=== PATIENT | male | born 1960 | race Caucasian/White ===

== ENCOUNTER → 2016-11-15 | Outpatient (CLI) | payer OTHER ==
--- NOTE | 2016-11-15 19:16 | CT ---
EXAMINATION TYPE: CT abdomen pelvis wo con DATE OF EXAM: 11/15/2016 COMPARISON: NONE HISTORY: Pelvic pain and hematuria. CT DLP: 2400.40 mGycm Automated exposure control for dose reduction was used. TECHNIQUE: Helical acquisition of images was performed from the lung bases through the pelvis. FINDINGS: The lung bases are clear of consolidation. There is no pleural effusion. Heart size is normal. Liver spleen pancreas gallbladder appear normal. Bile ducts are nondilated. There is no adrenal mass. Kidneys have normal size and contour. There is no hydronephrosis. There is no retroperitoneal adenop athy. There is no ascites. I see no intestinal wall thickening. There are no dilated loops. Bladder d istends smoothly. There is no sign of a pelvic mass. Appendix appears normal. Terminal ileum appears normal. There is no sign of a pelvic mass. I see no bony destructive process. There is degenerative d isc space narrowing at L5-S1 with endplate spur formation. IMPRESSION: NO EVIDENCE OF RENAL STONE OR OBSTRUCTION. I DO NOT SEE A CAUSE FOR HEMATURIA. NO SIGN OF ACUTE ABDOM EN AND PELVIS.
== END | disposition home or self-care (01) ==
LOC: RADCTMAIN 18:34
PROVIDERS: ATTEND Internal Medicine
DX: R31.9 Hematuria, unspecified (principal); Z88.8 Allergy status to other drugs, medicaments and biological substances
CPT/HCPCS: 74176

== ENCOUNTER 2017-09-01 11:24 | Emergency (ER) | payer OTHER ==
[2017-09-01 12:15] VITALS: BP 207/102; PULSE 80; RESP 20; TEMP 98
--- NOTE | 2017-09-01 13:03 | ED ---
Psych HPI - General Chief Complaint: Psychiatric Symptoms Stated Complaint: Mental health Time Seen by Provider: 09/01/17 12:43 Source: patient, RN notes reviewed Mode of arrival: ambulatory Limitations: no limitations - History of Present Illness Initial Comments: 56-year-old male presents emergency Department chief complaint of depression, suicidal ideation. Patient states he has ongoing depression for several years states that he states was given medication currently not taking medications. Denies any self-harm denies any illicit drug use no alcohol abuse. Patient denies any homicidal ideation. Patient denies any physical complaints. - Related Data Home Medications Medication Instructions Recorded Confirmed Citalopram Hydrobromide [CeleXA] 30 mg PO DAILY 09/01/17 09/01/17 Fenofibrate 160 mg PO DAILY 09/01/17 09/01/17 Ibuprofen [Advil] 200 - 400 mg PO Q6H PRN 09/01/17 09/01/17 Lisinopril [Zestril] 2.5 mg PO DAILY 09/01/17 09/01/17 Meclizine [Antivert] 12.5 mg PO BID PRN 09/01/17 09/01/17 Allergies Allergy/AdvReac Type Severity Reaction Status Date / Time aspirin Allergy Anaphylaxis Verified 09/01/17 13:06 cefaclor [From Ceclor] Allergy Rash/Hives Verified 09/01/17 13:06 sumatriptan [From Imitrex] Allergy Dyspnea Verified 09/01/17 13:06 sumatriptan succinate Allergy Dyspnea Verified 09/01/17 13:06 [From Imitrex] Review of Systems ROS Statement: Those systems with pertinent positive or pertinent negative responses have been documented in the HPI. ROS Other: All systems not noted in ROS Statement are negative. Past Medical History Past Medical History: Diabetes Mellitus Additional Past Medical History / Comment(s): STATES BEING TREATED FOR DENTAL CARIES, IS ON ANTIBIOTIC, AWAITING MORE ORAL SX History of Any Multi-Drug Resistant Organisms: None Reported Additional Past Surgical History / Comment(s): TESTICULAR TORSION LEFT SIDE Past Anesthesia/Blood Transfusion Reactions: No Reported Reaction Additional Past Anesthesia/Blood Transfusion Reaction / Comment(s): "never had any blood transfusions" Past Psychological History: Depression Smoking Status: Never smoker Past Alcohol Use History: None Reported Past Drug Use History: None Reported - Past Family History Father Family Medical History: Cancer, Renal Disease Additional Family Medical History / Comment(s): mrsa Mother Family Medical History: Coronary Artery Disease (CAD), Hypertension, Myocardial Infarction ([place]), Osteoarthritis (OA) Additional Family Medical History / Comment(s): cardiac stents General Exam Limitations: no limitations General appearance: alert, in no apparent distress Head exam: Present: atraumatic, normocephalic, normal inspection Eye exam: Present: normal appearance, PERRL, EOMI. Absent: scleral icterus, conjunctival injection, periorbital swelling ENT exam: Present: normal exam, normal oropharynx, mucous membranes moist Neck exam: Present: normal inspection, full ROM. Absent: tenderness, meningismus, lymphadenopathy Respiratory exam: Present: normal lung sounds bilaterally. Absent: respiratory distress, wheezes, rales, rhonchi, stridor Cardiovascular Exam: Present: regular rate, normal rhythm, normal heart sounds. Absent: systolic murmur, diastolic murmur, rubs, gallop, clicks GI/Abdominal exam: Present: soft, normal bowel sounds. Absent: distended, tenderness, guarding, rebound, rigid Back exam: Absent: CVA tenderness (R), CVA tenderness (L) Skin exam: Present: warm, dry, intact, normal color. Absent: rash Course Vital Signs 09/01/17 12:12 Temperature 98.0 F Pulse Rate 80 Respiratory 20 Rate Blood Pressure 207/102 O2 Sat by Pulse 98 Oximetry Medical Decision Making - Medical Decision Making 56-year-old male presents from for depression. Patient had psychiatric evaluation with [facility] and [facility]. They do not feel that he has a risk he is not suicidal with them during the exam. Patient had chest for safety and they recommend patient to be discharged. - Lab Data Lab Results 09/01/17 09/01/17 Range/Units 14:34 14:51 POC Glucose (mg/dL) 158 H (75-99) mg/dL POC Glu Polymerization Oven Operator ID Zoya Nielsen Urine Opiates Screen Not Detected (NotDetected) Ur Oxycodone Screen Not Detected (NotDetected) Urine Methadone Screen Not Detected (NotDetected) Ur Propoxyphene Screen Not Detected (NotDetected) Ur Barbiturates Screen Not Detected (NotDetected) U Tricyclic Antidepress Not Detected (NotDetected) Ur Phencyclidine Scrn Not Detected (NotDetected) Ur Amphetamines Screen Not Detected (NotDetected) U Methamphetamines Scrn Not Detected (NotDetected) U Benzodiazepines Scrn Not Detected (NotDetected) Urine Cocaine Screen Not Detected (NotDetected) U Marijuana (THC) Screen Not Detected (NotDetected) Disposition Clinical Impression: Depression Disposition: HOME SELF-CARE Condition: Stable Instructions: Depression (ED) Additional Instructions: Please return to the Emergency Department if symptoms worsen or any other concerns. Referrals: Parul Solis MD [Primary Care Provider] - 1-2 days Time of Disposition: 15:01
[2017-09-01] MEDS ORDERED: LISINOPRIL 20 MG TAB PO STA (13:05)
[2017-09-01 14:54] LABS: Amphetamine Screen,Urine Not Detected (NotDetected); Barbiturate Screen,Urine Not Detected (NotDetected); Benzodiazepines Screen,Urine Not Detected (NotDetected); Cocaine Screen,Urine Not Detected (NotDetected); Methadone Screen, Urine Not Detected (NotDetected); Opiate Screen,Urine Not Detected (NotDetected); Oxycodone Screen, Urine Not Detected (NotDetected); Phencyclidine Screen,Urine Not Detected (NotDetected); Tricyclic Antidepressant,Urine Not Detected (NotDetected); Urn Cannabinoid Scrn Not Detected (NotDetected)
[2017-09-01 14:54] LABS: Glucose,Whole Blood 158 mg/dL (75-99)
== END 2017-09-01 15:34 | disposition home or self-care (01) ==
LOC: EC 11:24
DX: F32.9 Major depressive disorder, single episode, unspecified (principal); R45.851 Suicidal ideations; Z79.899 Other long term (current) drug therapy; Z88.8 Allergy status to other drugs, medicaments and biological substances; Z88.1 Allergy status to other antibiotic agents; Z88.6 Allergy status to analgesic agent
CPT/HCPCS: 36415; 80306; 82075; 99284

== ENCOUNTER 2020-04-25 09:57 | Inpatient (IN) | payer OTHER ==
--- NOTE | 2020-04-25 10:27 | ED ---
General Adult HPI - General Chief complaint: Shortness of Breath Stated complaint: SOB Time Seen by Provider: 04/25/20 10:14 Source: EMS Mode of arrival: EMS Limitations: no limitations - History of Present Illness Initial comments: 59-year-old male with a hypertension, hyperlipidemia, borderline diabetic presenting to the emergency department with chief complaint shortness of breath. Patient states he has been having symptoms for about 2 weeks. Patient states the sister initially had developed a cough and the sickness was passed and. Patient reports now he has some loss of taste and smell. He does report a nonproductive cough. He does report shortness of breath with wheezing, particularly in the morning. He also reports midsternal chest pain without any radiation. She does report history of asthma but does not use any nebulizers or inhalers. States he does report nausea and multiple episodes of nonbilious nonbloody vomiting. Patient states he has not been been able to keep any food down. States he is feeling dry. he does report fevers and chills. He does report history of tremors that is not treated. - Related Data Home Medications Medication Instructions Recorded Confirmed Citalopram Hydrobromide [CeleXA] 30 mg PO DAILY 09/01/17 09/01/17 Fenofibrate 160 mg PO DAILY 09/01/17 09/01/17 Ibuprofen [Advil] 200 - 400 mg PO Q6H PRN 09/01/17 09/01/17 Meclizine [Antivert] 12.5 mg PO BID PRN 09/01/17 09/01/17 lisinopriL [Zestril] 2.5 mg PO DAILY 09/01/17 09/01/17 Allergies Allergy/AdvReac Type Severity Reaction Status Date / Time aspirin Allergy Anaphylaxis Verified 09/01/17 13:06 cefaclor [From Ceclor] Allergy Rash/Hives Verified 09/01/17 13:06 sumatriptan [From Imitrex] Allergy Dyspnea Verified 09/01/17 13:06 sumatriptan succinate Allergy Dyspnea Verified 09/01/17 13:06 [From Imitrex] Review of Systems ROS Statement: Those systems with pertinent positive or pertinent negative responses have been documented in the HPI. ROS Other: All systems not noted in ROS Statement are negative. Past Medical History Past Medical History: Diabetes Mellitus Additional Past Medical History / Comment(s): STATES BEING TREATED FOR DENTAL CARIES, IS ON ANTIBIOTIC, AWAITING MORE ORAL SX History of Any Multi-Drug Resistant Organisms: None Reported Additional Past Surgical History / Comment(s): TESTICULAR TORSION LEFT SIDE Past Anesthesia/Blood Transfusion Reactions: No Reported Reaction Additional Past Anesthesia/Blood Transfusion Reaction / Comment(s): "never had any blood transfusions" Past Psychological History: Depression Smoking Status: Never smoker Past Alcohol Use History: None Reported Past Drug Use History: None Reported - Past Family History Father Family Medical History: Cancer, Renal Disease Additional Family Medical History / Comment(s): mrsa Mother Family Medical History: Coronary Artery Disease (CAD), Hypertension, Myocardial Infarction ([place]), Osteoarthritis (OA) Additional Family Medical History / Comment(s): cardiac stents General Exam Limitations: no limitations General appearance: alert, in no apparent distress, obese Head exam: Present: atraumatic, normocephalic, normal inspection Eye exam: Present: normal appearance, PERRL, EOMI Pupils: Present: normal accommodation ENT exam: Present: normal exam, normal oropharynx, mucous membranes dry, TM's normal bilaterally, normal external ear exam Neck exam: Present: normal inspection, full ROM. Absent: tenderness, meningismus Respiratory exam: Present: normal lung sounds bilaterally. Absent: respiratory distress, wheezes, rales Cardiovascular Exam: Present: normal rhythm, tachycardia, normal heart sounds. Absent: bradycardia GI/Abdominal exam: Present: soft. Absent: distended, tenderness, guarding Extremities exam: Present: normal inspection, full ROM, normal capillary refill. Absent: tenderness, pedal edema, joint swelling, calf tenderness Back exam: Present: normal inspection, full ROM. Absent: tenderness, CVA tenderness (R), CVA tenderness (L) Neurological exam: Present: alert, oriented X3, normal gait Psychiatric exam: Present: normal affect, normal mood Skin exam: Present: warm, dry, intact, normal color Course Vital Signs 04/25/20 04/25/20 04/25/20 10:11 10:14 11:37 Temperature 98.4 F Pulse Rate 108 H 100 Respiratory 24 24 24 Rate Blood Pressure 136/84 117/81 O2 Sat by Pulse 95 97 Oximetry 04/25/20 04/25/20 12:25 12:29 Temperature Pulse Rate Respiratory Rate Blood Pressure O2 Sat by Pulse 98 94 L Oximetry EKG Findings - EKG Comments: EKG Findings:: Sinus tach with occasional PVC. Ventricular rate 114, KS 138, QRS 76, QTC 454. Medical Decision Making - Medical Decision Making 59-year-old male Debbie diabetic, hypertension, hyperlipidemia presenting to the emergency department with chief complaint of shortness of breath and chest pain. Physical examination patient does have dry mucous membranes. He's been complaining of nausea vomiting and diarrhea. Patient has a positive d-dimer. CT chest angiogram reveals Covid pneumonia. Patient is 91% on room air at rest. Patient is 94 on 2 L of oxygen at rest. CBC reveals hyperglycemia at 325. Patient will be started on insulin. He also has elevated CRP, LDH and ferritin. Patient will be admitted further medical management. Case discussed with Dr. Hernandez Admitting physician is - Lab Data Result diagrams: 04/25/20 10:25 04/25/20 10:25 Lab Results 04/25/20 04/25/20 04/25/20 Range/Units 10:25 10:25 10:25 WBC 5.5 (3.8-10.6) k/uL RBC 5.31 (4.30-5.90) m/uL Hgb 15.4 (13.0-17.5) gm/dL Hct 44.4 (39.0-53.0) % MCV 83.5 (80.0-100.0) fL MCH 28.9 (25.0-35.0) pg MCHC 34.6 (31.0-37.0) g/dL RDW 13.3 (11.5-15.5) % Plt Count 148 L (150-450) k/uL MPV 8.2 Neutrophils % 58 % Lymphocytes % 30 % Monocytes % 7 % Eosinophils % 0 % Basophils % 2 % Neutrophils # 3.2 (1.3-7.7) k/uL Lymphocytes # 1.7 (1.0-4.8) k/uL Monocytes # 0.4 (0-1.0) k/uL Eosinophils # 0.0 (0-0.7) k/uL Basophils # 0.1 (0-0.2) k/uL Hyperchromasia Slight PT 10.2 (9.0-12.0) sec INR 1.0 (<1.2) APTT 23.4 (22.0-30.0) sec D-Dimer 0.80 H (<0.60) mg/L FEU Sodium 134 L (137-145) mmol/L Potassium 4.2 (3.5-5.1) mmol/L Chloride 99 (98-107) mmol/L Carbon Dioxide 23 (22-30) mmol/L Anion Gap 12 mmol/L BUN 14 (9-20) mg/dL Creatinine 0.57 L (0.66-1.25) mg/dL Est GFR (CKD-EPI)AfAm >90 (>60 ml/min/1.73 sqM) Est GFR (CKD-EPI)NonAf >90 (>60 ml/min/1.73 sqM) Glucose 325 H (74-99) mg/dL Plasma Lactic Acid Roosevelt (0.7-2.0) mmol/L Calcium 8.3 L (8.4-10.2) mg/dL Magnesium 1.5 L (1.6-2.3) mg/dL Total Bilirubin 1.0 (0.2-1.3) mg/dL AST 106 H (17-59) U/L ALT 59 H (4-49) U/L Alkaline Phosphatase 67 (38-126) U/L Lactate Dehydrogenase 1289 H (313-618) U/L C-Reactive Protein 35.6 H (<10.0) mg/L Total Protein 7.9 (6.3-8.2) g/dL Albumin 4.0 (3.5-5.0) g/dL Coronavirus (PCR) (Not Detectd) 04/25/20 04/25/20 Range/Units 10:25 10:25 WBC (3.8-10.6) k/uL RBC (4.30-5.90) m/uL Hgb (13.0-17.5) gm/dL Hct (39.0-53.0) % MCV (80.0-100.0) fL MCH (25.0-35.0) pg MCHC (31.0-37.0) g/dL RDW (11.5-15.5) % Plt Count (150-450) k/uL MPV Neutrophils % % Lymphocytes % % Monocytes % % Eosinophils % % Basophils % % Neutrophils # (1.3-7.7) k/uL Lymphocytes # (1.0-4.8) k/uL Monocytes # (0-1.0) k/uL Eosinophils # (0-0.7) k/uL Basophils # (0-0.2) k/uL Hyperchromasia PT (9.0-12.0) sec INR (<1.2) APTT (22.0-30.0) sec D-Dimer (<0.60) mg/L FEU Sodium (137-145) mmol/L Potassium (3.5-5.1) mmol/L Chloride (98-107) mmol/L Carbon Dioxide (22-30) mmol/L Anion Gap mmol/L BUN (9-20) mg/dL Creatinine (0.66-1.25) mg/dL Est GFR (CKD-EPI)AfAm (>60 ml/min/1.73 sqM) Est GFR (CKD-EPI)NonAf (>60 ml/min/1.73 sqM) Glucose (74-99) mg/dL Plasma Lactic Acid Roosevelt 2.0 (0.7-2.0) mmol/L Calcium (8.4-10.2) mg/dL Magnesium (1.6-2.3) mg/dL Total Bilirubin (0.2-1.3) mg/dL AST (17-59) U/L ALT (4-49) U/L Alkaline Phosphatase (38-126) U/L Lactate Dehydrogenase (313-618) U/L C-Reactive Protein (<10.0) mg/L Total Protein (6.3-8.2) g/dL Albumin (3.5-5.0) g/dL Coronavirus (PCR) Detected A (Not Detectd) Disposition Clinical Impression: Hypomagnesemia, Shortness of breath, Pneumonia due to COVID-19 virus Disposition: ADMITTED IP TO THIS HOSP Condition: Fair Is patient prescribed a controlled substance at d/c from ED?: No Referrals: None,Stated [REFERRING] - 1-2 days Time of Disposition: 14:00
[2020-04-25 11:09] LABS: Partial Thromboplastin Time 23.4 sec (22.0-30.0); Prothrombin Time 10.2 sec (9.0-12.0)
[2020-04-25 11:10] LABS: ALT 59 U/L (4-49); African American GFR (CKD) >90 (>60 ml/min/1.73 sqM); Anion Gap 12 mmol/L; Blood Urea Nitrogen 14 mg/dL (9-20); C Reactive Protein 35.6 mg/L (<10.0); Calcium 8.3 mg/dL (8.4-10.2); Carbon Dioxide 23 mmol/L (22-30); Chloride 99 mmol/L (98-107); Glucose 325 mg/dL (74-99); LDH 1289 U/L (313-618); Non-African American GFR(CKD) >90 (>60 ml/min/1.73 sqM); Sodium 134 mmol/L (137-145); Total Protein 7.9 g/dL (6.3-8.2)
--- NOTE | 2020-04-25 11:14 | XR ---
EXAMINATION TYPE: XR chest 1V portable DATE OF EXAM: 04/25/2020 COMPARISON: Prior chest x-ray 01/01/2016 HISTORY: Chest pain and shortness of breath, Covid 19 pneumonia TECHNIQUE: Single frontal view of the chest is obtained. FINDINGS: Patchy basilar density is noted, question some patchy peripheral densities within the lung s. There is no pneumothorax or pleural effusion. Cardiac mediastinal silhouette is stable. IMPRESSION: Correlate for pneumonia, atelectasis, follow-up as indicated
[2020-04-25] MEDS ORDERED: HYDROcodone/APAP 5-325MG 1 EACH TAB PO STA (11:15)
[2020-04-25 11:27] LABS: Basophils # (A) 0.1 k/uL (0-0.2); Basophils % (A) 2 %; Eosinophils % (A) 0 %; HCT 44.4 % (39.0-53.0); HGB 15.4 gm/dL (13.0-17.5); Hyperchromasia Slight; Lymphocytes # (A) 1.7 k/uL (1.0-4.8); Lymphocytes % (A) 30 %; MCH 28.9 pg (25.0-35.0); MCHC 34.6 g/dL (31.0-37.0); MCV 83.5 fL (80.0-100.0); Mean Platelet Volume 8.2; Monocytes # (A) 0.4 k/uL (0-1.0); Monocytes % (A) 7 %; Neutrophils # (A) 3.2 k/uL (1.3-7.7); Neutrophils % (A) 58 %; Platelet Count 148 k/uL (150-450); RBC 5.31 m/uL (4.30-5.90); RDW 13.3 % (11.5-15.5); WBC 5.5 k/uL (3.8-10.6)
[2020-04-25 11:30] LABS: AST 106 U/L (17-59); Alkaline Phosphatase 67 U/L (38-126); Magnesium 1.5 mg/dL (1.6-2.3); Potassium 4.2 mmol/L (3.5-5.1)
[2020-04-25 11:38] LABS: D-Dimer 0.8 mg/L FEU (<0.60)
--- NOTE | 2020-04-25 12:45 | CT ---
EXAMINATION TYPE: CT chest angio for PE DATE OF EXAM: 04/25/2020 COMPARISON: Chest x-ray same date, CT 01/01/2016 HISTORY: Shortness of breath CT DLP: 753.9 mGycm Automated exposure control for dose reduction was used. CONTRAST: CT Chest for pulmonary embolism performed with with IV Contrast, patient injected with 100 mL of Isov ue 370. FINDINGS: LUNGS: The lungs are remarkable for patchy peripheral airspace disease bilaterally there is no concer maya parenchymal mass or nodule identified. There is no pleural effusion or pneumothorax seen. The tracheobronchial tree is patent. MEDIASTINUM: There is satisfactory enhancement of the pulmonary artery and its branches, there is no CT evidence for pulmonary embolism. There are no greater than 1 cm hilar or mediastinal lymph nodes. No pericardial effusion is seen. AORTA: No additional significant abnormality is seen. OTHER: Liver shows low attenuation likely due to hepatic steatosis.. IMPRESSION: Findings consistent with patient's history of Covid pneumonia. No evident pulmonary embolus.
[2020-04-25] MEDS ORDERED: LORazepam 2 MG/ML INJ IV PRN (13:53)
[2020-04-25] MEDS ORDERED: ACETAMINOPHEN TAB 325 MG TAB PO PRN (13:53)
[2020-04-25] MEDS ORDERED: HYDROcodone/APAP 5-325MG 1 EACH TAB PO PRN (13:53)
[2020-04-25] MEDS ORDERED: NALOXONE 0.4 MG/ML 1 ML VIAL IV PRN (13:53)
[2020-04-25] MEDS ORDERED: ONDANSETRON 4 MG/2 ML VIAL IVP PRN (13:53)
[2020-04-25] MEDS ORDERED: MAGNESIUM SULFATE-D5W PMX 1 GM in DEXTROSE/WATER 1 100ML.BAG IVPB ONE (13:59)
[2020-04-25] MEDS: SODIUM CHLORIDE 0.9% 1,000 ML IV SCH (14:09)
[2020-04-25 18:32] LABS: Ferritin 1399.9 ng/mL (22.0-322.0)
[2020-04-26] MEDS: SODIUM CHLORIDE 0.9% 1,000 ML IV SCH ×2 (02:30→17:05)
[2020-04-26 09:48] LABS: Basophils # (A) 0.1 k/uL (0-0.2); Basophils % (A) 1 %; Eosinophils % (A) 1 %; HCT 40.6 % (39.0-53.0); HGB 13.7 gm/dL (13.0-17.5); Lymphocytes # (A) 1.9 k/uL (1.0-4.8); Lymphocytes % (A) 36 %; MCH 28.9 pg (25.0-35.0); MCHC 33.8 g/dL (31.0-37.0); MCV 85.7 fL (80.0-100.0); Mean Platelet Volume 7.4; Monocytes # (A) 0.3 k/uL (0-1.0); Monocytes % (A) 6 %; Neutrophils # (A) 2.7 k/uL (1.3-7.7); Neutrophils % (A) 52 %; Platelet Count 153 k/uL (150-450); Poikilocytosis Slight; RBC 4.74 m/uL (4.30-5.90); RDW 13.6 % (11.5-15.5); WBC 5.1 k/uL (3.8-10.6)
[2020-04-26 09:59] LABS: African American GFR (CKD) >90 (>60 ml/min/1.73 sqM); Anion Gap 8 mmol/L; Blood Urea Nitrogen 12 mg/dL (9-20); C Reactive Protein 36.8 mg/L (<10.0); Calcium 7.7 mg/dL (8.4-10.2); Carbon Dioxide 27 mmol/L (22-30); Chloride 100 mmol/L (98-107); Glucose 308 mg/dL (74-99); LDH 948 U/L (313-618); Non-African American GFR(CKD) >90 (>60 ml/min/1.73 sqM); Potassium 3.7 mmol/L (3.5-5.1); Sodium 135 mmol/L (137-145)
[2020-04-26] MEDS ORDERED: DEXAMETHASONE SOD PHOSPHATE 10 MG/ML 1 ML VIAL IV STA (11:32)
[2020-04-26] MEDS: CHOLECALCIFEROL 1,000 UNIT TAB PO SCH (12:30)
[2020-04-26] MEDS: ZINC SULFATE 220 MG CAP PO SCH (12:30)
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
[2020-04-26] MEDS: HEPARIN SODIUM,PORCINE 5,000 UNIT/ML 1 ML VIAL SQ SCH (18:52)
[2020-04-26] MEDS: ASCORBIC ACID 500 MG TAB PO SCH (20:25)
[2020-04-26 21:01] LABS: Glucose,Whole Blood 476 mg/dL (75-99)
[2020-04-26 21:01] LABS: Glucose,Whole Blood 517 mg/dL (75-99)
--- NOTE | 2020-04-27 01:10 | CONS ---
CONSULTATION PULMONARY/CRITICAL CARE CONSULTATION: DATE OF CONSULTATION: April 26, 2020 This is a 59-year-old gentleman who presents to the emergency room on 04/25 at 0957. Actually came into the emergency room with his sister who also was not feeling well. He is a 59-year-old male with a history of hypertension, hyperlipidemia, diabetes, he came to the emergency room for shortness of breath which has been going on for a couple of weeks. Initially he seemed to get sick from his sister who has developed a cough. He thinks that the illness was started by his sister's boyfriend. Nonetheless, he comes in with shortness of breath, he does have a cough. He has some loss of taste and smell. He admits to a nonproductive cough. He has also had some fever and chills. He also has some wheezing as well. He also describes some midsternal chest pain without any radiation. He does apparently have a history of mild asthma, that he does not use any medications for. He does have some nausea with some mild emesis. Denies any diarrhea. Denies any abdominal pain. No genitourinary complaints. Anyway, the patient was on room air when I saw him. He was getting saline at 75 mL an hour and the patient tested positive for COVID-19 on April 25. HOME MEDICATIONS: Home medications are reviewed. The patient is on citalopram, fenofibrate, Advil, meclizine, and lisinopril. ALLERGIES: ASPIRIN, CECLOR, and IMITREX. MEDICAL HISTORY: Medical history includes diet-controlled diabetes, dental caries/periodontal disease, and hypertension. He also has a history of hyperlipidemia. SURGICAL HISTORY: Surgical history includes surgical repair for testicular torsion. SOCIAL HISTORY: Negative for tobacco, alcohol or illicit drug use. FAMILY HISTORY: Positive for father with kidney disease and cancer and mother with a history of CAD, hypertension, myocardial infarction. REVIEW OF SYSTEMS: CONSTITUTIONAL: Fever, chills, muscle aches, joint aches. NEUROLOGIC: Negative. HEENT: Negative. CARDIOVASCULAR: Chest pain. PULMONARY: Shortness of breath, cough, wheezing. GI: Nausea, vomiting. : Negative. RHEUMATOLOGIC: Negative. IMMUNOLOGIC: Negative. ENDOCRINOLOGIC: Negative. DERMATOLOGIC: Negative. PHYSICAL EXAMINATION: VITAL SIGNS: Current vital signs: Temperature 97.3, heart rate 89, respiratory rate 17, blood pressure 116/75, mean 88 and room air saturation 93% to 94%. GENERAL: Appears in no acute distress. Certainly no respiratory distress. No audible wheezing, use of accessory muscles or conversational dyspnea. HEENT: Examination is grossly unremarkable. NECK: Supple. Full range of motion. No adenopathy. Neck veins are flat. CARDIOVASCULAR: Examination reveals regular rhythm and rate. Heart rate mid 80s. S1, S2 normal. LUNGS: Reveal mostly clear breath sounds. A few scattered rhonchi. No wheezes or crackles. ABDOMEN: Soft, but obese. EXTREMITIES: Are intact. No edema. SKIN: Without rash. NEUROLOGIC: Examination is brief but nonfocal. LABS: Labs are reviewed. White count 5.1, hemoglobin 13.7, hematocrit 40.6, platelet count normal. PT/INR normal. PTT 23.4. D-dimer 0.8. Sodium 135, potassium 3.7, chloride 100, CO2 of 27. Anion gap is 8. BUN and creatinine were 12 and 0.59. Glucose 308. Calcium 7.7. Ferritin 1399. AST 106, ALT 59. LDH 948. C-reactive protein 36.8 and procalcitonin 0.11. COVID test was positive on April 25. Microbiology is negative. Chest x-ray shows patchy peripheral densities noted. They are bilateral. CT scan of the chest reveals patchy peripheral airspace disease bilaterally. No evidence of pulmonary embolism. MEDICATIONS: Medications are reviewed. The patient is on Tylenol, vitamin C, vitamin D3, Decadron, Imbler, Ativan, magnesium replacement, Narcan, Zofran, saline at 75, zinc. ASSESSMENT: 1. Mild COVID-19 pneumonia/pneumonitis, without hypoxemia. 2. History of diabetes mellitus. 3. Dental caries/periodontal disease. 4. History of testicular torsion. 5. History of hypertension. 6. History of hyperlipidemia. 7. History of depression. 8. Lifelong nonsmoker. PLAN: Currently, the patient is on appropriate medications. We do not feel like he would benefit from remdesivir at this point. His other medications are appropriate including vitamin C, vitamin D, zinc, and Decadron. We will continue to follow. The patient should have periodic chest x-rays and proinflammatory markers. MMODL / IJN: [id number] /
[2020-04-27] MEDS: HEPARIN SODIUM,PORCINE 5,000 UNIT/ML 1 ML VIAL SQ SCH ×3 (01:29→17:38)
[2020-04-27] MEDS: SODIUM CHLORIDE 0.9% 1,000 ML IV SCH ×2 (05:04→17:40)
[2020-04-27 06:07] LABS: Glucose,Whole Blood 348 mg/dL (75-99)
[2020-04-27 06:55] LABS: African American GFR (CKD) >90 (>60 ml/min/1.73 sqM); Anion Gap 9 mmol/L; Blood Urea Nitrogen 12 mg/dL (9-20); Calcium 8.7 mg/dL (8.4-10.2); Carbon Dioxide 23 mmol/L (22-30); Chloride 107 mmol/L (98-107); Glucose 368 mg/dL (74-99); Non-African American GFR(CKD) >90 (>60 ml/min/1.73 sqM); Sodium 139 mmol/L (137-145)
[2020-04-27 06:57] LABS: Glucose,Whole Blood 328 mg/dL (75-99)
[2020-04-27 07:23] LABS: Potassium 4.9 mmol/L (3.5-5.1)
[2020-04-27 08:42] LABS: HCT 41.3 % (39.0-53.0); HGB 13.7 gm/dL (13.0-17.5); MCH 28.7 pg (25.0-35.0); MCHC 33.1 g/dL (31.0-37.0); MCV 86.7 fL (80.0-100.0); Mean Platelet Volume 7.8; Platelet Count 198 k/uL (150-450); Poikilocytosis Slight; RBC 4.76 m/uL (4.30-5.90); RDW 13.9 % (11.5-15.5); WBC 4.4 k/uL (3.8-10.6)
[2020-04-27] MEDS: ASCORBIC ACID 500 MG TAB PO SCH ×2 (08:52→21:08)
[2020-04-27] MEDS: ZINC SULFATE 220 MG CAP PO SCH (08:52)
[2020-04-27] MEDS: CHOLECALCIFEROL 1,000 UNIT TAB PO SCH (08:52)
[2020-04-27] MEDS: INSULIN ASPART (NovoLOG) 100 UNIT/ML VIAL SQ SCH ×4 (08:54→21:08)
[2020-04-27] MEDS: DEXAMETHASONE SOD PHOSPHATE 10 MG/ML 1 ML VIAL IV SCH (08:55)
[2020-04-27 09:50] LABS: Lymphocytes # (M) 1.28 k/uL (1.0-4.8); Monocytes # (M) 0.35 k/uL (0-1.0); Neutrophils # (M) 2.77 k/uL (1.3-7.7); Neutrophils % (M) 63 %; Nucleated Red Blood Cells 0 /100 WBC (0-0); Total Cells Counted 100
[2020-04-27 11:31] LABS: Glucose,Whole Blood 420 mg/dL (75-99)
[2020-04-27] MEDS: INSULIN DETEMIR (LEVEMIR) 100 UNIT/ML SYR SQ SCH (13:27)
[2020-04-27 16:20] LABS: Glucose,Whole Blood 431 mg/dL (75-99)
[2020-04-27] MEDS ORDERED: INSULIN ASPART (NovoLOG) 100 UNIT/ML VIAL SQ ONE (17:30)
--- NOTE | 2020-04-27 17:46 | P.PN ---
Subjective Progress Note Date: 04/27/20 Principal diagnosis: Covid 19 related pneumonia Mild COVID 19 pneumonia/pneumonitis without hypoxemia On 04/27/2020 patient seen in follow-up on nodule medical surgical floor. He was admitted to the hospital on 04/25/2020 when she presented along with his sister who was also having symptoms of Covid 19 and was found to be positive for Covid 19 pneumonitis, he came in for evaluation of shortness of breath that has been going on for a couple of weeks. He believes he she was infected by his sister who has developed a cough and they were both exposed initially to his sister's boyfriend. Reports a loss of taste, cough. He remains on room air, with pulse ox of 93%, afebrile, hemodynamically stable, he is gentle IV hydration, 0.9 normal saline at a rate of 75 ML per hour, he is on IV Decadron, he was not a candidate for Remdesivir, because there was no evidence of hy poxemia, and his symptoms were mild, as well as the length of his symptoms. Objective - Vital Signs Vital signs: Vital Signs Temp 97.3 F L 04/27/20 15:00 Pulse 84 04/27/20 15:00 Resp 18 04/27/20 16:00 BP 134/87 04/27/20 15:00 Pulse Ox 93 L 04/27/20 15:00 Intake & Output 04/26/20 04/27/20 04/27/20 18:59 06:59 18:59 Intake Total 600 200 380 Balance 600 200 380 Intake: IV 600 Sodium Chloride 0.9% 1, 600 000 ml @ 75 mls/hr IV . [id number] Rx#:[id number] Oral 200 380 Other: Voiding Method Toilet Toilet # Voids 2 2 # Bowel Movements 1 - Exam GENERAL EXAM: Alert, very pleasant, 59-year-old white male, on room air comfortable in no apparent distress. HEAD: Normocephalic/atraumatic. EYES: Normal reaction of pupils, equal size. Conjunctiva pink, sclera white. NOSE: Clear with pink turbinates. THROAT: No erythema or exudates. NECK: No masses, no JVD, no thyroid enlargement, no adenopathy. CHEST: No chest wall deformity. Symmetrical expansion. LUNGS: Equal air entry with no crackles, wheeze, rhonchi or dullness. CVS: Regular rate and rhythm, normal S1 and S2, no gallops, no murmurs, no rubs ABDOMEN: Soft, nontender. No hepatosplenomegaly, normal bowel sounds, no guarding or rigidity. EXTREMITIES: No clubbing, no edema, no cyanosis, 2+ pulses and upper and lower extremities. MUSCULOSKELETAL: Muscle strength and tone normal. SPINE: No scoliosis or deformity SKIN: No rashes CENTRAL NERVOUS SYSTEM: Alert and oriented -3. No focal deficits, tone is normal in all 4 extremities. PSYCHIATRIC: Alert and oriented -3. Appropriate affect. Intact judgment and insight. - Labs CBC & Chem 7: 04/27/20 06:44 04/27/20 05:35 Labs: Abnormal Lab Results - Last 24 Hours (Table) 04/26/20 04/26/20 04/26/20 Range/Units 09:06 20:56 21:00 Creatinine (0.66-1.25) mg/dL Glucose (74-99) mg/dL POC Glucose (mg/dL) 517 H 476 H (75-99) mg/dL Procalcitonin 0.11 H (0.02-0.09) ng/mL 04/27/20 04/27/20 04/27/20 Range/Units 05:35 06:05 06:56 Creatinine 0.52 L (0.66-1.25) mg/dL Glucose 368 H (74-99) mg/dL POC Glucose (mg/dL) 348 H 328 H (75-99) mg/dL Procalcitonin (0.02-0.09) ng/mL 04/27/20 04/27/20 Range/Units 11:29 16:18 Creatinine (0.66-1.25) mg/dL Glucose (74-99) mg/dL POC Glucose (mg/dL) 420 H 431 H (75-99) mg/dL Procalcitonin (0.02-0.09) ng/mL Microbiology - Last 24 Hours (Table) 04/25/20 10:25 Blood Culture - Preliminary Blood No Growth after 48 hours Assessment and Plan Plan: Assessment: #1. Mild COVID 19 the pneumonia/pneumonitis, without evidence of hypoxemia #2. History of diabetes mellitus #3. Dental carious/periodontal disease #4. History of hypertension #5. History of hyperlipidemia #6. History of depression #7. Lifelong nonsmoker #8. Increased inflammatory markers related to acute COVID 19 pneumonia, nilay nue current medical treatment, Decadron, will replace heparin for Lovenox, continue gentle IV hydration, patient's symptoms were mild, and she was not on any oxygen, and do to that and also due to length of symptoms she was not a candidate for REMdesivir. We'll continue to follow his inflammatory markers, continue monitoring his febrile and oxygenation pattern I performed a history & physical examination of the patient and discussed their management with my nurse practitioner, Amber Levine. I reviewed the nurse practitioner's note and agree with the documented findings and plan of care. Lung sounds are positive for diminished breath sounds. The findings and the impression was discussed with the patient. I attest to the documentation by the nurse practitioner. Time with Patient: Less than 30
[2020-04-27 20:46] LABS: Glucose,Whole Blood 440 mg/dL (75-99)
[2020-04-28 07:03] LABS: Glucose,Whole Blood 242 mg/dL (75-99)
[2020-04-28] MEDS: ENOXAPARIN 40 MG/0.4 ML SYRINGE SQ SCH (07:32)
[2020-04-28] MEDS: ASCORBIC ACID 500 MG TAB PO SCH ×2 (07:32→20:51)
[2020-04-28] MEDS: ZINC SULFATE 220 MG CAP PO SCH (07:32)
[2020-04-28] MEDS: CHOLECALCIFEROL 1,000 UNIT TAB PO SCH (07:32)
[2020-04-28] MEDS: INSULIN DETEMIR (LEVEMIR) 100 UNIT/ML SYR SQ SCH (07:33)
[2020-04-28] MEDS: INSULIN ASPART (NovoLOG) 100 UNIT/ML VIAL SQ SCH ×7 (07:33→21:00)
[2020-04-28] MEDS: DEXAMETHASONE SOD PHOSPHATE 10 MG/ML 1 ML VIAL IV SCH (07:41)
[2020-04-28] MEDS: SODIUM CHLORIDE 0.9% 1,000 ML IV SCH ×2 (07:42→20:53)
--- NOTE | 2020-04-28 08:36 | XR ---
EXAMINATION TYPE: XR chest 1V portable DATE OF EXAM: 04/28/2020 COMPARISON: 04/25/2020 HISTORY: Cough TECHNIQUE: Single frontal view of the chest is obtained. FINDINGS: Right-sided areas of consolidation are noted. Heart size normal. No pneumothorax or pleura l effusion. Pleural-based density in the right is stable. Minimal subsegmental changes of the left no pernell. No overt failure or pneumothorax. IMPRESSION: Peripheral infiltrates are stable
[2020-04-28 11:54] LABS: Glucose,Whole Blood 328 mg/dL (75-99)
--- NOTE | 2020-04-28 15:40 | P.PN ---
Subjective Progress Note Date: 04/28/20 Principal diagnosis: Covid 19 related pneumonia Mild COVID 19 pneumonia/pneumonitis without hypoxemia On 04/27/2020 patient seen in follow-up on nodule medical surgical floor. He was admitted to the hospital on 04/25/2020 when she presented along with his sister who was also having symptoms of Covid 19 and was found to be positive for Covid 19 pneumonitis, he came in for evaluation of shortness of breath that has been going on for a couple of weeks. He believes he she was infected by his sister who has developed a cough and they were both exposed initially to his sister's boyfriend. Reports a loss of taste, cough. He remains on room air, with pulse ox of 93%, afebrile, hemodynamically stable, he is gentle IV hydration, 0.9 normal saline at a rate of 75 ML per hour, he is on IV Decadron, he was not a candidate for Remdesivir, because there was no evidence of hy poxemia, and his symptoms were mild, as well as the length of his symptoms. On 04/28/2020 patient is seen in follow-up on medical surgical floor. He is awake and alert, in no acute distress, he is currently on room air, pulse ox is 92-96%, vital signs have been stable, his been afebrile. Denies any worsening dyspnea, his breathing comfortably right now, no chest pain, no palpitations, no nausea vomiting or diarrhea, he continues on IV Decadron, he is on prophylactic doses of Lovenox, vitamin C, vitamin D, zinc supplement, gentle IV hydration with 0.9 normal saline at a rate of 75 ML per hour. He is feeling better today, follow up inflammatory markers are pending for today. No acute events overnight. Objective - Vital Signs Vital signs: Vital Signs Temp 98.1 F 04/28/20 14:28 Pulse 83 04/28/20 14:28 Resp 19 04/28/20 14:28 BP 160/94 04/28/20 14:28 Pulse Ox 96 04/28/20 14:28 Intake & Output 04/27/20 04/28/20 04/28/20 18:59 06:59 18:59 Intake Total 380 Balance 380 Intake: Oral 380 Other: Voiding Method Toilet Toilet Toilet # Voids 2 1 3 - Exam GENERAL EXAM: Alert, very pleasant, 59-year-old white male, on room air co mfortable in no apparent distress. HEAD: Normocephalic/atraumatic. EYES: Normal reaction of pupils, equal size. Conjunctiva pink, sclera white. NOSE: Clear with pink turbinates. THROAT: No erythema or exudates. NECK: No masses, no JVD, no thyroid enlargement, no adenopathy. CHEST: No chest wall deformity. Symmetrical expansion. LUNGS: Equal air entry with no crackles, wheeze, rhonchi or dullness. CVS: Regular rate and rhythm, normal S1 and S2, no gallops, no murmurs, no rubs ABDOMEN: Soft, nontender. No hepatosplenomegaly, normal bowel sounds, no guarding or rigidity. EXTREMITIES: No clubbing, no edema, no cyanosis, 2+ pulses and upper and lower extremities. MUSCULOSKELETAL: Muscle strength and tone normal. SPINE: No scoliosis or deformity SKIN: No rashes CENTRAL NERVOUS SYSTEM: Alert and oriented -3. No focal deficits, tone is normal in all 4 extremities. PSYCHIATRIC: Alert and oriented -3. Appropriate affect. Intact judgment and insight. - Labs CBC & Chem 7: 04/27/20 06:44 04/27/20 05:35 Labs: Abnormal Lab Results - Last 24 Hours (Table) 04/27/20 04/27/20 04/28/20 Range/Units 16:18 20:43 07:02 POC Glucose (mg/dL) 431 H 440 H 242 H (75-99) mg/dL 04/28/20 Range/Units 11:53 POC Glucose (mg/dL) 328 H (75-99) mg/dL Microbiology - Last 24 Hours (Table) 04/25/20 10:25 Blood Culture - Preliminary Blood No Growth after 72 hours Assessment and Plan Plan: Assessment: #1. Mild COVID 19 the pneumonia/pneumonitis, without evidence of hypoxemia #2. History of diabetes mellitus #3. Dental carious/periodontal disease #4. History of hypertension #5. History of hyperlipidemia #6. History of depression #7. Lifelong nonsmoker #8. Increased inflammatory markers related to acute COVID 19 pneumonia, Plan: Continue current medical treatment, Decadron, will replace heparin for Lovenox, continue gentle IV hydration, patient's symptoms were mild, patient overall is improving, feeling better, he is breathing comfortably, he is on room air, vital signs have remained stable, no fever or chills. We'll consider discharge home in the next 24 hours if he remains stable. I performed a history & physical examination of the patient and discussed their management with my nurse practitioner, Amber Levine. I reviewed the nurse practitioner's note and agree with the documented findings and plan of care. Lung sounds are positive for diminished breath sounds. The findings and the impression was discussed with the patient. I attest to the documentation by the nurse practitioner. Time with Patient: Less than 30
[2020-04-28 16:35] LABS: Glucose,Whole Blood 411 mg/dL (75-99)
[2020-04-28 20:13] LABS: Glucose,Whole Blood 432 mg/dL (75-99)
[2020-04-28] MEDS ORDERED: INSULIN DETEMIR (LEVEMIR) 100 UNIT/ML SYR SQ SCH (22:30)
[2020-04-29 06:55] LABS: Glucose,Whole Blood 240 mg/dL (75-99)
[2020-04-29 07:45] VITALS: RESP 18
[2020-04-29] MEDS: DEXAMETHASONE SOD PHOSPHATE 10 MG/ML 1 ML VIAL IV SCH (08:39)
[2020-04-29] MEDS: CHOLECALCIFEROL 1,000 UNIT TAB PO SCH (08:39)
[2020-04-29] MEDS: INSULIN ASPART (NovoLOG) 100 UNIT/ML VIAL SQ SCH ×6 (08:40→16:56)
[2020-04-29] MEDS: ASCORBIC ACID 500 MG TAB PO SCH (08:42)
[2020-04-29] MEDS: ENOXAPARIN 40 MG/0.4 ML SYRINGE SQ SCH (08:42)
[2020-04-29] MEDS: ZINC SULFATE 220 MG CAP PO SCH (08:42)
[2020-04-29 11:48] LABS: Glucose,Whole Blood 327 mg/dL (75-99)
[2020-04-29] MEDS: SODIUM CHLORIDE 0.9% 1,000 ML IV SCH (11:57)
[2020-04-29 16:10] VITALS: BP 168/105; PULSE 81; TEMP 98.2
--- NOTE | 2020-04-29 16:40 | P.PN ---
Subjective Progress Note Date: 04/29/20 Principal diagnosis: Covid 19 related pneumonia Mild COVID 19 pneumonia/pneumonitis without hypoxemia On 04/27/2020 patient seen in follow-up on nodule medical surgical floor. He was admitted to the hospital on 04/25/2020 when she presented along with his sister who was also having symptoms of Covid 19 and was found to be positive for Covid 19 pneumonitis, he came in for evaluation of shortness of breath that has been going on for a couple of weeks. He believes he she was infected by his sister who has developed a cough and they were both exposed initially to his sister's boyfriend. Reports a loss of taste, cough. He remains on room air, with pulse ox of 93%, afebrile, hemodynamically stable, he is gentle IV hydration, 0.9 normal saline at a rate of 75 ML per hour, he is on IV Decadron, he was not a candidate for Remdesivir, because there was no evidence of hy poxemia, and his symptoms were mild, as well as the length of his symptoms. On 04/28/2020 patient is seen in follow-up on medical surgical floor. He is awake and alert, in no acute distress, he is currently on room air, pulse ox is 92-96%, vital signs have been stable, his been afebrile. Denies any worsening dyspnea, his breathing comfortably right now, no chest pain, no palpitations, no nausea vomiting or diarrhea, he continues on IV Decadron, he is on prophylactic doses of Lovenox, vitamin C, vitamin D, zinc supplement, gentle IV hydration with 0.9 normal saline at a rate of 75 ML per hour. He is feeling better today, follow up inflammatory markers are pending for today. No acute events overnight. On 04/29/2020 patient seen in follow-up on medical surgical floor. Afebrile, hemodynamically stable, he is on room air. His had no acute events overnight, he is up in the chair, he is tolerating activity well, he has been on oral Decadron, prophylactic dose of Lovenox, and on vitamin C, vitamin D, zinc supplement, his been hydrated, his had no nausea vomiting or diarrhea. Objective - Vital Signs Vital signs: Vital Signs Temp 98.2 F 04/29/20 15:00 Pulse 81 04/29/20 15:00 Resp 18 11/18/20 15:00 BP 168/105 04/29/20 15:00 Pulse Ox 97 04/29/20 15:00 Intake & Output 04/28/20 04/29/20 04/29/20 18:59 06:59 18:59 Output Total 2 Balance -2 Output: Urine 2 Other: Voiding Method Toilet # Voids 3 1 - Exam GENERAL EXAM: Alert, very pleasant, 59-year-old white male, on room air comfortable in no apparent distress. HEAD: Normocephalic/atraumatic. EYES: Normal reaction of pupils, equal size. Conjunctiva pink, sclera white. NOSE: Clear with pink turbinates. THROAT: No erythema or exudates. NECK: No masses, no JVD, no thyroid enlargement, no adenopathy. CHEST: No chest wall deformity. Symmetrical expansion. LUNGS: Equal air entry with no crackles, wheeze, rhonchi or dullness. CVS: Regular rate and rhythm, normal S1 and S2, no gallops, no murmurs, no rubs ABDOMEN: Soft, nontender. No hepatosplenomegaly, normal bowel sounds, no guarding or rigidity. EXTREMITIES: No clubbing, no edema, no cyanosis, 2+ pulses and upper and lower extremities. MUSCULOSKELETAL: Muscle strength and tone normal. SPINE: No scoliosis or deformity SKIN: No rashes CENTRAL NERVOUS SYSTEM: Alert and oriented -3. No focal deficits, tone is normal in all 4 extremities. PSYCHIATRIC: Alert and oriented -3. Appropriate affect. Intact judgment and insight. - Labs CBC & Chem 7: 04/27/20 06:44 04/27/20 05:35 Labs: Abnormal Lab Results - Last 24 Hours (Table) 04/28/20 04/28/20 04/29/20 Range/Units 16:33 20:12 06:53 POC Glucose (mg/dL) 411 H 432 H 240 H (75-99) mg/dL 04/29/20 Range/Units 11:46 POC Glucose (mg/dL) 327 H (75-99) mg/dL Microbiology - Last 24 Hours (Table) 04/25/20 10:25 Blood Culture - Preliminary Blood No Growth after 96 hours Assessment and Plan Plan: Assessment: #1. Mild COVID 19 the pneumonia/pneumonitis, without evidence of hypoxemia #2. History of diabetes mellitus #3. Dental carious/periodontal disease #4. History of hypertension #5. History of hyperlipidemia #6. History of depression #7. Lifelong nonsmoker #8. Increased inflammatory markers related to acute COVID 19 pneumonia, Plan: Patient has remained stable overnight, he is on room air, he's been afebrile, no dyspnea, no cough, no nausea vomiting or diarrhea. Stable for discharge home today he can complete dose of Decadron for a total of 10 days including the days in the hospital. I performed a history & physical examination of the patient and discussed their management with my nurse practitioner, Amber Levine. I reviewed the nurse practitioner's note and agree with the documented findings and plan of care. Lung sounds are positive for diminished breath sounds. The findings and the impression was discussed with the patient. I attest to the documentation by the nurse practitioner. Time with Patient: Less than 30
[2020-04-29 16:50] LABS: Glucose,Whole Blood 329 mg/dL (75-99)
== END 2020-04-29 21:55 | disposition home health service (06) | DRG 177 ==
LOC: EC 09:57 → 6NMEDSUR 13:49 → 4SSUR 22:55
PROVIDERS: ADMIT Hospitalist; ATTEND Hospitalist
DX: U07.1 COVID-19 (principal); J12.89 Other viral pneumonia; Z68.41 Body mass index [BMI] 40.0-44.9, adult; I10 Essential (primary) hypertension; F32.9 Major depressive disorder, single episode, unspecified; E83.42 Hypomagnesemia; E78.5 Hyperlipidemia, unspecified; E11.65 Type 2 diabetes mellitus with hyperglycemia; E66.9 Obesity, unspecified; J45.909 Unspecified asthma, uncomplicated; K05.6 Periodontal disease, unspecified; F41.9 Anxiety disorder, unspecified; Z85.47 Personal history of malignant neoplasm of testis; Z84.1 Family history of disorders of kidney and ureter; Z82.49 Family history of ischemic heart disease and other diseases of the circulatory system; Z79.899 Other long term (current) drug therapy; Z88.6 Allergy status to analgesic agent; Z88.1 Allergy status to other antibiotic agents; Z88.8 Allergy status to other drugs, medicaments and biological substances; Z83.1 Family history of other infectious and parasitic diseases; Z82.61 Family history of arthritis
CPT/HCPCS: 36415; 71045; 71275; 80048; 80053; 82728; 83605; 83615; 83735; 84145; 85025; 85379; 85610; 85730; 86140; 87040; 87635; 93005; 96365; 99285

== ENCOUNTER → 2020-08-13 | Outpatient (CLI) | payer OTHER ==
--- NOTE | 2020-08-13 10:20 | US ---
EXAMINATION TYPE: US liver DATE OF EXAM: 08/13/2020 COMPARISON: CT November 15, 2016 CLINICAL HISTORY: R94.5 ABN LIVER FUNCTION TEST. Takes multiple medication for diabetes, high cholest esvin, blood pressure EXAM MEASUREMENTS: Liver Length: 17.1 cm Gallbladder Wall: 0.2 cm CBD: 0.4 cm Right Kidney: 11.1 x 4.5 x 5.1 cm Pancreas: Slightly heterogeneous Liver: hyperechoic to right renal cortex suggests fatty liver Gallbladder: Upper limits of normal 10.2cm long, Evidence for sonographic Collins's sign: tender here as patient stated has had injury here multiple times CBD: wnl Right Kidney: No hydronephrosis or masses seen Visualized pancreas is unremarkable. Visualized liver is heterogeneously hyperechoic. Evaluation for focal masses suboptimal due to the heterogeneity. No intrahepatic or extrahepatic biliary dilatation. No intraluminal shadowing gallstones. No hydronephrosis on limited images right kidney. IMPRESSION: Diffuse fatty infiltration of liver redemonstrated. No new ductal dilatation.
== END ==
LOC: RADUSWWP 09:07
PROVIDERS: ATTEND Internal Medicine
DX: K76.0 Fatty (change of) liver, not elsewhere classified (principal)
CPT/HCPCS: 76705

== ENCOUNTER → 2021-07-23 | Outpatient (CLI) | payer OTHER ==
--- NOTE | 2021-07-23 09:38 | XR ---
EXAMINATION TYPE: XR chest 2V DATE OF EXAM: 07/23/2021 COMPARISON: 04/28/2020 TECHNIQUE: PA and lateral views submitted. HISTORY: Cough FINDINGS: The lungs are clear and there is no pneumothorax, pleural effusion, or focal pneumonia. Heart size normal. No overt failure. Hypertrophic and degenerative change of the spine. IMPRESSION: 1. No acute process.
== END | disposition home or self-care (01) ==
LOC: RADXRMAIN 09:13
PROVIDERS: ATTEND Internal Medicine
DX: R05.9 Cough, unspecified (principal)
CPT/HCPCS: 71046

== ENCOUNTER → 2021-12-24 | Outpatient (CLI) | payer OTHER ==
[2021-12-24 14:18] LABS: HCT 43.2 % (39.6-50.0); MCH 28.9 pg (27.0-32.0); MCHC 32.4 g/dL (32.0-37.0); MCV 89.1 fL (80.0-97.0); Mean Platelet Volume 9.8 fL (9.5-12.2); NRBC Per 100 WBC 0 /100 WBCS (0.0-0.0); Platelet Count 267 X 10*3/uL (140-440); RBC 4.85 X 10*6/uL (4.40-5.60); RDW 13.1 % (11.5-14.5); WBC 7.77 X 10*3/uL (4.50-10.00)
[2021-12-24 14:26] LABS: African American GFR (CKD) 113.3 (60.0-200.0); Anion Gap 13.1 mmol/L (10.00-18.00); Blood Urea Nitrogen 9.9 mg/dL (9.0-27.0); Carbon Dioxide 23.9 mmol/L (20.0-27.5); Non-African American GFR(CKD) 97.8 (60.0-200.0); Potassium 4.6 mmol/L (3.5-5.5)
== END | disposition home or self-care (01) ==
LOC: LABPAT 10:36
PROVIDERS: ATTEND Internal Medicine
DX: Z01.812 Encounter for preprocedural laboratory examination (principal); R07.9 Chest pain, unspecified
CPT/HCPCS: 80051; 82565; 84520; 85027

== ENCOUNTER 2021-12-27 07:18 | Day surgery (SDC) | payer OTHER ==
[~2021-12-27 07:18] MED LIST: ALPRAZolam 0.25 MG TAB PO PRN; ALPRAZolam 0.5 MG TAB PO PRN; NITROGLYCERIN SL TABS 0.4 MG TAB SUBLINGUAL PRN; SODIUM CHLORIDE 0.9% 1,000 ML in EMPTY BAG 1 BAG IV SCH
[2021-12-27] MEDS ORDERED: INSULIN ASPART (NovoLOG) 100 UNIT/ML VIAL SQ ONE (07:52)
[2021-12-27 07:55] LABS: Glucose,Whole Blood 239 mg/dL (70-110)
[2021-12-27 07:57] VITALS: TEMP 98.2
[2021-12-27 08:00] LABS: Basophils # (A) 0.1 k/uL (0-0.2); Basophils % (A) 1 %; Eosinophils # (A) 0.3 k/uL (0-0.7); Eosinophils % (A) 3 %; HGB 14.3 gm/dL (13.0-17.5); Lymphocytes # (A) 3.3 k/uL (1.0-4.8); Lymphocytes % (A) 38 %; MCH 29.6 pg (25.0-35.0); MCHC 33.3 g/dL (31.0-37.0); MCV 88.7 fL (80.0-100.0); Mean Platelet Volume 7.5; Monocytes # (A) 0.5 k/uL (0-1.0); Monocytes % (A) 5 %; Neutrophils # (A) 4.5 k/uL (1.3-7.7); Neutrophils % (A) 51 %; Platelet Count 315 k/uL (150-450); RBC 4.84 m/uL (4.30-5.90); RDW 12.9 % (11.5-15.5); WBC 8.7 k/uL (3.8-10.6)
[2021-12-27 08:15] LABS: African American GFR (CKD) >90 (>60 ml/min/1.73 sqM); Anion Gap 10 mmol/L; Blood Urea Nitrogen 10 mg/dL (9-20); Calcium 9.6 mg/dL (8.4-10.2); Carbon Dioxide 24 mmol/L (22-30); Chloride 104 mmol/L (98-107); Glucose 234 mg/dL (74-99); Non-African American GFR(CKD) >90 (>60 ml/min/1.73 sqM); Potassium 4.4 mmol/L (3.5-5.1); Sodium 138 mmol/L (137-145)
[2021-12-27] MEDS ORDERED: VERAPAMIL 2.5 MG/ML 2 ML AMP ONE ×2 (08:42→09:29)
[2021-12-27] MEDS ORDERED: HEPARIN SODIUM 1,000 UN/ML (10ML VL) ONE (09:02)
[2021-12-27] MEDS ORDERED: fentaNYL (PF) 50 MCG/ML 2 ML AMP ONE (09:03)
[2021-12-27] MEDS: fentaNYL (PF) 50 MCG/ML 2 ML AMP IVP ONE ×2 (09:14→09:18)
[2021-12-27] MEDS: MIDAZOLAM 2 MG/2 ML VIAL IVP ONE ×2 (09:14→09:18)
[2021-12-27] MEDS ORDERED: LIDOCAINE 1% INJ 10MG/ML (5 ML VIAL-PF) SQ ONE (09:15)
[2021-12-27] MEDS: VERAPAMIL SYRINGE (5 MG/10 ML) INTRAARTER ONE ×2 (09:18→09:28)
[2021-12-27] MEDS ORDERED: HEPARIN SODIUM 1,000 UN/ML (10ML VL) IV ONE (09:21)
[2021-12-27] MEDS ORDERED: VERAPAMIL SYRINGE (5 MG/10 ML) INTRAARTER ONE (09:31)
[2021-12-27] MEDS ORDERED: LIDOCAINE 1% INJ 10MG/ML (30 ML VIAL-PF) SQ ONE (09:35)
[2021-12-27] MEDS ORDERED: IOPAMIDOL-370 125ML BTL INJ ONE (09:50)
--- NOTE | 2021-12-27 10:07 | P.CARDCATH ---
Description of Procedure: PROCEDURES PERFORMED: Left heart catheterization, bilateral coronary angiography INDICATION: Aortic stenosis, chest pain concerning for angina, abnormal stress test CONSENT:I have discussed the risks, benefits and alternative therapies for the above-mentioned procedure and for both sedation/analgesia as well as necessary blood product administration, if indicated, as they pertain to this patient. The patient has indicated understanding and acceptance of the risks and procedures discussed. PROCEDURE: After the risks, benefits and alternatives of the above mentioned procedure explained in detail with the patient, informed consent was obtained. Patient was taken to the catheterization lab and prepped and draped in usual fas hion. 1% lidocaine was used to anesthetize the right radial artery. A 6-Tongan sheath was placed in the right radial artery using modified Seldinger technique. Patient did have tortuosity of the takeoff of the innominate artery and vasospasm with inability to perform catheterization from a radial approach. Therefore a 6-Tongan sheath was placed in the right femoral artery using ultrasound guidance. Left coronary angiography was performed with a 5-Tongan JL 3.5 catheter and right coronary angiography was performed with a 6-Tongan AR2 catheter in various views. The AR2 catheter was inserted into the left ventricle and pressure measurements were obtained. The right radial sheath was removed and a TR band was placed with hemostasis achieved. A right femoral angiogram showed anatomy and adequate for closure and therefore sheath was left in place for manual pull. The patient tolerated the procedure well. Patient was transported back to the post catheterization holding area in stable condition. Conscious Sedation: Patient was monitored under the direct supervision of vision of myself for conscious sedation using Versed and fentanyl for a total duration of 35 minutes HEMODYNAMICS: Aorta: 151/90 LV: 187/2, LVEDP 11, mean gradient 35 mmHg SELECTIVE CORONARY ARTERIOGRAPHY: LEFT MAIN: The left main is a large caliber vessel which bifurcates into the LAD and circumflex. There is no significant stenosis. LEFT ANTERIOR DESCENDING CORONARY ARTERY: LAD is a large caliber vessel which wraps around to the apex. There is no significant stenosis. LEFT CIRCUMFLEX CORONARY ARTERY: Left circumflex is a large caliber vessel with mild luminal irregularities of the proximal circumflex and otherwise normal. The circumflex gives off a PDA and is dominant. RIGHT CORONARY ARTERY: The right coronary artery is a small caliber vessel which gives off and acute marginal branch and is nondominant. There is no significant stenosis. FINAL IMPRESSION: 1. Minimal luminal irregularities with 10% proximal circumflex stenosis and otherwise normal coronary arteries. 2. Normal left sided filling pressures 3. Moderate to severe aortic stenosis with mean gradient 35 mmHg PLAN: 1. Aggressive risk factor modification per most recent ACC/AHA guidelines. 2. Check formal 2-D echo to evaluate aortic stenosis.
[2021-12-27 12:19] VITALS: RESP 16
[2021-12-27 16:49] VITALS: BP 130/68; PULSE 94
== END 2021-12-27 17:30 | disposition home or self-care (01) ==
LOC: CATHCVL 07:18
PROVIDERS: ATTEND Internal Medicine
DX: I25.10 Atherosclerotic heart disease of native coronary artery without angina pectoris (principal); I35.0 Nonrheumatic aortic (valve) stenosis; R94.39 Abnormal result of other cardiovascular function study; I10 Essential (primary) hypertension; E78.5 Hyperlipidemia, unspecified; J45.909 Unspecified asthma, uncomplicated; F32.A Depression, unspecified; E66.9 Obesity, unspecified; E11.51 Type 2 diabetes mellitus with diabetic peripheral angiopathy without gangrene; R01.1 Cardiac murmur, unspecified; R00.2 Palpitations; Z20.822 Contact with and (suspected) exposure to COVID-19; Z86.16 Personal history of COVID-19; Z85.47 Personal history of malignant neoplasm of testis; Z90.79 Acquired absence of other genital organ(s); Z68.36 Body mass index [BMI] 36.0-36.9, adult; Z79.84 Long term (current) use of oral hypoglycemic drugs; Z79.899 Other long term (current) drug therapy; Z79.51 Long term (current) use of inhaled steroids; Z88.6 Allergy status to analgesic agent; Z88.1 Allergy status to other antibiotic agents; Z88.8 Allergy status to other drugs, medicaments and biological substances; Z82.49 Family history of ischemic heart disease and other diseases of the circulatory system
CPT/HCPCS: 93458; 80048; 85025; 83036; 87635; C1769 ×3; C1894 ×2; J2250; J2001 ×2; J3010; J1644; Q9967

== ENCOUNTER 2022-02-23 10:08 | Day surgery (SDC) | payer OTHER ==
[2022-02-22 09:26] VITALS: BMI 38.0
[2022-02-23 10:46] VITALS: TEMP 98.2
[2022-02-23] MEDS ORDERED: SODIUM CHLORIDE 0.9% 500 ML 500 ML IV ONE (10:46)
[2022-02-23 10:55] LABS: Glucose,Whole Blood 168 mg/dL (70-110)
[2022-02-23] MEDS ORDERED: fentaNYL (PF) 50 MCG/ML 2 ML AMP ONE (11:52)
[2022-02-23] MEDS: BENZOCAINE SPRAY 1 CAN MUCOUS MEM ONE ×2 (12:01→12:04)
[2022-02-23] MEDS ORDERED: MIDAZOLAM 2 MG/2 ML VIAL IV ONE ×2 (12:04→12:06)
[2022-02-23] MEDS: fentaNYL (PF) 50 MCG/ML 2 ML AMP IV ONE ×2 (12:04→12:06)
[2022-02-23 17:06] VITALS: RESP 16
[2022-02-23 17:07] VITALS: BP 145/82; PULSE 83
--- NOTE | 2022-02-23 20:52 | P.TEE ---
Description of Procedure(s): Procedure performed: Transesophageal Echocardiogram with color flow doppler, pulsed wave doppler and continuous wave doppler Moderate conscious sedation: Sedation was performed by anesthesia, see separate report Complications: none Indications: Severe PROCEDURE: After the risks, benefits and alternatives of the above mentioned procedure was explained in detail with the patient, informed consent was obtained. Patient was brought to the lab in a fasting state. Patient was given sedation with Versed and Fentanyl. The throat was sprayed with Hurricane to anesthetize the throat. A lubricated Omni probe was then introduced into the esophagus and stomach and multiple views were obtained. 2D echo with color flow doppler, pulsed wave doppler and continuous wave doppler was utilized. Agitated saline bubbles were injected to assess for any intra-atrial shunt. The probe was then removed. Patient tolerated the procedure well. Patient was transferred to the post procedure area in stable and satisfactory condition. FINDINGS: 1. The aortic valve is tricuspid and has severe aortic stenosis with JAIME 0.8cm2 by planimetry 2. The mitral valve appears be normal with mild mitral regurgitation. 3. Tricuspid valve is normal with trace tricuspid regurgitation. 4. The interatrial septum is intact. No evidence of PFO. 5. Left atrial appendage is free of clot. 6. Left ventricular size is normal with left ventricular ejection fraction 55%
== END 2022-02-23 13:44 | disposition home or self-care (01) ==
LOC: CATHCVL 10:08
PROVIDERS: ATTEND Internal Medicine
DX: I08.3 Combined rheumatic disorders of mitral, aortic and tricuspid valves (principal); J45.909 Unspecified asthma, uncomplicated; F32.A Depression, unspecified; G47.33 Obstructive sleep apnea (adult) (pediatric); I10 Essential (primary) hypertension; E78.5 Hyperlipidemia, unspecified; Z85.47 Personal history of malignant neoplasm of testis; Z86.16 Personal history of COVID-19; Z20.822 Contact with and (suspected) exposure to COVID-19; E66.9 Obesity, unspecified; Z68.37 Body mass index [BMI] 37.0-37.9, adult; R07.89 Other chest pain; Z79.84 Long term (current) use of oral hypoglycemic drugs; Z79.51 Long term (current) use of inhaled steroids; Z79.899 Other long term (current) drug therapy; Z88.6 Allergy status to analgesic agent; Z88.1 Allergy status to other antibiotic agents; Z91.09 Other allergy status, other than to drugs and biological substances
CPT/HCPCS: 93312; 93320; 93325; 87635; J2250; J3010

== ENCOUNTER 2022-04-01 12:38 | Emergency (ER) | payer OTHER ==
[2022-04-01 12:51] VITALS: BP 158/94; PULSE 82; RESP 16; TEMP 98.1
[2022-04-01] MEDS ORDERED: SODIUM CHLORIDE 0.9% 1,000 ML IV STA (13:15)
[2022-04-01] MEDS ORDERED: KETOROLAC 15 MG/ML 1 ML VIAL IVP STA (13:16)
--- NOTE | 2022-04-01 13:19 | ED ---
Chest Pain HPI - General Chief Complaint: Chest Pain Stated Complaint: Chest pain Time Seen by Provider: 04/01/22 13:06 Source: patient, RN notes reviewed Mode of arrival: wheelchair Limitations: no limitations - History of Present Illness Initial Comments: 52-year-old male with a history of type 2 diabetes also heart murmur and asthma who presents with complaints that sharp and tight midsternal chest pain gets worse with movement and deep breathing he states sometimes the pain feels squeezing no cough or phlegm production no fevers chills or sweats he did have some nausea and vomiting. The pain is a 6/10 in severity right now. No other current complaints or modifying factors no prior history of other cardiac disease other than the murmur. MD Complaint: chest pain - Related Data Home Medications Medication Instructions Recorded Confirmed Ibuprofen [Motrin] 800 mg PO Q8H PRN 04/25/20 02/22/22 Albuterol Sulfate [Proair Hfa] 2 puff INHALATION BID PRN 12/24/21 02/22/22 Atorvastatin [Lipitor] 5 mg PO HS 12/24/21 02/22/22 Insulin Detemir [Levemir Flextouch 20 units SQ HS 12/24/21 02/22/22 Pen] Metoprolol Tartrate [Lopressor] 50 mg PO DAILY 12/24/21 02/22/22 Montelukast [Singulair] 10 mg PO DAILY 12/24/21 02/22/22 Tamsulosin [Flomax] 0.4 mg PO HS 12/24/21 02/22/22 Previous Rx's Medication Instructions Recorded metFORMIN HCL [Glucophage] 500 mg PO BID #60 tab 04/29/20 methylPREDNISolone Dose Pack 4 mg PO DIRECTED #21 tab 04/01/22 [Medrol Dose Pack] Allergies Allergy/AdvReac Type Severity Reaction Status Date / Time aspirin Allergy Anaphylaxis Verified 02/23/22 10:40 cefaclor [From Ceclor] Allergy Rash/Hives Verified 02/23/22 10:40 Iodine and Iodide Containing Allergy Swelling Verified 04/01/22 12:51 Produc lactose Allergy Diarrhea Verified 02/23/22 10:40 sumatriptan [From Imitrex] Allergy Dyspnea Verified 02/23/22 10:40 sumatriptan succinate Allergy Dyspnea Verified 02/23/22 10:40 [From Imitrex] chocolate flavor AdvReac headache Verified 02/23/22 10:40 theophylline [From Lang-Dur] AdvReac hand Verified 02/23/22 10:40 tremors Review of Systems ROS Statement: Those systems with pertinent positive or pertinent negative responses have been documented in the HPI. ROS Other: All systems not noted in ROS Statement are negative. EKG Findings - EKG Results: EKG: interpreted by [facility], WNL, sinus rhythm, normal axis, normal QRS, normal ST/T, no acute changes (Normal sinus rhythm 82. Interval 162 QRS 84 QT since QTC 349/[address]-T wave changes) Past Medical History Past Medical History: Asthma, Cancer, Diabetes Mellitus, GERD/Reflux, Hyperlipidemia, Hypertension Additional Past Medical History / Comment(s): one seizure years when his sugar dropped > 1yr ago, testicular cancer right side 2006. being worked up for heart issues r/t SOB irregular heart beat.numbness in left arm at times. tingling in feet. History of Any Multi-Drug Resistant Organisms: None Reported Additional Past Surgical History / Comment(s): TESTICULAR TORSION LEFT SIDE, COLONOSCOPY Past Anesthesia/Blood Transfusion Reactions: No Reported Reaction Additional Past Anesthesia/Blood Transfusion Reaction / Comment(s): "never had any blood transfusions" pt and mom had a hard time waking up from anesthetic. Past Psychological History: Anxiety, Bipolar, Depression Smoking Status: Never smoker - Past Family History Father Family Medical History: Cancer, Renal Disease Additional Family Medical History / Comment(s): mrsa Mother Family Medical History: Coronary Artery Disease (CAD), Hypertension, Myocardial Infarction ([place]), Osteoarthritis (OA) Additional Family Medical History / Comment(s): cardiac stents, smoker General Exam - General Exam Comments Initial Comments: This a well up well-nourished awake alert oriented 4 male Limitations: no limitations General appearance: alert, anxious Head exam: Present: atraumatic, normocephalic, normal inspection Eye exam: Present: normal appearance, PERRL, EOMI. Absent: scleral icterus, conjunctival injection, periorbital swelling ENT exam: Present: normal exam, mucous membranes moist Neck exam: Present: normal inspection, full ROM, other. Absent: tenderness, meningismus, lymphadenopathy Respiratory exam: Present: normal lung sounds bilaterally, chest wall tenderness (No stridor JVD or bruits. Reproducible tenderness and pain to palpation of the costal sternal margins bilaterally no step-off or crepitation the patient states this does reproduce his pain). Absent: respiratory distress, wheezes, rales, rhonchi, stridor Cardiovascular Exam: Present: regular rate, normal rhythm, normal heart sounds. Absent: systolic murmur, diastolic murmur, rubs, gallop, clicks GI/Abdominal exam: Present: soft, normal bowel sounds. Absent: distended, tenderness, guarding, rebound, rigid Extremities exam: Present: normal inspection, full ROM, normal capillary refill. Absent: tenderness, pedal edema, joint swelling, calf tenderness Back exam: Present: normal inspection Neurological exam: Present: alert, oriented X3, CN II-XII intact Psychiatric exam: Present: normal affect, normal mood Skin exam: Present: warm, dry, intact, normal color. Absent: rash Course Vital Signs 04/01/22 12:48 Temperature 98.1 F Pulse Rate 82 Respiratory 16 Rate Blood Pressure 158/94 O2 Sat by Pulse 99 Oximetry Chest Pain MDM - MDM Imaging reviewed no acute findings EKG was unremarkable patient is status hypomagnesemia he did demonstrate evidence of chest wall pain reproducible consistent with costochondritis patient does have problems with gastric irritation with NSAIDs he'll be discharged with on Tylenol [id number] as well as a short course of oral steroids. He is a follow-up with his doctor and return when necessary Disposition Clinical Impression: Costochondritis, Chest wall syndrome, Hypomagnesemia Disposition: HOME SELF-CARE Condition: Good Instructions (If sedation given, give patient instructions): Costochondritis (ED), Hypomagnesemia (ED) Additional Instructions: [id number] Tylenol for pain Prescriptions: methylPREDNISolone Dose Pack [Medrol Dose Pack] 4 mg PO DIRECTED #21 tab Is patient prescribed a controlled substance at d/c from ED?: No Referrals: Sandy Fry [Primary Care Provider] - 1-2 days Decision Date: 04/01/22 Decision Time: 14:35
[2022-04-01 13:32] LABS: Basophils # (A) 0.1 k/uL (0-0.2); Basophils % (A) 1 %; Eosinophils # (A) 0.3 k/uL (0-0.7); Eosinophils % (A) 3 %; HCT 40.2 % (39.0-53.0); HGB 13.8 gm/dL (13.0-17.5); Lymphocytes # (A) 3.2 k/uL (1.0-4.8); Lymphocytes % (A) 35 %; MCHC 34.4 g/dL (31.0-37.0); MCV 87.2 fL (80.0-100.0); Mean Platelet Volume 7.7; Monocytes # (A) 0.5 k/uL (0-1.0); Monocytes % (A) 5 %; Neutrophils # (A) 5.1 k/uL (1.3-7.7); Neutrophils % (A) 55 %; Platelet Count 267 k/uL (150-450); RDW 12.6 % (11.5-15.5); WBC 9.3 k/uL (3.8-10.6)
[2022-04-01 13:51] LABS: Partial Thromboplastin Time 23.8 sec (22.0-30.0); Prothrombin Time 10.7 sec (9.0-12.0)
--- NOTE | 2022-04-01 13:55 | XR ---
EXAMINATION TYPE: XR chest 2V DATE OF EXAM: 04/01/2022 1:47 PM COMPARISON: None TECHNIQUE: XR chest 2V Frontal and lateral views of the chest. CLINICAL INDICATION:Male, 61 years old with history of Chest Pain; FINDINGS: Lungs/Pleura: There is no evidence of pleural effusion, focal consolidation, or pneumothorax. Pulmonary vascularity: Unremarkable. Heart/mediastinum: Cardiomediastinal silhouette is unremarkable. Musculoskeletal: No acute osseous pathology. IMPRESSION: No acute cardiopulmonary disease/process.
[2022-04-01 13:59] LABS: ALT 39 U/L (4-49); AST 47 U/L (17-59); African American GFR (CKD) >90 (>60 ml/min/1.73 sqM); Albumin 4.4 g/dL (3.5-5.0); Alkaline Phosphatase 90 U/L (38-126); Anion Gap 12 mmol/L; Blood Urea Nitrogen 14 mg/dL (9-20); Carbon Dioxide 28 mmol/L (22-30); Chloride 99 mmol/L (98-107); Glucose 206 mg/dL (74-99); Lipase 287 U/L (23-300); Magnesium 1.4 mg/dL (1.6-2.3); Non-African American GFR(CKD) >90 (>60 ml/min/1.73 sqM); Potassium 4.3 mmol/L (3.5-5.1); Sodium 139 mmol/L (137-145); Total Bilirubin 0.4 mg/dL (0.2-1.3); Total Protein 7.6 g/dL (6.3-8.2)
[2022-04-01] MEDS ORDERED: MAGNESIUM SULFATE-D5W PMX 1 GM in DEXTROSE/WATER 1 100ML.BAG IVPB ONE (14:06)
== END 2022-04-01 15:41 | disposition home or self-care (01) ==
LOC: EC 12:38
DX: M94.0 Chondrocostal junction syndrome [Tietze] (principal); R07.1 Chest pain on breathing; E83.42 Hypomagnesemia; J45.909 Unspecified asthma, uncomplicated; E11.9 Type 2 diabetes mellitus without complications; K21.9 Gastro-esophageal reflux disease without esophagitis; E78.5 Hyperlipidemia, unspecified; I10 Essential (primary) hypertension; F41.9 Anxiety disorder, unspecified; F31.9 Bipolar disorder, unspecified; Z88.6 Allergy status to analgesic agent; Z88.1 Allergy status to other antibiotic agents; Z91.011 Allergy to milk products; Z88.2 Allergy status to sulfonamides; Z91.018 Allergy to other foods; Z79.4 Long term (current) use of insulin; Z79.899 Other long term (current) drug therapy
CPT/HCPCS: 36415; 93005; 85379; 83880; 80053; 83690; 83735; 84484; 85025; 85610; 85730; 71046; 99285; 96365; 96375; 96361; J3475; J1885

== ENCOUNTER 2022-06-29 12:38 | Emergency (ER) | payer OTHER ==
[2022-06-29 12:56] VITALS: TEMP 98.1
[2022-06-29] MEDS ORDERED: KETOROLAC 15 MG/ML 1 ML VIAL IVP STA (13:10)
[2022-06-29 13:59] LABS: Basophils % (A) 0 %; Eosinophils # (A) 0.2 k/uL (0-0.7); Eosinophils % (A) 3 %; HCT 43.4 % (39.0-53.0); HGB 14.5 gm/dL (13.0-17.5); Lymphocytes # (A) 2.4 k/uL (1.0-4.8); Lymphocytes % (A) 29 %; MCH 29.4 pg (25.0-35.0); MCHC 33.4 g/dL (31.0-37.0); MCV 88.1 fL (80.0-100.0); Mean Platelet Volume 7.4; Monocytes # (A) 0.3 k/uL (0-1.0); Monocytes % (A) 4 %; Neutrophils % (A) 62 %; Platelet Count 231 k/uL (150-450); RBC 4.92 m/uL (4.30-5.90); RDW 13.2 % (11.5-15.5); WBC 8.1 k/uL (3.8-10.6)
[2022-06-29 14:09] LABS: ALT 74 U/L (4-49); African American GFR (CKD) >90 (>60 ml/min/1.73 sqM); Albumin 4.6 g/dL (3.5-5.0); Anion Gap 10 mmol/L; Blood Urea Nitrogen 11 mg/dL (9-20); Calcium 9.3 mg/dL (8.4-10.2); Carbon Dioxide 23 mmol/L (22-30); Chloride 105 mmol/L (98-107); Glucose 286 mg/dL (74-99); Non-African American GFR(CKD) >90 (>60 ml/min/1.73 sqM); Sodium 138 mmol/L (137-145); Total Bilirubin 0.9 mg/dL (0.2-1.3); Total Protein 8.7 g/dL (6.3-8.2)
[2022-06-29 14:11] LABS: AST 71 U/L (17-59); Alkaline Phosphatase 131 U/L (38-126); Magnesium 1.5 mg/dL (1.6-2.3); Potassium 5.3 mmol/L (3.5-5.1)
--- NOTE | 2022-06-29 14:12 | XR ---
EXAMINATION TYPE: XR chest 2V DATE OF EXAM: 06/29/2022 COMPARISON: NONE TECHNIQUE: PA and lateral views submitted. HISTORY: Pain FINDINGS: The lungs are clear and there is no pneumothorax, pleural effusion, or focal pneumonia. Heart size normal and no overt failure. Osseous structures demonstrate hypertrophic and degenerative changes of the spine. Sternum obscured by soft tissue artifact correlate with CT scan as clinically warranted. IMPRESSION: 1. No acute process.
[2022-06-29 14:25] LABS: Partial Thromboplastin Time 20.8 sec (22.0-30.0); Prothrombin Time 10.5 sec (9.0-12.0)
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
[2022-06-29 15:33] VITALS: BP 155/90; PULSE 94; RESP 20
== END 2022-06-29 15:33 | disposition home or self-care (01) ==
LOC: EC 12:38
DX: R07.89 Other chest pain (principal); J45.909 Unspecified asthma, uncomplicated; E11.9 Type 2 diabetes mellitus without complications; K21.9 Gastro-esophageal reflux disease without esophagitis; E78.5 Hyperlipidemia, unspecified; I10 Essential (primary) hypertension; F41.9 Anxiety disorder, unspecified; F31.9 Bipolar disorder, unspecified; Z88.2 Allergy status to sulfonamides; Z88.6 Allergy status to analgesic agent; Z91.011 Allergy to milk products; Z91.018 Allergy to other foods; Z79.4 Long term (current) use of insulin; Z79.899 Other long term (current) drug therapy; V49.40XA Driver injured in collision with unspecified motor vehicles in traffic accident, initial encounter
CPT/HCPCS: 36415; 71046; 80053; 83735; 83880; 84484; 85025; 85610; 85730; 93005; 99285

== ENCOUNTER → 2022-10-11 | Outpatient (CLI) | payer OTHER ==
--- NOTE | 2022-10-11 12:41 | XR ---
EXAMINATION TYPE: XR chest 2V DATE OF EXAM: 10/11/2022 12:24 PM COMPARISON: Chest radiographs from 06/29/2022 TECHNIQUE: XR chest 2V Frontal and lateral views of the chest. CLINICAL INDICATION:Male, 62 years old with history of X19993; FINDINGS: Lungs/Pleura: There is no evidence of pleural effusion, focal consolidation, or pneumothorax. Pulmonary vascularity: Unremarkable. Heart/mediastinum: Cardiomediastinal silhouette is unremarkable. Musculoskeletal: No acute osseous pathology. IMPRESSION: No acute cardiopulmonary disease/process.
--- NOTE | 2022-10-11 12:54 | US ---
EXAMINATION TYPE: US carotid duplex BILAT DATE OF EXAM: 10/11/2022 COMPARISON: NONE CLINICAL INDICATION: Male, 62 years old with history of OPEN HEART; Pre-op CABG TECHNIQUE: Carotid duplex ultrasound examination. Indirect Doppler criteria was utilized. FINDINGS: EXAM MEASUREMENTS: RIGHT: Peak Systolic Velocity (PSV) cm/sec ----- Right CCA: 91.9 ----- Right ICA: 97.4 ----- Right ECA: 108.2 ICA/CCA ratio: 1.1 RIGHT: End Diastole cm/sec ----- Right CCA: 25.9 ----- Right ICA: 35.8 ----- Right ECA: 0.0 LEFT: Peak Systolic Velocity (PSV) cm/sec ----- Left CCA: 80.9 ----- Left ICA: 84.2 ----- Left ECA: 94.7 ICA/CCA ratio: 1.0 LEFT: End Diastole cm/sec ----- Left CCA: 15.6 ----- Left ICA: 32.5 ----- Left ECA: 0.0 VERTEBRALS (direction of flow): Right Vertebral: Antegrade Left Vertebral: Antegrade Rhythm: Normal SUPERVISOR QUILTING NOTES: No significant stenosis seen IMPRESSION: No significant hemodynamic stenosis. Criteria for Assigning % of Stenosis / Diameter reduction (Estimation based on the indirect measurements of the internal carotid artery velocities (ICA PSV). 1. Normal (no stenosis)=ICA PSV < 125 cm/s: ratio < 2.0: ICA EDV<40 cm/s. 2. Less than 50% stenosis=ICA PSV < 125 cm/s: ratio < 2.0: ICA EDV<40 cm/s. 3. 50 to 69% stenosis=ICA PSV of 125 to 230 cm/s: ration 2.0 ? 4.0: ICA EDV 40-100 cm/s. 4. Greater than 70% stenosis to near occlusion= ICA PSV > 230 cm/s: ratio > 4.0: ICA EDV > 100 cm/s. 5. Near occlusion= ICA PSV velocities may be low or undetectable: variable ratio and ICA EDV. 6. Total occlusion=unable to detect flow.
--- NOTE | 2022-10-12 15:28 | US ---
EXAMINATION TYPE: US vein mapping BIL DATE OF EXAM: 10/11/2022 11:59 AM COMPARISON: NONE CLINICAL INDICATION: Male, 62 years old with history of OPEN HEART; Pre-op CABG SIDE PERFORMED: Bilateral TECHNIQUE: Lower extremity saphenous vein is examined and measured utilizing real time linear array sonography. Patient History: Smoker: no Heart Disease: yes Previous DVT: no Vascular Surgery: no Discoloration: no Hypertension: yes Diabetes: yes Paralysis: no Varicosities: no Edema: no DUPLEX FINDINGS: Greater Saphenous: Color flow seen Measurements in mm: Right Greater Saphenous: Groin: 4.2 x 4.2 mm High Thigh: 3.8 x 3.8 mm Mid Thigh: 3.2 x 3.4 mm Above Knee: 2.8 x 2.6 mm Knee: 3.2 x 3.3 mm Below Knee: 3.2 x 2.9 mm Mid Calf: 2.9 x 3.1 mm At Ankle: 2.8 x 3.1 mm Left Greater Saphenous: Groin: 5.6 x 5.2 mm High Thigh: 4.6 x 4.6 mm Mid Thigh: 4.3 x 4.4 mm Above Knee: 3.9 x 3.9 mm Knee: 4.0. x 4.7 mm Below Knee: 3.9 x 4.0 mm Mid Calf: 3.2 x 3.2 mm At Ankle: 2.7 x 2.9 mm IMPRESSION: 1. Bilateral GSV measurements listed above. 2. Performing surgeon to determine viability as conduit.
== END | disposition home or self-care (01) ==
LOC: LABWHC1 11:07
PROVIDERS: ATTEND Thoracic Surgery (Cardiothoracic Vascular Surgery)
DX: Z01.818 Encounter for other preprocedural examination (principal)
CPT/HCPCS: 71046; 93880; 93970

== ENCOUNTER → 2022-10-13 | Outpatient (CLI) | payer OTHER ==
[2022-10-14 01:06] LABS: Appearance,Urine Clear (Clear); Bilirubin,Urine Negative (Negative); Blood,Urine Negative (Negative); Color,Urine Yellow (Yellow); Ketones,Urine Negative (Negative); Nitrite,Urine Negative (Negative); PH, Urine 5.5 (5.0-8.0); Specific Gravity,Urine 1.017 (1.001-1.030); Urobilinogen,Urine 0.2 (0.2,1.0)
== END | disposition home or self-care (01) ==
LOC: LABWHC1 14:16
PROVIDERS: ATTEND Surgery
DX: I35.0 Nonrheumatic aortic (valve) stenosis (principal)
CPT/HCPCS: 81003; 87086

== ENCOUNTER 2022-10-17 08:00 | Inpatient (IN) | payer OTHER ==
[2022-10-11 10:05] LABS: HCT 37.6 % (39.0-53.0); HGB 12.8 gm/dL (13.0-17.5); MCH 28.9 pg (25.0-35.0); MCHC 34.1 g/dL (31.0-37.0); MCV 84.6 fL (80.0-100.0); Mean Platelet Volume 7.6; Platelet Count 275 k/uL (150-450); RBC 4.45 m/uL (4.30-5.90); RDW 13.6 % (11.5-15.5)
[2022-10-11 10:13] LABS: Partial Thromboplastin Time 22.7 sec (22.0-30.0)
[2022-10-11 10:14] LABS: ALT 26 U/L (4-49); AST 30 U/L (17-59); African American GFR (CKD) >90 (>60 ml/min/1.73 sqM); Alkaline Phosphatase 72 U/L (38-126); Anion Gap 12 mmol/L; Blood Urea Nitrogen 15 mg/dL (9-20); Carbon Dioxide 26 mmol/L (22-30); Chloride 102 mmol/L (98-107); Glucose 189 mg/dL (74-99); Magnesium 1.6 mg/dL (1.6-2.3); Non-African American GFR(CKD) >90 (>60 ml/min/1.73 sqM); Potassium 4.5 mmol/L (3.5-5.1); Sodium 140 mmol/L (137-145); Total Bilirubin 0.6 mg/dL (0.2-1.3); Total Protein 7.3 g/dL (6.3-8.2)
[2022-10-11 16:28] LABS: Hepatitis A Antibody IgM Nonreactive (Nonreactive); Hepatitis B Core IgM Nonreactive (Nonreactive); Hepatitis B Surface Antigen Nonreactive (Nonreactive); Hepatitis C IgG Antibody Nonreactive (Nonreactive)
[2022-10-12 02:50] LABS: LDL Cholesterol,Calculated 65.5 mg/dL (0.0-131.0)
[2022-10-19] MEDS ORDERED: ATORVASTATIN 10 MG TAB PO ONE (05:00)
[2022-10-19] MEDS ORDERED: ceFAZolin 3 GM in SODIUM CHLORIDE 0.9% 100 ML IVPB ONE (05:00)
[2022-10-19] MEDS ORDERED: ALBUMIN HUMAN 5% 500 ML IVPB ONE (05:00)
[2022-10-19] MEDS ORDERED: SODIUM BICARB 8.4% 50 ML SYR (1 MEQ/ML) IV ONE (05:00)
[2022-10-19] MEDS ORDERED: NITROGLYCERIN-D5W PMX 25 MG/250 ML BTL IV ONE (05:00)
[2022-10-19] MEDS ORDERED: CALCIUM CHLORIDE 100 MG/ML 10 ML SYRINGE IV ONE (05:00)
[2022-10-19] MEDS ORDERED: CLEVIDIPINE BUTYRATE 25 MG in EMPTY BAG 1 BAG IV ONE (05:00)
[2022-10-19] MEDS ORDERED: HEPARIN SODIUM 1,000 UN/ML (10ML VL) IV ONE (05:00)
[2022-10-19] MEDS ORDERED: PHENYLEPHRINE 40 MG in SODIUM CHLORIDE 0.9% 250 ML IV ONE (05:00)
[2022-10-19] MEDS ORDERED: SODIUM CHLORIDE 0.9% 1,000 ML IV ONE (05:00)
[2022-10-19] MEDS ORDERED: METOPROLOL TARTRATE 12.5 MG TAB PO ONE (05:00)
[2022-10-19] MEDS ORDERED: PAPAVERINE 360 MG in SODIUM CHLORIDE 0.9% 90 ML IV ONE (05:00)
[2022-10-19] MEDS ORDERED: MAGNESIUM SULFATE 16.24 MEQ in EMPTY SYRINGE 1 SYR IV ONE (05:00)
[2022-10-19] MEDS ORDERED: CHLORHEXIDINE GLUCONATE 15 ML CUP MUCOUS MEM ONE (05:00)
[2022-10-19] MEDS ORDERED: ceFAZolin 1,000 MG in SODIUM CHLORIDE 0.9% IRRIGATIO 1,000 ML IRRIGATION ONE (05:00)
[2022-10-19] MEDS ORDERED: TRANEXAMIC ACID 2,000 MG in SODIUM CHLORIDE 0.9% 80 ML IV ONE ×4 (05:00)
[2022-10-19] MEDS ORDERED: HEPARIN SODIUM,PORCINE 5,000 UNIT in SODIUM CHLORIDE 0.9% 500 ML 500 ML IV ONE (05:00)
[2022-10-19] MEDS ORDERED: NITROGLYCERIN-D5W PMX 50 MG in DEXTROSE/WATER 1 250ML.BAG IV ONE (05:00)
[2022-10-19] MEDS ORDERED: ALBUMIN HUMAN 25% 50 ML IV ONE (05:00)
[2022-10-19] MEDS ORDERED: LACTATED RINGERS 1,000 ML IV ONE (05:00)
[2022-10-19] MEDS ORDERED: NITROGLYCERIN SL TABS 0.4 MG TAB SUBLINGUAL ONE (05:00)
[2022-10-19] MEDS ORDERED: INSULIN REGULAR 100 UNIT in SODIUM CHLORIDE 0.9% 100 ML IV ONE (05:00)
[2022-10-19] MEDS ORDERED: CARDIOPLEGIC SOLN (K+ 16 MEQ/L 1,000 ML with SODIUM BICARB (1 MEQ/ML) 20 ML, LIDOCAINE ... PERFUSION ONE ×3 (05:00)
[2022-10-19] MEDS ORDERED: PROTAMINE SULFATE 250 MG in EMPTY BAG 1 BAG IV ONE (05:00)
[2022-10-19] MEDS ORDERED: PHENYLEPHRINE 10 MG/ML VIAL IV ONE (05:00)
[2022-10-19] MEDS ORDERED: MANNITOL 25% 12.5 GM/50 ML VIAL IV ONE (05:00)
[2022-10-19] MEDS ORDERED: NOREPINEPHRINE 4 MG in SODIUM CHLORIDE 0.9% 250 ML IV ONE (05:00)
[2022-10-19] MEDS ORDERED: PROTAMINE SULFATE 10 MG/ML 25 ML VIAL IV ONE ×2 (05:00→07:32)
[2022-10-19] MEDS ORDERED: propofoL 1,000 MG/100 ML VIAL IV ONE (05:00)
[2022-10-19] MEDS ORDERED: LIDOCAINE 1% (10MG/ML) FOR IV START INTRADERMA ONE (06:25)
[2022-10-19 06:44] LABS: Glucose,Whole Blood 146 mg/dL (70-110)
[2022-10-19] MEDS ORDERED: CALCIUM CHLORIDE 100 MG/ML 10 ML SYRINGE ONE (07:32)
[2022-10-19] MEDS ORDERED: LIDOCAINE 2% SYG (PF) 100 MG/5 ML ONE (07:32)
[2022-10-19] MEDS ORDERED: MIDAZOLAM HCL 10 MG/10 ML VIAL ONE (07:32)
[2022-10-19] MEDS ORDERED: SUCCINYLCHOLINE CHLORIDE 200 MG/10 ML VIAL IV ONE (07:32)
[2022-10-19] MEDS ORDERED: ROCURONIUM 10 MG/ML (5 ML VIAL) IV ONE (07:32)
[2022-10-19] MEDS ORDERED: fentaNYL (PF) 50 MCG/ML 50 ML VIAL ONE (07:32)
[2022-10-19] MEDS ORDERED: ELECTROLYTE-R (PH 7.4) 1,000 ML IV.SOLN IV ONE (07:32)
[2022-10-19] MEDS ORDERED: TRANEXAMIC ACID IN NACL,ISO-OS 1,000 MG/100 ML BAG ONE (07:32)
[2022-10-19] MEDS ORDERED: PROPOFOL 10 MG/ML 20 ML VIAL IV ONE (07:32)
[2022-10-19] MEDS ORDERED: ALBUMIN HUMAN 5% (25gm) 500 ML VIAL IVPB ONE (07:32)
[2022-10-19] MEDS ORDERED: MAGNESIUM SULFATE 4 MEQ/ML 10ML VIAL ONE (07:32)
[2022-10-19 08:15] LABS: ABG Base Excess 2.4 mmol/L; ABG HCO3 28 mmol/L (21-25); ABG Hematocrit 38 % (34.0-46.0); ABG Ionized Calcium 4.7 mg/dL (4.5-5.3); ABG Oxygen Saturation 99.7 % (94-97); ABG PCO2 48 mmHg (35-45); ABG PH 7.38 (7.35-7.45); ABG PO2 182 mmHg (83-108); ABG Potassium Whole Blood 4.6 mmol/L (3.4-4.5); ABG Sodium Whole Blood 139 mmol/L (135-146); ABG TCO2 30 mmol/L (19-24)
[2022-10-19 08:24] LABS: Glucose,Whole Blood 127 mg/dL (70-110)
[2022-10-19 09:48] LABS: ABG Base Excess 0.2 mmol/L; ABG HCO3 24 mmol/L (21-25); ABG Hematocrit 26 % (34.0-46.0); ABG Ionized Calcium 4.1 mg/dL (4.5-5.3); ABG PCO2 34 mmHg (35-45); ABG PH 7.45 (7.35-7.45); ABG Sodium Whole Blood 135 mmol/L (135-146); ABG TCO2 25 mmol/L (19-24)
[2022-10-19 09:49] LABS: Glucose,Whole Blood 148 mg/dL (70-110)
[2022-10-19 10:17] LABS: ABG Base Excess -0.1 mmol/L; ABG HCO3 24 mmol/L (21-25); ABG Hematocrit 27 % (34.0-46.0); ABG Ionized Calcium 4.2 mg/dL (4.5-5.3); ABG PCO2 38 mmHg (35-45); ABG PH 7.42 (7.35-7.45); ABG Potassium Whole Blood 4.1 mmol/L (3.4-4.5); ABG Sodium Whole Blood 136 mmol/L (135-146); ABG TCO2 25 mmol/L (19-24)
[2022-10-19 10:21] LABS: Glucose,Whole Blood 215 mg/dL (70-110)
[2022-10-19] MEDS ORDERED: ceFAZolin 1,000 MG in SODIUM CHLORIDE 0.9% 1,000 ML IRRIGATION ONE (10:34)
[2022-10-19] MEDS ORDERED: SODIUM CHLORIDE 0.9% 500 ML 500 ML with HEPARIN SODIUM,PORCINE 5,000 UNIT IV ONE ×2 (10:34)
[2022-10-19 10:53] LABS: ABG PO2 >420 mmHg (83-108)
[2022-10-19 10:53] LABS: ABG PO2 >420 mmHg (83-108)
[2022-10-19 10:57] LABS: ABG HCO3 23 mmol/L (21-25); ABG Hematocrit 29 % (34.0-46.0); ABG Ionized Calcium 4.3 mg/dL (4.5-5.3); ABG PCO2 41 mmHg (35-45); ABG PH 7.36 (7.35-7.45); ABG PO2 326 mmHg (83-108); ABG Potassium Whole Blood 4.2 mmol/L (3.4-4.5); ABG Sodium Whole Blood 137 mmol/L (135-146); ABG TCO2 25 mmol/L (19-24)
[2022-10-19 11:00] LABS: Glucose,Whole Blood 189 mg/dL (70-110)
[2022-10-19 11:57] LABS: Glucose,Whole Blood 147 mg/dL (70-110)
[2022-10-19 11:58] LABS: ABG Base Excess 0.6 mmol/L; ABG HCO3 25 mmol/L (21-25); ABG Hematocrit 29 % (34.0-46.0); ABG Ionized Calcium 4.2 mg/dL (4.5-5.3); ABG Oxygen Saturation 97.6 % (94-97); ABG PCO2 39 mmHg (35-45); ABG PH 7.41 (7.35-7.45); ABG PO2 86 mmHg (83-108); ABG Potassium Whole Blood 3.7 mmol/L (3.4-4.5); ABG Sodium Whole Blood 138 mmol/L (135-146); ABG TCO2 26 mmol/L (19-24)
--- NOTE | 2022-10-19 12:51 | P.OP ---
Date of Procedure: 10/19/22 Preoperative Diagnosis: Severe tricuspid Calcific aortic stenosis Postoperative Diagnosis: Same Procedure(s) Performed: Aortic valve replacement with 27 mm Coker Inspiris bovine pericardial valve, root enlargement with hemashield patch (Bruno Hendrickson), epi-aortic ultrasound, occlusion of left atrial appendage with 35 mm AtriCure clip Implants: 27 mm Inspiris bovine pericardial valve, Hemashield patch Anesthesia: GETA Surgeon: Antonio Bui Project Program Manager #1: Zaki Butt Estimated Blood Loss (ml): 500 IV fluids (ml): 2,000 Urine output (ml): 300 Pathology: other (Aortic valve) Condition: stable Disposition: ICU Indications for Procedure: 62-year-old male with Intermatic severe tricuspid calcific aortic stenosis Operative Findings: Relatively small aorta and aortic root. Epi-aortic ultrasound demonstrated calcification in the distal ascending aorta and the aortic root. Patient's PSA is 2.8. Aortic valve was heavily calcified and tricuspid. Initial measurements of the annulus showed largest valve we could be implanted would be a 21 mm. Following root enlargement we were able to place a 27 mm valve. Description of Procedure: Patient was brought to the operating room anesthetized and intubated. DONI probe was placed. Anterior torso and lower extremities were sterilely prepped and draped. Midline sternotomy was performed. Standard sternal retractor was placed. Pericardium was opened in midline heart was exposed with pericardial sutures. Patient was systemically heparinized. Epi-aortic ultrasonography was performed. There was calcification in the distal ascending aorta on the lateral wall and calcification in the root. We were able to clamp below the calcification on the lateral wall and cannulated in a free area. Patient was cannulated for cardio primary bypass with 8 mm soft flow cannula in the distal ascending aorta. Two-stage venous cannula was placed through the right atrial appendage into the inferior vena cava. Antegrade and retrograde cardioplegia lines were placed in standard fashion. Patient was placed on cardiopulmonary bypass and stabilized. Pursestring suture was placed in the right superior pulmonary vein for left atrial venting. 35 mm AtriCure was applied to the base of the left atrial appendage. The aorta was crossclamped and the heart was arrested with cold crystalloid and retrograde cardioplegia. The aorta was opened transversely and the aortic valve examined. The aortic valve was tricuspid and heavily calcified and was excised. The annulus was decalcified. On incising the annulus a 21 valve was the largest sizer we could pass. Was decided to proceed with a root enlargement. The aortotomy was carried down to the commissure between the left and noncoronary cusps and then incision was carried transversely to the left and the right. Heme shield patch was opened and brought up onto the field. It was cut to fit the opening and sewn in place with 4-0 Prolene suture. We now resize the root and decided on a 27 mm Coker Inspiris bovine pericardial prosthesis. Circumferential valve sutures were placed with pledgets on the ventricular side. We did not place pledgeted sutures in the patch. Valve sutures were placed through the sewing ring of the valve and the valve was seated. All sutures were tied and the valve seated well. We placed sutures directly through the sewing ring of the valve and through the patch and tied them on the outside for the portion of the patch. Valve sutures were then cut. Copious irrigation was performed throughout the procedure to avoid any embolic debris. We now completed the closure of the aorta by continuing the patch suture across the aortotomy and tapering the patch appropriately. On completion the aorta was de-aired through the aortic vent and the left atrial vent was removed and the pursestring tied. Aortic suture lines were reinforced with some CoSeal. Patient was placed in steep Trendelenburg and the cross-clamp was removed. Atrial and ventricular pacing wires were placed and the patient was initially paced. Antegrade cardioplegia line was removed. The was used for de-airing and we de-aired the left ventricle apex via Angiocath. Once fully de-aired, aortic vent was removed and the pursestring suture tied with good result and hemostasis. The patient was rewarmed to systemic temperature from a sotero of 34. Patient was weaned from cardioplegic bypass without the use of inotropic support. The pump was returned to the patient. Patient was decannulated in standard fashion. Heparin was reversed with protamine. Good hemostasis was obtained throughout. Stable hemodynamics were achieved and maintained. Good hemostasis was evident. Chest was irrigated with antibiotic solution. The mediastinum was drained with a 36-Slovenian chest tube. Sternum was closed with 4 sternal wires and 3 cable plates. Fascia was closed with 0 Ethibond. Subcutaneous and subcuticular layers were closed with layers of Vicryl suture. Skin glue dressing was applied and the patient was transferred to ICU in stable and the dynamic condition having received no blood transfusions on no inotropic support
[2022-10-19] MEDS ORDERED: DEXMEDETOMIDINE/0.9% NACL(PMX) 400 MCG in EMPTY BAG 1 BAG IV SCH (13:08)
[2022-10-19] MEDS ORDERED: DEXTROSE 50% SYRINGE 50 ML IVP PRN ×2 (13:08)
[2022-10-19] MEDS ORDERED: ONDANSETRON 4 MG/2 ML VIAL IVP PRN (13:08)
[2022-10-19] MEDS ORDERED: IPRATROPIUM-ALBUTEROL 3 ML NEB INHALATION PRN (13:08)
[2022-10-19] MEDS ORDERED: METOCLOPRAMIDE 5 MG/ML 2 ML VIAL IVP PRN (13:08)
[2022-10-19] MEDS ORDERED: Potassium Replacement Protocol 1 EACH MISC MISCELLANE PRN (13:08)
[2022-10-19] MEDS ORDERED: Magnesium Replacement Protocol 1 EACH MISC MISCELLANE PRN (13:08)
[2022-10-19] MEDS ORDERED: AMIODARONE 360 MG in DEXTROSE 5% IN WATER 200 ML IV PRN ×2 (13:08)
[2022-10-19] MEDS ORDERED: AMIODARONE 450 MG in DEXTROSE 5% IN WATER 250 ML IV PRN ×2 (13:08)
[2022-10-19] MEDS ORDERED: BENZOCAINE/MENTHOL LOZENG 1 EACH LOZENGE MUCOUS MEM PRN (13:08)
[2022-10-19] MEDS ORDERED: CALCIUM GLUCONATE IN NACL 2 GM in SALINE 1 100ML.BAG IVPB PRN (13:08)
[2022-10-19 13:16] LABS: Glucose,Whole Blood 163 mg/dL (70-110)
[2022-10-19 13:34] LABS: Basophils % (A) 0 %; Eosinophils % (A) 0 %; HCT 30.6 % (39.0-53.0); HGB 10.1 gm/dL (13.0-17.5); Lymphocytes # (A) 1.7 k/uL (1.0-4.8); Lymphocytes % (A) 14 %; MCH 28.5 pg (25.0-35.0); MCV 86.3 fL (80.0-100.0); Mean Platelet Volume 8.6; Monocytes # (A) 0.7 k/uL (0-1.0); Monocytes % (A) 6 %; Neutrophils # (A) 9.4 k/uL (1.3-7.7); Neutrophils % (A) 79 %; Platelet Count 153 k/uL (150-450); RBC 3.54 m/uL (4.30-5.90); RDW 13.1 % (11.5-15.5); WBC 11.8 k/uL (3.8-10.6)
[2022-10-19] MEDS: CLEVIDIPINE BUTYRATE 25 MG in EMPTY BAG 1 BAG IV SCH (13:41)
[2022-10-19 13:45] LABS: Ionized Calcium 5.1 mg/dL (4.5-5.3)
[2022-10-19 13:52] LABS: INR 1.2 (<1.2); Partial Thromboplastin Time 24.5 sec (22.0-30.0)
--- NOTE | 2022-10-19 13:53 | XR ---
EXAMINATION TYPE: XR chest 1V portable DATE OF EXAM: 10/19/2022 COMPARISON: 10/11/2022 HISTORY: Postop TECHNIQUE: Single frontal view of the chest is obtained. FINDINGS: There is 5-10% right apical pneumothorax. The osseous structures are intact. ET and NG tub es seen and there is postsurgical changes. [place]-Michael catheter seen with the tip in the proximal right pulmonary outflow tract. There are bilateral areas of consolidation and pleural effusion with mild central venous congestion. ET tube is approximately 2.4 cm above the malu and the NG tube appears to course in the left upper quadrant. IMPRESSION: 1. Postsurgical changes with bilateral infiltrate and pleural effusion correlate for mild venous temitope estion. 2. ET tube 2.4 cm above the malu. 3. Approximately 5-10% right apical pneumothorax.
[2022-10-19 13:56] LABS: ABG Base Excess 0.3 mmol/L; ABG HCO3 25 mmol/L (21-25); ABG PCO2 42 mmHg (35-45); ABG PH 7.39 (7.35-7.45); ABG PO2 262 mmHg (83-108); ABG TCO2 27 mmol/L (19-24)
[2022-10-19 13:56] LABS: ALT 19 U/L (4-49); AST 34 U/L (17-59); African American GFR (CKD) >90 (>60 ml/min/1.73 sqM); Albumin 3.5 g/dL (3.5-5.0); Alkaline Phosphatase 56 U/L (38-126); Anion Gap 10 mmol/L; Blood Urea Nitrogen 14 mg/dL (9-20); Calcium 8.5 mg/dL (8.4-10.2); Carbon Dioxide 24 mmol/L (22-30); Chloride 103 mmol/L (98-107); Glucose 149 mg/dL (74-99); Magnesium 2.6 mg/dL (1.6-2.3); Non-African American GFR(CKD) >90 (>60 ml/min/1.73 sqM); Potassium 4.2 mmol/L (3.5-5.1); Sodium 137 mmol/L (137-145); Total Bilirubin 0.6 mg/dL (0.2-1.3); Total Protein 5.8 g/dL (6.3-8.2)
[2022-10-19 13:57] LABS: Allen Test Performed? no
[2022-10-19] MEDS: LACTATED RINGERS 1,000 ML IV SCH (14:01)
[2022-10-19] MEDS: INSULIN REGULAR 100 UNIT in SODIUM CHLORIDE 0.9% 100 ML IV SCH (14:02)
[2022-10-19 14:21] LABS: Glucose,Whole Blood 172 mg/dL (70-110)
[2022-10-19] MEDS: hydrALAZINE HCL 20 MG/ML 1 ML VIAL IVP PRN ×2 (14:46→19:00)
--- NOTE | 2022-10-19 15:02 | P.CNPUL ---
History of Present Illness Consult date: 10/19/22 Chief complaint: aortic valve replacement History of present illness: 62-year-old male patient, underwent an aortic valve replacement for severe aortic stenosis. The patient currently is in the intensive care unit intubated on a mechanical ventilator, propofol running at 20 microvascular kilogram. He is intubated on a mechanical ventilator, assist control mode at the rate of 16, tidal volume of 600, FiO2 has been dropped down to 60% and a PEEP is currently at 10. The patient has a mediastinal chest tube and output is in order of 20 mL since his arrival from the operating room. PT is at 7.39 with a pCO2 of 42 and pO2 of 262. Hemodynamically, the patient has a PEA pressures of 39/24. Cardiac output is at 7.6 with an index of 3.0. Adequate urine output. Adequate blood pressure. Cardiac rhythm is sinus. He is on insulin drip at 3 units an hour for blood sugar control. His hemoglobin currently is at 10.1. Platelet count is at 153. No other active issues for now. Chest x-ray shows a limited 5% pneumothorax on the right. ET tube is in a good location. Review of Systems ROS unobtainable: due to endotracheal tube Past Medical History Past Medical History: Asthma, Cancer, CVA/TIA, Diabetes Mellitus, GERD/Reflux, Hyperlipidemia, Hypertension, Osteoarthritis (OA) Additional Past Medical History / Comment(s): hx cva (2021)., hx seizure with low blood sugar., testicular cancer right 2006., numbness in left arm at times. tingling in feet., constipation/bloating., environmental allergies. Last Myocardial Infarction Date:: ?states 1985 when working at the [employer] History of Any Multi-Drug Resistant Organisms: None Reported Past Surgical History: Heart Catheterization Additional Past Surgical History / Comment(s): TESTICULAR SURGERY ., COLONOSCOPY. Past Anesthesia/Blood Transfusion Reactions: No Reported Reaction Additional Past Anesthesia/Blood Transfusion Reaction / Comment(s): DIFFICULTY WAKING UP. MOTHER HAD DIFFICULTY WAKING UP ALSO. Additional Psychological History / Comment(s): CURRENTLY LIVING WITH FRIEND PARISA AGRCIA WHILE [facility] HEL[facility] AILYN FIND A PLACE TO LIVE. - Past Family History Father Family Medical History: Cancer, Renal Disease Additional Family Medical History / Comment(s): mrsa Mother Family Medical History: Coronary Artery Disease (CAD), Hypertension, Myocardial Infarction (PA), Osteoarthritis (OA) Additional Family Medical History / Comment(s): cardiac stents, smoker Medications and Allergies Home Medications Medication Instructions Recorded Confirmed Type metFORMIN HCL [Glucophage] 500 mg PO BID #60 tab 04/29/20 10/11/22 Rx Atorvastatin [Lipitor] 10 mg PO HS 12/24/21 10/11/22 History Montelukast [Singulair] 10 mg PO HS 12/24/21 10/11/22 History Tamsulosin [Flomax] 0.4 mg PO HS 12/24/21 10/11/22 History Citalopram Hydrobromide 30 mg PO QAM 07/04/22 10/11/22 History [Citalopram HBr] Famotidine [Pepcid] 20 mg PO HS 07/04/22 10/11/22 History Ibuprofen [Motrin Ib] 200 mg PO DAILY PRN 07/04/22 10/11/22 History Albuterol Inhaler [Ventolin Hfa 1 - 2 puff INHALATION Q4-6H PRN 10/11/2208/04 History Inhaler] Chlorhexidine Gluconate [Peridex] 15 ml PO BID 10/11/22 10/19/22 History Dulaglutide [Trulicity] 0.75 mg SQ QAM 10/11/22 10/11/22 History Insulin Detemir [Levemir Flexpen] 25 units SQ HS 10/11/22 10/19/22 History Melatonin 5 mg PO HS PRN 10/11/22 10/11/22 History Metoprolol Tartrate [Lopressor] 50 mg PO BID 10/11/22 10/19/22 History Semaglutide [Rybelsus] 7 mg PO QAM 10/11/22 10/11/22 History Mupirocin [Mupirocin 2%] 1 applic NASAL BID #1 tub 10/14/22 Rx Allergies Allergy/AdvReac Type Severity Reaction Status Date / Time shellfish derived [Shellfish] Allergy Severe Anaphylaxis- Verified 10/19/22 06:12 tight chest, dyspnea aspirin Allergy Anaphylaxis- Verified 10/19/22 06:12 throat get tight cefaclor [From Ceclor] Allergy Rash/Hives Verified 10/19/22 06:12 Iodine and Iodide Containing Allergy Anaphylaxis Verified 10/19/22 06:12 Produc lactose Allergy Diarrhea Verified 10/19/22 06:12 sumatriptan [From Imitrex] Allergy Dyspnea Verified 10/19/22 06:12 sumatriptan succinate Allergy Dyspnea Verified 10/19/22 06:12 [From Imitrex] chocolate flavor AdvReac headache Verified 10/19/22 06:12 theophylline [From Lang-Dur] AdvReac hand Verified 10/19/22 06:12 tremors gatorade AdvReac Unknown sore throat Uncoded 10/19/22 06:12 Physical Exam Vitals: Vital Signs Temp Pulse Pulse Resp BP BP Pulse Ox 10/19/22 14:55 10/19/22 14:00 81 14 100 10/19/22 13:50 81 22 100 10/19/22 13:40 81 14 100 10/19/22 13:30 80 14 100 10/19/22 13:20 78 14 100 10/19/22 13:18 10/19/22 13:14 97.2 F L 80 14 99 10/19/22 13:12 10/19/22 06:10 97.9 F 91 16 136/84 135/75 95 FiO2 10/19/22 14:55 50 10/19/22 14:00 60 10/19/22 13:50 100 10/19/22 13:40 100 10/19/22 13:30 100 10/19/22 13:20 100 10/19/22 13:18 100 10/19/22 13:14 100 10/19/22 13:12 100 10/19/22 06:10 Intake and Output 10/18/22 10/19/22 10/19/22 22:59 06:59 14:59 Intake Total 100 91 Output Total 1050 Balance 100 -959 Intake: IV 100 41 0.9NS FOR PRESSURE BAG 9 CO/CI 30 Intake, IV Titration 50 Amount Lactated Ringers 1,000 ml 50 @ 50 mls/hr IV .Q20H [facility] Rx#:[id number] Output: Chest Tube Drainage 20 Chest Tube Mediastinal 20 Urine 530 Estimated Blood Loss 500 Other: Weight 129 kg ABP, PAP, CO, CI - Last 8 Hours Arterial Blood Pressure 118/61 Arterial Blood Pressure 117/60 Arterial Blood Pressure 118/62 Arterial Blood Pressure 115/61 Arterial Blood Pressure 111/61 Arterial Blood Pressure 112/65 Pulmonary Artery Pressure 38/23 Pulmonary Artery Pressure 35/21 Pulmonary Artery Pressure 39/23 Pulmonary Artery Pressure 39/23 Pulmonary Artery Pressure 39/24 Pulmonary Artery Pressure 49/29 Cardiac Output 7.6 Cardiac Output 5.9 Cardiac Output 5.9 Cardiac Output 5.9 Cardiac Output 5.9 Cardiac Index 3.0 Cardiac Index 2.4 Cardiac Index 2.4 Cardiac Index 2.4 Cardiac Index 2.4 , Obese currently intubated, sedated on propofol, calm and comfortable, body mass index of 37 Head exam was generally normal. There was no scleral icterus or corneal arcus. Mucous membranes were moist. Neck was supple and without jugular venous distension, thyromegaly, or carotid bruits. Carotids were easily palpable bilaterally. There was no adenopathy. The patient has a right IJ Cordis and [place]-Michael catheter Lungs were clear to auscultation and percussion, and with normal diaphragmatic excursion. No wheezes or rales were noted. Breath sounds are equal and symmetrical bilaterally. Cardiac exam revealed the PMI to be normally situated and sized. The rhythm was regular and no extrasystoles were noted during several minutes of auscultation. The first and second heart sounds were normal and physiologic splitting of the second heart sound was noted. There were no murmurs, rubs, clicks, or gallops. Sternotomy wires are intact and the patient has a mediastinal chest tube Abdominal exam revealed normal bowel sounds. The abdomen was soft, non-tender, and without masses, organomegaly, or appreciable enlargement of the abdominal aorta. Examination of the extremities revealed easily palpable radial, femoral and pedal pulses. There was no cyanosis, clubbing or edema. Examination of the skin revealed no evidence of significant rashes, suspicious appearing nevi or other concerning lesions. Neurologically, the patient is sedated yet arousable. Moving all 4 extremities. Pupils are equal reactive to light. Cranial nerves are intact. Results - Laboratory Findings CBC and BMP: 10/19/22 13:10 10/19/22 13:10 ABG ABG pH 7.39 (7.35-7.45) 10/19/22 13:54 ABG pCO2 42 mmHg (35-45) 10/19/22 13:54 ABG pO2 262 mmHg (83-108) H 10/19/22 13:54 ABG O2 Saturation 100.0 % (94-97) H 10/19/22 13:54 PT/INR, D-dimer PT 12.0 sec (9.0-12.0) 10/19/22 13:10 INR 1.2 (<1.2) H 10/19/22 13:10 Abnormal lab findings: Abnormal Labs 10/11/22 10/11/22 10/11/22 09:28 09:28 09:28 WBC RBC Hgb 12.8 L Hct 37.6 L Neutrophils # INR ABG pCO2 ABG pO2 ABG HCO3 ABG Total CO2 ABG O2 Saturation ABG Hematocrit ABG Potassium ABG Ionized Calcium Hemoglobin Creatinine 0.60 L Glucose 189 H POC Glucose (mg/dL) Hemoglobin A1c 7.6 H Magnesium Total Protein Triglycerides 194.00 H Arterial Blood Potassium Crossmatch 10/11/22 10/19/22 10/19/22 09:28 06:37 08:17 WBC RBC Hgb Hct Neutrophils # INR ABG pCO2 48 H ABG pO2 182 H ABG HCO3 28 H ABG Total CO2 30 H ABG O2 Saturation 99.7 H ABG Hematocrit ABG Potassium 4.6 H ABG Ionized Calcium Hemoglobin 12.3 L Creatinine Glucose POC Glucose (mg/dL) 146 H Hemoglobin A1c Magnesium Total Protein Triglycerides Arterial Blood Potassium 4.6 H Crossmatch See Detail 10/19/22 10/19/22 10/19/22 08:17 09:48 09:50 WBC RBC Hgb Hct Neutrophils # INR ABG pCO2 34 L ABG pO2 >420 H ABG HCO3 ABG Total CO2 25 H ABG O2 Saturation 100.0 H ABG Hematocrit 26 L ABG Potassium ABG Ionized Calcium 4.1 L Hemoglobin 8.5 L Creatinine Glucose POC Glucose (mg/dL) 127 H 148 H Hemoglobin A1c Magnesium Total Protein Triglycerides Arterial Blood Potassium Crossmatch 10/19/22 10/19/22 10/19/22 10:19 10:19 10:19 WBC RBC Hgb Hct Neutrophils # INR ABG pCO2 ABG pO2 >420 H 326 H ABG HCO3 ABG Total CO2 25 H 25 H ABG O2 Saturation 100.0 H 100.0 H ABG Hematocrit 27 L 29 L ABG Potassium ABG Ionized Calcium 4.2 L 4.3 L Hemoglobin 8.8 L 9.4 L Creatinine Glucose POC Glucose (mg/dL) 215 H Hemoglobin A1c Magnesium Total Protein Triglycerides Arterial Blood Potassium Crossmatch 10/19/22 10/19/22 10/19/22 10:58 11:56 13:10 WBC 11.8 H RBC 3.54 L Hgb 10.1 L Hct 30.6 L Neutrophils # 9.4 H INR ABG pCO2 ABG pO2 ABG HCO3 ABG Total CO2 ABG O2 Saturation ABG Hematocrit ABG Potassium ABG Ionized Calcium Hemoglobin Creatinine Glucose POC Glucose (mg/dL) 189 H 147 H Hemoglobin A1c Magnesium Total Protein Triglycerides Arterial Blood Potassium Crossmatch 10/19/22 10/19/22 10/19/22 13:10 13:10 13:14 WBC RBC Hgb Hct Neutrophils # INR 1.2 H ABG pCO2 ABG pO2 ABG HCO3 ABG Total CO2 ABG O2 Saturation ABG Hematocrit ABG Potassium ABG Ionized Calcium Hemoglobin Creatinine 0.60 L Glucose 149 H POC Glucose (mg/dL) 163 H Hemoglobin A1c Magnesium 2.6 H Total Protein 5.8 L Triglycerides Arterial Blood Potassium Crossmatch 10/19/22 10/19/22 13:54 14:19 WBC RBC Hgb Hct Neutrophils # INR ABG pCO2 ABG pO2 262 H ABG HCO3 ABG Total CO2 27 H ABG O2 Saturation 100.0 H ABG Hematocrit ABG Potassium ABG Ionized Calcium Hemoglobin Creatinine Glucose POC Glucose (mg/dL) 172 H Hemoglobin A1c Magnesium Total Protein Triglycerides Arterial Blood Potassium Crossmatch - Diagnostic Findings Chest x-ray: image reviewed Assessment and Plan Plan: aortic valve replacement for severe aortic valve stenosis. The patient received a 27 mm bovine pericardial valve, postop day #0, hemodynamically stable, adequate cardiac output and index. Cardiac rhythm is sinus. Currently intubated on a mechanical ventilator. Postthoracotomy, currently intubated on a mechanical ventilator. The patient has a mediastinal chest tube in place. Right apical pneumothorax in the order of 5-10% Obesity Obstructive sleep apnea Diabetes mellitus currently on insulin drip at 3 units an hour Hypertension Degenerative arthritis Previous history of testicular cancer adequate history of developmental delay Plan Continue ventilator support Wean down FiO2 as tolerated to [facility] institution about 90% Wean down the sedation gradually to evaluate the patient's mental status and assessment and is to wean Hemodynamically stable without any cardiac arrhythmias and the patient should be able to wean and, the mechanical ventilator within next few hours Chest x-ray was reviewed and we'll going to monitor the right-sided pneumothorax Monitor THE MEDIASTINAL CHEST TUBE output Continue insulin drip for blood sugar control We'll continue to follow
[2022-10-19 15:11] LABS: Glucose,Whole Blood 177 mg/dL (70-110)
[2022-10-19] MEDS ORDERED: MUPIROCIN 2% OINT 22 GM TUBE NASAL ONE (15:30)
[2022-10-19] MEDS ORDERED: IPRATROPIUM-ALBUTEROL 3 ML NEB INHALATION SCH (16:00)
[2022-10-19 16:13] LABS: Glucose,Whole Blood 180 mg/dL (70-110)
[2022-10-19] MEDS: HEPARIN SODIUM,PORCINE/PF 5,000 UNIT/0.5 ML SYRINGE SQ SCH ×2 (16:14→23:55)
[2022-10-19 16:17] LABS: Basophils % (A) 0 %; Eosinophils % (A) 0 %; HCT 31.1 % (39.0-53.0); HGB 10.3 gm/dL (13.0-17.5); Lymphocytes # (A) 0.9 k/uL (1.0-4.8); Lymphocytes % (A) 9 %; MCH 28.5 pg (25.0-35.0); MCV 86.1 fL (80.0-100.0); Mean Platelet Volume 10.1; Monocytes # (A) 0.5 k/uL (0-1.0); Monocytes % (A) 5 %; Neutrophils # (A) 8.4 k/uL (1.3-7.7); Neutrophils % (A) 85 %; Platelet Count 134 k/uL (150-450); RBC 3.62 m/uL (4.30-5.90); WBC 9.8 k/uL (3.8-10.6)
[2022-10-19] MEDS: ceFAZolin 3 GM in SODIUM CHLORIDE 0.9% 100 ML IVPB SCH (16:48)
[2022-10-19 17:12] LABS: Glucose,Whole Blood 177 mg/dL (70-110)
[2022-10-19 17:28] LABS: ABG Base Excess 0.6 mmol/L; ABG HCO3 26 mmol/L (21-25); ABG Oxygen Saturation 98.7 % (94-97); ABG PCO2 46 mmHg (35-45); ABG PH 7.36 (7.35-7.45); ABG PO2 112 mmHg (83-108); ABG TCO2 27 mmol/L (19-24)
[2022-10-19 17:30] LABS: Allen Test Performed? no
[2022-10-19] MEDS: ACETAMINOPHEN IV (For NPO) 1,000 MG in EMPTY BAG 1 BAG IVPB SCH ×2 (17:44→23:55)
[2022-10-19] MEDS: KETOROLAC 15 MG/ML 1 ML VIAL IVP SCH ×2 (17:45→23:54)
[2022-10-19 18:14] LABS: Glucose,Whole Blood 163 mg/dL (70-110)
[2022-10-19 18:56] LABS: Glucose,Whole Blood 153 mg/dL (70-110)
[2022-10-19 19:31] LABS: Basophils % (A) 0 %; Eosinophils % (A) 0 %; HCT 31.8 % (39.0-53.0); HGB 10.3 gm/dL (13.0-17.5); Lymphocytes # (A) 0.9 k/uL (1.0-4.8); Lymphocytes % (A) 10 %; MCH 28.1 pg (25.0-35.0); MCHC 32.4 g/dL (31.0-37.0); MCV 86.6 fL (80.0-100.0); Mean Platelet Volume 8.3; Monocytes # (A) 0.5 k/uL (0-1.0); Monocytes % (A) 5 %; Neutrophils # (A) 8.3 k/uL (1.3-7.7); Neutrophils % (A) 85 %; Platelet Count 143 k/uL (150-450); RBC 3.67 m/uL (4.30-5.90); WBC 9.8 k/uL (3.8-10.6)
[2022-10-19] MEDS: IPRATROPIUM-ALBUTEROL 3 ML NEB INHALATION SCH (19:43)
[2022-10-19 20:08] LABS: Glucose,Whole Blood 150 mg/dL (70-110)
[2022-10-19 21:08] LABS: Glucose,Whole Blood 144 mg/dL (70-110)
[2022-10-19 22:05] LABS: Glucose,Whole Blood 137 mg/dL (70-110)
[2022-10-19] MEDS: ATORVASTATIN 10 MG TAB PO SCH (22:07)
[2022-10-19] MEDS: MONTELUKAST 10 MG TAB PO SCH (22:07)
[2022-10-19] MEDS: TAMSULOSIN 0.4 MG CAP.ER.24H PO SCH (22:07)
[2022-10-19] MEDS: MUPIROCIN 2% OINT 22 GM TUBE NASAL SCH (22:08)
[2022-10-19 22:56] LABS: Glucose,Whole Blood 131 mg/dL (70-110)
[2022-10-20 00:08] LABS: Glucose,Whole Blood 121 mg/dL (70-110)
[2022-10-20] MEDS: ceFAZolin 3 GM in SODIUM CHLORIDE 0.9% 100 ML IVPB SCH ×2 (00:36→08:44)
[2022-10-20 01:05] LABS: Glucose,Whole Blood 107 mg/dL (70-110)
[2022-10-20] MEDS: HYDROcodone/APAP 10-325MG 1 EACH TAB PO PRN ×3 (02:06→10:47)
[2022-10-20 02:12] LABS: Glucose,Whole Blood 127 mg/dL (70-110)
[2022-10-20 03:02] LABS: Glucose,Whole Blood 126 mg/dL (70-110)
[2022-10-20 04:07] LABS: Glucose,Whole Blood 120 mg/dL (70-110)
[2022-10-20] MEDS: INSULIN REGULAR 100 UNIT in SODIUM CHLORIDE 0.9% 100 ML IV SCH ×2 (04:07→16:16)
[2022-10-20 04:21] LABS: Basophils % (A) 0 %; Eosinophils % (A) 0 %; HCT 30.6 % (39.0-53.0); Lymphocytes # (A) 2.1 k/uL (1.0-4.8); Lymphocytes % (A) 20 %; MCH 28.4 pg (25.0-35.0); MCHC 32.7 g/dL (31.0-37.0); Mean Platelet Volume 9.9; Monocytes # (A) 0.6 k/uL (0-1.0); Monocytes % (A) 6 %; Neutrophils # (A) 7.5 k/uL (1.3-7.7); Neutrophils % (A) 73 %; Platelet Count 162 k/uL (150-450); RBC 3.52 m/uL (4.30-5.90); RDW 13.2 % (11.5-15.5); WBC 10.3 k/uL (3.8-10.6)
[2022-10-20 04:37] LABS: ALT 18 U/L (4-49); AST 37 U/L (17-59); African American GFR (CKD) >90 (>60 ml/min/1.73 sqM); Albumin 3.4 g/dL (3.5-5.0); Alkaline Phosphatase 38 U/L (38-126); Anion Gap 8 mmol/L; Blood Urea Nitrogen 15 mg/dL (9-20); Calcium 7.9 mg/dL (8.4-10.2); Carbon Dioxide 26 mmol/L (22-30); Chloride 102 mmol/L (98-107); Glucose 108 mg/dL (74-99); Magnesium 2.1 mg/dL (1.6-2.3); Non-African American GFR(CKD) >90 (>60 ml/min/1.73 sqM); Potassium 4.2 mmol/L (3.5-5.1); Sodium 136 mmol/L (137-145); Total Bilirubin 0.3 mg/dL (0.2-1.3); Total Protein 5.7 g/dL (6.3-8.2)
[2022-10-20] MEDS: KETOROLAC 15 MG/ML 1 ML VIAL IVP SCH ×4 (05:08→23:54)
[2022-10-20] MEDS: ALBUMIN HUMAN 5% 250 ML in EMPTY BAG 1 BAG IVPB PRN ×5 (05:44→13:05)
[2022-10-20 06:06] LABS: Glucose,Whole Blood 120 mg/dL (70-110)
[2022-10-20 07:11] LABS: Glucose,Whole Blood 118 mg/dL (70-110)
[2022-10-20 08:14] LABS: Glucose,Whole Blood 167 mg/dL (70-110)
--- NOTE | 2022-10-20 08:23 | XR ---
EXAMINATION TYPE: XR chest 1V portable DATE OF EXAM: 10/20/2022 COMPARISON: 10/19/2022 HISTORY: Postop TECHNIQUE: Single frontal view of the chest is obtained. FINDINGS: ET and NG tube have been removed. [place]-Michael catheter seen with the tip overlying the proxi mal pulmonary outflow tract. Mediastinal drain is seen. There are subsegmental changes at the left lizzette ng base with tiny effusion. No overt failure. Heart is enlarged. Hypertrophic and degenerative change of the spine. IMPRESSION: 1. Cardiomegaly with bilateral basilar atelectasis favored over infiltrate and small effusion. No ove rt failure. 2. ET and NG tube removal.
[2022-10-20] MEDS: METOPROLOL TARTRATE 12.5 MG TAB PO SCH ×2 (08:37→21:04)
[2022-10-20] MEDS: HEPARIN SODIUM,PORCINE/PF 5,000 UNIT/0.5 ML SYRINGE SQ SCH ×3 (08:37→23:54)
[2022-10-20] MEDS: CITALOPRAM HYDROBROMIDE 10 MG TAB PO SCH (08:37)
[2022-10-20] MEDS: CLOPIDOGREL 75 MG TAB PO SCH (08:38)
[2022-10-20] MEDS ORDERED: bisacodyL 10 MG SUPP RECTAL PRN (09:00)
[2022-10-20] MEDS ORDERED: PANTOPRAZOLE 40 MG/10 ML VIAL IVP SCH (09:00)
[2022-10-20] MEDS ORDERED: MAGNESIUM HYDROXIDE 2,400 MG/10 ML CUP PO PRN (09:00)
[2022-10-20] MEDS: MUPIROCIN 2% OINT 22 GM TUBE NASAL SCH ×2 (09:06→21:05)
[2022-10-20] MEDS: IPRATROPIUM-ALBUTEROL 3 ML NEB INHALATION SCH ×4 (09:07→19:47)
[2022-10-20 09:13] LABS: Glucose,Whole Blood 135 mg/dL (70-110)
--- NOTE | 2022-10-20 09:26 | P.CRDCN ---
History of Present Illness Consult date: 10/20/22 Consult reason: known to you, post-op evaluation History of present illness: The patient is a 62-year-old male who is currently admitted after undergoing aortic valve replacement with bovine pericardial valve, enlargement with hemashield patch, and left atrial appendage clip with Dr Bui on October 19. The patient tolerated the procedure well and has had no postoperative complications. DIAGNOSTICS: Chest x-ray shows bilateral basilar atelectasis Telemetry shows sinus rhythm with heart rates in the 80s Lab data: WBC 10.3, hemoglobin 10.0, hematocrit 30.6, platelet 162, sodium 136, potassium 4.2, BUN 15, creatinine 0.53, magnesium 2.1, AST 37, ALT 18, triglycerides 194, LDL 65, HDL 41, TSH 1.9 Vital signs: Blood pressure 101/46, pulse 84, respiratory rate 12, SpO2 93% on 2 L nasal cannula PAST MEDICAL HISTORY: Diabetes mellitus, hypertension, mild CAD, aortic stenosis, testicular cancer REVIEW OF SYSTEMS: No fever or chills. No cough or expectoration. No diaphoresis. Patient denies headache, dizziness, blurred vision, double vision. Patient denies any stomach discomfort. No nausea, vomiting. No hematochezia. No hematemesis. Denies any black stools or blood in his stools. Denies dysuria or hematuria. No muscle weakness or numbness. Positive for sternal discomfort. No difficulty breathing. PHYSICAL EXAMINATION: This is a 62-year-old male in no apparent distress at the time of my examination. HEENT: Head is atraumatic, normocephalic. Pupils are equal, round. Sclerae anicteric. Conjunctivae are clear. Mucous membranes of the mouth are moist. Neck is supple. There is no jugular venous distention. No carotid bruit is heard. CHEST EXAMINATION: Lungs are clear to auscultation. Chest wall tenderness noted at the time of auscultation. Chest hugger in place. HEART EXAMINATION: Heart regular rate and rhythm. S1, S2 heard. No murmurs, gallops or rub. ABDOMEN: Soft, nontender. Bowel sounds are heard. No organomegaly noted. EXTREMITIES: 2+ peripheral pulses with no evidence of peripheral edema and no calf tenderness noted. NEUROLOGIC EXAMINATION: Patient is awake, alert and oriented x3. FINAL ASSESSMENT AND PLAN: Severe aortic stenosis Enlarged aortic root Status post aortic valve replacement Mild coronary artery disease History diabetes History of hypertension PLAN: Continue supportive treatment Pain management per CV surgery Further recommendations to be based on clinical course I am dictating on behalf of Dr Duke Parrish's history/physical and assessment/plan. Past Medical History Past Medical History: Asthma, Cancer, CVA/TIA, Diabetes Mellitus, GERD/Reflux, Hyperlipidemia, Hypertension, Osteoarthritis (OA) Additional Past Medical History / Comment(s): hx cva (2021)., hx seizure with low blood sugar., testicular cancer right 2006., numbness in left arm at times. tingling in feet., constipation/bloating., environmental allergies. Last Myocardial Infarction Date:: ?states 1985 when working at the [email or web address] History of Any Multi-Drug Resistant Organisms: None Reported Past Surgical History: Heart Catheterization Additional Past Surgical History / Comment(s): TESTICULAR SURGERY ., COLONOSCOPY. Past Anesthesia/Blood Transfusion Reactions: No Reported Reaction Additional Past Anesthesia/Blood Transfusion Reaction / Comment(s): DIFFICULTY WAKING UP. MOTHER HAD DIFFICULTY WAKING UP ALSO. Additional Psychological History / Comment(s): CURRENTLY LIVING WITH FRIEND PARISA GARCIA WHILE [facility] HELPS AILYN FIND A PLACE TO LIVE. - Past Family History Father Family Medical History: Cancer, Renal Disease Additional Family Medical History / Comment(s): mrsa Mother Family Medical History: Coronary Artery Disease (CAD), Hypertension, Myocardial Infarction ([place]), Osteoarthritis (OA) Additional Family Medical History / Comment(s): cardiac stents, smoker Medications and Allergies Home Medications Medication Instructions Recorded Confirmed Type metFORMIN HCL [Glucophage] 500 mg PO BID #60 tab 04/29/20 10/11/22 Rx Atorvastatin [Lipitor] 10 mg PO HS 12/24/21 10/11/22 History Montelukast [Singulair] 10 mg PO HS 12/24/21 10/11/22 History Tamsulosin [Flomax] 0.4 mg PO HS 12/24/21 10/11/22 History Citalopram Hydrobromide 30 mg PO QAM 07/04/22 10/11/22 History [Citalopram HBr] Famotidine [Pepcid] 20 mg PO HS 07/04/22 10/11/22 History Ibuprofen [Motrin Ib] 200 mg PO DAILY PRN 07/04/22 10/11/22 History Albuterol Inhaler [Ventolin Hfa 1 - 2 puff INHALATION Q4-6H PRN 10/11/22 10/11/22 History Inhaler] Chlorhexidine Gluconate [Peridex] 15 ml PO BID 10/11/22 10/19/22 History Dulaglutide [Trulicity] 0.75 mg SQ QAM 10/11/22 10/11/22 History Insulin Detemir [Levemir Flexpen] 25 units SQ HS 10/11/22 10/19/22 History Melatonin 5 mg PO HS PRN 10/11/22 10/11/22 History Metoprolol Tartrate [Lopressor] 50 mg PO BID 10/11/22 10/19/22 History Semaglutide [Rybelsus] 7 mg PO QAM 10/11/22 10/11/22 History Mupirocin [Mupirocin 2%] 1 applic NASAL BID #1 tub 10/14/22 Rx Allergies Allergy/AdvReac Type Severity Reaction Status Date / Time shellfish derived [Shellfish] Allergy Severe Anaphylaxis- Verified 10/19/22 06:12 tight chest, dyspnea aspirin Allergy Anaphylaxis- Verified 10/19/22 06:12 throat get tight cefaclor [From Ceclor] Allergy Rash/Hives Verified 10/19/22 06:12 Iodine and Iodide Containing Allergy Anaphylaxis Verified 10/19/22 06:12 Produc lactose Allergy Diarrhea Verified 10/19/22 06:12 sumatriptan [From Imitrex] Allergy Dyspnea Verified 10/19/22 06:12 sumatriptan succinate Allergy Dyspnea Verified 10/19/22 06:12 [From Imitrex] chocolate flavor AdvReac headache Verified 10/19/22 06:12 theophylline [From Lang-Dur] AdvReac hand Verified 10/19/22 06:12 tremors gatorade AdvReac Unknown sore throat Uncoded 10/19/22 06:12 Physical Exam Vitals: Vital Signs Temp Pulse Resp BP Pulse Ox FiO2 10/20/22 09:00 84 12 93 L 10/20/22 08:30 82 14 94 L 10/20/22 08:00 98.2 F 86 14 115/61 93 L 10/20/22 07:30 93 13 92/58 93 L 10/20/22 07:00 91 20 94 L 10/20/22 06:30 83 8 L 95 10/20/22 06:00 82 14 95 10/20/22 05:30 88 20 91 L 10/20/22 05:00 93 17 92 L 10/20/22 04:30 85 10 L 94 L 10/20/22 04:00 86 9 L 94 L 10/20/22 03:30 85 11 L 94 L 10/20/22 03:00 86 10 L 94 L 10/20/22 02:30 84 9 L 95 10/20/22 02:00 85 11 L 94 L 10/20/22 01:30 85 10 L 94 L 10/20/22 01:00 89 15 95 10/20/22 00:30 84 12 95 10/20/22 00:09 87 11 L 96 10/20/22 00:00 89 12 96 10/19/22 23:30 88 12 96 10/19/22 23:00 87 11 L 96 10/19/22 22:30 89 12 96 10/19/22 22:00 90 12 97 10/19/22 21:30 91 12 97 10/19/22 21:00 90 13 97 10/19/22 20:30 91 13 97 10/19/22 20:00 96 14 96 10/19/22 19:55 94 10/19/22 19:43 96 10/19/22 19:30 91 13 97 10/19/22 19:00 97.7 F 93 14 97 10/19/22 18:45 90 14 97 10/19/22 18:30 90 14 97 10/19/22 18:15 92 13 96 10/19/22 18:00 97.7 F 92 15 97 10/19/22 17:45 94 19 94 L 10/19/22 17:37 98 10/19/22 17:30 96 9 L 98 10/19/22 17:15 93 15 98 50 10/19/22 17:00 97.7 F 92 16 98 50 10/19/22 16:50 50 10/19/22 16:45 92 17 97 50 10/19/22 16:30 90 14 99 50 10/19/22 16:15 86 14 99 50 10/19/22 16:00 97.5 F L 86 14 98 50 10/19/22 15:45 91 29 H 98 50 10/19/22 15:30 85 14 98 50 10/19/22 15:15 85 14 99 50 10/19/22 15:00 97.3 F L 83 14 100 60 10/19/22 14:55 50 10/19/22 14:45 81 14 100 60 10/19/22 14:30 80 13 100 60 10/19/22 14:15 81 14 100 60 10/19/22 14:00 81 14 100 60 10/19/22 13:50 81 22 100 100 10/19/22 13:40 81 14 100 100 10/19/22 13:30 80 14 100 100 10/19/22 13:20 78 14 100 100 10/19/22 13:18 100 10/19/22 13:14 97.2 F L 80 14 99 100 10/19/22 13:12 100 Intake and Output 10/19/22 10/20/22 10/20/22 22:59 06:59 14:59 Intake Total 336.757 8894.335 331.026 Output Total 737 371 40 Balance -33.810 1061.335 291.026 Intake: IV 362 1412 309 0.9NS FOR PRESSURE BAG 72 72 9 ACETAMINOPHEN IV (For NPO 400 ) 1,000 mg In Empty Bag 1 bag @ 400 mls/hr IVPB Q6HR NAYA Rx#:[id number] Albumin Human 5% 250 ml 500 250 In Empty Bag 1 bag @ 250 mls/hr IVPB Q1HR PRN Rx#: [id number] CO/CI 140 40 Lactated Ringers 1,000 ml 150 400 50 @ 20 mls/hr IV .Q24H NAYA Rx#:[id number] Intake, IV Titration 341.190 20.335 22.026 Amount Insulin Regular 100 unit 49.330 20.335 22.026 In Sodium Chloride 0.9% 100 ml @ Per Protocol IV .Q0M NAYA Rx#:[id number] Lactated Ringers 1,000 ml 250 @ 20 mls/hr IV .Q24H NAYA Rx#:[id number] propofoL 1,000 mg In 41.860 Empty Bag 1 bag @ Titrate IV .Q0M NAYA Rx#: [id number] Output: Chest Tube Drainage 132 106 10 Chest Tube Mediastinal 132 106 10 Urine 605 265 30 Other: Voiding Method Indwelling Catheter Indwelling Catheter Weight 128.5 kg ABP, PAP, CO, CI - Last 8 Hours Arterial Blood Pressure 101/46 Arterial Blood Pressure 98/44 Arterial Blood Pressure 98/44 Arterial Blood Pressure 82/49 Arterial Blood Pressure 89/57 Arterial Blood Pressure 83/41 Arterial Blood Pressure 93/44 Arterial Blood Pressure 104/55 Arterial Blood Pressure 101/49 Arterial Blood Pressure 105/52 Arterial Blood Pressure 98/49 Arterial Blood Pressure 107/51 Arterial Blood Pressure 101/48 Arterial Blood Pressure 105/49 Arterial Blood Pressure 111/54 Pulmonary Artery Pressure 33/14 Pulmonary Artery Pressure 32/12 Pulmonary Artery Pressure 36/13 Pulmonary Artery Pressure 35/19 Pulmonary Artery Pressure 43/21 Pulmonary Artery Pressure 24/7 Pulmonary Artery Pressure 30/9 Pulmonary Artery Pressure 25/8 Pulmonary Artery Pressure 45/23 Pulmonary Artery Pressure 32/14 Pulmonary Artery Pressure 35/15 Pulmonary Artery Pressure 33/12 Pulmonary Artery Pressure 33/14 Pulmonary Artery Pressure 36/14 Pulmonary Artery Pressure 36/14 Pulmonary Artery Pressure 34/16 Cardiac Output 7.7 Cardiac Output 5.7 Cardiac Index 3.1 Cardiac Index 2.3 Results 10/20/22 04:05 10/20/22 04:05 Cardiac Enzymes 10/19/22 10/20/22 Range/Units 13:10 04:05 AST 34 37 (17-59) U/L Coagulation 10/19/22 Range/Units 13:10 PT 12.0 (9.0-12.0) sec APTT 24.5 (22.0-30.0) sec CBC 10/19/22 10/19/22 10/19/22 Range/Units 13:10 16:11 18:56 WBC 11.8 H 9.8 9.8 (3.8-10.6) k/uL RBC 3.54 L 3.62 L 3.67 L (4.30-5.90) m/uL Hgb 10.1 L 10.3 L 10.3 L (13.0-17.5) gm/dL Hct 30.6 L 31.1 L 31.8 L (39.0-53.0) % Plt Count 153 134 L 143 L (150-450) k/uL 10/20/22 Range/Units 04:05 WBC 10.3 (3.8-10.6) k/uL RBC 3.52 L (4.30-5.90) m/uL Hgb 10.0 L (13.0-17.5) gm/dL Hct 30.6 L (39.0-53.0) % Plt Count 162 (150-450) k/uL Comprehensive Metabolic Panel 10/19/22 10/20/22 Range/Units 13:10 04:05 Sodium 137 136 L (137-145) mmol/L Potassium 4.2 4.2 (3.5-5.1) mmol/L Chloride 103 102 (98-107) mmol/L Carbon Dioxide 24 26 (22-30) mmol/L BUN 14 15 (9-20) mg/dL Creatinine 0.60 L 0.53 L (0.66-1.25) mg/dL Glucose 149 H 108 H (74-99) mg/dL Calcium 8.5 7.9 L (8.4-10.2) mg/dL AST 34 37 (17-59) U/L ALT 19 18 (4-49) U/L Alkaline Phosphatase 56 38 (38-126) U/L Total Protein 5.8 L 5.7 L (6.3-8.2) g/dL Albumin 3.5 3.4 L (3.5-5.0) g/dL Current Medications Generic Name Dose Route Start Last Admin Trade Name Freq PRN Reason Stop Dose Admin Acetaminophen 1,000 mg 10/20/22 06:00 Acetaminophen Tab 500 Mg Tab PO Q6HR PRN Fever And/ Or Mild Pain (1-3) Hydrocodone Bitart/Acetaminophen 1 each 10/20/22 06:00 Hydrocodone/Apap 5-325mg 1 Each Tab PO Q4HR PRN Moderate Pain (Scale 4 to 6) Hydrocodone Bitart/Acetaminophen 1 each 10/20/22 06:00 10/20/22 05:08 Hydrocodone/Apap 10-325mg 1 Each Tab PO 1 each Q4HR PRN Administration Severe Pain (Scale 7 to 10) Albuterol/Ipratropium 3 ml 10/19/22 13:08 Ipratropium-Albuterol 3 Ml Neb INHALATION RT-Q2H PRN Shortness Of Breath Or Wheezing Albuterol/Ipratropium 3 ml 10/19/22 20:00 10/20/22 09:07 Ipratropium-Albuterol 3 Ml Neb INHALATION Not Given RT-QID [facility] Atorvastatin Calcium 10 mg 10/19/22 21:00 10/19/22 22:07 Atorvastatin 10 Mg Tab PO 10 mg HS NAYA Administration Benzocaine/Menthol 1 each 10/19/22 13:08 Benzocaine/Menthol Lozeng 1 Each Lozenge MUCOUS MEM Q2H PRN Sore Throat Bisacodyl 10 mg 10/20/22 09:00 Bisacodyl 10 Mg Supp RECTAL DAILY PRN Constipation Citalopram Hydrobromide 30 mg 10/20/22 09:00 10/20/22 08:37 Citalopram Hydrobromide 10 Mg Tab PO 30 mg QAM NAYA Administration Clopidogrel Bisulfate 75 mg 10/20/22 09:00 10/20/22 08:38 Clopidogrel 75 Mg Tab PO 75 mg DAILY NAYA Administration Dextrose/Water 25 ml 10/19/22 13:08 Dextrose 50% Syringe 50 Ml IVP PER PROTOCOL PRN Hypoglycemia Protocol Dextrose/Water 50 ml 10/19/22 13:08 Dextrose 50% Syringe 50 Ml IVP PER PROTOCOL PRN Hypoglycemia Protocol Heparin Sodium (Porcine) 5,000 unit 10/19/22 16:00 10/20/22 08:37 Heparin Sodium,Porcine/Pf 5,000 Unit/0.5 Ml Syringe SQ 5,000 unit Q8HR NAYA Administration Hydralazine HCl 10 mg 10/19/22 13:08 10/19/22 19:00 Hydralazine Hcl 20 Mg/Ml 1 Ml Vial IVP 10 mg Q1H PRN Administration Blood Pressure - High Clevidipine 25 mg/ IV Solution 50 mls @ 2 mls/hr 10/19/22 13:08 10/19/22 13:41 IV Not Given .Q24H NAYA Protocol 1 MG/HR Amiodarone HCl 150 mg/ 103 mls @ 618 mls/hr 10/19/22 13:08 Dextrose/Water IV .Q10M PRN A.FIB/FLUTTER Protocol Amiodarone HCl 360 mg/ 207.2 mls @ 34.533 mls/hr 10/19/22 13:08 Dextrose/Water IV .Q6H PRN A.FIB/FLUTTER Protocol 1 MG/MIN Amiodarone HCl 450 mg/ 250 mls @ 16.667 mls/hr 10/19/22 13:08 Dextrose/Water IV .Q15H PRN A.FIB/FLUTTER Protocol 0.5 MG/MIN Albumin Human 250 ml/ IV 250 mls @ 250 mls/hr 10/19/22 13:08 10/20/22 07:03 Solution IVPB 10/21/22 13:09 250 mls/hr Q1HR PRN Administration For Volume Protocol Lactated Ringer's 1,000 mls @ 20 mls/hr 10/19/22 13:08 10/19/22 14:01 Lactated Ringers IV 50 mls/hr .Q24H NAYA Administration Propofol 1,000 mg/ IV Solution 100 mls @ 0 mls/hr 10/19/22 13:08 10/19/22 16:06 IV 0 mcg/kg/min .Q0M NAYA 0 mls/hr Titration Protocol Titrate Dexmedetomidine HCl 400 mcg/ 100 mls @ 0 mls/hr 10/19/22 13:08 IV Solution IV 10/20/22 13:09 .Q0M NAYA Protocol Titrate Calcium Gluconate/Sodium 100 mls @ 100 mls/hr 10/19/22 13:08 Chloride 2 gm/ IV Solution IVPB 11/18/22 23:00 ONCE PRN Ionized Calcium less than 4.4 Insulin Human Regular 100 unit 101 mls @ 0 mls/hr 10/19/22 13:08 10/20/22 09:13 / Sodium Chloride IV 5 units/hr .Q0M NAYA 5.05 mls/hr Titration Protocol Per Protocol Ketorolac Tromethamine 15 mg 10/19/22 18:00 10/20/22 05:08 Ketorolac 15 Mg/Ml 1 Ml Vial IVP 10/24/22 14:20 15 mg Q6HR NAYA Administration Magnesium Hydroxide 2,400 mg 10/20/22 09:00 Magnesium Hydroxide 2,400 Mg/10 Ml Cup PO BID PRN Constipation Metoclopramide HCl 10 mg 10/19/22 13:08 Metoclopramide 5 Mg/Ml 2 Ml Vial IVP Q4H PRN Nausea And Vomiting Metoprolol Tartrate 12.5 mg 10/20/22 09:00 10/20/22 08:37 Metoprolol Tartrate 12.5 Mg Tab PO 12.5 mg BID NAYA Administration Miscellaneous Information 1 each 10/19/22 13:08 Potassium Replacement Protocol 1 Each Misc MISCELLANE DAILY PRN Per Protocol Protocol Miscellaneous Information 1 each 10/19/22 13:08 Magnesium Replacement Protocol 1 Each Misc MISCELLANE DAILY PRN Per Protocol Protocol Montelukast Sodium 10 mg 10/19/22 21:00 10/19/22 22:07 Montelukast 10 Mg Tab PO 10 mg HS NAYA Administration Mupirocin 1 applic 10/19/22 21:00 10/20/22 09:06 Mupirocin 2% Oint 22 Gm Tube NASAL 10/22/22 21:01 1 applic BID NAYA Administration Ondansetron HCl 4 mg 10/19/22 13:08 10/20/22 09:05 Ondansetron 4 Mg/2 Ml Vial IVP 4 mg Q6HR PRN Administration Nausea And Vomiting Pantoprazole Sodium 40 mg 10/20/22 09:00 10/20/22 08:37 Pantoprazole 40 Mg/10 Ml Vial IVP 40 mg DAILY NAYA Administration Senna/Docusate Sodium 2 each 10/20/22 21:00 Sennosides-Docusate Sodium 1 Each Tab PO HS NAYA Sodium Chloride 10 ml 10/19/22 21:00 10/20/22 09:06 Sodium Chloride 0.9% Flush 10 Ml Syringe IV 10 ml BID NAYA Administration Tamsulosin HCl 0.4 mg 10/19/22 21:00 10/19/22 22:07 Tamsulosin 0.4 Mg Cap.Er.24h PO 0.4 mg HS NAYA Administration Intake and Output 10/19/22 10/20/22 10/20/22 22:59 06:59 14:59 Intake Total 212.855 4329.335 331.026 Output Total 737 371 40 Balance -33.810 1061.335 291.026 Intake: IV 362 1412 309 0.9NS FOR PRESSURE BAG 72 72 9 ACETAMINOPHEN IV (For NPO 400 ) 1,000 mg In Empty Bag 1 bag @ 400 mls/hr IVPB Q6HR NAYA Rx#:[id number] Albumin Human 5% 250 ml 500 250 In Empty Bag 1 bag @ 250 mls/hr IVPB Q1HR PRN Rx#: [id number] CO/CI 140 40 Lactated Ringers 1,000 ml 150 400 50 @ 20 mls/hr IV .Q24H NAYA Rx#:[id number] Intake, IV Titration 341.190 20.335 22.026 Amount Insulin Regular 100 unit 49.330 20.335 22.026 In Sodium Chloride 0.9% 100 ml @ Per Protocol IV .Q0M NAYA Rx#:[id number] Lactated Ringers 1,000 ml 250 @ 20 mls/hr IV .Q24H NAYA Rx#:[id number] propofoL 1,000 mg In 41.860 Empty Bag 1 bag @ Titrate IV .Q0M NAYA Rx#: [id number] Output: Chest Tube Drainage 132 106 10 Chest Tube Mediastinal 132 106 10 Urine 605 265 30 Other: Voiding Method Indwelling Catheter Indwelling Catheter Weight 128.5 kg 10/20/22 04:05 10/20/22 04:05
--- NOTE | 2022-10-20 10:15 | P.PN ---
Subjective Progress Note Date: 10/20/22 62-year-old male patient, underwent an aortic valve replacement for severe aortic stenosis. The patient currently is in the intensive care unit intubated on a mechanical ventilator, propofol running at 20 microvascular kilogram. He is intubated on a mechanical ventilator, assist control mode at the rate of 16, tidal volume of 600, FiO2 has been dropped down to 60% and a PEEP is currently at 10. The patient has a mediastinal chest tube and output is in order of 20 mL since his arrival from the operating room. PT is at 7.39 with a pCO2 of 42 and pO2 of 262. Hemodynamically, the patient has a PEA pressures of 39/24. Cardiac output is at 7.6 with an index of 3.0. Adequate urine output. Adequate blood pressure. Cardiac rhythm is sinus. He is on insulin drip at 3 units an hour for blood sugar control. His hemoglobin currently is at 10.1. Platelet count is at 153. No other active issues for now. Chest x-ray shows a limited 5% pneumothorax on the right. ET tube is in a good location. On today's evaluation of 10/20/2022, the patient is extubated and the patient is currently on oxygen at 2 L nasal cannula. His calm and comfortable. Adequate mentation. Moving all 4 extremities without any limitation. Using the incentive spirometer and is falling approximately 1000. He has a mediastinal chest tube. He has a [place] catheter in place. Pulmonary artery pressures of 32/11. CVP is at 7. Cardiac output is at 7.7 and index of 3.1. Chest x-ray shows no acute abnormalities. No evidence of any pneumothorax on today's chest x-ray. His cardiac rhythm is sinus. His WBC was a 10.3 with a hemoglobin of 10 and a platelet count of 162. Sodium is at 136, BUN is a 50 with a creatinine of 0.53. Patient is currently on Plavix 75 mg by mouth daily. He is on metoprolol 12.5 mg by mouth twice a day. He is on insulin drip running at the rate of 5 units an hour. He was extubated yesterday without any major difficulties. He has not ambulated yet. Output from the mediastinal chest tube has been minimal Objective - Vital Signs Vital signs: Vital Signs Temp 98.2 F 10/20/22 08:00 Pulse 84 10/20/22 09:00 Resp 12 10/20/22 09:00 BP 115/61 10/20/22 08:00 Pulse Ox 93 L 10/20/22 09:00 FiO2 50 10/19/22 17:15 Intake & Output 10/19/22 10/20/22 10/20/22 18:59 06:59 18:59 Intake Total 614.637 5145.298 331.026 Output Total 1520 638 40 Balance -1235.137 7097.298 291.026 Weight 128.5 kg Intake: IV 177 1638 309 0.9NS FOR PRESSURE BAG 45 108 9 ACETAMINOPHEN IV (For NPO 400 ) 1,000 mg In Empty Bag 1 bag @ 400 mls/hr IVPB Q6HR NAYA Rx#:[id number] Albumin Human 5% 250 ml 500 250 In Empty Bag 1 bag @ 250 mls/hr IVPB Q1HR PRN Rx#: [id number] CO/CI 130 80 Lactated Ringers 1,000 ml 550 50 @ 20 mls/hr IV .Q24H NAYA Rx#:[id number] Intake, IV Titration 318.227 93.298 22.026 Amount Insulin Regular 100 unit 26.367 43.298 22.026 In Sodium Chloride 0.9% 100 ml @ Per Protocol IV .Q0M NAYA Rx#:[id number] Lactated Ringers 1,000 ml 250 50 @ 20 mls/hr IV .Q24H NAYA Rx#:[id number] propofoL 1,000 mg In 41.860 Empty Bag 1 bag @ Titrate IV .Q0M NAYA Rx#: [id number] Output: Chest Tube Drainage 100 158 10 Chest Tube Mediastinal 100 158 10 Urine 920 480 30 Estimated Blood Loss 500 Other: Voiding Method Indwelling Catheter Indwelling Catheter ABP, PAP, CO, CI - Last Documented Arterial Blood Pressure 101/46 Pulmonary Artery Pressure 33/14 Cardiac Output 7.7 Cardiac Index 3.1 - Exam , Obese , extubated currently on oxygen at 2 L, calm and comfortable, body mass index of 37 Head exam was generally normal. There was no scleral icterus or corneal arcus. Mucous membranes were moist. Neck was supple and without jugular venous distension, thyromegaly, or carotid bruits. Carotids were easily palpable bilaterally. There was no adenopathy. The patient has a right IJ Cordis and [place] catheter Lungs were clear to auscultation and percussion, and with normal diaphragmatic excursion. No wheezes or rales were noted. Breath sounds are equal and symmetrical bilaterally. Cardiac exam revealed the PMI to be normally situated and sized. The rhythm was regular and no extrasystoles were noted during several minutes of auscultation. The first and second heart sounds were normal and physiologic splitting of the second heart sound was noted. There were no murmurs, rubs, clicks, or gallops. Sternotomy wires are intact and the patient has a mediastinal chest tube Abdominal exam revealed normal bowel sounds. The abdomen was soft, non-tender, and without masses, organomegaly, or appreciable enlargement of the abdominal aorta. Examination of the extremities revealed easily palpable radial, femoral and pedal pulses. There was no cyanosis, clubbing or edema. Examination of the skin revealed no evidence of significant rashes, suspicious appearing nevi or other concerning lesions. Neurologically, the patient awake and alert, extubated Moving all 4 extremities. Pupils are equal reactive to light. Cranial nerves are intact. - Labs CBC & Chem 7: 10/20/22 04:05 10/20/22 04:05 Labs: Abnormal Lab Results - Last 24 Hours (Table) 10/11/22 10/19/22 10/19/22 Range/Units 09:28 08:17 09:50 WBC (3.8-10.6) k/uL RBC (4.30-5.90) m/uL Hgb (13.0-17.5) gm/dL Hct (39.0-53.0) % Plt Count (150-450) k/uL Neutrophils # (1.3-7.7) k/uL Lymphocytes # (1.0-4.8) k/uL INR (<1.2) ABG pCO2 48 H 34 L (35-45) mmHg ABG pO2 182 H >420 H (83-108) mmHg ABG HCO3 28 H (21-25) mmol/L ABG Total CO2 30 H 25 H (19-24) mmol/L ABG O2 Saturation 99.7 H 100.0 H (94-97) % ABG Hematocrit 26 L (34.0-46.0) % ABG Potassium 4.6 H (3.4-4.5) mmol/L ABG Ionized Calcium 4.1 L (4.5-5.3) mg/dL Hemoglobin 12.3 L 8.5 L (13.0-17.5) gm/dL Sodium (137-145) mmol/L Creatinine (0.66-1.25) mg/dL Glucose (74-99) mg/dL POC Glucose (mg/dL) (70-110) mg/dL Calcium (8.4-10.2) mg/dL Magnesium (1.6-2.3) mg/dL Total Protein (6.3-8.2) g/dL Albumin (3.5-5.0) g/dL Arterial Blood Potassium 4.6 H (3.4-4.5) mmol/L Crossmatch See Detail 10/19/22 10/19/22 10/19/22 Range/Units 10:19 10:19 10:19 WBC (3.8-10.6) k/uL RBC (4.30-5.90) m/uL Hgb (13.0-17.5) gm/dL Hct (39.0-53.0) % Plt Count (150-450) k/uL Neutrophils # (1.3-7.7) k/uL Lymphocytes # (1.0-4.8) k/uL INR (<1.2) ABG pCO2 (35-45) mmHg ABG pO2 >420 H 326 H (83-108) mmHg ABG HCO3 (21-25) mmol/L ABG Total CO2 25 H 25 H (19-24) mmol/L ABG O2 Saturation 100.0 H 100.0 H (94-97) % ABG Hematocrit 27 L 29 L (34.0-46.0) % ABG Potassium (3.4-4.5) mmol/L ABG Ionized Calcium 4.2 L 4.3 L (4.5-5.3) mg/dL Hemoglobin 8.8 L 9.4 L (13.0-17.5) gm/dL Sodium (137-145) mmol/L Creatinine (0.66-1.25) mg/dL Glucose (74-99) mg/dL POC Glucose (mg/dL) 215 H (70-110) mg/dL Calcium (8.4-10.2) mg/dL Magnesium (1.6-2.3) mg/dL Total Protein (6.3-8.2) g/dL Albumin (3.5-5.0) g/dL Arterial Blood Potassium (3.4-4.5) mmol/L Crossmatch 10/19/22 10/19/22 10/19/22 Range/Units 10:58 11:56 13:10 WBC 11.8 H (3.8-10.6) k/uL RBC 3.54 L (4.30-5.90) m/uL Hgb 10.1 L (13.0-17.5) gm/dL Hct 30.6 L (39.0-53.0) % Plt Count (150-450) k/uL Neutrophils # 9.4 H (1.3-7.7) k/uL Lymphocytes # (1.0-4.8) k/uL INR (<1.2) ABG pCO2 (35-45) mmHg ABG pO2 (83-108) mmHg ABG HCO3 (21-25) mmol/L ABG Total CO2 (19-24) mmol/L ABG O2 Saturation (94-97) % ABG Hematocrit (34.0-46.0) % ABG Potassium (3.4-4.5) mmol/L ABG Ionized Calcium (4.5-5.3) mg/dL Hemoglobin (13.0-17.5) gm/dL Sodium (137-145) mmol/L Creatinine (0.66-1.25) mg/dL Glucose (74-99) mg/dL POC Glucose (mg/dL) 189 H 147 H (70-110) mg/dL Calcium (8.4-10.2) mg/dL Magnesium (1.6-2.3) mg/dL Total Protein (6.3-8.2) g/dL Albumin (3.5-5.0) g/dL Arterial Blood Potassium (3.4-4.5) mmol/L Crossmatch 10/19/22 10/19/22 10/19/22 Range/Units 13:10 13:10 13:14 WBC (3.8-10.6) k/uL RBC (4.30-5.90) m/uL Hgb (13.0-17.5) gm/dL Hct (39.0-53.0) % Plt Count (150-450) k/uL Neutrophils # (1.3-7.7) k/uL Lymphocytes # (1.0-4.8) k/uL INR 1.2 H (<1.2) ABG pCO2 (35-45) mmHg ABG pO2 (83-108) mmHg ABG HCO3 (21-25) mmol/L ABG Total CO2 (19-24) mmol/L ABG O2 Saturation (94-97) % ABG Hematocrit (34.0-46.0) % ABG Potassium (3.4-4.5) mmol/L ABG Ionized Calcium (4.5-5.3) mg/dL Hemoglobin (13.0-17.5) gm/dL Sodium (137-145) mmol/L Creatinine 0.60 L (0.66-1.25) mg/dL Glucose 149 H (74-99) mg/dL POC Glucose (mg/dL) 163 H (70-110) mg/dL Calcium (8.4-10.2) mg/dL Magnesium 2.6 H (1.6-2.3) mg/dL Total Protein 5.8 L (6.3-8.2) g/dL Albumin (3.5-5.0) g/dL Arterial Blood Potassium (3.4-4.5) mmol/L Crossmatch 10/19/22 10/19/22 10/19/22 Range/Units 13:54 14:19 15:10 WBC (3.8-10.6) k/uL RBC (4.30-5.90) m/uL Hgb (13.0-17.5) gm/dL Hct (39.0-53.0) % Plt Count (150-450) k/uL Neutrophils # (1.3-7.7) k/uL Lymphocytes # (1.0-4.8) k/uL INR (<1.2) ABG pCO2 (35-45) mmHg ABG pO2 262 H (83-108) mmHg ABG HCO3 (21-25) mmol/L ABG Total CO2 27 H (19-24) mmol/L ABG O2 Saturation 100.0 H (94-97) % ABG Hematocrit (34.0-46.0) % ABG Potassium (3.4-4.5) mmol/L ABG Ionized Calcium (4.5-5.3) mg/dL Hemoglobin (13.0-17.5) gm/dL Sodium (137-145) mmol/L Creatinine (0.66-1.25) mg/dL Glucose (74-99) mg/dL POC Glucose (mg/dL) 172 H 177 H (70-110) mg/dL Calcium (8.4-10.2) mg/dL Magnesium (1.6-2.3) mg/dL Total Protein (6.3-8.2) g/dL Albumin (3.5-5.0) g/dL Arterial Blood Potassium (3.4-4.5) mmol/L Crossmatch 10/19/22 10/19/22 10/19/22 Range/Units 16:10 16:11 17:10 WBC (3.8-10.6) k/uL RBC 3.62 L (4.30-5.90) m/uL Hgb 10.3 L (13.0-17.5) gm/dL Hct 31.1 L (39.0-53.0) % Plt Count 134 L (150-450) k/uL Neutrophils # 8.4 H (1.3-7.7) k/uL Lymphocytes # 0.9 L (1.0-4.8) k/uL INR (<1.2) ABG pCO2 (35-45) mmHg ABG pO2 (83-108) mmHg ABG HCO3 (21-25) mmol/L ABG Total CO2 (19-24) mmol/L ABG O2 Saturation (94-97) % ABG Hematocrit (34.0-46.0) % ABG Potassium (3.4-4.5) mmol/L ABG Ionized Calcium (4.5-5.3) mg/dL Hemoglobin (13.0-17.5) gm/dL Sodium (137-145) mmol/L Creatinine (0.66-1.25) mg/dL Glucose (74-99) mg/dL POC Glucose (mg/dL) 180 H 177 H (70-110) mg/dL Calcium (8.4-10.2) mg/dL Magnesium (1.6-2.3) mg/dL Total Protein (6.3-8.2) g/dL Albumin (3.5-5.0) g/dL Arterial Blood Potassium (3.4-4.5) mmol/L Crossmatch 10/19/22 10/19/22 10/19/22 Range/Units 17:26 18:13 18:54 WBC (3.8-10.6) k/uL RBC (4.30-5.90) m/uL Hgb (13.0-17.5) gm/dL Hct (39.0-53.0) % Plt Count (150-450) k/uL Neutrophils # (1.3-7.7) k/uL Lymphocytes # (1.0-4.8) k/uL INR (<1.2) ABG pCO2 46 H (35-45) mmHg ABG pO2 112 H (83-108) mmHg ABG HCO3 26 H (21-25) mmol/L ABG Total CO2 27 H (19-24) mmol/L ABG O2 Saturation 98.7 H (94-97) % ABG Hematocrit (34.0-46.0) % ABG Potassium (3.4-4.5) mmol/L ABG Ionized Calcium (4.5-5.3) mg/dL Hemoglobin (13.0-17.5) gm/dL Sodium (137-145) mmol/L Creatinine (0.66-1.25) mg/dL Glucose (74-99) mg/dL POC Glucose (mg/dL) 163 H 153 H (70-110) mg/dL Calcium (8.4-10.2) mg/dL Magnesium (1.6-2.3) mg/dL Total Protein (6.3-8.2) g/dL Albumin (3.5-5.0) g/dL Arterial Blood Potassium (3.4-4.5) mmol/L Crossmatch 10/19/22 10/19/22 10/19/22 Range/Units 18:56 20:07 21:07 WBC (3.8-10.6) k/uL RBC 3.67 L (4.30-5.90) m/uL Hgb 10.3 L (13.0-17.5) gm/dL Hct 31.8 L (39.0-53.0) % Plt Count 143 L (150-450) k/uL Neutrophils # 8.3 H (1.3-7.7) k/uL Lymphocytes # 0.9 L (1.0-4.8) k/uL INR (<1.2) ABG pCO2 (35-45) mmHg ABG pO2 (83-108) mmHg ABG HCO3 (21-25) mmol/L ABG Total CO2 (19-24) mmol/L ABG O2 Saturation (94-97) % ABG Hematocrit (34.0-46.0) % ABG Potassium (3.4-4.5) mmol/L ABG Ionized Calcium (4.5-5.3) mg/dL Hemoglobin (13.0-17.5) gm/dL Sodium (137-145) mmol/L Creatinine (0.66-1.25) mg/dL Glucose (74-99) mg/dL POC Glucose (mg/dL) 150 H 144 H (70-110) mg/dL Calcium (8.4-10.2) mg/dL Magnesium (1.6-2.3) mg/dL Total Protein (6.3-8.2) g/dL Albumin (3.5-5.0) g/dL Arterial Blood Potassium (3.4-4.5) mmol/L Crossmatch 10/19/22 10/19/22 10/20/22 Range/Units 22:04 22:54 00:06 WBC (3.8-10.6) k/uL RBC (4.30-5.90) m/uL Hgb (13.0-17.5) gm/dL Hct (39.0-53.0) % Plt Count (150-450) k/uL Neutrophils # (1.3-7.7) k/uL Lymphocytes # (1.0-4.8) k/uL INR (<1.2) ABG pCO2 (35-45) mmHg ABG pO2 (83-108) mmHg ABG HCO3 (21-25) mmol/L ABG Total CO2 (19-24) mmol/L ABG O2 Saturation (94-97) % ABG Hematocrit (34.0-46.0) % ABG Potassium (3.4-4.5) mmol/L ABG Ionized Calcium (4.5-5.3) mg/dL Hemoglobin (13.0-17.5) gm/dL Sodium (137-145) mmol/L Creatinine (0.66-1.25) mg/dL Glucose (74-99) mg/dL POC Glucose (mg/dL) 137 H 131 H 121 H (70-110) mg/dL Calcium (8.4-10.2) mg/dL Magnesium (1.6-2.3) mg/dL Total Protein (6.3-8.2) g/dL Albumin (3.5-5.0) g/dL Arterial Blood Potassium (3.4-4.5) mmol/L Crossmatch 10/20/22 10/20/22 10/20/22 Range/Units 02:11 03:00 04:05 WBC (3.8-10.6) k/uL RBC 3.52 L (4.30-5.90) m/uL Hgb 10.0 L (13.0-17.5) gm/dL Hct 30.6 L (39.0-53.0) % Plt Count (150-450) k/uL Neutrophils # (1.3-7.7) k/uL Lymphocytes # (1.0-4.8) k/uL INR (<1.2) ABG pCO2 (35-45) mmHg ABG pO2 (83-108) mmHg ABG HCO3 (21-25) mmol/L ABG Total CO2 (19-24) mmol/L ABG O2 Saturation (94-97) % ABG Hematocrit (34.0-46.0) % ABG Potassium (3.4-4.5) mmol/L ABG Ionized Calcium (4.5-5.3) mg/dL Hemoglobin (13.0-17.5) gm/dL Sodium (137-145) mmol/L Creatinine (0.66-1.25) mg/dL Glucose (74-99) mg/dL POC Glucose (mg/dL) 127 H 126 H (70-110) mg/dL Calcium (8.4-10.2) mg/dL Magnesium (1.6-2.3) mg/dL Total Protein (6.3-8.2) g/dL Albumin (3.5-5.0) g/dL Arterial Blood Potassium (3.4-4.5) mmol/L Crossmatch 10/20/22 10/20/22 10/20/22 Range/Units 04:05 04:05 06:05 WBC (3.8-10.6) k/uL RBC (4.30-5.90) m/uL Hgb (13.0-17.5) gm/dL Hct (39.0-53.0) % Plt Count (150-450) k/uL Neutrophils # (1.3-7.7) k/uL Lymphocytes # (1.0-4.8) k/uL INR (<1.2) ABG pCO2 (35-45) mmHg ABG pO2 (83-108) mmHg ABG HCO3 (21-25) mmol/L ABG Total CO2 (19-24) mmol/L ABG O2 Saturation (94-97) % ABG Hematocrit (34.0-46.0) % ABG Potassium (3.4-4.5) mmol/L ABG Ionized Calcium (4.5-5.3) mg/dL Hemoglobin (13.0-17.5) gm/dL Sodium 136 L (137-145) mmol/L Creatinine 0.53 L (0.66-1.25) mg/dL Glucose 108 H (74-99) mg/dL POC Glucose (mg/dL) 120 H 120 H (70-110) mg/dL Calcium 7.9 L (8.4-10.2) mg/dL Magnesium (1.6-2.3) mg/dL Total Protein 5.7 L (6.3-8.2) g/dL Albumin 3.4 L (3.5-5.0) g/dL Arterial Blood Potassium (3.4-4.5) mmol/L Crossmatch 10/20/22 10/20/22 10/20/22 Range/Units 07:10 08:13 09:11 WBC (3.8-10.6) k/uL RBC (4.30-5.90) m/uL Hgb (13.0-17.5) gm/dL Hct (39.0-53.0) % Plt Count (150-450) k/uL Neutrophils # (1.3-7.7) k/uL Lymphocytes # (1.0-4.8) k/uL INR (<1.2) ABG pCO2 (35-45) mmHg ABG pO2 (83-108) mmHg ABG HCO3 (21-25) mmol/L ABG Total CO2 (19-24) mmol/L ABG O2 Saturation (94-97) % ABG Hematocrit (34.0-46.0) % ABG Potassium (3.4-4.5) mmol/L ABG Ionized Calcium (4.5-5.3) mg/dL Hemoglobin (13.0-17.5) gm/dL Sodium (137-145) mmol/L Creatinine (0.66-1.25) mg/dL Glucose (74-99) mg/dL POC Glucose (mg/dL) 118 H 167 H 135 H (70-110) mg/dL Calcium (8.4-10.2) mg/dL Magnesium (1.6-2.3) mg/dL Total Protein (6.3-8.2) g/dL Albumin (3.5-5.0) g/dL Arterial Blood Potassium (3.4-4.5) mmol/L Crossmatch Assessment and Plan Plan: aortic valve replacement for severe aortic valve stenosis. The patient received a 27 mm bovine pericardial valve, postop day #1, hemodynamically stable, adequate cardiac output and index. Cardiac rhythm is sinus. Currently intubated on a mechanical ventilator. Postthoracotomy, currently intubated on a mechanical ventilator. The patient has a mediastinal chest tube in place. Output mediastinal chest tube is minimal at this point in time. Right apical pneumothorax in the order of 5-10%, this is the postop chest x-ray in the no pneumothorax is seen on today's chest x-ray Obesity Obstructive sleep apnea Diabetes mellitus currently on insulin drip at 5 units an hour Hypertension Degenerative arthritis Previous history of testicular cancer adequate history of developmental delay Plan Marital of the [place] catheter Continue incentive spirometer Increase mobility as tolerated Plavix 75 mg by mouth daily Metoprolol Blood pressures stable. He was given IV albumin by the cardiothoracic surgery Continue insulin drip at 5 units an hour Monitor output from mediastinal chest tube Extubated without any major difficulties We'll continue to follow
[2022-10-20 10:22] LABS: Glucose,Whole Blood 116 mg/dL (70-110)
[2022-10-20 10:24] VITALS: BMI 37.3
--- NOTE | 2022-10-20 11:00 | P.PN ---
Subjective Progress Note Date: 10/20/22 Principal diagnosis: Severe tricuspid calcific aortic valve stenosis. 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 POD #1 Aortic valve replacement with 27 mm Coker Inspiris bovine pericardial valve, root enlargement with hemashield patch (Bruno Hendrickson), epi-aortic ultrasound, occlusion of left atrial appendage with 35 mm AtriCure clip. Postoperative acute blood loss anemia, expected given hemodilution and cardiopulmonary bypass. The patient was seen and examined in follow-up today 10/20/2022 at his bedside in the intensive care unit. He was successfully extubated at 5:36 PM last evening, is currently sitting up to the bedside chair, is awake, alert, oriented 3 and is in no acute apparent distress. Oxygen saturation are 95% on 2 L nasal cannula and he is achieving 1000 mL on his incentive spirometry with encourage ment. Bedside telemetry is showing normal sinus rhythm heart rate 94 BPM. He remained hemodynamically stable and is currently on no inotropic or pressor support. Atrial and ventricular epicardial pacemaker wires remained in place and on a backup at bedside pacemaker generator on a VVI of 60 BPM. Mediastinal chest tube remains in place to low continuous wall suction -20 cm H2O. No air leak is present. Draining thin serosanguineous drainage with 105 mL output in the last 8 hours and 270 mL output since surgery. Laboratory and chest x-ray results reviewed. Right IJ Cordis and [place]-Michael catheter remains in place with current hemodynamic showing a PA pressure of 35/17, cardiac output 5.7, cardiac index 2.3 and CVP 11 mmHg. Objective - Vital Signs Vital signs: Vital Signs Temp 98.2 F 10/20/22 08:00 Pulse 84 10/20/22 09:00 Resp 12 10/20/22 09:00 BP 115/61 10/20/22 08:00 Pulse Ox 93 L 10/20/22 09:00 FiO2 50 10/19/22 17:15 Intake & Output 10/19/22 10/20/22 10/20/22 18:59 06:59 18:59 Intake Total 036.721 1606.298 590.665 Output Total 1520 638 140 Balance -2098.004 5527.298 450.665 Weight 128.5 kg 128.5 kg Intake: IV 177 1638 463 0.9NS FOR PRESSURE BAG 45 108 33 ACETAMINOPHEN IV (For NPO 400 ) 1,000 mg In Empty Bag 1 bag @ 400 mls/hr IVPB Q6HR NAYA Rx#:[id number] Albumin Human 5% 250 ml 500 250 In Empty Bag 1 bag @ 250 mls/hr IVPB Q1HR PRN Rx#: [id number] CO/CI 130 80 10 Lactated Ringers 1,000 ml 550 170 @ 20 mls/hr IV .Q24H NAYA Rx#:[id number] Intake, IV Titration 318.227 93.298 127.665 Amount Insulin Regular 100 unit 26.367 43.298 27.665 In Sodium Chloride 0.9% 100 ml @ Per Protocol IV .Q0M NAYA Rx#:[id number] Lactated Ringers 1,000 ml 250 50 @ 20 mls/hr IV .Q24H NAYA Rx#:[id number] ceFAZolin 3 gm In Sodium 100 Chloride 0.9% 100 ml @ 100 mls/hr IVPB Q8HR NAYA Rx#:[id number] propofoL 1,000 mg In 41.860 Empty Bag 1 bag @ Titrate IV .Q0M NAYA Rx#: [id number] Output: Chest Tube Drainage 100 158 10 Chest Tube Mediastinal 100 158 10 Drainage 30 Medial Chest 30 Urine 920 480 100 Estimated Blood Loss 500 Other: Voiding Method Indwelling Catheter Indwelling Catheter ABP, PAP, CO, CI - Last Documented Arterial Blood Pressure 101/46 Pulmonary Artery Pressure 33/14 Cardiac Output 7.7 Cardiac Index 3.1 - Exam CONSTITUTIONAL: Sitting up to the bedside chair in the intensive care unit, appears comfortable, cooperative, no apparent acute distress. HEENT: Neck is supple, no JVD, no lymphadenopathy. Right IJ Cordis and [place]- Michael catheter in place and functioning. RESPIRATORY: Lungs sounds essentially clear throughout, diminished to his bilateral bases. Respirations are symmetrical and nonlabored. Currently on 2 L nasal cannula with oxygen saturations 95%. Able to achieve 1000 mL on their incentive spirometry. Strong cough. CARDIOVASCULAR: Regular rhythm and rate. S1 and S2 present, negative for S3, gallop or murmur. Sternum is stable. Palpable peripheral pulses bilaterally, +1 edema to his bilateral lower extremities. No calf pain or tenderness noted. Heart hugger in place with patient demonstrating appropriate use. Knee-high SHIRLENE hose and sequential compression devices in place to his bilateral lower extremities. Bedside telemetry showing normal sinus rhythm heart rate 94 BPM. GASTROINTESTINAL: Abdomen soft, nontender, nondistended. Hypoactive bowel sounds present 4 quadrants. Tolerating diet. Denies passing flatus. No guarding or rigidity. GENITOURINARY: Esparza present draining clear, yellow urine. Urine output 265 mL in the last 8 hours. INTEGUMENTARY: Skin is warm and dry with no evidence of clubbing or cyanosis. Midline sternal incision clean dry and well approximated, covered with dry intact dressing. NEUROLOGIC: Cranial nerves II through XII intact. No focal deficits. MUSKULOSKELETAL: Able to move all extremities, strength equal bilaterally, generalized weakness. PSYCHIATRIC: Alert and oriented to person place and time, appropriate affect, intact judgment and insight. INVASIVE LINES AND TUBES: Mediastinal chest tube connected to low continuous wall suction, no air leaks present. Mediastinal tube with 105 mL of thin serosanguineous drainage overnight, 270 mL output since surgery. Atrial and ventricular epicardial pacemaker wires present, connected to generator, VVI backup rate 60 bpm. Right internal jugular [place]/Cordis, right radial arterial line present. Last CO 5.7, CI 2.3, PA 35/17 and CVP 7 mmHg. - Allied health notes Allied health notes reviewed: nursing - Labs CBC & Chem 7: 10/20/22 04:05 10/20/22 04:05 Labs: Abnormal Lab Results - Last 24 Hours (Table) 10/11/22 10/19/22 10/19/22 Range/Units 09:28 08:17 09:50 WBC (3.8-10.6) k/uL RBC (4.30-5.90) m/uL Hgb (13.0-17.5) gm/dL Hct (39.0-53.0) % Plt Count (150-450) k/uL Neutrophils # (1.3-7.7) k/uL Lymphocytes # (1.0-4.8) k/uL INR (<1.2) ABG pCO2 48 H 34 L (35-45) mmHg ABG pO2 182 H >420 H (83-108) mmHg ABG HCO3 28 H (21-25) mmol/L ABG Total CO2 30 H 25 H (19-24) mmol/L ABG O2 Saturation 99.7 H 100.0 H (94-97) % ABG Hematocrit 26 L (34.0-46.0) % ABG Potassium 4.6 H (3.4-4.5) mmol/L ABG Ionized Calcium 4.1 L (4.5-5.3) mg/dL Hemoglobin 12.3 L 8.5 L (13.0-17.5) gm/dL Sodium (137-145) mmol/L Creatinine (0.66-1.25) mg/dL Glucose (74-99) mg/dL POC Glucose (mg/dL) (70-110) mg/dL Calcium (8.4-10.2) mg/dL Magnesium (1.6-2.3) mg/dL Total Protein (6.3-8.2) g/dL Albumin (3.5-5.0) g/dL Arterial Blood Potassium 4.6 H (3.4-4.5) mmol/L Crossmatch See Detail 10/19/22 10/19/22 10/19/22 Range/Units 10:19 10:19 10:58 WBC (3.8-10.6) k/uL RBC (4.30-5.90) m/uL Hgb (13.0-17.5) gm/dL Hct (39.0-53.0) % Plt Count (150-450) k/uL Neutrophils # (1.3-7.7) k/uL Lymphocytes # (1.0-4.8) k/uL INR (<1.2) ABG pCO2 (35-45) mmHg ABG pO2 >420 H 326 H (83-108) mmHg ABG HCO3 (21-25) mmol/L ABG Total CO2 25 H 25 H (19-24) mmol/L ABG O2 Saturation 100.0 H 100.0 H (94-97) % ABG Hematocrit 27 L 29 L (34.0-46.0) % ABG Potassium (3.4-4.5) mmol/L ABG Ionized Calcium 4.2 L 4.3 L (4.5-5.3) mg/dL Hemoglobin 8.8 L 9.4 L (13.0-17.5) gm/dL Sodium (137-145) mmol/L Creatinine (0.66-1.25) mg/dL Glucose (74-99) mg/dL POC Glucose (mg/dL) 189 H (70-110) mg/dL Calcium (8.4-10.2) mg/dL Magnesium (1.6-2.3) mg/dL Total Protein (6.3-8.2) g/dL Albumin (3.5-5.0) g/dL Arterial Blood Potassium (3.4-4.5) mmol/L Crossmatch 10/19/22 10/19/22 10/19/22 Range/Units 11:56 13:10 13:10 WBC 11.8 H (3.8-10.6) k/uL RBC 3.54 L (4.30-5.90) m/uL Hgb 10.1 L (13.0-17.5) gm/dL Hct 30.6 L (39.0-53.0) % Plt Count (150-450) k/uL Neutrophils # 9.4 H (1.3-7.7) k/uL Lymphocytes # (1.0-4.8) k/uL INR 1.2 H (<1.2) ABG pCO2 (35-45) mmHg ABG pO2 (83-108) mmHg ABG HCO3 (21-25) mmol/L ABG Total CO2 (19-24) mmol/L ABG O2 Saturation (94-97) % ABG Hematocrit (34.0-46.0) % ABG Potassium (3.4-4.5) mmol/L ABG Ionized Calcium (4.5-5.3) mg/dL Hemoglobin (13.0-17.5) gm/dL Sodium (137-145) mmol/L Creatinine (0.66-1.25) mg/dL Glucose (74-99) mg/dL POC Glucose (mg/dL) 147 H (70-110) mg/dL Calcium (8.4-10.2) mg/dL Magnesium (1.6-2.3) mg/dL Total Protein (6.3-8.2) g/dL Albumin (3.5-5.0) g/dL Arterial Blood Potassium (3.4-4.5) mmol/L Crossmatch 10/19/22 10/19/22 10/19/22 Range/Units 13:10 13:14 13:54 WBC (3.8-10.6) k/uL RBC (4.30-5.90) m/uL Hgb (13.0-17.5) gm/dL Hct (39.0-53.0) % Plt Count (150-450) k/uL Neutrophils # (1.3-7.7) k/uL Lymphocytes # (1.0-4.8) k/uL INR (<1.2) ABG pCO2 (35-45) mmHg ABG pO2 262 H (83-108) mmHg ABG HCO3 (21-25) mmol/L ABG Total CO2 27 H (19-24) mmol/L ABG O2 Saturation 100.0 H (94-97) % ABG Hematocrit (34.0-46.0) % ABG Potassium (3.4-4.5) mmol/L ABG Ionized Calcium (4.5-5.3) mg/dL Hemoglobin (13.0-17.5) gm/dL Sodium (137-145) mmol/L Creatinine 0.60 L (0.66-1.25) mg/dL Glucose 149 H (74-99) mg/dL POC Glucose (mg/dL) 163 H (70-110) mg/dL Calcium (8.4-10.2) mg/dL Magnesium 2.6 H (1.6-2.3) mg/dL Total Protein 5.8 L (6.3-8.2) g/dL Albumin (3.5-5.0) g/dL Arterial Blood Potassium (3.4-4.5) mmol/L Crossmatch 10/19/22 10/19/22 10/19/22 Range/Units 14:19 15:10 16:10 WBC (3.8-10.6) k/uL RBC (4.30-5.90) m/uL Hgb (13.0-17.5) gm/dL Hct (39.0-53.0) % Plt Count (150-450) k/uL Neutrophils # (1.3-7.7) k/uL Lymphocytes # (1.0-4.8) k/uL INR (<1.2) ABG pCO2 (35-45) mmHg ABG pO2 (83-108) mmHg ABG HCO3 (21-25) mmol/L ABG Total CO2 (19-24) mmol/L ABG O2 Saturation (94-97) % ABG Hematocrit (34.0-46.0) % ABG Potassium (3.4-4.5) mmol/L ABG Ionized Calcium (4.5-5.3) mg/dL Hemoglobin (13.0-17.5) gm/dL Sodium (137-145) mmol/L Creatinine (0.66-1.25) mg/dL Glucose (74-99) mg/dL POC Glucose (mg/dL) 172 H 177 H 180 H (70-110) mg/dL Calcium (8.4-10.2) mg/dL Magnesium (1.6-2.3) mg/dL Total Protein (6.3-8.2) g/dL Albumin (3.5-5.0) g/dL Arterial Blood Potassium (3.4-4.5) mmol/L Crossmatch 10/19/22 10/19/22 10/19/22 Range/Units 16:11 17:10 17:26 WBC (3.8-10.6) k/uL RBC 3.62 L (4.30-5.90) m/uL Hgb 10.3 L (13.0-17.5) gm/dL Hct 31.1 L (39.0-53.0) % Plt Count 134 L (150-450) k/uL Neutrophils # 8.4 H (1.3-7.7) k/uL Lymphocytes # 0.9 L (1.0-4.8) k/uL INR (<1.2) ABG pCO2 46 H (35-45) mmHg ABG pO2 112 H (83-108) mmHg ABG HCO3 26 H (21-25) mmol/L ABG Total CO2 27 H (19-24) mmol/L ABG O2 Saturation 98.7 H (94-97) % ABG Hematocrit (34.0-46.0) % ABG Potassium (3.4-4.5) mmol/L ABG Ionized Calcium (4.5-5.3) mg/dL Hemoglobin (13.0-17.5) gm/dL Sodium (137-145) mmol/L Creatinine (0.66-1.25) mg/dL Glucose (74-99) mg/dL POC Glucose (mg/dL) 177 H (70-110) mg/dL Calcium (8.4-10.2) mg/dL Magnesium (1.6-2.3) mg/dL Total Protein (6.3-8.2) g/dL Albumin (3.5-5.0) g/dL Arterial Blood Potassium (3.4-4.5) mmol/L Crossmatch 10/19/22 10/19/22 10/19/22 Range/Units 18:13 18:54 18:56 WBC (3.8-10.6) k/uL RBC 3.67 L (4.30-5.90) m/uL Hgb 10.3 L (13.0-17.5) gm/dL Hct 31.8 L (39.0-53.0) % Plt Count 143 L (150-450) k/uL Neutrophils # 8.3 H (1.3-7.7) k/uL Lymphocytes # 0.9 L (1.0-4.8) k/uL INR (<1.2) ABG pCO2 (35-45) mmHg ABG pO2 (83-108) mmHg ABG HCO3 (21-25) mmol/L ABG Total CO2 (19-24) mmol/L ABG O2 Saturation (94-97) % ABG Hematocrit (34.0-46.0) % ABG Potassium (3.4-4.5) mmol/L ABG Ionized Calcium (4.5-5.3) mg/dL Hemoglobin (13.0-17.5) gm/dL Sodium (137-145) mmol/L Creatinine (0.66-1.25) mg/dL Glucose (74-99) mg/dL POC Glucose (mg/dL) 163 H 153 H (70-110) mg/dL Calcium (8.4-10.2) mg/dL Magnesium (1.6-2.3) mg/dL Total Protein (6.3-8.2) g/dL Albumin (3.5-5.0) g/dL Arterial Blood Potassium (3.4-4.5) mmol/L Crossmatch 10/19/22 10/19/22 10/19/22 Range/Units 20:07 21:07 22:04 WBC (3.8-10.6) k/uL RBC (4.30-5.90) m/uL Hgb (13.0-17.5) gm/dL Hct (39.0-53.0) % Plt Count (150-450) k/uL Neutrophils # (1.3-7.7) k/uL Lymphocytes # (1.0-4.8) k/uL INR (<1.2) ABG pCO2 (35-45) mmHg ABG pO2 (83-108) mmHg ABG HCO3 (21-25) mmol/L ABG Total CO2 (19-24) mmol/L ABG O2 Saturation (94-97) % ABG Hematocrit (34.0-46.0) % ABG Potassium (3.4-4.5) mmol/L ABG Ionized Calcium (4.5-5.3) mg/dL Hemoglobin (13.0-17.5) gm/dL Sodium (137-145) mmol/L Creatinine (0.66-1.25) mg/dL Glucose (74-99) mg/dL POC Glucose (mg/dL) 150 H 144 H 137 H (70-110) mg/dL Calcium (8.4-10.2) mg/dL Magnesium (1.6-2.3) mg/dL Total Protein (6.3-8.2) g/dL Albumin (3.5-5.0) g/dL Arterial Blood Potassium (3.4-4.5) mmol/L Crossmatch 10/19/22 10/20/22 10/20/22 Range/Units 22:54 00:06 02:11 WBC (3.8-10.6) k/uL RBC (4.30-5.90) m/uL Hgb (13.0-17.5) gm/dL Hct (39.0-53.0) % Plt Count (150-450) k/uL Neutrophils # (1.3-7.7) k/uL Lymphocytes # (1.0-4.8) k/uL INR (<1.2) ABG pCO2 (35-45) mmHg ABG pO2 (83-108) mmHg ABG HCO3 (21-25) mmol/L ABG Total CO2 (19-24) mmol/L ABG O2 Saturation (94-97) % ABG Hematocrit (34.0-46.0) % ABG Potassium (3.4-4.5) mmol/L ABG Ionized Calcium (4.5-5.3) mg/dL Hemoglobin (13.0-17.5) gm/dL Sodium (137-145) mmol/L Creatinine (0.66-1.25) mg/dL Glucose (74-99) mg/dL POC Glucose (mg/dL) 131 H 121 H 127 H (70-110) mg/dL Calcium (8.4-10.2) mg/dL Magnesium (1.6-2.3) mg/dL Total Protein (6.3-8.2) g/dL Albumin (3.5-5.0) g/dL Arterial Blood Potassium (3.4-4.5) mmol/L Crossmatch 10/20/22 10/20/22 10/20/22 Range/Units 03:00 04:05 04:05 WBC (3.8-10.6) k/uL RBC 3.52 L (4.30-5.90) m/uL Hgb 10.0 L (13.0-17.5) gm/dL Hct 30.6 L (39.0-53.0) % Plt Count (150-450) k/uL Neutrophils # (1.3-7.7) k/uL Lymphocytes # (1.0-4.8) k/uL INR (<1.2) ABG pCO2 (35-45) mmHg ABG pO2 (83-108) mmHg ABG HCO3 (21-25) mmol/L ABG Total CO2 (19-24) mmol/L ABG O2 Saturation (94-97) % ABG Hematocrit (34.0-46.0) % ABG Potassium (3.4-4.5) mmol/L ABG Ionized Calcium (4.5-5.3) mg/dL Hemoglobin (13.0-17.5) gm/dL Sodium 136 L (137-145) mmol/L Creatinine 0.53 L (0.66-1.25) mg/dL Glucose 108 H (74-99) mg/dL POC Glucose (mg/dL) 126 H (70-110) mg/dL Calcium 7.9 L (8.4-10.2) mg/dL Magnesium (1.6-2.3) mg/dL Total Protein 5.7 L (6.3-8.2) g/dL Albumin 3.4 L (3.5-5.0) g/dL Arterial Blood Potassium (3.4-4.5) mmol/L Crossmatch 10/20/22 10/20/22 10/20/22 Range/Units 04:05 06:05 07:10 WBC (3.8-10.6) k/uL RBC (4.30-5.90) m/uL Hgb (13.0-17.5) gm/dL Hct (39.0-53.0) % Plt Count (150-450) k/uL Neutrophils # (1.3-7.7) k/uL Lymphocytes # (1.0-4.8) k/uL INR (<1.2) ABG pCO2 (35-45) mmHg ABG pO2 (83-108) mmHg ABG HCO3 (21-25) mmol/L ABG Total CO2 (19-24) mmol/L ABG O2 Saturation (94-97) % ABG Hematocrit (34.0-46.0) % ABG Potassium (3.4-4.5) mmol/L ABG Ionized Calcium (4.5-5.3) mg/dL Hemoglobin (13.0-17.5) gm/dL Sodium (137-145) mmol/L Creatinine (0.66-1.25) mg/dL Glucose (74-99) mg/dL POC Glucose (mg/dL) 120 H 120 H 118 H (70-110) mg/dL Calcium (8.4-10.2) mg/dL Magnesium (1.6-2.3) mg/dL Total Protein (6.3-8.2) g/dL Albumin (3.5-5.0) g/dL Arterial Blood Potassium (3.4-4.5) mmol/L Crossmatch 10/20/22 10/20/22 10/20/22 Range/Units 08:13 09:11 10:20 WBC (3.8-10.6) k/uL RBC (4.30-5.90) m/uL Hgb (13.0-17.5) gm/dL Hct (39.0-53.0) % Plt Count (150-450) k/uL Neutrophils # (1.3-7.7) k/uL Lymphocytes # (1.0-4.8) k/uL INR (<1.2) ABG pCO2 (35-45) mmHg ABG pO2 (83-108) mmHg ABG HCO3 (21-25) mmol/L ABG Total CO2 (19-24) mmol/L ABG O2 Saturation (94-97) % ABG Hematocrit (34.0-46.0) % ABG Potassium (3.4-4.5) mmol/L ABG Ionized Calcium (4.5-5.3) mg/dL Hemoglobin (13.0-17.5) gm/dL Sodium (137-145) mmol/L Creatinine (0.66-1.25) mg/dL Glucose (74-99) mg/dL POC Glucose (mg/dL) 167 H 135 H 116 H (70-110) mg/dL Calcium (8.4-10.2) mg/dL Magnesium (1.6-2.3) mg/dL Total Protein (6.3-8.2) g/dL Albumin (3.5-5.0) g/dL Arterial Blood Potassium (3.4-4.5) mmol/L Crossmatch - Imaging and Cardiology Chest x-ray: report reviewed, image reviewed Assessment and Plan Assessment: Severe tricuspid calcific aortic valve stenosis, status post aortic valve replacement using a 27 mm Coker Inspiris bovine pericardial valve History of hypertension Hyperlipidemia Diabetes mellitus type 2 Benign prostatic hypertrophy Asthma History of testicular cancer in 2007 History of TIA with no residual deficits Obstructive sleep apnea without BiPAP use GERD Lifetime nonsmoker Postoperative acute blood loss anemia, expected Plan: Continue to maximize medical therapy with statin, Plavix, beta shaina. Will increase beta shaina therapy as tolerated. The patient has an anaphylactic ALLERGY to aspirin and will not be started at this time as it is a contraindication. Wean O2 as tolerated. Encourage incentive spirometry use 10 times every hour while awake. Bronchodilators per pulmonology. Increase activity, ambulate as tolerated. PT/OT/cardiac rehab consulted. Will monitor daily labs and chest x-rays. Electrolyte replacement per protocol. GI/DVT prophylaxis. Pain control per current medication regimen. Insulin management per internal medicine, patient is diabetic, needs tight blood sugar control Discontinue [place]. Connect Cordis to continue CVP monitoring. Continue chest tube for another 24 hours. Continue Esparza catheter for another 24 hours for strict accurate intake and output. Daily weights. More recommendations to follow based on patient's progress. Time with Patient: Greater than 30
[2022-10-20 11:19] LABS: Glucose,Whole Blood 130 mg/dL (70-110)
[2022-10-20 12:15] LABS: Glucose,Whole Blood 113 mg/dL (70-110)
[2022-10-20 13:12] LABS: Glucose,Whole Blood 137 mg/dL (70-110)
[2022-10-20 14:22] LABS: Glucose,Whole Blood 185 mg/dL (70-110)
[2022-10-20] MEDS: CLEVIDIPINE BUTYRATE 25 MG in EMPTY BAG 1 BAG IV SCH (14:24)
[2022-10-20 15:11] LABS: Glucose,Whole Blood 151 mg/dL (70-110)
[2022-10-20 16:10] LABS: Glucose,Whole Blood 128 mg/dL (70-110)
[2022-10-20] MEDS: LACTATED RINGERS 1,000 ML IV SCH (16:16)
[2022-10-20 17:01] LABS: Glucose,Whole Blood 110 mg/dL (70-110)
[2022-10-20] MEDS: HYDROcodone/APAP 5-325MG 1 EACH TAB PO PRN (18:15)
[2022-10-20 18:18] LABS: Glucose,Whole Blood 147 mg/dL (70-110)
[2022-10-20 19:12] LABS: Glucose,Whole Blood 140 mg/dL (70-110)
[2022-10-20] MEDS: DOPamine DRIP 800 MG in DEXTROSE/WATER 1 250ML.BAG IV SCH (20:03)
[2022-10-20 20:11] LABS: Glucose,Whole Blood 127 mg/dL (70-110)
[2022-10-20] MEDS ORDERED: FUROSEMIDE 10 MG/ML 4 ML VIAL IV STA (20:58)
[2022-10-20 21:04] LABS: Glucose,Whole Blood 126 mg/dL (70-110)
[2022-10-20] MEDS: TAMSULOSIN 0.4 MG CAP.ER.24H PO SCH (21:04)
[2022-10-20] MEDS: ATORVASTATIN 10 MG TAB PO SCH (21:04)
[2022-10-20] MEDS: SENNOSIDES-DOCUSATE SODIUM 1 EACH TAB PO SCH (21:04)
[2022-10-20] MEDS: MONTELUKAST 10 MG TAB PO SCH (21:04)
--- NOTE | 2022-10-20 21:35 | XR ---
EXAMINATION: XR chest 1V portable 10/20/2022 8:52 PM CLINICAL INDICATION: SOB TECHNIQUE: Portable AP upright COMPARISON: 10/20/2022 at 5:15 AM portable AP upright FINDINGS: Right IJ Davis tip RPA. Sternal sutures and mediastinal clips. Left atrial closure device redemonstrated. EKG leads. There is a new right apical pneumothorax, with vertical measurement at the level of clavicular head m easuring 2.6 cm. No mediastinal shift. Lungs appear to be clear bilaterally. Silhouette enlarged, stable. IMPRESSION: New right pneumothorax; results discussed with patient's ICU nurse Tate at 9:30 pm, with read back.
[2022-10-20 22:02] LABS: Glucose,Whole Blood 130 mg/dL (70-110)
--- NOTE | 2022-10-20 22:06 | P.CONS ---
History of Present Illness - Reason for Consult Consult date: 10/20/22 Medical management - Chief Complaint Status post aortic valve replacement - History of Present Illness Patient is a 62-year-old male with a known history of hypertension, hyperlipidemia, diabetes type 2 insulin-dependent, osteoarthritis and history of severe aortic stenosis was admitted to the hospital for aortic valve replacement. Patient is status post surgery and postoperative day 1. Patient was on mechanical ventilator perioperatively and was extubated this morning. Currently patient does have soreness at the surgical site. SBP in 90s. Denies any complaints of dizziness or lightheadedness. No chest pain. No cough or sputum production. Patient has been afebrile overnight. Not on pressor support. Patient is being continued on insulin drip. Laboratory showed WBC 10.3 hemoglobin 10.0 and platelets 162, sodium 136 potassium 4.2 chloride 102 bicarb is 26 BUN 15 and creatinine 0.53 liver enzymes are not elevated. Albumin 3.4. EKG showed normal sinus rhythm. Chest x-ray showed approximately 5 to 10% right apical pneumothorax. Chest x-ray this morning showed cardiomegaly and bilateral basilar reflexes favored over infiltrate and small effusion. No overt heart failure. Review of Systems Constitutional: Patient denies any fever or chills . no Generalized weakness. Abdomen: Patient denied any nausea or vomiting or abd. pain Cardiovascular: Patient denies any chest pain or short of breath no palpitations. Shortness of breath surgical site. Respiratory: patient denied any cough . no sputum production. No shortness of breath Neurologic: Patient denied any numbness or tingling headache. Musculoskeletal: Patient denies any complaints of joint swelling or deformity. Skin: Negative Psychiatric: Negative Endocrine: No heat or cold intolerance. No recent weight gain. Genitourinary: No dysuria or hematuria. All other 14 point ROS negative except the above Past Medical History Past Medical History: Asthma, Cancer, CVA/TIA, Diabetes Mellitus, GERD/Reflux, Hyperlipidemia, Hypertension, Osteoarthritis (OA) Additional Past Medical History / Comment(s): hx cva (2021)., hx seizure with low blood sugar., testicular cancer right 2006., numbness in left arm at times. tingling in feet., constipation/bloating., environmental allergies. Last Myocardial Infarction Date:: ?states 1985 when working at the [employer] History of Any Multi-Drug Resistant Organisms: None Reported Past Surgical History: Heart Catheterization Additional Past Surgical History / Comment(s): TESTICULAR SURGERY ., COLONOSCOPY. Past Anesthesia/Blood Transfusion Reactions: No Reported Reaction Additional Past Anesthesia/Blood Transfusion Reaction / Comm: DIFFICULTY WAKING UP. MOTHER HAD DIFFICULTY WAKING UP ALSO. Additional Psychological History / Comment(s): CURRENTLY LIVING WITH FRIEND PARISA GARCIA WHILE [facility] HELPS AILYN FIND A PLACE TO LIVE. - Past Family History Father Family Medical History: Cancer, Renal Disease Additional Family Medical History / Comment(s): mrsa Mother Family Medical History: Coronary Artery Disease (CAD), Hypertension, Myocardial Infarction (VT), Osteoarthritis (OA) Additional Family Medical History / Comment(s): cardiac stents, smoker Medications and Allergies Home Medications Medication Instructions Recorded Confirmed Type metFORMIN HCL [Glucophage] 500 mg PO BID #60 tab 04/29/20 10/11/22 Rx Atorvastatin [Lipitor] 10 mg PO HS 12/24/21 10/11/22 History Montelukast [Singulair] 10 mg PO HS 12/24/21 10/11/22 History Tamsulosin [Flomax] 0.4 mg PO HS 12/24/21 10/11/22 History Citalopram Hydrobromide 30 mg PO QAM 07/04/22 10/11/22 History [Citalopram HBr] Famotidine [Pepcid] 20 mg PO HS 07/04/22 10/11/22 History Ibuprofen [Motrin Ib] 200 mg PO DAILY PRN 07/04/22 10/11/22 History Albuterol Inhaler [Ventolin Hfa 1 - 2 puff INHALATION Q4-6H PRN 10/11/22 10/11/22 History Inhaler] Chlorhexidine Gluconate [Peridex] 15 ml PO BID 10/11/22 10/19/22 History Dulaglutide [Trulicity] 0.75 mg SQ QAM 10/11/22 10/11/22 History Insulin Detemir [Levemir Flexpen] 25 units SQ HS 10/11/22 10/19/22 History Melatonin 5 mg PO HS PRN 10/11/22 10/11/22 History Metoprolol Tartrate [Lopressor] 50 mg PO BID 10/11/22 10/19/22 History Semaglutide [Rybelsus] 7 mg PO QAM 10/11/22 10/11/22 History Mupirocin [Mupirocin 2%] 1 applic NASAL BID #1 tub 10/14/22 Rx Allergies Allergy/AdvReac Type Severity Reaction Status Date / Time shellfish derived [Shellfish] Allergy Severe Anaphylaxis- Verified 10/19/22 06:12 tight chest, dyspnea aspirin Allergy Anaphylaxis- Verified 10/19/22 06:12 throat get tight cefaclor [From Ceclor] Allergy Rash/Hives Verified 10/19/22 06:12 Iodine and Iodide Containing Allergy Anaphylaxis Verified 10/19/22 06:12 Produc lactose Allergy Diarrhea Verified 10/19/22 06:12 sumatriptan [From Imitrex] Allergy Dyspnea Verified 10/19/22 06:12 sumatriptan succinate Allergy Dyspnea Verified 10/19/22 06:12 [From Imitrex] chocolate flavor AdvReac headache Verified 10/19/22 06:12 theophylline [From Lang-Dur] AdvReac hand Verified 10/19/22 06:12 tremors gatorade AdvReac Unknown sore throat Uncoded 10/19/22 06:12 Physical Exam Vitals: Vital Signs Temp Pulse Resp BP Pulse Ox FiO2 10/20/22 09:00 84 12 93 L 10/20/22 08:30 82 14 94 L 10/20/22 08:00 98.2 F 86 14 115/61 93 L 10/20/22 07:30 93 13 92/58 93 L 10/20/22 07:00 91 20 94 L 10/20/22 06:30 83 8 L 95 10/20/22 06:00 82 14 95 10/20/22 05:30 88 20 91 L 10/20/22 05:00 93 17 92 L 10/20/22 04:30 85 10 L 94 L 10/20/22 04:00 86 9 L 94 L 10/20/22 03:30 85 11 L 94 L 10/20/22 03:00 86 10 L 94 L 10/20/22 02:30 84 9 L 95 10/20/22 02:00 85 11 L 94 L 10/20/22 01:30 85 10 L 94 L 10/20/22 01:00 89 15 95 10/20/22 00:30 84 12 95 10/20/22 00:09 87 11 L 96 10/20/22 00:00 89 12 96 10/19/22 23:30 88 12 96 10/19/22 23:00 87 11 L 96 10/19/22 22:30 89 12 96 10/19/22 22:00 90 12 97 10/19/22 21:30 91 12 97 10/19/22 21:00 90 13 97 10/19/22 20:30 91 13 97 10/19/22 20:00 96 14 96 10/19/22 19:55 94 10/19/22 19:43 96 10/19/22 19:30 91 13 97 10/19/22 19:00 97.7 F 93 14 97 10/19/22 18:45 90 14 97 10/19/22 18:30 90 14 97 10/19/22 18:15 92 13 96 10/19/22 18:00 97.7 F 92 15 97 10/19/22 17:45 94 19 94 L 10/19/22 17:37 98 10/19/22 17:30 96 9 L 98 10/19/22 17:15 93 15 98 50 10/19/22 17:00 97.7 F 92 16 98 50 10/19/22 16:50 50 10/19/22 16:45 92 17 97 50 10/19/22 16:30 90 14 99 50 10/19/22 16:15 86 14 99 50 10/19/22 16:00 97.5 F L 86 14 98 50 10/19/22 15:45 91 29 H 98 50 10/19/22 15:30 85 14 98 50 10/19/22 15:15 85 14 99 50 10/19/22 15:00 97.3 F L 83 14 100 60 10/19/22 14:55 50 10/19/22 14:45 81 14 100 60 10/19/22 14:30 80 13 100 60 10/19/22 14:15 81 14 100 60 10/19/22 14:00 81 14 100 60 10/19/22 13:50 81 22 100 100 10/19/22 13:40 81 14 100 100 10/19/22 13:30 80 14 100 100 10/19/22 13:20 78 14 100 100 10/19/22 13:18 100 10/19/22 13:14 97.2 F L 80 14 99 100 05/10/23 13:12 100 Intake and Output 05/10/23 05/11/23 05/11/23 22:59 06:59 14:59 Intake Total 535.635 3281.335 331.026 Output Total 737 371 40 Balance -33.810 1061.335 291.026 Intake: IV 362 1412 309 0.9NS FOR PRESSURE BAG 72 72 9 ACETAMINOPHEN IV (For NPO 400 ) 1,000 mg In Empty Bag 1 bag @ 400 mls/hr IVPB Q6HR NAYA Rx#:[id number] Albumin Human 5% 250 ml 500 250 In Empty Bag 1 bag @ 250 mls/hr IVPB Q1HR PRN Rx#: [id number] CO/CI 140 40 Lactated Ringers 1,000 ml 150 400 50 @ 20 mls/hr IV .Q24H NAYA Rx#:[id number] Intake, IV Titration 341.190 20.335 22.026 Amount Insulin Regular 100 unit 49.330 20.335 22.026 In Sodium Chloride 0.9% 100 ml @ Per Protocol IV .Q0M NAYA Rx#:[id number] Lactated Ringers 1,000 ml 250 @ 20 mls/hr IV .Q24H NAYA Rx#:[id number] propofoL 1,000 mg In 41.860 Empty Bag 1 bag @ Titrate IV .Q0M NAYA Rx#: [id number] Output: Chest Tube Drainage 132 106 10 Chest Tube Mediastinal 132 106 10 Urine 605 265 30 Other: Voiding Method Indwelling Catheter Indwelling Catheter Weight 128.5 kg ABP, PAP, CO, CI - Last 8 Hours Arterial Blood Pressure 101/46 Arterial Blood Pressure 98/44 Arterial Blood Pressure 98/44 Arterial Blood Pressure 82/49 Arterial Blood Pressure 89/57 Arterial Blood Pressure 83/41 Arterial Blood Pressure 93/44 Arterial Blood Pressure 104/55 Arterial Blood Pressure 101/49 Arterial Blood Pressure 105/52 Arterial Blood Pressure 98/49 Arterial Blood Pressure 107/51 Arterial Blood Pressure 101/48 Arterial Blood Pressure 105/49 Pulmonary Artery Pressure 33/14 Pulmonary Artery Pressure 32/12 Pulmonary Artery Pressure 36/13 Pulmonary Artery Pressure 35/19 Pulmonary Artery Pressure 43/21 Pulmonary Artery Pressure 24/7 Pulmonary Artery Pressure 30/9 Pulmonary Artery Pressure 25/8 Pulmonary Artery Pressure 45/23 Pulmonary Artery Pressure 32/14 Pulmonary Artery Pressure 35/15 Pulmonary Artery Pressure 33/12 Pulmonary Artery Pressure 33/14 Pulmonary Artery Pressure 36/14 Pulmonary Artery Pressure 36/14 Cardiac Output 7.7 Cardiac Output 5.7 Cardiac Index 3.1 Cardiac Index 2.3 PHYSICAL EXAMINATION: Patient is lying in the bed comfortably, no acute distress, awake alert and oriented. Lethargic and weak.. HEENT: Normocephalic. Neck is supple. Pupils reactive. Nostrils clear. Oral cavity is moist. Neck reveals no JVD, carotid bruits, or thyromegaly. CHEST EXAMINATION: Trachea is central. Symmetrical expansion. Bibasilar diminished sounds.. Sternal midline incision is bandaged. Chest tube in place. CARDIAC: Normal S1, S2 with no gallops. No murmurs ABDOMEN: Soft. Bowel sounds present. Nontender. No organomegaly. No abdominal bruits. Extremities: reveal no edema. No clubbing or cyanosis Neurologically awake, alert, oriented x2-3 with well-coordinated movements. No gross focal deficits noted. Developmentally delayed. Skin: No rash or skin lesions. Psychiatric: Coperative. Could not be assessed completely Musculoskeletal: No joint swelling or deformity. Normal range of motion. Results CBC & Chem 7: 10/20/22 04:05 10/20/22 04:05 Labs: Abnormal Lab Results - Last 24 Hours (Table) 10/11/22 10/19/22 10/19/22 Range/Units 09:28 08:17 09:48 WBC (3.8-10.6) k/uL RBC (4.30-5.90) m/uL Hgb (13.0-17.5) gm/dL Hct (39.0-53.0) % Plt Count (150-450) k/uL Neutrophils # (1.3-7.7) k/uL Lymphocytes # (1.0-4.8) k/uL INR (<1.2) ABG pCO2 48 H (35-45) mmHg ABG pO2 182 H (83-108) mmHg ABG HCO3 28 H (21-25) mmol/L ABG Total CO2 30 H (19-24) mmol/L ABG O2 Saturation 99.7 H (94-97) % ABG Hematocrit (34.0-46.0) % ABG Potassium 4.6 H (3.4-4.5) mmol/L ABG Ionized Calcium (4.5-5.3) mg/dL Hemoglobin 12.3 L (13.0-17.5) gm/dL Sodium (137-145) mmol/L Creatinine (0.66-1.25) mg/dL Glucose (74-99) mg/dL POC Glucose (mg/dL) 148 H (70-110) mg/dL Calcium (8.4-10.2) mg/dL Magnesium (1.6-2.3) mg/dL Total Protein (6.3-8.2) g/dL Albumin (3.5-5.0) g/dL Arterial Blood Potassium 4.6 H (3.4-4.5) mmol/L Crossmatch See Detail 10/19/22 10/19/22 10/19/22 Range/Units 09:50 10:19 10:19 WBC (3.8-10.6) k/uL RBC (4.30-5.90) m/uL Hgb (13.0-17.5) gm/dL Hct (39.0-53.0) % Plt Count (150-450) k/uL Neutrophils # (1.3-7.7) k/uL Lymphocytes # (1.0-4.8) k/uL INR (<1.2) ABG pCO2 34 L (35-45) mmHg ABG pO2 >420 H >420 H 326 H (83-108) mmHg ABG HCO3 (21-25) mmol/L ABG Total CO2 25 H 25 H 25 H (19-24) mmol/L ABG O2 Saturation 100.0 H 100.0 H 100.0 H (94-97) % ABG Hematocrit 26 L 27 L 29 L (34.0-46.0) % ABG Potassium (3.4-4.5) mmol/L ABG Ionized Calcium 4.1 L 4.2 L 4.3 L (4.5-5.3) mg/dL Hemoglobin 8.5 L 8.8 L 9.4 L (13.0-17.5) gm/dL Sodium (137-145) mmol/L Creatinine (0.66-1.25) mg/dL Glucose (74-99) mg/dL POC Glucose (mg/dL) (70-110) mg/dL Calcium (8.4-10.2) mg/dL Magnesium (1.6-2.3) mg/dL Total Protein (6.3-8.2) g/dL Albumin (3.5-5.0) g/dL Arterial Blood Potassium (3.4-4.5) mmol/L Crossmatch 10/19/22 10/19/22 10/19/22 Range/Units 10:19 10:58 11:56 WBC (3.8-10.6) k/uL RBC (4.30-5.90) m/uL Hgb (13.0-17.5) gm/dL Hct (39.0-53.0) % Plt Count (150-450) k/uL Neutrophils # (1.3-7.7) k/uL Lymphocytes # (1.0-4.8) k/uL INR (<1.2) ABG pCO2 (35-45) mmHg ABG pO2 (83-108) mmHg ABG HCO3 (21-25) mmol/L ABG Total CO2 (19-24) mmol/L ABG O2 Saturation (94-97) % ABG Hematocrit (34.0-46.0) % ABG Potassium (3.4-4.5) mmol/L ABG Ionized Calcium (4.5-5.3) mg/dL Hemoglobin (13.0-17.5) gm/dL Sodium (137-145) mmol/L Creatinine (0.66-1.25) mg/dL Glucose (74-99) mg/dL POC Glucose (mg/dL) 215 H 189 H 147 H (70-110) mg/dL Calcium (8.4-10.2) mg/dL Magnesium (1.6-2.3) mg/dL Total Protein (6.3-8.2) g/dL Albumin (3.5-5.0) g/dL Arterial Blood Potassium (3.4-4.5) mmol/L Crossmatch 10/19/22 10/19/22 10/19/22 Range/Units 13:10 13:10 13:10 WBC 11.8 H (3.8-10.6) k/uL RBC 3.54 L (4.30-5.90) m/uL Hgb 10.1 L (13.0-17.5) gm/dL Hct 30.6 L (39.0-53.0) % Plt Count (150-450) k/uL Neutrophils # 9.4 H (1.3-7.7) k/uL Lymphocytes # (1.0-4.8) k/uL INR 1.2 H (<1.2) ABG pCO2 (35-45) mmHg ABG pO2 (83-108) mmHg ABG HCO3 (21-25) mmol/L ABG Total CO2 (19-24) mmol/L ABG O2 Saturation (94-97) % ABG Hematocrit (34.0-46.0) % ABG Potassium (3.4-4.5) mmol/L ABG Ionized Calcium (4.5-5.3) mg/dL Hemoglobin (13.0-17.5) gm/dL Sodium (137-145) mmol/L Creatinine 0.60 L (0.66-1.25) mg/dL Glucose 149 H (74-99) mg/dL POC Glucose (mg/dL) (70-110) mg/dL Calcium (8.4-10.2) mg/dL Magnesium 2.6 H (1.6-2.3) mg/dL Total Protein 5.8 L (6.3-8.2) g/dL Albumin (3.5-5.0) g/dL Arterial Blood Potassium (3.4-4.5) mmol/L Crossmatch 10/19/22 10/19/22 10/19/22 Range/Units 13:14 13:54 14:19 WBC (3.8-10.6) k/uL RBC (4.30-5.90) m/uL Hgb (13.0-17.5) gm/dL Hct (39.0-53.0) % Plt Count (150-450) k/uL Neutrophils # (1.3-7.7) k/uL Lymphocytes # (1.0-4.8) k/uL INR (<1.2) ABG pCO2 (35-45) mmHg ABG pO2 262 H (83-108) mmHg ABG HCO3 (21-25) mmol/L ABG Total CO2 27 H (19-24) mmol/L ABG O2 Saturation 100.0 H (94-97) % ABG Hematocrit (34.0-46.0) % ABG Potassium (3.4-4.5) mmol/L ABG Ionized Calcium (4.5-5.3) mg/dL Hemoglobin (13.0-17.5) gm/dL Sodium (137-145) mmol/L Creatinine (0.66-1.25) mg/dL Glucose (74-99) mg/dL POC Glucose (mg/dL) 163 H 172 H (70-110) mg/dL Calcium (8.4-10.2) mg/dL Magnesium (1.6-2.3) mg/dL Total Protein (6.3-8.2) g/dL Albumin (3.5-5.0) g/dL Arterial Blood Potassium (3.4-4.5) mmol/L Crossmatch 10/19/22 10/19/22 10/19/22 Range/Units 15:10 16:10 16:11 WBC (3.8-10.6) k/uL RBC 3.62 L (4.30-5.90) m/uL Hgb 10.3 L (13.0-17.5) gm/dL Hct 31.1 L (39.0-53.0) % Plt Count 134 L (150-450) k/uL Neutrophils # 8.4 H (1.3-7.7) k/uL Lymphocytes # 0.9 L (1.0-4.8) k/uL INR (<1.2) ABG pCO2 (35-45) mmHg ABG pO2 (83-108) mmHg ABG HCO3 (21-25) mmol/L ABG Total CO2 (19-24) mmol/L ABG O2 Saturation (94-97) % ABG Hematocrit (34.0-46.0) % ABG Potassium (3.4-4.5) mmol/L ABG Ionized Calcium (4.5-5.3) mg/dL Hemoglobin (13.0-17.5) gm/dL Sodium (137-145) mmol/L Creatinine (0.66-1.25) mg/dL Glucose (74-99) mg/dL POC Glucose (mg/dL) 177 H 180 H (70-110) mg/dL Calcium (8.4-10.2) mg/dL Magnesium (1.6-2.3) mg/dL Total Protein (6.3-8.2) g/dL Albumin (3.5-5.0) g/dL Arterial Blood Potassium (3.4-4.5) mmol/L Crossmatch 10/19/22 10/19/22 10/19/22 Range/Units 17:10 17:26 18:13 WBC (3.8-10.6) k/uL RBC (4.30-5.90) m/uL Hgb (13.0-17.5) gm/dL Hct (39.0-53.0) % Plt Count (150-450) k/uL Neutrophils # (1.3-7.7) k/uL Lymphocytes # (1.0-4.8) k/uL INR (<1.2) ABG pCO2 46 H (35-45) mmHg ABG pO2 112 H (83-108) mmHg ABG HCO3 26 H (21-25) mmol/L ABG Total CO2 27 H (19-24) mmol/L ABG O2 Saturation 98.7 H (94-97) % ABG Hematocrit (34.0-46.0) % ABG Potassium (3.4-4.5) mmol/L ABG Ionized Calcium (4.5-5.3) mg/dL Hemoglobin (13.0-17.5) gm/dL Sodium (137-145) mmol/L Creatinine (0.66-1.25) mg/dL Glucose (74-99) mg/dL POC Glucose (mg/dL) 177 H 163 H (70-110) mg/dL Calcium (8.4-10.2) mg/dL Magnesium (1.6-2.3) mg/dL Total Protein (6.3-8.2) g/dL Albumin (3.5-5.0) g/dL Arterial Blood Potassium (3.4-4.5) mmol/L Crossmatch 10/19/22 10/19/22 10/19/22 Range/Units 18:54 18:56 20:07 WBC (3.8-10.6) k/uL RBC 3.67 L (4.30-5.90) m/uL Hgb 10.3 L (13.0-17.5) gm/dL Hct 31.8 L (39.0-53.0) % Plt Count 143 L (150-450) k/uL Neutrophils # 8.3 H (1.3-7.7) k/uL Lymphocytes # 0.9 L (1.0-4.8) k/uL INR (<1.2) ABG pCO2 (35-45) mmHg ABG pO2 (83-108) mmHg ABG HCO3 (21-25) mmol/L ABG Total CO2 (19-24) mmol/L ABG O2 Saturation (94-97) % ABG Hematocrit (34.0-46.0) % ABG Potassium (3.4-4.5) mmol/L ABG Ionized Calcium (4.5-5.3) mg/dL Hemoglobin (13.0-17.5) gm/dL Sodium (137-145) mmol/L Creatinine (0.66-1.25) mg/dL Glucose (74-99) mg/dL POC Glucose (mg/dL) 153 H 150 H (70-110) mg/dL Calcium (8.4-10.2) mg/dL Magnesium (1.6-2.3) mg/dL Total Protein (6.3-8.2) g/dL Albumin (3.5-5.0) g/dL Arterial Blood Potassium (3.4-4.5) mmol/L Crossmatch 10/19/22 10/19/22 10/19/22 Range/Units 21:07 22:04 22:54 WBC (3.8-10.6) k/uL RBC (4.30-5.90) m/uL Hgb (13.0-17.5) gm/dL Hct (39.0-53.0) % Plt Count (150-450) k/uL Neutrophils # (1.3-7.7) k/uL Lymphocytes # (1.0-4.8) k/uL INR (<1.2) ABG pCO2 (35-45) mmHg ABG pO2 (83-108) mmHg ABG HCO3 (21-25) mmol/L ABG Total CO2 (19-24) mmol/L ABG O2 Saturation (94-97) % ABG Hematocrit (34.0-46.0) % ABG Potassium (3.4-4.5) mmol/L ABG Ionized Calcium (4.5-5.3) mg/dL Hemoglobin (13.0-17.5) gm/dL Sodium (137-145) mmol/L Creatinine (0.66-1.25) mg/dL Glucose (74-99) mg/dL POC Glucose (mg/dL) 144 H 137 H 131 H (70-110) mg/dL Calcium (8.4-10.2) mg/dL Magnesium (1.6-2.3) mg/dL Total Protein (6.3-8.2) g/dL Albumin (3.5-5.0) g/dL Arterial Blood Potassium (3.4-4.5) mmol/L Crossmatch 10/20/22 10/20/22 10/20/22 Range/Units 00:06 02:11 03:00 WBC (3.8-10.6) k/uL RBC (4.30-5.90) m/uL Hgb (13.0-17.5) gm/dL Hct (39.0-53.0) % Plt Count (150-450) k/uL Neutrophils # (1.3-7.7) k/uL Lymphocytes # (1.0-4.8) k/uL INR (<1.2) ABG pCO2 (35-45) mmHg ABG pO2 (83-108) mmHg ABG HCO3 (21-25) mmol/L ABG Total CO2 (19-24) mmol/L ABG O2 Saturation (94-97) % ABG Hematocrit (34.0-46.0) % ABG Potassium (3.4-4.5) mmol/L ABG Ionized Calcium (4.5-5.3) mg/dL Hemoglobin (13.0-17.5) gm/dL Sodium (137-145) mmol/L Creatinine (0.66-1.25) mg/dL Glucose (74-99) mg/dL POC Glucose (mg/dL) 121 H 127 H 126 H (70-110) mg/dL Calcium (8.4-10.2) mg/dL Magnesium (1.6-2.3) mg/dL Total Protein (6.3-8.2) g/dL Albumin (3.5-5.0) g/dL Arterial Blood Potassium (3.4-4.5) mmol/L Crossmatch 10/20/22 10/20/22 10/20/22 Range/Units 04:05 04:05 04:05 WBC (3.8-10.6) k/uL RBC 3.52 L (4.30-5.90) m/uL Hgb 10.0 L (13.0-17.5) gm/dL Hct 30.6 L (39.0-53.0) % Plt Count (150-450) k/uL Neutrophils # (1.3-7.7) k/uL Lymphocytes # (1.0-4.8) k/uL INR (<1.2) ABG pCO2 (35-45) mmHg ABG pO2 (83-108) mmHg ABG HCO3 (21-25) mmol/L ABG Total CO2 (19-24) mmol/L ABG O2 Saturation (94-97) % ABG Hematocrit (34.0-46.0) % ABG Potassium (3.4-4.5) mmol/L ABG Ionized Calcium (4.5-5.3) mg/dL Hemoglobin (13.0-17.5) gm/dL Sodium 136 L (137-145) mmol/L Creatinine 0.53 L (0.66-1.25) mg/dL Glucose 108 H (74-99) mg/dL POC Glucose (mg/dL) 120 H (70-110) mg/dL Calcium 7.9 L (8.4-10.2) mg/dL Magnesium (1.6-2.3) mg/dL Total Protein 5.7 L (6.3-8.2) g/dL Albumin 3.4 L (3.5-5.0) g/dL Arterial Blood Potassium (3.4-4.5) mmol/L Crossmatch 10/20/22 10/20/22 10/20/22 Range/Units 06:05 07:10 08:13 WBC (3.8-10.6) k/uL RBC (4.30-5.90) m/uL Hgb (13.0-17.5) gm/dL Hct (39.0-53.0) % Plt Count (150-450) k/uL Neutrophils # (1.3-7.7) k/uL Lymphocytes # (1.0-4.8) k/uL INR (<1.2) ABG pCO2 (35-45) mmHg ABG pO2 (83-108) mmHg ABG HCO3 (21-25) mmol/L ABG Total CO2 (19-24) mmol/L ABG O2 Saturation (94-97) % ABG Hematocrit (34.0-46.0) % ABG Potassium (3.4-4.5) mmol/L ABG Ionized Calcium (4.5-5.3) mg/dL Hemoglobin (13.0-17.5) gm/dL Sodium (137-145) mmol/L Creatinine (0.66-1.25) mg/dL Glucose (74-99) mg/dL POC Glucose (mg/dL) 120 H 118 H 167 H (70-110) mg/dL Calcium (8.4-10.2) mg/dL Magnesium (1.6-2.3) mg/dL Total Protein (6.3-8.2) g/dL Albumin (3.5-5.0) g/dL Arterial Blood Potassium (3.4-4.5) mmol/L Crossmatch 10/20/22 Range/Units 09:11 WBC (3.8-10.6) k/uL RBC (4.30-5.90) m/uL Hgb (13.0-17.5) gm/dL Hct (39.0-53.0) % Plt Count (150-450) k/uL Neutrophils # (1.3-7.7) k/uL Lymphocytes # (1.0-4.8) k/uL INR (<1.2) ABG pCO2 (35-45) mmHg ABG pO2 (83-108) mmHg ABG HCO3 (21-25) mmol/L ABG Total CO2 (19-24) mmol/L ABG O2 Saturation (94-97) % ABG Hematocrit (34.0-46.0) % ABG Potassium (3.4-4.5) mmol/L ABG Ionized Calcium (4.5-5.3) mg/dL Hemoglobin (13.0-17.5) gm/dL Sodium (137-145) mmol/L Creatinine (0.66-1.25) mg/dL Glucose (74-99) mg/dL POC Glucose (mg/dL) 135 H (70-110) mg/dL Calcium (8.4-10.2) mg/dL Magnesium (1.6-2.3) mg/dL Total Protein (6.3-8.2) g/dL Albumin (3.5-5.0) g/dL Arterial Blood Potassium (3.4-4.5) mmol/L Crossmatch Assessment and Plan Assessment: Status post aortic valve replacement due to severe aortic stenosis. Postoperative day 1. was on mechanical ventilator perioperatively. Extubated this morning. Right apical pneumothorax 5 to 10%. Diabetes type 2 insulin-dependent. Hypertension Hyperlipidemia History of right testicular cancer s/p surgery History of developmental delay Osteoarthritis GERD History of CVA Obesity with BMI 37.4 DVT prophylaxis Plan: Patient is currently in the MICU. Was extubated this morning. Continue the oxygen supplementation and titrate down to room air. Follow-up repeat chest x-rays for resolution of pneumothorax. Will be continued on insulin drip at this time and transition to home dose of subcu insulin once patient continues to be hemodynamically stable. GI and DVT prophylaxis with PPI and heparin subcu Continue with Plavix and metoprolol and telemetry monitoring. We will continue to follow and further recommendations based on the clinical course. Time with Patient: Greater than 30
[2022-10-20 23:05] LABS: Glucose,Whole Blood 142 mg/dL (70-110)
[2022-10-20 23:55] LABS: Glucose,Whole Blood 127 mg/dL (70-110)
[2022-10-21 00:57] LABS: Glucose,Whole Blood 145 mg/dL (70-110)
[2022-10-21 02:00] LABS: Glucose,Whole Blood 147 mg/dL (70-110)
[2022-10-21] MEDS: INSULIN REGULAR 100 UNIT in SODIUM CHLORIDE 0.9% 100 ML IV SCH ×2 (02:00→19:58)
[2022-10-21 02:56] LABS: Glucose,Whole Blood 140 mg/dL (70-110)
[2022-10-21 04:05] LABS: Glucose,Whole Blood 141 mg/dL (70-110)
[2022-10-21 05:08] LABS: Glucose,Whole Blood 134 mg/dL (70-110)
[2022-10-21 05:23] LABS: Basophils % (A) 0 %; Eosinophils # (A) 0.1 k/uL (0-0.7); Eosinophils % (A) 1 %; HCT 27.8 % (39.0-53.0); HGB 9.3 gm/dL (13.0-17.5); Lymphocytes # (A) 1.6 k/uL (1.0-4.8); Lymphocytes % (A) 15 %; MCH 28.8 pg (25.0-35.0); MCHC 33.6 g/dL (31.0-37.0); MCV 85.8 fL (80.0-100.0); Mean Platelet Volume 9.8; Monocytes # (A) 0.7 k/uL (0-1.0); Monocytes % (A) 6 %; Neutrophils # (A) 7.7 k/uL (1.3-7.7); Neutrophils % (A) 75 %; Platelet Count 136 k/uL (150-450); RBC 3.24 m/uL (4.30-5.90); RDW 13.5 % (11.5-15.5); WBC 10.3 k/uL (3.8-10.6)
[2022-10-21] MEDS: HYDROcodone/APAP 5-325MG 1 EACH TAB PO PRN (05:38)
[2022-10-21] MEDS: KETOROLAC 15 MG/ML 1 ML VIAL IVP SCH ×4 (05:38→23:47)
[2022-10-21 05:39] LABS: ALT 14 U/L (4-49); AST 31 U/L (17-59); African American GFR (CKD) >90 (>60 ml/min/1.73 sqM); Albumin 3.7 g/dL (3.5-5.0); Alkaline Phosphatase 37 U/L (38-126); Anion Gap 9 mmol/L; Blood Urea Nitrogen 18 mg/dL (9-20); Calcium 7.9 mg/dL (8.4-10.2); Carbon Dioxide 26 mmol/L (22-30); Chloride 101 mmol/L (98-107); Glucose 120 mg/dL (74-99); Non-African American GFR(CKD) >90 (>60 ml/min/1.73 sqM); Potassium 4.1 mmol/L (3.5-5.1); Sodium 136 mmol/L (137-145); Total Bilirubin 0.9 mg/dL (0.2-1.3); Total Protein 6.1 g/dL (6.3-8.2)
[2022-10-21 06:02] LABS: Glucose,Whole Blood 130 mg/dL (70-110)
[2022-10-21] MEDS: ALBUMIN HUMAN 5% 250 ML in EMPTY BAG 1 BAG IVPB PRN ×2 (06:21→08:24)
[2022-10-21 06:57] LABS: Glucose,Whole Blood 125 mg/dL (70-110)
[2022-10-21] MEDS: IPRATROPIUM-ALBUTEROL 3 ML NEB INHALATION SCH ×4 (07:33→19:40)
--- NOTE | 2022-10-21 08:18 | P.PN ---
Subjective Progress Note Date: 10/21/22 62-year-old male patient, underwent an aortic valve replacement for severe aortic stenosis. The patient currently is in the intensive care unit intubated on a mechanical ventilator, propofol running at 20 microvascular kilogram. He is intubated on a mechanical ventilator, assist control mode at the rate of 16, tidal volume of 600, FiO2 has been dropped down to 60% and a PEEP is currently at 10. The patient has a mediastinal chest tube and output is in order of 20 mL since his arrival from the operating room. PT is at 7.39 with a pCO2 of 42 and pO2 of 262. Hemodynamically, the patient has a PEA pressures of 39/24. Cardiac output is at 7.6 with an index of 3.0. Adequate urine output. Adequate blood pressure. Cardiac rhythm is sinus. He is on insulin drip at 3 units an hour for blood sugar control. His hemoglobin currently is at 10.1. Platelet count is at 153. No other active issues for now. Chest x-ray shows a limited 5% pneumothorax on the right. ET tube is in a good location. On today's evaluation of 10/20/2022, the patient is extubated and the patient is currently on oxygen at 2 L nasal cannula. His calm and comfortable. Adequate mentation. Moving all 4 extremities without any limitation. Using the incentive spirometer and is falling approximately 1000. He has a mediastinal chest tube. He has a Calion-Michael catheter in place. Pulmonary artery pressures of 32/11. CVP is at 7. Cardiac output is at 7.7 and index of 3.1. Chest x-ray shows no acute abnormalities. No evidence of any pneumothorax on today's chest x-ray. His cardiac rhythm is sinus. His WBC was a 10.3 with a hemoglobin of 10 and a platelet count of 162. Sodium is at 136, BUN is a 50 with a creatinine of 0.53. Patient is currently on Plavix 75 mg by mouth daily. He is on metoprolol 12.5 mg by mouth twice a day. He is on insulin drip running at the rate of 5 units an hour. He was extubated yesterday without any major difficulties. He has not ambulated yet. Output from the mediastinal chest tube has been minimal On 10/21/2022, the patient is being seen for a follow-up. Early in the evening yesterday, the patient became acutely hypoxic. His oxygen requirements went up from 2 L up to 15 L. This was done to bring a saturation above 90%. A repeat chest x-ray was done and the patient had a tiny right apical pneumothorax which is essentially unchanged. It has some pulmonary congestion and pleural effusions also more so on the left. He was given a dose of Lasix 20 mg IV push. He was also noted to have a drop in the cardiac output down to an index of 1.7. He was started on dopamine which is running at 3 mcg/kg/m. The morning cardiac index is up to 2.3. Pulmonary artery pressures are 39/19. This morning, his pulse ox is around 96%. He is using the incentive spirometer. He is still on dopamine. Most recent systolic blood pressure is 90/49. Urine output is in order of30-40 mL an hour. The patient's hemoglobin is stable at 9.3 with a white cell count of 10.3. His sodium level is at 136, BUN is 18 with a creatinine of 0.6 and a potassium level of 4.1. LFTs are normal. Blood sugars under adequate control. He has a single mediastinal chest tube. Output from the chest tube is minimal at this point in time. No evidence of any air leak. Cardiac rhythm is sinus. His still on metoprolol 25 mg by mouth twice a day. CT surgery wanted to continue the metoprolol due to concerns of diastolic dysfunction. He is awake and alert. Pain is under good control. Communicating. No focal neurological deficits. Objective - Vital Signs Vital signs: Vital Signs Temp 99.7 F H 10/21/22 00:00 Pulse 80 10/21/22 07:46 Resp 10 L 10/21/22 07:00 BP 103/62 10/21/22 07:00 Pulse Ox 96 10/21/22 07:37 FiO2 50 10/19/22 17:15 Intake & Output 10/20/22 10/21/22 10/21/22 18:59 06:59 18:59 Intake Total 1367.964 928.157 Output Total 360 1152 Balance 1007.964 -223.843 Weight 128.5 kg 135.3 kg Intake: IV 1205 877 0.9NS FOR PRESSURE BAG 105 117 Albumin Human 5% 250 ml 500 250 In Empty Bag 1 bag @ 250 mls/hr IVPB Q1HR PRN Rx#: [id number] CO/CI 60 220 Lactated Ringers 1,000 ml 540 290 @ 20 mls/hr IV .Q24H [facility] Rx#:[id number] Intake, IV Titration 162.964 51.157 Amount Insulin Regular 100 unit 62.964 51.157 In Sodium Chloride 0.9% 100 ml @ Per Protocol IV .Q0M [facility] Rx#:[id number] ceFAZolin 3 gm In Sodium 100 Chloride 0.9% 100 ml @ 100 mls/hr IVPB Q8HR [facility] Rx#:[id number] Output: Chest Tube Drainage 10 20 Chest Tube Mediastinal 10 20 Drainage 70 Medial Chest 70 Urine 280 1132 Other: Voiding Method Indwelling Catheter Indwelling Catheter ABP, PAP, CO, CI - Last Documented Arterial Blood Pressure 90/49 Pulmonary Artery Pressure 38/21 Cardiac Output 5.7 Cardiac Index 2.3 - Exam , Obese , extubated calm and comfortable, body mass index of 37, extubated currently on 15 L of oxygen by nasal cannula Head exam was generally normal. There was no scleral icterus or corneal arcus. M ucous membranes were moist. Neck was supple and without jugular venous distension, thyromegaly, or carotid bruits. Carotids were easily palpable bilaterally. There was no adenopathy. The patient has a right IJ Cordis and Calion-Michael catheter Lungs were clear to auscultation and percussion, and with normal diaphragmatic excursion. No wheezes or rales were noted. Breath sounds are equal and symmetri erlinda bilaterally. Cardiac exam revealed the PMI to be normally situated and sized. The rhythm was regular and no extrasystoles were noted during several minutes of auscultation. The first and second heart sounds were normal and physiologic splitting of the second heart sound was noted. There were no murmurs, rubs, clicks, or gallops. Sternotomy wires are intact and the patient has a mediastinal chest tube Abdominal exam revealed normal bowel sounds. The abdomen was soft, non-tender, and without masses, organomegaly, or appreciable enlargement of the abdominal aorta. Examination of the extremities revealed easily palpable radial, femoral and pedal pulses. There was no cyanosis, clubbing or edema. Examination of the skin revealed no evidence of significant rashes, suspicious appearing nevi or other concerning lesions. Neurologically, the patient awake and alert, extubated Moving all 4 extremities. Pupils are equal reactive to light. Cranial nerves are intact. - Labs CBC & Chem 7: 10/21/22 05:10 10/21/22 05:10 Labs: Abnormal Lab Results - Last 24 Hours (Table) 10/20/22 10/20/22 10/20/22 Range/Units 08:13 09:11 10:20 RBC (4.30-5.90) m/uL Hgb (13.0-17.5) gm/dL Hct (39.0-53.0) % Plt Count (150-450) k/uL Sodium (137-145) mmol/L Creatinine (0.66-1.25) mg/dL Glucose (74-99) mg/dL POC Glucose (mg/dL) 167 H 135 H 116 H (70-110) mg/dL Calcium (8.4-10.2) mg/dL Alkaline Phosphatase (38-126) U/L Total Protein (6.3-8.2) g/dL 10/20/22 10/20/22 10/20/22 Range/Units 11:16 12:12 13:10 RBC (4.30-5.90) m/uL Hgb (13.0-17.5) gm/dL Hct (39.0-53.0) % Plt Count (150-450) k/uL Sodium (137-145) mmol/L Creatinine (0.66-1.25) mg/dL Glucose (74-99) mg/dL POC Glucose (mg/dL) 130 H 113 H 137 H (70-110) mg/dL Calcium (8.4-10.2) mg/dL Alkaline Phosphatase (38-126) U/L Total Protein (6.3-8.2) g/dL 10/20/22 10/20/22 10/20/22 Range/Units 14:20 15:08 16:07 RBC (4.30-5.90) m/uL Hgb (13.0-17.5) gm/dL Hct (39.0-53.0) % Plt Count (150-450) k/uL Sodium (137-145) mmol/L Creatinine (0.66-1.25) mg/dL Glucose (74-99) mg/dL POC Glucose (mg/dL) 185 H 151 H 128 H (70-110) mg/dL Calcium (8.4-10.2) mg/dL Alkaline Phosphatase (38-126) U/L Total Protein (6.3-8.2) g/dL 10/20/22 10/20/22 10/20/22 Range/Units 18:17 19:10 20:09 RBC (4.30-5.90) m/uL Hgb (13.0-17.5) gm/dL Hct (39.0-53.0) % Plt Count (150-450) k/uL Sodium (137-145) mmol/L Creatinine (0.66-1.25) mg/dL Glucose (74-99) mg/dL POC Glucose (mg/dL) 147 H 140 H 127 H (70-110) mg/dL Calcium (8.4-10.2) mg/dL Alkaline Phosphatase (38-126) U/L Total Protein (6.3-8.2) g/dL 10/20/22 10/20/22 10/20/22 Range/Units 21:03 22:00 23:04 RBC (4.30-5.90) m/uL Hgb (13.0-17.5) gm/dL Hct (39.0-53.0) % Plt Count (150-450) k/uL Sodium (137-145) mmol/L Creatinine (0.66-1.25) mg/dL Glucose (74-99) mg/dL POC Glucose (mg/dL) 126 H 130 H 142 H (70-110) mg/dL Calcium (8.4-10.2) mg/dL Alkaline Phosphatase (38-126) U/L Total Protein (6.3-8.2) g/dL 10/20/22 10/21/22 10/21/22 Range/Units 23:53 00:55 01:58 RBC (4.30-5.90) m/uL Hgb (13.0-17.5) gm/dL Hct (39.0-53.0) % Plt Count (150-450) k/uL Sodium (137-145) mmol/L Creatinine (0.66-1.25) mg/dL Glucose (74-99) mg/dL POC Glucose (mg/dL) 127 H 145 H 147 H (70-110) mg/dL Calcium (8.4-10.2) mg/dL Alkaline Phosphatase (38-126) U/L Total Protein (6.3-8.2) g/dL 10/21/22 10/21/22 10/21/22 Range/Units 02:55 04:04 05:06 RBC (4.30-5.90) m/uL Hgb (13.0-17.5) gm/dL Hct (39.0-53.0) % Plt Count (150-450) k/uL Sodium (137-145) mmol/L Creatinine (0.66-1.25) mg/dL Glucose (74-99) mg/dL POC Glucose (mg/dL) 140 H 141 H 134 H (70-110) mg/dL Calcium (8.4-10.2) mg/dL Alkaline Phosphatase (38-126) U/L Total Protein (6.3-8.2) g/dL 10/21/22 10/21/22 10/21/22 Range/Units 05:10 05:10 06:01 RBC 3.24 L (4.30-5.90) m/uL Hgb 9.3 L (13.0-17.5) gm/dL Hct 27.8 L (39.0-53.0) % Plt Count 136 L (150-450) k/uL Sodium 136 L (137-145) mmol/L Creatinine 0.61 L (0.66-1.25) mg/dL Glucose 120 H (74-99) mg/dL POC Glucose (mg/dL) 130 H (70-110) mg/dL Calcium 7.9 L (8.4-10.2) mg/dL Alkaline Phosphatase 37 L (38-126) U/L Total Protein 6.1 L (6.3-8.2) g/dL 10/21/22 Range/Units 06:55 RBC (4.30-5.90) m/uL Hgb (13.0-17.5) gm/dL Hct (39.0-53.0) % Plt Count (150-450) k/uL Sodium (137-145) mmol/L Creatinine (0.66-1.25) mg/dL Glucose (74-99) mg/dL POC Glucose (mg/dL) 125 H (70-110) mg/dL Calcium (8.4-10.2) mg/dL Alkaline Phosphatase (38-126) U/L Total Protein (6.3-8.2) g/dL Assessment and Plan Plan: aortic valve replacement for severe aortic valve stenosis. The patient received a 27 mm bovine pericardial valve, postop day #2, hemodynamically stable, adequate cardiac output and index. Cardiac rhythm is sinus. Currently intubated on a mechanical ventilator. Acute hypoxic respiratory failure currently on 15 L of oxygen by nasal cannula, multifactorial, partly related to a component of pulmonary vascular congestion and effusion and poor respiratory efforts. There is a right-sided pneumothorax was probably not affecting his oxygenation as the pneumothorax is quite small and stable. Acute drop in the cardiac output/CHF currently on dopamine at 3 microvascular kilogram per minute, subsequent cardiac index is up to 2.3 Postthoracotomy, extubated currently on 15 L of oxygen by nasal cannula The patient has a mediastinal chest tube in place. Output mediastinal chest tube is minimal at this point in time. Right apical pneumothorax in the order of 5-10%, this is the postop chest x-ray in the no pneumothorax is seen on today's chest x-ray Obesity Obstructive sleep apnea Diabetes mellitus currently on insulin drip at 5 units an hour Hypertension Degenerative arthritis Previous history of testicular cancer adequate history of developmental delay Plan Continue incentive spirometer Continue dopamine Wean down FiO2 as tolerated Chest x-ray was noted and there is no need for chest tube insertion Increase mobility as tolerated Plavix 75 mg by mouth daily Metoprolol 25 mg by mouth t Continue insulin drip at 5 units an hour Monitor output from mediastinal chest tube, This chest that can likely be removed We'll continue to follow
--- NOTE | 2022-10-21 08:22 | XR ---
EXAMINATION TYPE: XR chest 1V portable DATE OF EXAM: 10/21/2022 COMPARISON: 10/20/2022 HISTORY: Shortness of breath TECHNIQUE: Single frontal view of the chest is obtained. FINDINGS: There is a right upper lobe pneumothorax measuring approximately 10-15%. There is bilatera l consolidation and pleural effusion with cardiomegaly and postop change. [place]-Michael catheter noted. M ild coarsened interstitium. IMPRESSION: 1. Stable approximately 10% pneumothorax. Bilateral consolidation and pleural effusion with mild veno us congestion.
[2022-10-21] MEDS: CLOPIDOGREL 75 MG TAB PO SCH (08:50)
[2022-10-21] MEDS: METOPROLOL TARTRATE 25 MG TAB PO SCH ×2 (08:50→20:18)
[2022-10-21] MEDS: PANTOPRAZOLE 40 MG TABLET PO SCH (08:50)
[2022-10-21] MEDS: CITALOPRAM HYDROBROMIDE 10 MG TAB PO SCH (08:50)
[2022-10-21] MEDS: HEPARIN SODIUM,PORCINE/PF 5,000 UNIT/0.5 ML SYRINGE SQ SCH ×3 (08:50→23:46)
[2022-10-21] MEDS: MUPIROCIN 2% OINT 22 GM TUBE NASAL SCH ×2 (08:50→20:19)
[2022-10-21] MEDS: ACETAMINOPHEN TAB 500 MG TAB PO PRN ×2 (08:56→20:18)
[2022-10-21 09:03] LABS: Glucose,Whole Blood 150 mg/dL (70-110)
[2022-10-21 10:10] LABS: Glucose,Whole Blood 180 mg/dL (70-110)
--- NOTE | 2022-10-21 10:15 | P.PN ---
Subjective Progress Note Date: 10/21/22 Principal diagnosis: Severe tricuspid calcific aortic valve stenosis. Previous medical history of diastolic dysfunction with left ventricular hypertrophy, previous syncopal episode likely vasovagal, hypertension, hyperlipidemia, diabetes mellitus type 2, obstructive sleep apnea, asthma, testicular cancer in 2006, BPH, previous TIA with no residual deficits, GERD, previous tobacco use, covid in 04/2021, developmental delay. Preoperative nasal swab positive for MSSA, treated. Family history of premature coronary artery disease (mom diagnosed in her early 50s) POD #2 Aortic valve replacement with 27 mm Coker Inspiris bovine pericardial valve, root enlargement with hemashield patch (Bruno Hendrickson), epi-aortic ultrasound, occlusion of left atrial appendage with 35 mm AtriCure clip Postoperative acute blood loss anemia and thrombocytopenia, expected given hemodilution and cardiopulmonary bypass Right small apical pneumothorax, inconsequential, not a complication The patient was seen and examined with Dr. Varela sitting up in a recliner in the ICU in no acute distress. Does complain of postsurgical pain, denies shortness of breath. Remains in sinus rhythm, blood pressure marginal, remains on dopamine. Right internal jugular [place]/Cordis, right radial arterial line, mediastinal chest tube present. Only achieving 500-750 mL on his incentive spirometry. He was on high flow nasal cannula this morning at 15 L which has been weaned down to 10 L high flow currently. Patient has had small right apical pneumothorax present since immediately after surgery. Patient has been ambulatory short distance with nursing. No other new concerns. Objective - Vital Signs Vital signs: Vital Signs Temp 99.3 F 10/21/22 08:00 Pulse 87 10/21/22 08:00 Resp 19 10/21/22 08:00 BP 114/65 10/21/22 08:00 Pulse Ox 95 10/21/22 08:00 FiO2 50 10/19/22 17:15 Intake & Output 10/20/22 10/21/22 10/21/22 18:59 06:59 18:59 Intake Total 1367.964 928.157 150.504 Output Total 360 1152 30 Balance 1007.964 -223.843 120.504 Weight 128.5 kg 135.3 kg Intake: IV 1205 877 43 0.9NS FOR PRESSURE BAG 105 117 3 Albumin Human 5% 250 ml 500 250 In Empty Bag 1 bag @ 250 mls/hr IVPB Q1HR PRN Rx#: [id number] CO/CI 60 220 20 Lactated Ringers 1,000 ml 540 290 20 @ 20 mls/hr IV .Q24H [facility] Rx#:[id number] Intake, IV Titration 162.964 51.157 107.504 Amount DOPamine DRIP 800 mg In 88.061 Dextrose/Water 1 250ml. bag @ 2 MCG/KG/MIN 4.819 mls/hr IV .Q24H [facility] Rx#: [id number] Insulin Regular 100 unit 62.964 51.157 19.443 In Sodium Chloride 0.9% 100 ml @ Per Protocol IV .Q0M [facility] Rx#:[id number] ceFAZolin 3 gm In Sodium 100 Chloride 0.9% 100 ml @ 100 mls/hr IVPB Q8HR [facility] Rx#:[id number] Output: Chest Tube Drainage 10 20 Chest Tube Mediastinal 10 20 Drainage 70 Medial Chest 70 Urine 280 1132 30 Other: Voiding Method Indwelling Catheter Indwelling Catheter Indwelling Catheter ABP, PAP, CO, CI - Last Documented Arterial Blood Pressure 92/50 Pulmonary Artery Pressure 37/19 Cardiac Output 7.5 Cardiac Index 3.0 - Exam CONSTITUTIONAL: Appears comfortable, cooperative, no acute distress RESPIRATORY: Lungs sounds diminished bilaterally. Respirations even, nonlabored. Currently on 10 L high flow nasal cannula with oxygen saturation 96%. Able to achieve 500-750 mL on incentive spirometry. Strong cough. CARDIOVASCULAR: S1, S2 present. Regular rate and rhythm, sinus rhythm on telemetry. Sternum stable. Palpable peripheral pulses bilaterally. No edema present. No calf pain or tenderness noted. Heart hugger in place with patient demonstrating appropriate use. Antiembolism stockings, SCDs present. GASTROINTESTINAL: Abdomen soft, nontender, nondistended. Active bowel sounds present 4 quadrants. Tolerating diet. Positive flatus GENITOURINARY: Esparza present draining clear, yellow urine. Output overnight 45-50 mL per hour, 1382 mL in the last 24 hours INTEGUMENTARY: Skin is warm and dry with evidence of good perfusion. Anterior chest incision well approximated and covered with dry intact dressing NEUROLOGIC: Cranial nerves II through XII intact MUSKULOSKELETAL: Able to move all extremities, strength equal bilaterally, gait normal PSYCHIATRIC: Alert and oriented to person place and time, appropriate affect, intact judgment and insight INVASIVE LINES AND TUBES: Mediastinal chest tube present and connected to wall suction, no air leaks present, 20 mL serosanguineous drainage overnight, 50 mL in the last 24 hours. A/V epicardial pacemaker wires present, grounded. Right internal jugular [place]/Cordis, right radial arterial line present. Last CO/CI 5.7/2.3, PA 40/17, CVP 13. - Allied health notes Allied health notes reviewed: nursing - Labs CBC & Chem 7: 10/21/22 05:10 10/21/22 05:10 Labs: Abnormal Lab Results - Last 24 Hours (Table) 10/20/22 10/20/22 10/20/22 Range/Units 10:20 11:16 12:12 RBC (4.30-5.90) m/uL Hgb (13.0-17.5) gm/dL Hct (39.0-53.0) % Plt Count (150-450) k/uL Sodium (137-145) mmol/L Creatinine (0.66-1.25) mg/dL Glucose (74-99) mg/dL POC Glucose (mg/dL) 116 H 130 H 113 H (70-110) mg/dL Calcium (8.4-10.2) mg/dL Alkaline Phosphatase (38-126) U/L Total Protein (6.3-8.2) g/dL 10/20/22 10/20/22 10/20/22 Range/Units 13:10 14:20 15:08 RBC (4.30-5.90) m/uL Hgb (13.0-17.5) gm/dL Hct (39.0-53.0) % Plt Count (150-450) k/uL Sodium (137-145) mmol/L Creatinine (0.66-1.25) mg/dL Glucose (74-99) mg/dL POC Glucose (mg/dL) 137 H 185 H 151 H (70-110) mg/dL Calcium (8.4-10.2) mg/dL Alkaline Phosphatase (38-126) U/L Total Protein (6.3-8.2) g/dL 10/20/22 10/20/22 10/20/22 Range/Units 16:07 18:17 19:10 RBC (4.30-5.90) m/uL Hgb (13.0-17.5) gm/dL Hct (39.0-53.0) % Plt Count (150-450) k/uL Sodium (137-145) mmol/L Creatinine (0.66-1.25) mg/dL Glucose (74-99) mg/dL POC Glucose (mg/dL) 128 H 147 H 140 H (70-110) mg/dL Calcium (8.4-10.2) mg/dL Alkaline Phosphatase (38-126) U/L Total Protein (6.3-8.2) g/dL 10/20/22 10/20/22 10/20/22 Range/Units 20:09 21:03 22:00 RBC (4.30-5.90) m/uL Hgb (13.0-17.5) gm/dL Hct (39.0-53.0) % Plt Count (150-450) k/uL Sodium (137-145) mmol/L Creatinine (0.66-1.25) mg/dL Glucose (74-99) mg/dL POC Glucose (mg/dL) 127 H 126 H 130 H (70-110) mg/dL Calcium (8.4-10.2) mg/dL Alkaline Phosphatase (38-126) U/L Total Protein (6.3-8.2) g/dL 10/20/22 10/20/22 10/21/22 Range/Units 23:04 23:53 00:55 RBC (4.30-5.90) m/uL Hgb (13.0-17.5) gm/dL Hct (39.0-53.0) % Plt Count (150-450) k/uL Sodium (137-145) mmol/L Creatinine (0.66-1.25) mg/dL Glucose (74-99) mg/dL POC Glucose (mg/dL) 142 H 127 H 145 H (70-110) mg/dL Calcium (8.4-10.2) mg/dL Alkaline Phosphatase (38-126) U/L Total Protein (6.3-8.2) g/dL 10/21/22 10/21/22 10/21/22 Range/Units 01:58 02:55 04:04 RBC (4.30-5.90) m/uL Hgb (13.0-17.5) gm/dL Hct (39.0-53.0) % Plt Count (150-450) k/uL Sodium (137-145) mmol/L Creatinine (0.66-1.25) mg/dL Glucose (74-99) mg/dL POC Glucose (mg/dL) 147 H 140 H 141 H (70-110) mg/dL Calcium (8.4-10.2) mg/dL Alkaline Phosphatase (38-126) U/L Total Protein (6.3-8.2) g/dL 10/21/22 10/21/22 10/21/22 Range/Units 05:06 05:10 05:10 RBC 3.24 L (4.30-5.90) m/uL Hgb 9.3 L (13.0-17.5) gm/dL Hct 27.8 L (39.0-53.0) % Plt Count 136 L (150-450) k/uL Sodium 136 L (137-145) mmol/L Creatinine 0.61 L (0.66-1.25) mg/dL Glucose 120 H (74-99) mg/dL POC Glucose (mg/dL) 134 H (70-110) mg/dL Calcium 7.9 L (8.4-10.2) mg/dL Alkaline Phosphatase 37 L (38-126) U/L Total Protein 6.1 L (6.3-8.2) g/dL 10/21/22 10/21/22 10/21/22 Range/Units 06:01 06:55 09:01 RBC (4.30-5.90) m/uL Hgb (13.0-17.5) gm/dL Hct (39.0-53.0) % Plt Count (150-450) k/uL Sodium (137-145) mmol/L Creatinine (0.66-1.25) mg/dL Glucose (74-99) mg/dL POC Glucose (mg/dL) 130 H 125 H 150 H (70-110) mg/dL Calcium (8.4-10.2) mg/dL Alkaline Phosphatase (38-126) U/L Total Protein (6.3-8.2) g/dL - Imaging and Cardiology Chest x-ray: report reviewed, image reviewed Assessment and Plan Assessment: Severe tricuspid calcific aortic valve stenosis, status post bioprosthetic aortic valve replacement Diastolic dysfunction with left ventricular hypertrophy Previous syncopal episode likely vasovagal Hypertension, currently hypotensive Hyperlipidemia, treated cholesterol 146, LDL 65, triglycerides 194 Diabetes mellitus type 2, hemoglobin A1c 7.6% Obstructive sleep apnea Asthma, FEV1 70% of predicted Testicular cancer in 2006 BPH Previous TIA with no residual deficits GERD Previous tobacco use Covid in 04/2021 Developmental delay Preoperative nasal swab positive for MSSA, treated Family history of premature coronary artery disease (mom diagnosed in her early 50s) Postoperative acute blood loss anemia and thrombocytopenia, expected Right small apical pneumothorax, inconsequential Plan: Continue to maximize medical therapy with statin, Plavix, beta shaina. Will increase beta shaina therapy as tolerated, increase to 25 mg twice daily today. No aspirin due to anaphylactic ALLERGY Will wean dopamine as tolerated Wean O2 as tolerated. Encourage incentive spirometry use 10 times every hour while awake. Bronchodilators per pulmonology Increase activity, ambulate as tolerated. PT/OT/cardiac rehab consulted Will monitor daily labs and chest x-rays. Electrolyte replacement per protocol GI/DVT prophylaxis Pain control per current medication regimen Insulin management per internal medicine, patient is diabetic, needs tight blood sugar control Continue [place] for another 24 hours Chest tube discontinued without incident Continue Esparza catheter for another 24 hours for strict accurate intake and output Daily weights More recommendations to follow based on patient's progress
[2022-10-21 11:08] LABS: Glucose,Whole Blood 147 mg/dL (70-110)
--- NOTE | 2022-10-21 11:10 | PN ---
PROGRESS NOTE SUBJECTIVE: This is a 62-year-old gentleman who has known severe aortic stenosis and underwent aortic valve replacement for the same. Today is postop day #2. The patient is somewhat hypotensive and has discomfort at the surgical incision site. He remains in sinus rhythm. PHYSICAL EXAMINATION: Heart rate is 80 beats per minute, blood pressure is 90/40, respiratory rate 18. Chest exam reveals diminished air entry at the bases. Heart exam reveals first and second heart sounds. No gallop. Examination of extremities reveals mild edema. Peripheral pulses are felt. LABORATORY DATA: Show a hemoglobin of 9.3, platelet count is 136, potassium is 4.1, creatinine is 0.6. The patient is currently on Lipitor 10 mg daily, metoprolol 25 b.i.d., aspirin and Plavix. ASSESSMENT AND PLAN: Severe symptomatic aortic stenosis, status post aortic valve replacement. The patient is extubated. Remains in sinus rhythm. Continue current supportive care, incentive spirometry, and increase his activity. MMODL / IJN: [id number] /
[2022-10-21 12:46] LABS: Glucose,Whole Blood 116 mg/dL (70-110)
[2022-10-21] MEDS: LACTATED RINGERS 1,000 ML IV SCH (13:10)
[2022-10-21 14:10] LABS: Glucose,Whole Blood 175 mg/dL (70-110)
[2022-10-21 15:05] LABS: Glucose,Whole Blood 110 mg/dL (70-110)
[2022-10-21 16:12] LABS: Allen Test Performed? Yes
[2022-10-21 17:23] LABS: Glucose,Whole Blood 169 mg/dL (70-110)
[2022-10-21 19:03] LABS: Glucose,Whole Blood 220 mg/dL (70-110)
[2022-10-21 19:59] LABS: Glucose,Whole Blood 229 mg/dL (70-110)
[2022-10-21] MEDS: DOPamine DRIP 800 MG in DEXTROSE/WATER 1 250ML.BAG IV SCH (20:17)
[2022-10-21] MEDS: ATORVASTATIN 10 MG TAB PO SCH (20:18)
[2022-10-21] MEDS: TAMSULOSIN 0.4 MG CAP.ER.24H PO SCH (20:18)
[2022-10-21] MEDS: SENNOSIDES-DOCUSATE SODIUM 1 EACH TAB PO SCH (20:18)
[2022-10-21] MEDS: MONTELUKAST 10 MG TAB PO SCH (20:18)
[2022-10-21 21:08] LABS: Glucose,Whole Blood 190 mg/dL (70-110)
[2022-10-21 22:11] LABS: Glucose,Whole Blood 141 mg/dL (70-110)
[2022-10-21 23:01] LABS: Glucose,Whole Blood 133 mg/dL (70-110)
[2022-10-21 23:51] LABS: Glucose,Whole Blood 128 mg/dL (70-110)
[2022-10-22 00:57] LABS: Glucose,Whole Blood 125 mg/dL (70-110)
[2022-10-22 02:01] LABS: Glucose,Whole Blood 118 mg/dL (70-110)
[2022-10-22] MEDS: ACETAMINOPHEN TAB 500 MG TAB PO PRN ×2 (02:01→21:27)
[2022-10-22 02:54] LABS: Glucose,Whole Blood 119 mg/dL (70-110)
[2022-10-22 04:00] LABS: Glucose,Whole Blood 110 mg/dL (70-110)
[2022-10-22 04:24] LABS: ALT 12 U/L (4-49); AST 23 U/L (17-59); African American GFR (CKD) >90 (>60 ml/min/1.73 sqM); Albumin 3.4 g/dL (3.5-5.0); Alkaline Phosphatase 37 U/L (38-126); Anion Gap 7 mmol/L; Basophils % (A) 0 %; Blood Urea Nitrogen 26 mg/dL (9-20); Calcium 7.8 mg/dL (8.4-10.2); Carbon Dioxide 28 mmol/L (22-30); Chloride 100 mmol/L (98-107); Eosinophils # (A) 0.2 k/uL (0-0.7); Eosinophils % (A) 2 %; Glucose 101 mg/dL (74-99); HCT 25.5 % (39.0-53.0); HGB 8.5 gm/dL (13.0-17.5); Lymphocytes # (A) 1.6 k/uL (1.0-4.8); Lymphocytes % (A) 19 %; MCH 28.8 pg (25.0-35.0); MCHC 33.4 g/dL (31.0-37.0); MCV 86.4 fL (80.0-100.0); Mean Platelet Volume 8.6; Monocytes # (A) 0.4 k/uL (0-1.0); Monocytes % (A) 5 %; Neutrophils # (A) 6.4 k/uL (1.3-7.7); Neutrophils % (A) 73 %; Non-African American GFR(CKD) >90 (>60 ml/min/1.73 sqM); Platelet Count 121 k/uL (150-450); Potassium 4.1 mmol/L (3.5-5.1); RBC 2.95 m/uL (4.30-5.90); RDW 13.5 % (11.5-15.5); Sodium 135 mmol/L (137-145); Total Bilirubin 0.5 mg/dL (0.2-1.3); Total Protein 5.8 g/dL (6.3-8.2); WBC 8.8 k/uL (3.8-10.6)
[2022-10-22 05:10] LABS: Glucose,Whole Blood 133 mg/dL (70-110)
[2022-10-22] MEDS: KETOROLAC 15 MG/ML 1 ML VIAL IVP SCH ×3 (05:32→17:46)
[2022-10-22 06:05] LABS: Glucose,Whole Blood 127 mg/dL (70-110)
[2022-10-22 07:01] LABS: Glucose,Whole Blood 126 mg/dL (70-110)
--- NOTE | 2022-10-22 07:43 | P.PN ---
Subjective Progress Note Date: 10/22/22 62-year-old male patient, underwent an aortic valve replacement for severe aortic stenosis. The patient currently is in the intensive care unit intubated on a mechanical ventilator, propofol running at 20 microvascular kilogram. He is intubated on a mechanical ventilator, assist control mode at the rate of 16, tidal volume of 600, FiO2 has been dropped down to 60% and a PEEP is currently at 10. The patient has a mediastinal chest tube and output is in order of 20 mL since his arrival from the operating room. PT is at 7.39 with a pCO2 of 42 and pO2 of 262. Hemodynamically, the patient has a PEA pressures of 39/24. Cardiac output is at 7.6 with an index of 3.0. Adequate urine output. Adequate blood pressure. Cardiac rhythm is sinus. He is on insulin drip at 3 units an hour for blood sugar control. His hemoglobin currently is at 10.1. Platelet count is at 153. No other active issues for now. Chest x-ray shows a limited 5% pneumothorax on the right. ET tube is in a good location. On today's evaluation of 10/20/2022, the patient is extubated and the patient is currently on oxygen at 2 L nasal cannula. His calm and comfortable. Adequate mentation. Moving all 4 extremities without any limitation. Using the incentive spirometer and is falling approximately 1000. He has a mediastinal chest tube. He has a [place]-Michael catheter in place. Pulmonary artery pressures of 32/11. CVP is at 7. Cardiac output is at 7.7 and index of 3.1. Chest x-ray shows no acute abnormalities. No evidence of any pneumothorax on today's chest x-ray. His cardiac rhythm is sinus. His WBC was a 10.3 with a hemoglobin of 10 and a platelet count of 162. Sodium is at 136, BUN is a 50 with a creatinine of 0.53. Patient is currently on Plavix 75 mg by mouth daily. He is on metoprolol 12.5 mg by mouth twice a day. He is on insulin drip running at the rate of 5 units an hour. He was extubated yesterday without any major difficulties. He has not ambulated yet. Output from the mediastinal chest tube has been minimal On 10/21/2022, the patient is being seen for a follow-up. Early in the evening yesterday, the patient became acutely hypoxic. His oxygen requirements went up from 2 L up to 15 L. This was done to bring a saturation above 90%. A repeat chest x-ray was done and the patient had a tiny right apical pneumothorax which is essentially unchanged. It has some pulmonary congestion and pleural effusions also more so on the left. He was given a dose of Lasix 20 mg IV push. He was also noted to have a drop in the cardiac output down to an index of 1.7. He was started on dopamine which is running at 3 mcg/kg/m. The morning cardiac index is up to 2.3. Pulmonary artery pressures are 39/19. This morning, his pulse ox is around 96%. He is using the incentive spirometer. He is still on dopamine. Most recent systolic blood pressure is 90/49. Urine output is in order of30-40 mL an hour. The patient's hemoglobin is stable at 9.3 with a white cell count of 10.3. His sodium level is at 136, BUN is 18 with a creatinine of 0.6 and a potassium level of 4.1. LFTs are normal. Blood sugars under adequate control. He has a single mediastinal chest tube. Output from the chest tube is minimal at this point in time. No evidence of any air leak. Cardiac rhythm is sinus. His still on metoprolol 25 mg by mouth twice a day. CT surgery wanted to continue the metoprolol due to concerns of diastolic dysfunction. He is awake and alert. Pain is under good control. Communicating. No focal neurological deficits. 10/22/2022 the patient is on 3 L of oxygen by nasal cannula. Chest x-ray from today shows no evidence of any pneumothorax. There are atelectatic changes and small effusions lung bases bilaterally. The patient is using the incentive spirometer. Breathing effort several other week. Cardiac index is 2.6 with an output of 6.4. PA pressures are 40/18. The patient remains on 2 g of dopamine and he has an adequate urine output. Blood pressure remains off and the patient remains on metoprolol. Chest tubes are removed. The hemoglobin today is at 8.5. WBC count is at 8.8. Electrolytes are stable still he has a sodium of 135, potassium of 4.1, BUN of 26 with a creatinine of 0.7. LFTs are normal. Urine operas adequate for now. Moving all 4 extremities without any limitation. Cardiac rhythm is sinus. Pulse ox is 90-91% on 3 L O2 nasal cannula. Objective - Vital Signs Vital signs: Vital Signs Temp 98.6 F 10/22/22 04:00 Pulse 85 10/22/22 07:00 Resp 11 L 10/22/22 07:00 BP 100/51 10/22/22 07:00 Pulse Ox 94 L 10/22/22 07:00 FiO2 50 10/19/22 17:15 Intake & Output 10/21/22 10/22/22 10/22/22 18:59 06:59 18:59 Intake Total 521.558 557.571 29 Output Total 385 330 45 Balance 136.558 227.571 -16 Weight 138.1 kg Intake: IV 353 432 29 0.9NS FOR PRESSURE BAG 33 102 9 CO/CI 100 90 Lactated Ringers 1,000 ml 220 240 20 @ 20 mls/hr IV .Q24H NAYA Rx#:[id number] Intake, IV Titration 168.558 125.571 Amount DOPamine DRIP 800 mg In 88.061 58.069 Dextrose/Water 1 250ml. bag @ 2 MCG/KG/MIN 4.819 mls/hr IV .Q24H NAYA Rx#: [id number] Insulin Regular 100 unit 80.497 67.502 In Sodium Chloride 0.9% 100 ml @ Per Protocol IV .Q0M NAYA Rx#:[id number] Output: Urine 385 330 45 Other: Voiding Method Indwelling Catheter Indwelling Catheter ABP, PAP, CO, CI - Last Documented Arterial Blood Pressure 68/39 Pulmonary Artery Pressure 38/16 Cardiac Output 6.4 Cardiac Index 2.6 - Exam , Obese , extubated calm and comfortable, body mass index of 37, extubated currently on 3 L of oxygen by nasal cannula Head exam was generally normal. There was no scleral icterus or corneal arcus. Mucous membranes were moist. Neck was supple and without jugular venous distension, thyromegaly, or carotid bruits. Carotids were easily palpable bilaterally. There was no adenopathy. The patient has a right IJ Cordis and [place]-Michael catheter Lungs were clear to auscultation and percussion, and with normal diaphragmatic excursion. No wheezes or rales were noted. Breath sounds are equal and symmetrical bilaterally. Cardiac exam revealed the PMI to be normally situated and sized. The rhythm was regular and no extrasystoles were noted during several minutes of auscultation. The first and second heart sounds were normal and physiologic splitting of the second heart sound was noted. There were no murmurs, rubs, clicks, or gallops. Sternotomy wires are intact and the patient has a mediastinal chest tube Abdominal exam revealed normal bowel sounds. The abdomen was soft, non-tender, and without masses, organomegaly, or appreciable enlargement of the abdominal aorta. Examination of the extremities revealed easily palpable radial, femoral and pedal pulses. There was no cyanosis, clubbing or edema. Examination of the skin revealed no evidence of significant rashes, suspicious appearing nevi or other concerning lesions. Neurologically, the patient awake and alert, extubated Moving all 4 extremities. Pupils are equal reactive to light. Cranial nerves are intact. - Labs CBC & Chem 7: 10/22/22 04:00 10/22/22 04:00 Labs: Abnormal Lab Results - Last 24 Hours (Table) 10/19/22 10/21/22 10/21/22 Range/Units 12:00 09:01 10:07 RBC (4.30-5.90) m/uL Hgb (13.0-17.5) gm/dL Hct (39.0-53.0) % Plt Count (150-450) k/uL ABG Total CO2 26 H (19-24) mmol/L ABG O2 Saturation 97.6 H (94-97) % ABG Hematocrit 29 L (34.0-46.0) % ABG Ionized Calcium 4.2 L (4.5-5.3) mg/dL Hemoglobin 9.3 L (13.0-17.5) gm/dL Sodium (137-145) mmol/L BUN (9-20) mg/dL Glucose (74-99) mg/dL POC Glucose (mg/dL) 150 H 180 H (70-110) mg/dL Calcium (8.4-10.2) mg/dL Alkaline Phosphatase (38-126) U/L Total Protein (6.3-8.2) g/dL Albumin (3.5-5.0) g/dL 10/21/22 10/21/22 10/21/22 Range/Units 11:04 12:44 14:08 RBC (4.30-5.90) m/uL Hgb (13.0-17.5) gm/dL Hct (39.0-53.0) % Plt Count (150-450) k/uL ABG Total CO2 (19-24) mmol/L ABG O2 Saturation (94-97) % ABG Hematocrit (34.0-46.0) % ABG Ionized Calcium (4.5-5.3) mg/dL Hemoglobin (13.0-17.5) gm/dL Sodium (137-145) mmol/L BUN (9-20) mg/dL Glucose (74-99) mg/dL POC Glucose (mg/dL) 147 H 116 H 175 H (70-110) mg/dL Calcium (8.4-10.2) mg/dL Alkaline Phosphatase (38-126) U/L Total Protein (6.3-8.2) g/dL Albumin (3.5-5.0) g/dL 10/21/22 10/21/22 10/21/22 Range/Units 17:18 19:02 19:57 RBC (4.30-5.90) m/uL Hgb (13.0-17.5) gm/dL Hct (39.0-53.0) % Plt Count (150-450) k/uL ABG Total CO2 (19-24) mmol/L ABG O2 Saturation (94-97) % ABG Hematocrit (34.0-46.0) % ABG Ionized Calcium (4.5-5.3) mg/dL Hemoglobin (13.0-17.5) gm/dL Sodium (137-145) mmol/L BUN (9-20) mg/dL Glucose (74-99) mg/dL POC Glucose (mg/dL) 169 H 220 H 229 H (70-110) mg/dL Calcium (8.4-10.2) mg/dL Alkaline Phosphatase (38-126) U/L Total Protein (6.3-8.2) g/dL Albumin (3.5-5.0) g/dL 10/21/22 10/21/22 10/21/22 Range/Units 21:07 22:09 22:59 RBC (4.30-5.90) m/uL Hgb (13.0-17.5) gm/dL Hct (39.0-53.0) % Plt Count (150-450) k/uL ABG Total CO2 (19-24) mmol/L ABG O2 Saturation (94-97) % ABG Hematocrit (34.0-46.0) % ABG Ionized Calcium (4.5-5.3) mg/dL Hemoglobin (13.0-17.5) gm/dL Sodium (137-145) mmol/L BUN (9-20) mg/dL Glucose (74-99) mg/dL POC Glucose (mg/dL) 190 H 141 H 133 H (70-110) mg/dL Calcium (8.4-10.2) mg/dL Alkaline Phosphatase (38-126) U/L Total Protein (6.3-8.2) g/dL Albumin (3.5-5.0) g/dL 10/21/22 10/22/22 10/22/22 Range/Units 23:51 00:56 01:59 RBC (4.30-5.90) m/uL Hgb (13.0-17.5) gm/dL Hct (39.0-53.0) % Plt Count (150-450) k/uL ABG Total CO2 (19-24) mmol/L ABG O2 Saturation (94-97) % ABG Hematocrit (34.0-46.0) % ABG Ionized Calcium (4.5-5.3) mg/dL Hemoglobin (13.0-17.5) gm/dL Sodium (137-145) mmol/L BUN (9-20) mg/dL Glucose (74-99) mg/dL POC Glucose (mg/dL) 128 H 125 H 118 H (70-110) mg/dL Calcium (8.4-10.2) mg/dL Alkaline Phosphatase (38-126) U/L Total Protein (6.3-8.2) g/dL Albumin (3.5-5.0) g/dL 10/22/22 10/22/22 10/22/22 Range/Units 02:52 04:00 04:00 RBC 2.95 L (4.30-5.90) m/uL Hgb 8.5 L (13.0-17.5) gm/dL Hct 25.5 L (39.0-53.0) % Plt Count 121 L (150-450) k/uL ABG Total CO2 (19-24) mmol/L ABG O2 Saturation (94-97) % ABG Hematocrit (34.0-46.0) % ABG Ionized Calcium (4.5-5.3) mg/dL Hemoglobin (13.0-17.5) gm/dL Sodium 135 L (137-145) mmol/L BUN 26 H (9-20) mg/dL Glucose 101 H (74-99) mg/dL POC Glucose (mg/dL) 119 H (70-110) mg/dL Calcium 7.8 L (8.4-10.2) mg/dL Alkaline Phosphatase 37 L (38-126) U/L Total Protein 5.8 L (6.3-8.2) g/dL Albumin 3.4 L (3.5-5.0) g/dL 10/22/22 10/22/22 10/22/22 Range/Units 05:08 06:04 07:00 RBC (4.30-5.90) m/uL Hgb (13.0-17.5) gm/dL Hct (39.0-53.0) % Plt Count (150-450) k/uL ABG Total CO2 (19-24) mmol/L ABG O2 Saturation (94-97) % ABG Hematocrit (34.0-46.0) % ABG Ionized Calcium (4.5-5.3) mg/dL Hemoglobin (13.0-17.5) gm/dL Sodium (137-145) mmol/L BUN (9-20) mg/dL Glucose (74-99) mg/dL POC Glucose (mg/dL) 133 H 127 H 126 H (70-110) mg/dL Calcium (8.4-10.2) mg/dL Alkaline Phosphatase (38-126) U/L Total Protein (6.3-8.2) g/dL Albumin (3.5-5.0) g/dL Assessment and Plan Plan: aortic valve replacement for severe aortic valve stenosis. The patient receiv ed a 27 mm bovine pericardial valve, postop day #3, hemodynamically stable, adequate cardiac output and index. Cardiac rhythm is sinus. Currently intubated on a mechanical ventilator. Acute hypoxic respiratory failure currently on 3 L of oxygen by nasal cannula, multifactorial, partly related to a component of pulmonary vascular congestion and effusion and poor respiratory efforts. There is a right-sided pneumothorax was probably not affecting his oxygenation as the pneumothorax is quite small and stable. Acute drop in the cardiac output/CHF currently on dopamine at 2 microvascular kilogram per minute, subsequent cardiac index is up to 2.6 Postthoracotomy, extubated currently on 3L of oxygen by nasal cannula The chest tubes are all removed Right apical pneumothorax in the order of 5-10%, this is the postop chest x-ray in the no pneumothorax is seen on today's chest x-ray, small effusions and atelectatic changes in the chest x-ray. There could be potentially a tiny left-sided pneumothorax less than 5% Obesity Obstructive sleep apnea Diabetes mellitus currently on insulin drip at 5 units an hour Hypertension Degenerative arthritis Previous history of testicular cancer adequate history of developmental delay Plan Continue incentive spirometer Continue dopamine and bonita it off to based on the BP and CI Wean down FiO2 as tolerated, currently on 3 liters Chest x-ray was noted and there is no need for chest tube insertion Increase mobility as tolerated Plavix 75 mg by mouth daily Metoprolol 25 mg by mouth Discontinue the insulin drip and start the patient on Levemir 20 units twice a day plus a sliding scale coverage. This chest tube removed removed We'll continue to follow
[2022-10-22 08:21] LABS: Glucose,Whole Blood 158 mg/dL (70-110)
[2022-10-22] MEDS: IPRATROPIUM-ALBUTEROL 3 ML NEB INHALATION SCH ×4 (08:47→19:45)
--- NOTE | 2022-10-22 08:56 | XR ---
EXAMINATION TYPE: XR chest 1V portable DATE OF EXAM: 10/22/2022 COMPARISON: 10/21/2022 INDICATION: Postcardiac surgery TECHNIQUE: Single frontal view of the chest is obtained. FINDINGS: The heart size is normal. The pulmonary vasculature is normal. Mild bibasilar infiltrates are present. Small left pleural effusion. Minimal right pleural effusion i s not excluded. [place]-Michael catheter is present with the tip in the region of the main pulmonary artery . Correlate with waveforms. Sternotomy wires are present from cardiac valve surgery. IMPRESSION: 1. Subsegmental atelectasis bilateral lung bases. Small effusions are likely present. 2. Central venous catheter may have the tip within the main pulmonary artery. Correlate with waveform s.
[2022-10-22 09:13] LABS: Glucose,Whole Blood 199 mg/dL (70-110)
--- NOTE | 2022-10-22 09:45 | P.PN ---
Subjective Progress Note Date: 10/22/22 Principal diagnosis: Severe tricuspid calcific aortic valve stenosis. Previous medical history of diastolic dysfunction with left ventricular hypertrophy, previous syncopal episode likely vasovagal, hypertension, hyperlipidemia, diabetes mellitus type 2, obstructive sleep apnea, asthma, testicular cancer in 2006, BPH, previous TIA with no residual deficits, GERD, previous tobacco use, covid in 04/2021, developmental delay. Preoperative nasal swab positive for MSSA, treated. Family history of premature coronary artery disease (mom diagnosed in her early 50s) POD #3 Aortic valve replacement with 27 mm Coker Inspiris bovine pericardial valve, root enlargement with hemashield patch (Bruno Hendrickson), epi-aortic ultrasound, occlusion of left atrial appendage with 35 mm AtriCure clip. Postoperative acute blood loss anemia, expected given hemodilution and cardiopulmonary bypass. Right small apical pneumothorax, inconsequential, not a complication The patient was seen and examined today 10/22/2022 at his bedside in intensive care. He is sitting up to the bedside chair, is awake, alert, oriented 3 and is in no acute apparent distress. Denies any complaints of pain or shortness of breath at this time. Oxygen saturations are 93% on 3 L nasal cannula and he is achieving 1000 mL on his incentive spirometry up encouragement. Bedside telemetry showing normal sinus rhythm heart rate 87 BPM. Dopamine drip remains infusing at 2 mcg/kg/m. Right IJ Cordis and Dexter-Michael catheter remains in place with per minute cardiac output 6.4, cardiac index 2.6, PA pressures 41/17 and CVP pressure 13 mmHg. Esparza cath remains in place for accurate I's and O's, urine output 255 mL in the last 8 hours. Chest tubes were removed yesterday without incident. Atrial and ventricular epicardial pacemaker wires remain in place and connected to the Bedside pacemaker generator on a VVI of 50 BPM. Insulin drip is infusing at 6.5 units per hour. Chest x-ray and laboratory results reviewed. No new concerns. Objective - Vital Signs Vital signs: Vital Signs Temp 98.6 F 10/22/22 04:00 Pulse 82 10/22/22 08:57 Resp 11 L 10/22/22 07:00 BP 100/51 10/22/22 07:00 Pulse Ox 94 L 10/22/22 07:00 FiO2 50 10/19/22 17:15 Intake & Output 10/21/22 10/22/22 10/22/22 18:59 06:59 18:59 Intake Total 521.558 557.571 29 Output Total 385 330 45 Balance 136.558 227.571 -16 Weight 138.1 kg Intake: IV 353 432 29 0.9NS FOR PRESSURE BAG 33 102 9 CO/CI 100 90 Lactated Ringers 1,000 ml 220 240 20 @ 20 mls/hr IV .Q24H [facility] Rx#:[id number] Intake, IV Titration 168.558 125.571 Amount DOPamine DRIP 800 mg In 88.061 58.069 Dextrose/Water 1 250ml. bag @ 2 MCG/KG/MIN 4.819 mls/hr IV .Q24H [facility] Rx#: [id number] Insulin Regular 100 unit 80.497 67.502 In Sodium Chloride 0.9% 100 ml @ Per Protocol IV .Q0M [facility] Rx#:[id number] Output: Urine 385 330 45 Other: Voiding Method Indwelling Catheter Indwelling Catheter ABP, PAP, CO, CI - Last Documented Arterial Blood Pressure 68/39 Pulmonary Artery Pressure 38/16 Cardiac Output 6.4 Cardiac Index 2.6 - Exam CONSTITUTIONAL: Sitting up to the bedside chair in the intensive care unit, appears comfortable, cooperative, no apparent acute distress. HEENT: Neck is supple, no JVD, no lymphadenopathy. Right IJ Cordis and Dexter- Michael catheter in place and functioning. RESPIRATORY: Lungs sounds essentially clear throughout, diminished to his bi lateral bases. Respirations are symmetrical and nonlabored. Currently on 3 L nasal cannula with oxygen saturations 93%. Able to achieve 1000 mL on his incentive spirometry. Strong cough. CARDIOVASCULAR: Regular rhythm and rate. S1 and S2 present, negative for S3, gallop or murmur. Sternum is stable. Palpable peripheral pulses bilaterally, +1 edema to his bilateral lower extremities. No calf pain or tenderness noted. Heart hugger in place with patient demonstrating appropriate use. Knee-high SHIRLENE hose and sequential compression devices in place to his bilateral lower extremities. Bedside telemetry showing normal sinus rhythm heart rate 94 BPM. GASTROINTESTINAL: Abdomen soft, nontender, nondistended. Active bowel sounds present 4 quadrants. Tolerating diet. Passing flatus. No guarding or rigidity. GENITOURINARY: Esparza present draining clear, yellow urine. Urine output 255 mL in the last 8 hours. INTEGUMENTARY: Skin is warm and dry with no evidence of clubbing or cyanosis. Midline sternal incision clean dry and well approximated, covered with dry intact dressing. NEUROLOGIC: Cranial nerves II through XII intact. No focal deficits. MUSKULOSKELETAL: Able to move all extremities, strength equal bilaterally, generalized weakness. PSYCHIATRIC: Alert and oriented to person place and time, appropriate affect, intact judgment and insight. INVASIVE LINES AND TUBES: Atrial and ventricular epicardial pacemaker wires present, connected to generator, VVI backup rate 50 bpm. Right internal jugular Dexter/Cordis, right radial arterial line present. Last CO 6.4, CI 2.6, PA 41 /17 and CVP 13 mmHg. - Allied health notes Allied health notes reviewed: nursing - Labs CBC & Chem 7: 10/22/22 04:00 10/22/22 04:00 Labs: Abnormal Lab Results - Last 24 Hours (Table) 10/19/22 10/21/22 10/21/22 Range/Units 12:00 10:07 11:04 RBC (4.30-5.90) m/uL Hgb (13.0-17.5) gm/dL Hct (39.0-53.0) % Plt Count (150-450) k/uL ABG Total CO2 26 H (19-24) mmol/L ABG O2 Saturation 97.6 H (94-97) % ABG Hematocrit 29 L (34.0-46.0) % ABG Ionized Calcium 4.2 L (4.5-5.3) mg/dL Hemoglobin 9.3 L (13.0-17.5) gm/dL Sodium (137-145) mmol/L BUN (9-20) mg/dL Glucose (74-99) mg/dL POC Glucose (mg/dL) 180 H 147 H (70-110) mg/dL Calcium (8.4-10.2) mg/dL Alkaline Phosphatase (38-126) U/L Total Protein (6.3-8.2) g/dL Albumin (3.5-5.0) g/dL 10/21/22 10/21/22 10/21/22 Range/Units 12:44 14:08 17:18 RBC (4.30-5.90) m/uL Hgb (13.0-17.5) gm/dL Hct (39.0-53.0) % Plt Count (150-450) k/uL ABG Total CO2 (19-24) mmol/L ABG O2 Saturation (94-97) % ABG Hematocrit (34.0-46.0) % ABG Ionized Calcium (4.5-5.3) mg/dL Hemoglobin (13.0-17.5) gm/dL Sodium (137-145) mmol/L BUN (9-20) mg/dL Glucose (74-99) mg/dL POC Glucose (mg/dL) 116 H 175 H 169 H (70-110) mg/dL Calcium (8.4-10.2) mg/dL Alkaline Phosphatase (38-126) U/L Total Protein (6.3-8.2) g/dL Albumin (3.5-5.0) g/dL 10/21/22 10/21/22 10/21/22 Range/Units 19:02 19:57 21:07 RBC (4.30-5.90) m/uL Hgb (13.0-17.5) gm/dL Hct (39.0-53.0) % Plt Count (150-450) k/uL ABG Total CO2 (19-24) mmol/L ABG O2 Saturation (94-97) % ABG Hematocrit (34.0-46.0) % ABG Ionized Calcium (4.5-5.3) mg/dL Hemoglobin (13.0-17.5) gm/dL Sodium (137-145) mmol/L BUN (9-20) mg/dL Glucose (74-99) mg/dL POC Glucose (mg/dL) 220 H 229 H 190 H (70-110) mg/dL Calcium (8.4-10.2) mg/dL Alkaline Phosphatase (38-126) U/L Total Protein (6.3-8.2) g/dL Albumin (3.5-5.0) g/dL 10/21/22 10/21/22 10/21/22 Range/Units 22:09 22:59 23:51 RBC (4.30-5.90) m/uL Hgb (13.0-17.5) gm/dL Hct (39.0-53.0) % Plt Count (150-450) k/uL ABG Total CO2 (19-24) mmol/L ABG O2 Saturation (94-97) % ABG Hematocrit (34.0-46.0) % ABG Ionized Calcium (4.5-5.3) mg/dL Hemoglobin (13.0-17.5) gm/dL Sodium (137-145) mmol/L BUN (9-20) mg/dL Glucose (74-99) mg/dL POC Glucose (mg/dL) 141 H 133 H 128 H (70-110) mg/dL Calcium (8.4-10.2) mg/dL Alkaline Phosphatase (38-126) U/L Total Protein (6.3-8.2) g/dL Albumin (3.5-5.0) g/dL 10/22/22 10/22/22 10/22/22 Range/Units 00:56 01:59 02:52 RBC (4.30-5.90) m/uL Hgb (13.0-17.5) gm/dL Hct (39.0-53.0) % Plt Count (150-450) k/uL ABG Total CO2 (19-24) mmol/L ABG O2 Saturation (94-97) % ABG Hematocrit (34.0-46.0) % ABG Ionized Calcium (4.5-5.3) mg/dL Hemoglobin (13.0-17.5) gm/dL Sodium (137-145) mmol/L BUN (9-20) mg/dL Glucose (74-99) mg/dL POC Glucose (mg/dL) 125 H 118 H 119 H (70-110) mg/dL Calcium (8.4-10.2) mg/dL Alkaline Phosphatase (38-126) U/L Total Protein (6.3-8.2) g/dL Albumin (3.5-5.0) g/dL 10/22/22 10/22/22 10/22/22 Range/Units 04:00 04:00 05:08 RBC 2.95 L (4.30-5.90) m/uL Hgb 8.5 L (13.0-17.5) gm/dL Hct 25.5 L (39.0-53.0) % Plt Count 121 L (150-450) k/uL ABG Total CO2 (19-24) mmol/L ABG O2 Saturation (94-97) % ABG Hematocrit (34.0-46.0) % ABG Ionized Calcium (4.5-5.3) mg/dL Hemoglobin (13.0-17.5) gm/dL Sodium 135 L (137-145) mmol/L BUN 26 H (9-20) mg/dL Glucose 101 H (74-99) mg/dL POC Glucose (mg/dL) 133 H (70-110) mg/dL Calcium 7.8 L (8.4-10.2) mg/dL Alkaline Phosphatase 37 L (38-126) U/L Total Protein 5.8 L (6.3-8.2) g/dL Albumin 3.4 L (3.5-5.0) g/dL 10/22/22 10/22/22 10/22/22 Range/Units 06:04 07:00 08:19 RBC (4.30-5.90) m/uL Hgb (13.0-17.5) gm/dL Hct (39.0-53.0) % Plt Count (150-450) k/uL ABG Total CO2 (19-24) mmol/L ABG O2 Saturation (94-97) % ABG Hematocrit (34.0-46.0) % ABG Ionized Calcium (4.5-5.3) mg/dL Hemoglobin (13.0-17.5) gm/dL Sodium (137-145) mmol/L BUN (9-20) mg/dL Glucose (74-99) mg/dL POC Glucose (mg/dL) 127 H 126 H 158 H (70-110) mg/dL Calcium (8.4-10.2) mg/dL Alkaline Phosphatase (38-126) U/L Total Protein (6.3-8.2) g/dL Albumin (3.5-5.0) g/dL 10/22/22 Range/Units 09:11 RBC (4.30-5.90) m/uL Hgb (13.0-17.5) gm/dL Hct (39.0-53.0) % Plt Count (150-450) k/uL ABG Total CO2 (19-24) mmol/L ABG O2 Saturation (94-97) % ABG Hematocrit (34.0-46.0) % ABG Ionized Calcium (4.5-5.3) mg/dL Hemoglobin (13.0-17.5) gm/dL Sodium (137-145) mmol/L BUN (9-20) mg/dL Glucose (74-99) mg/dL POC Glucose (mg/dL) 199 H (70-110) mg/dL Calcium (8.4-10.2) mg/dL Alkaline Phosphatase (38-126) U/L Total Protein (6.3-8.2) g/dL Albumin (3.5-5.0) g/dL - Imaging and Cardiology Chest x-ray: report reviewed, image reviewed Assessment and Plan Assessment: Severe tricuspid calcific aortic valve stenosis, status post bioprosthetic aortic valve replacement Diastolic dysfunction with left ventricular hypertrophy Previous syncopal episode likely vasovagal Hypertension, currently hypotensive Hyperlipidemia, treated cholesterol 146, LDL 65, triglycerides 194 Diabetes mellitus type 2, hemoglobin A1c 7.6% Obstructive sleep apnea Asthma, FEV1 70% of predicted Testicular cancer in 2006 BPH Previous TIA with no residual deficits GERD Previous tobacco use Covid in 04/2021 Developmental delay Preoperative nasal swab positive for MSSA, treated Family history of premature coronary artery disease (mom diagnosed in her early 50s) Postoperative acute blood loss anemia and thrombocytopenia, expected Right small apical pneumothorax, inconsequential Plan: Continue to maximize medical therapy with statin, Plavix, beta shaina. Will increase beta shaina therapy as tolerated, increase to 25 mg 3 times a day today. No aspirin due to anaphylactic ALLERGY Will wean dopamine as tolerated, decrease to dopamine 1 mcg/kg/m. Wean O2 as tolerated. Encourage incentive spirometry use 10 times every hour while awake. Bronchodilators per pulmonology Increase activity, ambulate as tolerated. PT/OT/cardiac rehab following. Will monitor daily labs and chest x-rays. Electrolyte replacement per protocol. GI/DVT prophylaxis. Pain control per current medication regimen. Avoid narcotics. Insulin management per internal medicine, patient is diabetic, needs tight blood sugar control. Removal right IJ Dexter-Michael catheter, keep right IJ Cordis and placed to continuous CVP monitoring. Ground and epicardial pacemaker wires. Continue Esparza catheter for another 24 hours for strict accurate intake and output. Daily weights. Removal of right radial arterial line. More recommendations to follow based on patient's clinical course. Time with Patient: Greater than 30
[2022-10-22] MEDS: HEPARIN SODIUM,PORCINE/PF 5,000 UNIT/0.5 ML SYRINGE SQ SCH ×2 (10:03→17:46)
[2022-10-22] MEDS: PANTOPRAZOLE 40 MG TABLET PO SCH (10:03)
[2022-10-22 10:04] LABS: Glucose,Whole Blood 197 mg/dL (70-110)
[2022-10-22] MEDS: METOPROLOL TARTRATE 25 MG TAB PO SCH ×4 (10:04→20:42)
[2022-10-22] MEDS: INSULIN DETEMIR (LEVEMIR) 100 UNIT/ML SYR SQ SCH ×2 (10:04→21:27)
[2022-10-22] MEDS: CITALOPRAM HYDROBROMIDE 10 MG TAB PO SCH (10:04)
[2022-10-22] MEDS: CLOPIDOGREL 75 MG TAB PO SCH (10:04)
[2022-10-22] MEDS: MUPIROCIN 2% OINT 22 GM TUBE NASAL SCH ×2 (10:30→20:42)
[2022-10-22 11:41] LABS: Glucose,Whole Blood 133 mg/dL (70-110)
[2022-10-22] MEDS: INSULIN ASPART (NovoLOG) 100 UNIT/ML VIAL SQ SCH ×3 (11:46→21:26)
--- NOTE | 2022-10-22 13:24 | P.PN ---
Subjective Progress Note Date: 10/22/22 The patient is a 62-year-old male who is currently admitted after undergoing aortic valve replacement with bovine pericardial valve, enlargement with hemashield patch, and left atrial appendage clip with Dr Bui on October 19. He initially recovered from his procedure well, however on October 20 he had low ca rdiac index and therefore was started on a dopamine drip. The patient was interviewed and examined up in the recliner chair. He states he overall feels well and his pain has improved. He only has discomfort when he moves his chest. No difficulty breathing. No dizziness. GENERAL: Well-appearing, well-nourished and in no acute distress. NECK: Supple without JVD or thyromegaly. LUNGS: Breath sounds diminished to auscultation bilaterally. Respiration equal and unlabored. No wheezes, rales or rhonchi. HEART: Regular rate and rhythm without murmurs, rubs or gallops. S1 and S2 heard. EXTREMITIES: Normal range of motion, very mild edema. No clubbing or cyanosis. Peripheral pulses intact and strong. VITALS: Blood pressure 114/58, respiratory rate 20, pulse rate 85, SpO2 94% on 3 L nasal cannula, afebrile TELEMETRY: Sinus rhythm overnight IMPRESSION: Severe aortic stenosis Enlarged aortic root Status post aortic valve replacement Mild coronary artery disease History diabetes History of hypertension PLAN: Continue supportive treatment Pain management per CV surgery Further recommendations to be based on clinical course I am dictating on behalf of Dr Duke Parrish's history/physical and assessment/plan. Objective - Vital Signs Vital signs: Vital Signs Temp 98.4 F 10/22/22 12:00 Pulse 85 10/22/22 12:00 Resp 20 10/22/22 12:00 BP 94/64 10/22/22 12:00 Pulse Ox 94 L 10/22/22 12:00 FiO2 50 10/19/22 17:15 Intake & Output 10/21/22 10/22/22 10/22/22 18:59 06:59 18:59 Intake Total 521.558 557.571 485.820 Output Total 385 330 180 Balance 136.558 227.571 305.820 Weight 138.1 kg Intake: IV 353 432 133 0.9NS FOR PRESSURE BAG 33 102 33 CO/CI 100 90 Lactated Ringers 1,000 ml 220 240 100 @ 20 mls/hr IV .Q24H [facility] Rx#:[id number] Intake, IV Titration 168.558 125.571 102.820 Amount DOPamine DRIP 800 mg In 88.061 58.069 66.502 Dextrose/Water 1 250ml. bag @ 1 MCG/KG/MIN 2.409 mls/hr IV .Q24H [facility] Rx#: [id number] Insulin Regular 100 unit 80.497 67.502 36.318 In Sodium Chloride 0.9% 100 ml @ Per Protocol IV .Q0M [facility] Rx#:[id number] Oral 250 Output: Urine 385 330 180 Other: Voiding Method Indwelling Catheter Indwelling Catheter Indwelling Catheter ABP, PAP, CO, CI - Last Documented Arterial Blood Pressure 114/58 Pulmonary Artery Pressure 42/20 Cardiac Output 7.7 Cardiac Index 3.1 - Labs CBC & Chem 7: 10/22/22 04:00 10/22/22 04:00 Labs: Abnormal Lab Results - Last 24 Hours (Table) 10/19/22 10/21/22 10/21/22 Range/Units 12:00 14:08 17:18 RBC (4.30-5.90) m/uL Hgb (13.0-17.5) gm/dL Hct (39.0-53.0) % Plt Count (150-450) k/uL ABG Total CO2 26 H (19-24) mmol/L ABG O2 Saturation 97.6 H (94-97) % ABG Hematocrit 29 L (34.0-46.0) % ABG Ionized Calcium 4.2 L (4.5-5.3) mg/dL Hemoglobin 9.3 L (13.0-17.5) gm/dL Sodium (137-145) mmol/L BUN (9-20) mg/dL Glucose (74-99) mg/dL POC Glucose (mg/dL) 175 H 169 H (70-110) mg/dL Calcium (8.4-10.2) mg/dL Alkaline Phosphatase (38-126) U/L Total Protein (6.3-8.2) g/dL Albumin (3.5-5.0) g/dL 10/21/22 10/21/22 10/21/22 Range/Units 19:02 19:57 21:07 RBC (4.30-5.90) m/uL Hgb (13.0-17.5) gm/dL Hct (39.0-53.0) % Plt Count (150-450) k/uL ABG Total CO2 (19-24) mmol/L ABG O2 Saturation (94-97) % ABG Hematocrit (34.0-46.0) % ABG Ionized Calcium (4.5-5.3) mg/dL Hemoglobin (13.0-17.5) gm/dL Sodium (137-145) mmol/L BUN (9-20) mg/dL Glucose (74-99) mg/dL POC Glucose (mg/dL) 220 H 229 H 190 H (70-110) mg/dL Calcium (8.4-10.2) mg/dL Alkaline Phosphatase (38-126) U/L Total Protein (6.3-8.2) g/dL Albumin (3.5-5.0) g/dL 10/21/22 10/21/22 10/21/22 Range/Units 22:09 22:59 23:51 RBC (4.30-5.90) m/uL Hgb (13.0-17.5) gm/dL Hct (39.0-53.0) % Plt Count (150-450) k/uL ABG Total CO2 (19-24) mmol/L ABG O2 Saturation (94-97) % ABG Hematocrit (34.0-46.0) % ABG Ionized Calcium (4.5-5.3) mg/dL Hemoglobin (13.0-17.5) gm/dL Sodium (137-145) mmol/L BUN (9-20) mg/dL Glucose (74-99) mg/dL POC Glucose (mg/dL) 141 H 133 H 128 H (70-110) mg/dL Calcium (8.4-10.2) mg/dL Alkaline Phosphatase (38-126) U/L Total Protein (6.3-8.2) g/dL Albumin (3.5-5.0) g/dL 10/22/22 10/22/22 10/22/22 Range/Units 00:56 01:59 02:52 RBC (4.30-5.90) m/uL Hgb (13.0-17.5) gm/dL Hct (39.0-53.0) % Plt Count (150-450) k/uL ABG Total CO2 (19-24) mmol/L ABG O2 Saturation (94-97) % ABG Hematocrit (34.0-46.0) % ABG Ionized Calcium (4.5-5.3) mg/dL Hemoglobin (13.0-17.5) gm/dL Sodium (137-145) mmol/L BUN (9-20) mg/dL Glucose (74-99) mg/dL POC Glucose (mg/dL) 125 H 118 H 119 H (70-110) mg/dL Calcium (8.4-10.2) mg/dL Alkaline Phosphatase (38-126) U/L Total Protein (6.3-8.2) g/dL Albumin (3.5-5.0) g/dL 10/22/22 10/22/22 10/22/22 Range/Units 04:00 04:00 05:08 RBC 2.95 L (4.30-5.90) m/uL Hgb 8.5 L (13.0-17.5) gm/dL Hct 25.5 L (39.0-53.0) % Plt Count 121 L (150-450) k/uL ABG Total CO2 (19-24) mmol/L ABG O2 Saturation (94-97) % ABG Hematocrit (34.0-46.0) % ABG Ionized Calcium (4.5-5.3) mg/dL Hemoglobin (13.0-17.5) gm/dL Sodium 135 L (137-145) mmol/L BUN 26 H (9-20) mg/dL Glucose 101 H (74-99) mg/dL POC Glucose (mg/dL) 133 H (70-110) mg/dL Calcium 7.8 L (8.4-10.2) mg/dL Alkaline Phosphatase 37 L (38-126) U/L Total Protein 5.8 L (6.3-8.2) g/dL Albumin 3.4 L (3.5-5.0) g/dL 10/22/22 10/22/22 10/22/22 Range/Units 06:04 07:00 08:19 RBC (4.30-5.90) m/uL Hgb (13.0-17.5) gm/dL Hct (39.0-53.0) % Plt Count (150-450) k/uL ABG Total CO2 (19-24) mmol/L ABG O2 Saturation (94-97) % ABG Hematocrit (34.0-46.0) % ABG Ionized Calcium (4.5-5.3) mg/dL Hemoglobin (13.0-17.5) gm/dL Sodium (137-145) mmol/L BUN (9-20) mg/dL Glucose (74-99) mg/dL POC Glucose (mg/dL) 127 H 126 H 158 H (70-110) mg/dL Calcium (8.4-10.2) mg/dL Alkaline Phosphatase (38-126) U/L Total Protein (6.3-8.2) g/dL Albumin (3.5-5.0) g/dL 10/22/22 10/22/22 10/22/22 Range/Units 09:11 10:03 11:39 RBC (4.30-5.90) m/uL Hgb (13.0-17.5) gm/dL Hct (39.0-53.0) % Plt Count (150-450) k/uL ABG Total CO2 (19-24) mmol/L ABG O2 Saturation (94-97) % ABG Hematocrit (34.0-46.0) % ABG Ionized Calcium (4.5-5.3) mg/dL Hemoglobin (13.0-17.5) gm/dL Sodium (137-145) mmol/L BUN (9-20) mg/dL Glucose (74-99) mg/dL POC Glucose (mg/dL) 199 H 197 H 133 H (70-110) mg/dL Calcium (8.4-10.2) mg/dL Alkaline Phosphatase (38-126) U/L Total Protein (6.3-8.2) g/dL Albumin (3.5-5.0) g/dL
--- NOTE | 2022-10-22 13:58 | P.PN ---
Subjective Progress Note Date: 10/21/22 62-year-old male with a known history of hypertension, hyperlipidemia, diabetes type 2 insulin-dependent, osteoarthritis and history of severe aortic stenosis was admitted to the hospital for aortic valve replacement. Patient is status post surgery and postoperative day 1. Patient was on mechanical ventilator perioperatively and was extubated this morning. Currently patient does have soreness at the surgical site. SBP in 90s. Denies any complaints of dizziness or lightheadedness. No chest pain. No cough or sputum production. Patient has been afebrile overnight. Not on pressor support. Patient is being continued on insulin drip. Laboratory showed WBC 10.3 hemoglobin 10.0 and platelets 162, sodium 136 potassium 4.2 chloride 102 bicarb is 26 BUN 15 and creatinine 0.53 liver enzymes are not elevated. Albumin 3.4. EKG showed normal sinus rhythm. Chest x-ray showed approximately 5 to 10% right apical pneumothorax. Chest x-ray this morning showed cardiomegaly and bilateral basilar reflexes favored over infiltrate and small effusion. No overt heart failure. Objective - Vital Signs Vital signs: Vital Signs Temp 99.3 F 10/21/22 08:00 Pulse 77 10/21/22 11:00 Resp 9 L 10/21/22 11:00 BP 90/56 10/21/22 11:00 Pulse Ox 94 L 10/21/22 11:00 FiO2 50 10/19/22 17:15 Intake & Output 10/20/22 10/21/22 10/21/22 18:59 06:59 18:59 Intake Total 1367.964 928.157 285.058 Output Total 360 1152 110 Balance 1007.964 -223.843 175.058 Weight 128.5 kg 135.3 kg Intake: IV 1205 877 162 0.9NS FOR PRESSURE BAG 105 117 12 Albumin Human 5% 250 ml 500 250 In Empty Bag 1 bag @ 250 mls/hr IVPB Q1HR PRN Rx#: [id number] CO/CI 60 220 70 Lactated Ringers 1,000 ml 540 290 80 @ 20 mls/hr IV .Q24H NAYA Rx#:[id number] Intake, IV Titration 162.964 51.157 123.058 Amount DOPamine DRIP 800 mg In 88.061 Dextrose/Water 1 250ml. bag @ 2 MCG/KG/MIN 4.819 mls/hr IV .Q24H [facility]A Rx#: [id number] Insulin Regular 100 unit 62.964 51.157 34.997 In Sodium Chloride 0.9% 100 ml @ Per Protocol IV .Q0M [facility]A Rx#:[id number] ceFAZolin 3 gm In Sodium 100 Chloride 0.9% 100 ml @ 100 mls/hr IVPB Q8HR [facility]A Rx#:[id number] Output: Chest Tube Drainage 10 20 Chest Tube Mediastinal 10 20 Drainage 70 Medial Chest 70 Urine 280 1132 110 Other: Voiding Method Indwelling Catheter Indwelling Catheter Indwelling Catheter ABP, PAP, CO, CI - Last Documented Arterial Blood Pressure 88/44 Pulmonary Artery Pressure 39/18 Cardiac Output 4.7 Cardiac Index 1.9 - Exam Patient is seen and evaluated sitting up comfortably in the bedside chair, no acute distress, awake alert and oriented. HEENT: Normocephalic. Neck is supple. Pupils reactive. Nostrils clear. Oral cavity is moist. Neck reveals no JVD, carotid bruits, or thyromegaly. CHEST EXAMINATION: Trachea is central. Symmetrical expansion. Bibasilar diminished sounds.. Sternal midline incision is bandaged. Chest tube in place. CARDIAC: Normal S1, S2 with no gallops. No murmurs ABDOMEN: Soft. Bowel sounds present. Nontender. No organomegaly. No abdominal bruits. Extremities: reveal no edema. No clubbing or cyanosis Neurologically awake, alert, oriented x2-3 with well-coordinated movements. No gross focal deficits noted. Developmentally delayed. Skin: No rash or skin lesions. Musculoskeletal: No joint swelling or deformity. Normal range of motion. - Labs CBC & Chem 7: 10/22/22 04:00 10/22/22 04:00 Labs: Abnormal Lab Results - Last 24 Hours (Table) 10/20/22 10/20/22 10/20/22 Range/Units 11:16 12:12 13:10 RBC (4.30-5.90) m/uL Hgb (13.0-17.5) gm/dL Hct (39.0-53.0) % Plt Count (150-450) k/uL Sodium (137-145) mmol/L Creatinine (0.66-1.25) mg/dL Glucose (74-99) mg/dL POC Glucose (mg/dL) 130 H 113 H 137 H (70-110) mg/dL Calcium (8.4-10.2) mg/dL Alkaline Phosphatase (38-126) U/L Total Protein (6.3-8.2) g/dL 10/20/22 10/20/22 10/20/22 Range/Units 14:20 15:08 16:07 RBC (4.30-5.90) m/uL Hgb (13.0-17.5) gm/dL Hct (39.0-53.0) % Plt Count (150-450) k/uL Sodium (137-145) mmol/L Creatinine (0.66-1.25) mg/dL Glucose (74-99) mg/dL POC Glucose (mg/dL) 185 H 151 H 128 H (70-110) mg/dL Calcium (8.4-10.2) mg/dL Alkaline Phosphatase (38-126) U/L Total Protein (6.3-8.2) g/dL 10/20/22 10/20/22 10/20/22 Range/Units 18:17 19:10 20:09 RBC (4.30-5.90) m/uL Hgb (13.0-17.5) gm/dL Hct (39.0-53.0) % Plt Count (150-450) k/uL Sodium (137-145) mmol/L Creatinine (0.66-1.25) mg/dL Glucose (74-99) mg/dL POC Glucose (mg/dL) 147 H 140 H 127 H (70-110) mg/dL Calcium (8.4-10.2) mg/dL Alkaline Phosphatase (38-126) U/L Total Protein (6.3-8.2) g/dL 10/20/22 10/20/22 10/20/22 Range/Units 21:03 22:00 23:04 RBC (4.30-5.90) m/uL Hgb (13.0-17.5) gm/dL Hct (39.0-53.0) % Plt Count (150-450) k/uL Sodium (137-145) mmol/L Creatinine (0.66-1.25) mg/dL Glucose (74-99) mg/dL POC Glucose (mg/dL) 126 H 130 H 142 H (70-110) mg/dL Calcium (8.4-10.2) mg/dL Alkaline Phosphatase (38-126) U/L Total Protein (6.3-8.2) g/dL 10/20/22 10/21/22 10/21/22 Range/Units 23:53 00:55 01:58 RBC (4.30-5.90) m/uL Hgb (13.0-17.5) gm/dL Hct (39.0-53.0) % Plt Count (150-450) k/uL Sodium (137-145) mmol/L Creatinine (0.66-1.25) mg/dL Glucose (74-99) mg/dL POC Glucose (mg/dL) 127 H 145 H 147 H (70-110) mg/dL Calcium (8.4-10.2) mg/dL Alkaline Phosphatase (38-126) U/L Total Protein (6.3-8.2) g/dL 10/21/22 10/21/22 10/21/22 Range/Units 02:55 04:04 05:06 RBC (4.30-5.90) m/uL Hgb (13.0-17.5) gm/dL Hct (39.0-53.0) % Plt Count (150-450) k/uL Sodium (137-145) mmol/L Creatinine (0.66-1.25) mg/dL Glucose (74-99) mg/dL POC Glucose (mg/dL) 140 H 141 H 134 H (70-110) mg/dL Calcium (8.4-10.2) mg/dL Alkaline Phosphatase (38-126) U/L Total Protein (6.3-8.2) g/dL 10/21/22 10/21/22 10/21/22 Range/Units 05:10 05:10 06:01 RBC 3.24 L (4.30-5.90) m/uL Hgb 9.3 L (13.0-17.5) gm/dL Hct 27.8 L (39.0-53.0) % Plt Count 136 L (150-450) k/uL Sodium 136 L (137-145) mmol/L Creatinine 0.61 L (0.66-1.25) mg/dL Glucose 120 H (74-99) mg/dL POC Glucose (mg/dL) 130 H (70-110) mg/dL Calcium 7.9 L (8.4-10.2) mg/dL Alkaline Phosphatase 37 L (38-126) U/L Total Protein 6.1 L (6.3-8.2) g/dL 10/21/22 10/21/22 10/21/22 Range/Units 06:55 09:01 10:07 RBC (4.30-5.90) m/uL Hgb (13.0-17.5) gm/dL Hct (39.0-53.0) % Plt Count (150-450) k/uL Sodium (137-145) mmol/L Creatinine (0.66-1.25) mg/dL Glucose (74-99) mg/dL POC Glucose (mg/dL) 125 H 150 H 180 H (70-110) mg/dL Calcium (8.4-10.2) mg/dL Alkaline Phosphatase (38-126) U/L Total Protein (6.3-8.2) g/dL 10/21/22 Range/Units 11:04 RBC (4.30-5.90) m/uL Hgb (13.0-17.5) gm/dL Hct (39.0-53.0) % Plt Count (150-450) k/uL Sodium (137-145) mmol/L Creatinine (0.66-1.25) mg/dL Glucose (74-99) mg/dL POC Glucose (mg/dL) 147 H (70-110) mg/dL Calcium (8.4-10.2) mg/dL Alkaline Phosphatase (38-126) U/L Total Protein (6.3-8.2) g/dL Assessment and Plan Assessment: Status post aortic valve replacement due to severe aortic stenosis. Postoperative day 1. was on mechanical ventilator perioperatively. Extubated this morning. Right apical pneumothorax 5 to 10%. Diabetes type 2 insulin-dependent. Hypertension Hyperlipidemia History of right testicular cancer s/p surgery History of developmental delay Osteoarthritis GERD History of CVA Obesity with BMI 37.4 DVT prophylaxis Plan: Patient is currently in the MICU. Was extubated this morning. Continue the oxygen supplementation and titrate down to room air. Follow-up repeat chest x-rays for resolution of pneumothorax. Will be continued on insulin drip at this time and transition to home dose of subcu insulin once patient continues to be hemodynamically stable. GI and DVT prophylaxis with PPI and heparin subcu Continue with Plavix and metoprolol and telemetry monitoring. We will continue to follow and further recommendations based on the clinical course.
--- NOTE | 2022-10-22 14:01 | P.PN ---
Subjective Progress Note Date: 10/22/22 Principal diagnosis: Aortic valve replacement for severe aortic stenosis 62-year-old male with a known history of hypertension, hyperlipidemia, diabetes type 2 insulin-dependent, osteoarthritis and history of severe aortic stenosis was admitted to the hospital for aortic valve replacement. Patient is status post surgery and postoperative day 1. Patient was on mechanical ventilator perioperatively and was extubated this morning. Currently patient does have soreness at the surgical site. SBP in 90s. Denies any complaints of dizziness or lightheadedness. No chest pain. No cough or sputum production. Patient has been afebrile overnight. Not on pressor support. Patient is being continued on insulin drip. Laboratory showed WBC 10.3 hemoglobin 10.0 and platelets 162, sodium 136 potassium 4.2 chloride 102 bicarb is 26 BUN 15 and creatinine 0.53 liver enzymes are not elevated. Albumin 3.4. EKG showed normal sinus rhythm. Chest x-ray showed approximately 5 to 10% right apical pneumothorax. Chest x-ray this morning showed cardiomegaly and bilateral basilar reflexes favored over infiltrate and small effusion. No overt heart failure. 10/22/2022 the patient is seen and evaluated in ICU; remains on 3 L of oxygen by nasal cannula with O2 saturation above 90-92%. Chest x-ray from today shows no evidence of any pneumothorax. There are atelectatic changes and small effusions lung bases bilaterally. The patient is using the incentive spirometer. -- The patient remains on 2 g of dopamine and he has an adequate urine output. Blood pressure remains off and the patient remains on metoprolol. Chest tubes are removed. --The hemoglobin today is at 8.5. WBC count is at 8.8. Electrolytes are stable still he has a sodium of 135, potassium of 4.1, BUN of 26 with a creatinine of 0.7. LFTs are normal Continue incentive spirometer Continue dopamine and bonita it off to based on the BP and CI Wean down FiO2 as tolerated, currently on 3 liters Chest x-ray was noted and there is no need for chest tube insertion Objective - Vital Signs Vital signs: Vital Signs Temp 98.8 F 10/22/22 08:00 Pulse 80 10/22/22 11:00 Resp 17 10/22/22 11:00 BP 105/68 10/22/22 11:00 Pulse Ox 92 L 10/22/22 11:00 FiO2 50 05/10/23 17:15 Intake & Output 10/21/22 10/22/22 10/22/22 18:59 06:59 18:59 Intake Total 521.558 557.571 485.820 Output Total 385 330 180 Balance 136.558 227.571 305.820 Weight 138.1 kg Intake: IV 353 432 133 0.9NS FOR PRESSURE BAG 33 102 33 CO/CI 100 90 Lactated Ringers 1,000 ml 220 240 100 @ 20 mls/hr IV .Q24H [facility] Rx#:[id number] Intake, IV Titration 168.558 125.571 102.820 Amount DOPamine DRIP 800 mg In 88.061 58.069 66.502 Dextrose/Water 1 250ml. bag @ 1 MCG/KG/MIN 2.409 mls/hr IV .Q24H [facility] Rx#: [id number] Insulin Regular 100 unit 80.497 67.502 36.318 In Sodium Chloride 0.9% 100 ml @ Per Protocol IV .Q0M [facility] Rx#:[id number] Oral 250 Output: Urine 385 330 180 Other: Voiding Method Indwelling Catheter Indwelling Catheter Indwelling Catheter ABP, PAP, CO, CI - Last Documented Arterial Blood Pressure 100/52 Pulmonary Artery Pressure 42/20 Cardiac Output 7.7 Cardiac Index 3.1 - Exam Patient is seen and evaluated sitting up comfortably in the bedside chair, no acute distress, awake alert and oriented. HEENT: Normocephalic. Neck is supple. Pupils reactive. Nostrils clear. Oral cavity is moist. Neck reveals no JVD, carotid bruits, or thyromegaly. CHEST EXAMINATION: Trachea is central. Symmetrical expansion. Bibasilar diminished sounds.. Sternal midline incision is bandaged. Chest tube in place. CARDIAC: Normal S1, S2 with no gallops. No murmurs ABDOMEN: Soft. Bowel sounds present. Nontender. No organomegaly. No abdominal bruits. Extremities: reveal no edema. No clubbing or cyanosis Neurologically awake, alert, oriented x2-3 with well-coordinated movements. No gross focal deficits noted. Developmentally delayed. Skin: No rash or skin lesions. Musculoskeletal: No joint swelling or deformity. Normal range of motion. - Labs CBC & Chem 7: 10/22/22 04:00 10/22/22 04:00 Labs: Abnormal Lab Results - Last 24 Hours (Table) 10/19/22 10/21/22 10/21/22 Range/Units 12:00 12:44 14:08 RBC (4.30-5.90) m/uL Hgb (13.0-17.5) gm/dL Hct (39.0-53.0) % Plt Count (150-450) k/uL ABG Total CO2 26 H (19-24) mmol/L ABG O2 Saturation 97.6 H (94-97) % ABG Hematocrit 29 L (34.0-46.0) % ABG Ionized Calcium 4.2 L (4.5-5.3) mg/dL Hemoglobin 9.3 L (13.0-17.5) gm/dL Sodium (137-145) mmol/L BUN (9-20) mg/dL Glucose (74-99) mg/dL POC Glucose (mg/dL) 116 H 175 H (70-110) mg/dL Calcium (8.4-10.2) mg/dL Alkaline Phosphatase (38-126) U/L Total Protein (6.3-8.2) g/dL Albumin (3.5-5.0) g/dL 10/21/22 10/21/22 10/21/22 Range/Units 17:18 19:02 19:57 RBC (4.30-5.90) m/uL Hgb (13.0-17.5) gm/dL Hct (39.0-53.0) % Plt Count (150-450) k/uL ABG Total CO2 (19-24) mmol/L ABG O2 Saturation (94-97) % ABG Hematocrit (34.0-46.0) % ABG Ionized Calcium (4.5-5.3) mg/dL Hemoglobin (13.0-17.5) gm/dL Sodium (137-145) mmol/L BUN (9-20) mg/dL Glucose (74-99) mg/dL POC Glucose (mg/dL) 169 H 220 H 229 H (70-110) mg/dL Calcium (8.4-10.2) mg/dL Alkaline Phosphatase (38-126) U/L Total Protein (6.3-8.2) g/dL Albumin (3.5-5.0) g/dL 10/21/22 10/21/22 10/21/22 Range/Units 21:07 22:09 22:59 RBC (4.30-5.90) m/uL Hgb (13.0-17.5) gm/dL Hct (39.0-53.0) % Plt Count (150-450) k/uL ABG Total CO2 (19-24) mmol/L ABG O2 Saturation (94-97) % ABG Hematocrit (34.0-46.0) % ABG Ionized Calcium (4.5-5.3) mg/dL Hemoglobin (13.0-17.5) gm/dL Sodium (137-145) mmol/L BUN (9-20) mg/dL Glucose (74-99) mg/dL POC Glucose (mg/dL) 190 H 141 H 133 H (70-110) mg/dL Calcium (8.4-10.2) mg/dL Alkaline Phosphatase (38-126) U/L Total Protein (6.3-8.2) g/dL Albumin (3.5-5.0) g/dL 10/21/22 10/22/22 10/22/22 Range/Units 23:51 00:56 01:59 RBC (4.30-5.90) m/uL Hgb (13.0-17.5) gm/dL Hct (39.0-53.0) % Plt Count (150-450) k/uL ABG Total CO2 (19-24) mmol/L ABG O2 Saturation (94-97) % ABG Hematocrit (34.0-46.0) % ABG Ionized Calcium (4.5-5.3) mg/dL Hemoglobin (13.0-17.5) gm/dL Sodium (137-145) mmol/L BUN (9-20) mg/dL Glucose (74-99) mg/dL POC Glucose (mg/dL) 128 H 125 H 118 H (70-110) mg/dL Calcium (8.4-10.2) mg/dL Alkaline Phosphatase (38-126) U/L Total Protein (6.3-8.2) g/dL Albumin (3.5-5.0) g/dL 10/22/22 10/22/22 10/22/22 Range/Units 02:52 04:00 04:00 RBC 2.95 L (4.30-5.90) m/uL Hgb 8.5 L (13.0-17.5) gm/dL Hct 25.5 L (39.0-53.0) % Plt Count 121 L (150-450) k/uL ABG Total CO2 (19-24) mmol/L ABG O2 Saturation (94-97) % ABG Hematocrit (34.0-46.0) % ABG Ionized Calcium (4.5-5.3) mg/dL Hemoglobin (13.0-17.5) gm/dL Sodium 135 L (137-145) mmol/L BUN 26 H (9-20) mg/dL Glucose 101 H (74-99) mg/dL POC Glucose (mg/dL) 119 H (70-110) mg/dL Calcium 7.8 L (8.4-10.2) mg/dL Alkaline Phosphatase 37 L (38-126) U/L Total Protein 5.8 L (6.3-8.2) g/dL Albumin 3.4 L (3.5-5.0) g/dL 10/22/22 10/22/22 10/22/22 Range/Units 05:08 06:04 07:00 RBC (4.30-5.90) m/uL Hgb (13.0-17.5) gm/dL Hct (39.0-53.0) % Plt Count (150-450) k/uL ABG Total CO2 (19-24) mmol/L ABG O2 Saturation (94-97) % ABG Hematocrit (34.0-46.0) % ABG Ionized Calcium (4.5-5.3) mg/dL Hemoglobin (13.0-17.5) gm/dL Sodium (137-145) mmol/L BUN (9-20) mg/dL Glucose (74-99) mg/dL POC Glucose (mg/dL) 133 H 127 H 126 H (70-110) mg/dL Calcium (8.4-10.2) mg/dL Alkaline Phosphatase (38-126) U/L Total Protein (6.3-8.2) g/dL Albumin (3.5-5.0) g/dL 10/22/22 10/22/22 10/22/22 Range/Units 08:19 09:11 10:03 RBC (4.30-5.90) m/uL Hgb (13.0-17.5) gm/dL Hct (39.0-53.0) % Plt Count (150-450) k/uL ABG Total CO2 (19-24) mmol/L ABG O2 Saturation (94-97) % ABG Hematocrit (34.0-46.0) % ABG Ionized Calcium (4.5-5.3) mg/dL Hemoglobin (13.0-17.5) gm/dL Sodium (137-145) mmol/L BUN (9-20) mg/dL Glucose (74-99) mg/dL POC Glucose (mg/dL) 158 H 199 H 197 H (70-110) mg/dL Calcium (8.4-10.2) mg/dL Alkaline Phosphatase (38-126) U/L Total Protein (6.3-8.2) g/dL Albumin (3.5-5.0) g/dL 10/22/22 Range/Units 11:39 RBC (4.30-5.90) m/uL Hgb (13.0-17.5) gm/dL Hct (39.0-53.0) % Plt Count (150-450) k/uL ABG Total CO2 (19-24) mmol/L ABG O2 Saturation (94-97) % ABG Hematocrit (34.0-46.0) % ABG Ionized Calcium (4.5-5.3) mg/dL Hemoglobin (13.0-17.5) gm/dL Sodium (137-145) mmol/L BUN (9-20) mg/dL Glucose (74-99) mg/dL POC Glucose (mg/dL) 133 H (70-110) mg/dL Calcium (8.4-10.2) mg/dL Alkaline Phosphatase (38-126) U/L Total Protein (6.3-8.2) g/dL Albumin (3.5-5.0) g/dL Assessment and Plan Assessment: Status post aortic valve replacement due to severe aortic stenosis. Postoperative day 1. was on mechanical ventilator perioperatively. Extubated this morning. Right apical pneumothorax 5 to 10%. Diabetes type 2 insulin-dependent. Hypertension Hyperlipidemia History of right testicular cancer s/p surgery History of developmental delay Osteoarthritis GERD History of CVA Obesity with BMI 37.4 DVT prophylaxis Plan: Patient is currently in the MICU. Was extubated this morning. Continue the oxygen supplementation and titrate down to room air. Follow-up repeat chest x-rays for resolution of pneumothorax. Will be continued on insulin drip at this time and transition to home dose of subcu insulin once patient continues to be hemodynamically stable. GI and DVT prophylaxis with PPI and heparin subcu Continue with Plavix and metoprolol and telemetry monitoring. We will continue to follow and further recommendations based on the clinical course.
[2022-10-22 16:31] LABS: Glucose,Whole Blood 150 mg/dL (70-110)
[2022-10-22] MEDS: SENNOSIDES-DOCUSATE SODIUM 1 EACH TAB PO SCH (20:42)
[2022-10-22] MEDS: MONTELUKAST 10 MG TAB PO SCH (20:42)
[2022-10-22] MEDS: TAMSULOSIN 0.4 MG CAP.ER.24H PO SCH (20:42)
[2022-10-22] MEDS: ATORVASTATIN 10 MG TAB PO SCH (20:42)
[2022-10-22 21:22] LABS: Glucose,Whole Blood 155 mg/dL (70-110)
[2022-10-23] MEDS: HEPARIN SODIUM,PORCINE/PF 5,000 UNIT/0.5 ML SYRINGE SQ SCH ×3 (00:36→17:16)
[2022-10-23] MEDS: KETOROLAC 15 MG/ML 1 ML VIAL IVP SCH ×4 (00:36→17:16)
[2022-10-23] MEDS: DOPamine DRIP 800 MG in DEXTROSE/WATER 1 250ML.BAG IV SCH (02:43)
[2022-10-23 06:32] LABS: Basophils % (A) 0 %; Eosinophils # (A) 0.2 k/uL (0-0.7); Eosinophils % (A) 3 %; HCT 25.5 % (39.0-53.0); HGB 8.4 gm/dL (13.0-17.5); Lymphocytes # (A) 1.4 k/uL (1.0-4.8); Lymphocytes % (A) 17 %; MCH 28.8 pg (25.0-35.0); MCV 87.2 fL (80.0-100.0); Mean Platelet Volume 8.9; Monocytes # (A) 0.4 k/uL (0-1.0); Monocytes % (A) 5 %; Neutrophils # (A) 5.9 k/uL (1.3-7.7); Neutrophils % (A) 73 %; Platelet Count 164 k/uL (150-450); RBC 2.92 m/uL (4.30-5.90); RDW 13.5 % (11.5-15.5); WBC 8.1 k/uL (3.8-10.6)
[2022-10-23 06:34] LABS: Glucose,Whole Blood 161 mg/dL (70-110)
[2022-10-23 06:44] LABS: ALT 11 U/L (4-49); AST 21 U/L (17-59); African American GFR (CKD) >90 (>60 ml/min/1.73 sqM); Albumin 3.2 g/dL (3.5-5.0); Alkaline Phosphatase 46 U/L (38-126); Anion Gap 9 mmol/L; Blood Urea Nitrogen 28 mg/dL (9-20); Calcium 8.1 mg/dL (8.4-10.2); Carbon Dioxide 25 mmol/L (22-30); Chloride 102 mmol/L (98-107); Glucose 137 mg/dL (74-99); Non-African American GFR(CKD) >90 (>60 ml/min/1.73 sqM); Potassium 4.4 mmol/L (3.5-5.1); Sodium 136 mmol/L (137-145); Total Bilirubin 0.6 mg/dL (0.2-1.3); Total Protein 5.6 g/dL (6.3-8.2)
[2022-10-23] MEDS: INSULIN ASPART (NovoLOG) 100 UNIT/ML VIAL SQ SCH ×4 (07:00→21:22)
[2022-10-23] MEDS: INSULIN DETEMIR (LEVEMIR) 100 UNIT/ML SYR SQ SCH ×2 (07:00→21:22)
[2022-10-23] MEDS: PANTOPRAZOLE 40 MG TABLET PO SCH (07:01)
--- NOTE | 2022-10-23 08:04 | P.PN ---
Subjective Progress Note Date: 10/23/22 62-year-old male patient, underwent an aortic valve replacement for severe aortic stenosis. The patient currently is in the intensive care unit intubated on a mechanical ventilator, propofol running at 20 microvascular kilogram. He is intubated on a mechanical ventilator, assist control mode at the rate of 16, tidal volume of 600, FiO2 has been dropped down to 60% and a PEEP is currently at 10. The patient has a mediastinal chest tube and output is in order of 20 mL since his arrival from the operating room. PT is at 7.39 with a pCO2 of 42 and pO2 of 262. Hemodynamically, the patient has a PEA pressures of 39/24. Cardiac output is at 7.6 with an index of 3.0. Adequate urine output. Adequate blood pressure. Cardiac rhythm is sinus. He is on insulin drip at 3 units an hour for blood sugar control. His hemoglobin currently is at 10.1. Platelet count is at 153. No other active issues for now. Chest x-ray shows a limited 5% pneumothorax on the right. ET tube is in a good location. On today's evaluation of 10/20/2022, the patient is extubated and the patient is currently on oxygen at 2 L nasal cannula. His calm and comfortable. Adequate mentation. Moving all 4 extremities without any limitation. Using the incentive spirometer and is falling approximately 1000. He has a mediastinal chest tube. He has a Elliott-Michael catheter in place. Pulmonary artery pressures of 32/11. CVP is at 7. Cardiac output is at 7.7 and index of 3.1. Chest x-ray shows no acute abnormalities. No evidence of any pneumothorax on today's chest x-ray. His cardiac rhythm is sinus. His WBC was a 10.3 with a hemoglobin of 10 and a platelet count of 162. Sodium is at 136, BUN is a 50 with a creatinine of 0.53. Patient is currently on Plavix 75 mg by mouth daily. He is on metoprolol 12.5 mg by mouth twice a day. He is on insulin drip running at the rate of 5 units an hour. He was extubated yesterday without any major difficulties. He has not ambulated yet. Output from the mediastinal chest tube has been minimal On 10/21/2022, the patient is being seen for a follow-up. Early in the evening yesterday, the patient became acutely hypoxic. His oxygen requirements went up from 2 L up to 15 L. This was done to bring a saturation above 90%. A repeat chest x-ray was done and the patient had a tiny right apical pneumothorax which is essentially unchanged. It has some pulmonary congestion and pleural effusions also more so on the left. He was given a dose of Lasix 20 mg IV push. He was also noted to have a drop in the cardiac output down to an index of 1.7. He was started on dopamine which is running at 3 mcg/kg/m. The morning cardiac index is up to 2.3. Pulmonary artery pressures are 39/19. This morning, his pulse ox is around 96%. He is using the incentive spirometer. He is still on dopamine. Most recent systolic blood pressure is 90/49. Urine output is in order of30-40 mL an hour. The patient's hemoglobin is stable at 9.3 with a white cell count of 10.3. His sodium level is at 136, BUN is 18 with a creatinine of 0.6 and a potassium level of 4.1. LFTs are normal. Blood sugars under adequate control. He has a single mediastinal chest tube. Output from the chest tube is minimal at this point in time. No evidence of any air leak. Cardiac rhythm is sinus. His still on metoprolol 25 mg by mouth twice a day. CT surgery wanted to continue the metoprolol due to concerns of diastolic dysfunction. He is awake and alert. Pain is under good control. Communicating. No focal neurological deficits. 10/22/2022 the patient is on 3 L of oxygen by nasal cannula. Chest x-ray from today shows no evidence of any pneumothorax. There are atelectatic changes and small effusions lung bases bilaterally. The patient is using the incentive spirometer. Breathing effort several other week. Cardiac index is 2.6 with an output of 6.4. PA pressures are 40/18. The patient remains on 2 g of dopamine and he has an adequate urine output. Blood pressure remains off and the patient remains on metoprolol. Chest tubes are removed. The hemoglobin today is at 8.5. WBC count is at 8.8. Electrolytes are stable still he has a sodium of 135, potassium of 4.1, BUN of 26 with a creatinine of 0.7. LFTs are normal. Urine operas adequate for now. Moving all 4 extremities without any limitation. Cardiac rhythm is sinus. Pulse ox is 90-91% on 3 L O2 nasal cannula. 10/23/2022, the patient is being seen for a follow-up. The patient is currently on oxygen at 3 L. He is using the [employer] spirometer. All of the tubes are out. The chest x-ray showing some cardiomegaly and presence of pleural effusions bilaterally along with some atelectatic change in lung bases. Sternal wound is dry clean and intact. The patient's cardiac rhythm is sinus. Patient is off dopamine for now. Blood work from today is showing WBC count of 8.4 with a hemoglobin of 8.4 and a platelet count of 164. Electrolytes are all within normal limits. The patient is moving all 4 extremities. Is following simple commands. His tolerating diet. He is passing gas, no bowel movements. Note that after coming off dopamine, the patient had to be started on a low dose of 1 mcg/kg/m for blood pressure. Objective - Vital Signs Vital signs: Vital Signs Temp 98.3 F 10/23/22 04:00 Pulse 83 10/23/22 07:03 Resp 17 10/23/22 07:03 BP 102/59 10/23/22 07:03 Pulse Ox 93 L 10/23/22 07:03 FiO2 50 10/19/22 17:15 Intake & Output 10/22/22 10/23/22 10/23/22 18:59 06:59 18:59 Intake Total 952.073 200 Output Total 430 600 50 Balance 522.073 -400 -50 Weight 139 kg Intake: IV 285 200 0.9NS FOR PRESSURE BAG 45 Lactated Ringers 1,000 ml 240 200 @ 20 mls/hr IV .Q24H NAYA Rx#:[id number] Intake, IV Titration 117.073 Amount DOPamine DRIP 800 mg In 80.755 Dextrose/Water 1 250ml. bag @ 1 MCG/KG/MIN 2.409 mls/hr IV .Q24H NAYA Rx#: [id number] Insulin Regular 100 unit 36.318 In Sodium Chloride 0.9% 100 ml @ Per Protocol IV .Q0M NAYA Rx#:[id number] Oral 550 Output: Urine 430 600 50 Other: Voiding Method Indwelling Catheter Indwelling Catheter ABP, PAP, CO, CI - Last Documented Arterial Blood Pressure 111/62 Pulmonary Artery Pressure 42/20 Cardiac Output 7.7 Cardiac Index 3.1 - Exam , Obese , extubated calm and comfortable, body mass index of 37, extubated currently on 3 L of oxygen by nasal cannula Head exam was generally normal. There was no scleral icterus or corneal arcus. Mucous membranes were moist. Neck was supple and without jugular venous distension, thyromegaly, or carotid bruits. Carotids were easily palpable bilaterally. There was no adenopathy. The patient has a right IJ Cordis and Elliott-Michael catheter Lungs were clear to auscultation and percussion, and with normal diaphragmatic excursion. No wheezes or rales were noted. Breath sounds are equal and symmetrical bilaterally. Cardiac exam revealed the PMI to be normally situated and sized. The rhythm was regular and no extrasystoles were noted during several minutes of auscultation. The first and second heart sounds were normal and physiologic splitting of the second heart sound was noted. There were no murmurs, rubs, clicks, or gallops. Sternotomy wires are intact and the patient has a mediastinal chest tube Abdominal exam revealed normal bowel sounds. The abdomen was soft, non-tender, and without masses, organomegaly, or appreciable enlargement of the abdominal aorta. Examination of the extremities revealed easily palpable radial, femoral and pedal pulses. There was no cyanosis, clubbing or edema. Examination of the skin revealed no evidence of significant rashes, suspicious appearing nevi or other concerning lesions. Neurologically, the patient awake and alert, extubated Moving all 4 extremities. Pupils are equal reactive to light. Cranial nerves are intact. - Labs CBC & Chem 7: 10/23/22 05:52 10/23/22 05:52 Labs: Abnormal Lab Results - Last 24 Hours (Table) 10/22/22 10/22/22 10/22/22 Range/Units 08:19 09:11 10:03 RBC (4.30-5.90) m/uL Hgb (13.0-17.5) gm/dL Hct (39.0-53.0) % Sodium (137-145) mmol/L BUN (9-20) mg/dL Glucose (74-99) mg/dL POC Glucose (mg/dL) 158 H 199 H 197 H (70-110) mg/dL Calcium (8.4-10.2) mg/dL Total Protein (6.3-8.2) g/dL Albumin (3.5-5.0) g/dL 10/22/22 10/22/22 10/22/22 Range/Units 11:39 16:29 21:21 RBC (4.30-5.90) m/uL Hgb (13.0-17.5) gm/dL Hct (39.0-53.0) % Sodium (137-145) mmol/L BUN (9-20) mg/dL Glucose (74-99) mg/dL POC Glucose (mg/dL) 133 H 150 H 155 H (70-110) mg/dL Calcium (8.4-10.2) mg/dL Total Protein (6.3-8.2) g/dL Albumin (3.5-5.0) g/dL 10/23/22 10/23/22 10/23/22 Range/Units 05:52 05:52 06:33 RBC 2.92 L (4.30-5.90) m/uL Hgb 8.4 L (13.0-17.5) gm/dL Hct 25.5 L (39.0-53.0) % Sodium 136 L (137-145) mmol/L BUN 28 H (9-20) mg/dL Glucose 137 H (74-99) mg/dL POC Glucose (mg/dL) 161 H (70-110) mg/dL Calcium 8.1 L (8.4-10.2) mg/dL Total Protein 5.6 L (6.3-8.2) g/dL Albumin 3.2 L (3.5-5.0) g/dL Assessment and Plan Plan: aortic valve replacement for severe aortic valve stenosis. The patient received a 27 mm bovine pericardial valve, postop day #4, hemodynamically stable, adequate cardiac output and index. Cardiac rhythm is sinus. Currently intubated on a mechanical ventilator. Acute hypoxic respiratory failure currently on 3 L of oxygen by nasal cannula, multifactorial, partly related to a component of pulmonary vascular congestion and effusion and poor respiratory efforts. There is a right-sided pneumothorax was probably not affecting his oxygenation as the pneumothorax is quite small and stable. Acute drop in the cardiac output/CHF currently on dopamine at 1 dwight kilogram per minute Postthoracotomy, extubated currently on 3L of oxygen by nasal cannula The chest tubes are all removed Right apical pneumothorax in the order of 5-10%, this is the postop chest x-ray in the no pneumothorax is seen on today's chest x-ray, small effusions and atelectatic changes in the chest x-ray. There could be potentially a tiny left- sided pneumothorax less than 5% Obesity Obstructive sleep apnea Diabetes mellitus currently on insulin drip at 5 units an hour Hypertension Degenerative arthritis Previous history of testicular cancer adequate history of developmental delay Plan The patient will be given Lasix 40 mg IV 1 Monitor blood pressure response and use dopamine for hemodynamic support Continue metoprolol for surgery recommendations Continue incentive spirometer Elliott-Michael catheter removed Wean down FiO2 as tolerated, currently on 3 liters Chest x-ray was noted and there is no need for chest tube insertion Increase mobility as tolerated Plavix 75 mg by mouth daily Metoprolol 25 mg by mouth Discontinue the insulin drip and start the patient on Levemir 20 units twice a day plus a sliding scale coverage. We'll continue to follow
[2022-10-23] MEDS: IPRATROPIUM-ALBUTEROL 3 ML NEB INHALATION SCH ×4 (08:24→19:45)
[2022-10-23] MEDS: CLOPIDOGREL 75 MG TAB PO SCH (08:57)
[2022-10-23] MEDS: METOPROLOL TARTRATE 25 MG TAB PO SCH ×3 (08:57→21:22)
[2022-10-23] MEDS: ACETAMINOPHEN TAB 500 MG TAB PO PRN ×2 (08:57→17:22)
[2022-10-23] MEDS: CITALOPRAM HYDROBROMIDE 10 MG TAB PO SCH (08:57)
[2022-10-23] MEDS ORDERED: FUROSEMIDE 10 MG/ML 4 ML VIAL IV STA (09:00)
--- NOTE | 2022-10-23 09:18 | P.PN ---
Subjective Progress Note Date: 10/23/22 Principal diagnosis: Severe tricuspid calcific aortic valve stenosis. Previous medical history of diastolic dysfunction with left ventricular hypertrophy, previous syncopal episode likely vasovagal, hypertension, hyperlipidemia, diabetes mellitus type 2, obstructive sleep apnea, asthma, testicular cancer in 2006, BPH, previous TIA with no residual deficits, GERD, previous tobacco use, covid in 04/2021, developmental delay. Preoperative nasal swab positive for MSSA, treated. Family history of premature coronary artery disease (mom diagnosed in her early 50s) POD #4 Aortic valve replacement with 27 mm Coker Inspiris bovine pericardial valve, root enlargement with hemashield patch (Bruno Hendrickson), epi-aortic ultrasound, occlusion of left atrial appendage with 35 mm AtriCure clip. Postoperative acute blood loss anemia, expected given hemodilution and cardiopulmonary bypass. Right small apical pneumothorax, inconsequential, not a complication The patient was seen and examined in follow-up today 10/23/2022 at his bedside in the intensive care unit. Currently the patient is sitting up to bedside chair, is awake, alert, oriented 3 and is in no acute distress. Denies any complaints of shortness of breath with sitting and is complaining of some surgical type pain rating his pain 2-3 out of 10 on the pain scale at this time. He does report that he does have some shortness of breath with activity. Oxygen saturation are 93% on 3 L nasal cannula and he is achieving 8783-1397 mL on his incentive spirometry with encouragement. Bedside telemetry showing normal sinus rhythm heart rate 86 BPM. Dopamine remains infusing at 1 mcg/kg/m. Right IJ cordis remains in place with continuous CVP monitoring, Current CVP pressure is 17 mmHg. Atrial and ventricular epicardial pacemaker wires remain in place and rounded. Esparza catheter is in place for accurate I's and O's with 285 mL of urine output in the last 8 hours. Laboratory results and chest x-ray was reviewed. His T-max temperature the last 24 hours is 99.1F. Objective - Vital Signs Vital signs: Vital Signs Temp 98.3 F 10/23/22 04:00 Pulse 82 10/23/22 08:35 Resp 17 10/23/22 07:03 BP 102/59 10/23/22 07:03 Pulse Ox 93 L 10/23/22 07:03 FiO2 50 10/19/22 17:15 Intake & Output 10/22/22 10/23/22 10/23/22 18:59 06:59 18:59 Intake Total 952.073 200 20 Output Total 430 600 95 Balance 522.073 -400 -75 Weight 139 kg Intake: IV 285 200 20 0.9NS FOR PRESSURE BAG 45 Lactated Ringers 1,000 ml 240 200 20 @ 20 mls/hr IV .Q24H NAYA Rx#:[id number] Intake, IV Titration 117.073 Amount DOPamine DRIP 800 mg In 80.755 Dextrose/Water 1 250ml. bag @ 1 MCG/KG/MIN 2.409 mls/hr IV .Q24H NAYA Rx#: [id number] Insulin Regular 100 unit 36.318 In Sodium Chloride 0.9% 100 ml @ Per Protocol IV .Q0M NAYA Rx#:[id number] Oral 550 Output: Urine 430 600 95 Other: Voiding Method Indwelling Catheter Indwelling Catheter ABP, PAP, CO, CI - Last Documented Arterial Blood Pressure 111/62 Pulmonary Artery Pressure 42/20 Cardiac Output 7.7 Cardiac Index 3.1 - Exam CONSTITUTIONAL: Sitting up to the bedside chair in the intensive care unit, appears comfortable, cooperative, no apparent acute distress. HEENT: Neck is supple, no JVD, no lymphadenopathy. Right IJ Cordis in place and functioning. RESPIRATORY: Lungs sounds essentially clear throughout, diminished to his bilateral bases. Respirations are symmetrical and nonlabored. Currently on 3 L nasal cannula with oxygen saturations 93%. Able to achieve 0945-4091 mL on his incentive spirometry. Strong cough. CARDIOVASCULAR: Regular rhythm and rate. S1 and S2 present, negative for S3, gallop or murmur. Sternum is stable. Palpable peripheral pulses bilaterally, +1 edema to his bilateral lower extremities. No calf pain or tenderness noted. Heart hugger in place with patient demonstrating appropriate use. Knee-high SHIRLENE hose and sequential compression devices in place to his bilateral lower extremities. Bedside telemetry showing normal sinus rhythm heart rate 86 BPM. GASTROINTESTINAL: Abdomen soft, nontender, nondistended. Active bowel sounds present 4 quadrants. Tolerating diet. Passing flatus. No guarding or rigidity. GENITOURINARY: Esparza present draining clear, yellow urine. Urine output 285 mL in the last 8 hours. INTEGUMENTARY: Skin is warm and dry with no evidence of clubbing or cyanosis. Midline sternal incision clean dry and well approximated, covered with dry intact dressing. NEUROLOGIC: Cranial nerves II through XII intact. No focal deficits. MUSKULOSKELETAL: Able to move all extremities, strength equal bilaterally, generalized weakness. PSYCHIATRIC: Alert and oriented to person place and time, appropriate affect, intact judgment and insight. INVASIVE LINES AND TUBES: Atrial and ventricular epicardial pacemaker wires present, and are currently grounded Right internal jugular Cordis, current CVP pressure 17 mmHg. - Allied health notes Allied health notes reviewed: nursing - Labs CBC & Chem 7: 10/23/22 05:52 10/23/22 05:52 Labs: Abnormal Lab Results - Last 24 Hours (Table) 10/22/22 10/22/22 10/22/22 Range/Units 09:11 10:03 11:39 RBC (4.30-5.90) m/uL Hgb (13.0-17.5) gm/dL Hct (39.0-53.0) % Sodium (137-145) mmol/L BUN (9-20) mg/dL Glucose (74-99) mg/dL POC Glucose (mg/dL) 199 H 197 H 133 H (70-110) mg/dL Calcium (8.4-10.2) mg/dL Total Protein (6.3-8.2) g/dL Albumin (3.5-5.0) g/dL 10/22/22 10/22/22 10/23/22 Range/Units 16:29 21:21 05:52 RBC 2.92 L (4.30-5.90) m/uL Hgb 8.4 L (13.0-17.5) gm/dL Hct 25.5 L (39.0-53.0) % Sodium (137-145) mmol/L BUN (9-20) mg/dL Glucose (74-99) mg/dL POC Glucose (mg/dL) 150 H 155 H (70-110) mg/dL Calcium (8.4-10.2) mg/dL Total Protein (6.3-8.2) g/dL Albumin (3.5-5.0) g/dL 10/23/22 10/23/22 Range/Units 05:52 06:33 RBC (4.30-5.90) m/uL Hgb (13.0-17.5) gm/dL Hct (39.0-53.0) % Sodium 136 L (137-145) mmol/L BUN 28 H (9-20) mg/dL Glucose 137 H (74-99) mg/dL POC Glucose (mg/dL) 161 H (70-110) mg/dL Calcium 8.1 L (8.4-10.2) mg/dL Total Protein 5.6 L (6.3-8.2) g/dL Albumin 3.2 L (3.5-5.0) g/dL - Imaging and Cardiology Chest x-ray: report reviewed, image reviewed Assessment and Plan Assessment: Severe tricuspid calcific aortic valve stenosis, status post bioprosthetic aortic valve replacement Diastolic dysfunction with left ventricular hypertrophy Previous syncopal episode likely vasovagal Hypertension, currently hypotensive Hyperlipidemia, treated cholesterol 146, LDL 65, triglycerides 194 Diabetes mellitus type 2, hemoglobin A1c 7.6% Obstructive sleep apnea Asthma, FEV1 70% of predicted Testicular cancer in 2006 BPH Previous TIA with no residual deficits GERD Previous tobacco use Covid in 04/2021 Developmental delay Preoperative nasal swab positive for MSSA, treated Family history of premature coronary artery disease (mom diagnosed in her early 50s) Postoperative acute blood loss anemia and thrombocytopenia, expected Right small apical pneumothorax, inconsequential Plan: Continue to maximize medical therapy with statin, Plavix, beta shaina. Will increase beta shaina therapy as tolerated, currently metoprolol tartrate is 25 mg 3 times a day today. No aspirin due to anaphylactic ALLERGY Discontinue dopamine drip. Wean O2 as tolerated. Encourage incentive spirometry use 10 times every hour while awake. Bronchodilators per pulmonology Increase activity, ambulate as tolerated. PT/OT/cardiac rehab following. Will monitor daily labs and chest x-rays. Electrolyte replacement per protocol. GI/DVT prophylaxis. Pain control per current medication regimen. Avoid narcotics. Insulin management per internal medicine, patient is diabetic, needs tight blood sugar control. Remove right IJ Cordis. Discontinue Esparza catheter. Continue to record strict and accurate I's and O's. Bladder scan every 6 hours and when necessary postvoid residuals, if greater than 300 mL of urine May straight cath. Daily weights. Lasix 40 mg 1 now. Start Midodrine 10 mg by mouth 3 times a day. More recommendations to follow based on patient's clinical course. Time with Patient: Greater than 30
[2022-10-23] MEDS: MIDODRINE 5 MG TAB PO SCH ×3 (09:34→17:22)
[2022-10-23 11:34] LABS: Glucose,Whole Blood 157 mg/dL (70-110)
--- NOTE | 2022-10-23 11:34 | XR ---
EXAMINATION TYPE: XR chest 2V DATE OF EXAM: 10/23/2022 COMPARISON: 10/22/2022 INDICATION: Postoperative aVR TECHNIQUE: Frontal and lateral views of the chest are obtained. FINDINGS: The heart size is mildly prominent.. The pulmonary vasculature is normal. Small bilateral pleural effusions are present.. IMPRESSION: 1. Small bilateral pleural effusions versus atelectasis. 2. Cardiomegaly
--- NOTE | 2022-10-23 12:56 | P.PN ---
Subjective Progress Note Date: 10/23/22 The patient is a 62-year-old male who is currently admitted after undergoing aortic valve replacement with bovine pericardial valve, enlargement with hemashield patch, and left atrial appendage clip with Dr Bui on October 19. He initially recovered from his procedure well, however on October 20 he had low ca rdiac index and therefore was started on a dopamine drip. The patient was interviewed and examined up in the recliner chair. He states he is actually feeling unwell today. He states he's having a lot of chest discomfort. He also states he is weak and felt dizzy when ambulating to the chair. GENERAL: Well-appearing, well-nourished and in no acute distress. NECK: Supple without JVD or thyromegaly. LUNGS: Breath sounds diminished to auscultation bilaterally. Respiration equal and unlabored. No wheezes, rales or rhonchi. HEART: Regular rate and rhythm without murmurs, rubs or gallops. S1 and S2 heard. Heart hugger in place EXTREMITIES: Normal range of motion, mild edema. No clubbing or cyanosis. Peripheral pulses intact and strong. VITALS: Blood pressure 95/59, pulse 84, respiratory rate 16, afebrile, SpO2 94% on 3 L nasal cannula TELEMETRY: Sinus rhythm overnight IMPRESSION: Severe aortic stenosis Enlarged aortic root Status post aortic valve replacement Mild coronary artery disease History diabetes History of hypertension PLAN: Continue supportive treatment Pain management per CV surgery Further recommendations to be based on clinical course I am dictating on behalf of Dr Duke Parrish's history/physical and assessment/plan. Objective - Vital Signs Vital signs: Vital Signs Temp 98 F 10/23/22 12:00 Pulse 84 10/23/22 12:00 Resp 16 10/23/22 12:00 BP 95/59 10/23/22 12:00 Pulse Ox 94 L 10/23/22 12:00 FiO2 50 10/19/22 17:15 Intake & Output 10/22/22 10/23/22 10/23/22 18:59 06:59 18:59 Intake Total 952.073 200 494.125 Output Total 430 600 835 Balance 522.073 -400 -340.875 Weight 139 kg Intake: IV 285 200 100 0.9NS FOR PRESSURE BAG 45 Lactated Ringers 1,000 ml 240 200 100 @ 20 mls/hr IV .Q24H NAYA Rx#:[id number] Intake, IV Titration 117.073 44.125 Amount DOPamine DRIP 800 mg In 80.755 44.125 Dextrose/Water 1 250ml. bag @ 1 MCG/KG/MIN 2.409 mls/hr IV .Q24H NAYA Rx#: [id number] Insulin Regular 100 unit 36.318 In Sodium Chloride 0.9% 100 ml @ Per Protocol IV .Q0M NAYA Rx#:[id number] Oral 550 350 Output: Urine 430 600 835 Other: Voiding Method Indwelling Catheter Indwelling Catheter Indwelling Catheter ABP, PAP, CO, CI - Last Documented Arterial Blood Pressure 111/62 Pulmonary Artery Pressure 42/20 Cardiac Output 7.7 Cardiac Index 3.1 - Labs CBC & Chem 7: 10/23/22 05:52 10/23/22 05:52 Labs: Abnormal Lab Results - Last 24 Hours (Table) 10/22/22 10/22/22 10/23/22 Range/Units 16:29 21:21 05:52 RBC 2.92 L (4.30-5.90) m/uL Hgb 8.4 L (13.0-17.5) gm/dL Hct 25.5 L (39.0-53.0) % Sodium (137-145) mmol/L BUN (9-20) mg/dL Glucose (74-99) mg/dL POC Glucose (mg/dL) 150 H 155 H (70-110) mg/dL Calcium (8.4-10.2) mg/dL Total Protein (6.3-8.2) g/dL Albumin (3.5-5.0) g/dL 10/23/22 10/23/22 10/23/22 Range/Units 05:52 06:33 11:32 RBC (4.30-5.90) m/uL Hgb (13.0-17.5) gm/dL Hct (39.0-53.0) % Sodium 136 L (137-145) mmol/L BUN 28 H (9-20) mg/dL Glucose 137 H (74-99) mg/dL POC Glucose (mg/dL) 161 H 157 H (70-110) mg/dL Calcium 8.1 L (8.4-10.2) mg/dL Total Protein 5.6 L (6.3-8.2) g/dL Albumin 3.2 L (3.5-5.0) g/dL
--- NOTE | 2022-10-23 15:33 | P.PN ---
Subjective Progress Note Date: 10/23/22 Principal diagnosis: Aortic valve replacement for severe aortic stenosis 62-year-old male with a known history of hypertension, hyperlipidemia, diabetes type 2 insulin-dependent, osteoarthritis and history of severe aortic stenosis was admitted to the hospital for aortic valve replacement. Patient is status post surgery and postoperative day 1. Patient was on mechanical ventilator perioperatively and was extubated this morning. Currently patient does have soreness at the surgical site. SBP in 90s. Denies any complaints of dizziness or lightheadedness. No chest pain. No cough or sputum production. Patient has been afebrile overnight. Not on pressor support. Patient is being continued on insulin drip. Laboratory showed WBC 10.3 hemoglobin 10.0 and platelets 162, sodium 136 potassium 4.2 chloride 102 bicarb is 26 BUN 15 and creatinine 0.53 liver enzymes are not elevated. Albumin 3.4. EKG showed normal sinus rhythm. Chest x-ray showed approximately 5 to 10% right apical pneumothorax. Chest x-ray this morning showed cardiomegaly and bilateral basilar reflexes favored over infiltrate and small effusion. No overt heart failure. 10/22/2022 the patient is seen and evaluated in ICU; remains on 3 L of oxygen by nasal cannula with O2 saturation above 90-92%. Chest x-ray from today shows no evidence of any pneumothorax. There are atelectatic changes and small effusions lung bases bilaterally. The patient is using the incentive spirometer. -- The patient remains on 2 g of dopamine and he has an adequate urine output. Blood pressure remains off and the patient remains on metoprolol. Chest tubes are removed. --The hemoglobin today is at 8.5. WBC count is at 8.8. Electrolytes are stable still he has a sodium of 135, potassium of 4.1, BUN of 26 with a creatinine of 0.7. LFTs are normal Continue incentive spirometer Continue dopamine and bonita it off to based on the BP and CI Wean down FiO2 as tolerated, currently on 3 liters Chest x-ray was noted and there is no need for chest tube insertion 10/23/2022 --patient is being seen and evaluated in ICU for follow-up. The patient is currently on oxygen at 3 L. He is using the senna spirometer. - The chest x-ray showing some cardiomegaly and presence of pleural effusions bilaterally along with some atelectatic change in lung bases. -- Blood work from today is showing WBC count of 8.4 with a hemoglobin of 8.4 and a platelet count of 164. Electrolytes are all within normal limits. -- Sternal wound is dry clean and intact. The patient's cardiac rhythm is sinus. Patient is off dopamine for now. The patient is moving all 4 extremities. Is following simple commands. His tolerating diet. He is passing gas, no bowel movements. Note that after coming off dopamine, the patient had to be started on a low dose of 1 mcg/kg/m for blood pressure. Patient is seen by critical care and received Lasix 40 mg IV 1 - Remains on metoprolol as recommended by cardiothoracic surgery; Plavix 75 mg daily - Patient has been placed on Levemir 20 units twice a day and insulin drip was discontinued Objective - Vital Signs Vital signs: Vital Signs Temp 98 F 10/23/22 12:00 Pulse 78 10/23/22 13:00 Resp 20 10/23/22 13:00 BP 98/65 10/23/22 13:00 Pulse Ox 92 L 10/23/22 13:00 FiO2 50 10/19/22 17:15 Intake & Output 10/22/22 10/23/22 10/23/22 18:59 06:59 18:59 Intake Total 952.073 200 514.125 Output Total 430 600 935 Balance 522.073 -400 -420.875 Weight 139 kg Intake: IV 285 200 120 0.9NS FOR PRESSURE BAG 45 Lactated Ringers 1,000 ml 240 200 120 @ 20 mls/hr IV .Q24H NAYA Rx#:[id number] Intake, IV Titration 117.073 44.125 Amount DOPamine DRIP 800 mg In 80.755 44.125 Dextrose/Water 1 250ml. bag @ 1 MCG/KG/MIN 2.409 mls/hr IV .Q24H NAYA Rx#: [id number] Insulin Regular 100 unit 36.318 In Sodium Chloride 0.9% 100 ml @ Per Protocol IV .Q0M NAYA Rx#:[id number] Oral 550 350 Output: Urine 430 600 935 Other: Voiding Method Indwelling Catheter Indwelling Catheter Indwelling Catheter ABP, PAP, CO, CI - Last Documented Arterial Blood Pressure 111/62 Pulmonary Artery Pressure 42/20 Cardiac Output 7.7 Cardiac Index 3.1 - Exam Patient is seen and evaluated sitting up comfortably in the bedside chair, no acute distress, awake alert and oriented. HEENT: Normocephalic. Neck is supple. Pupils reactive. Nostrils clear. Oral cavity is moist. Neck reveals no JVD, carotid bruits, or thyromegaly. CHEST EXAMINATION: Trachea is central. Symmetrical expansion. Bibasilar diminished sounds.. Sternal midline incision is bandaged. Chest tube in place. CARDIAC: Normal S1, S2 with no gallops. No murmurs ABDOMEN: Soft. Bowel sounds present. Nontender. No organomegaly. No abdominal bruits. Extremities: reveal no edema. No clubbing or cyanosis Neurologically awake, alert, oriented x2-3 with well-coordinated movements. No gross focal deficits noted. Developmentally delayed. Skin: No rash or skin lesions. Musculoskeletal: No joint swelling or deformity. Normal range of motion. - Labs CBC & Chem 7: 10/23/22 05:52 10/23/22 05:52 Labs: Abnormal Lab Results - Last 24 Hours (Table) 10/22/22 10/22/22 10/23/22 Range/Units 16:29 21:21 05:52 RBC 2.92 L (4.30-5.90) m/uL Hgb 8.4 L (13.0-17.5) gm/dL Hct 25.5 L (39.0-53.0) % Sodium (137-145) mmol/L BUN (9-20) mg/dL Glucose (74-99) mg/dL POC Glucose (mg/dL) 150 H 155 H (70-110) mg/dL Calcium (8.4-10.2) mg/dL Total Protein (6.3-8.2) g/dL Albumin (3.5-5.0) g/dL 10/23/22 10/23/22 10/23/22 Range/Units 05:52 06:33 11:32 RBC (4.30-5.90) m/uL Hgb (13.0-17.5) gm/dL Hct (39.0-53.0) % Sodium 136 L (137-145) mmol/L BUN 28 H (9-20) mg/dL Glucose 137 H (74-99) mg/dL POC Glucose (mg/dL) 161 H 157 H (70-110) mg/dL Calcium 8.1 L (8.4-10.2) mg/dL Total Protein 5.6 L (6.3-8.2) g/dL Albumin 3.2 L (3.5-5.0) g/dL Assessment and Plan Assessment: Status post aortic valve replacement due to severe aortic stenosis. Postoperative day 1. was on mechanical ventilator perioperatively. Extubated this morning. Right apical pneumothorax 5 to 10%. Diabetes type 2 insulin-dependent. Hypertension Hyperlipidemia History of right testicular cancer s/p surgery History of developmental delay Osteoarthritis GERD History of CVA Obesity with BMI 37.4 DVT prophylaxis Plan: Patient is currently in the MICU. Was extubated this morning. Continue the oxygen supplementation and titrate down to room air. Follow-up repeat chest x-rays for resolution of pneumothorax. Will be continued on insulin drip at this time and transition to home dose of subcu insulin once patient continues to be hemodynamically stable. GI and DVT prophylaxis with PPI and heparin subcu Continue with Plavix and metoprolol and telemetry monitoring. We will continue to follow and further recommendations based on the clinical course.
[2022-10-23 16:26] LABS: Glucose,Whole Blood 140 mg/dL (70-110)
[2022-10-23 21:18] LABS: Glucose,Whole Blood 183 mg/dL (70-110)
[2022-10-23] MEDS: ATORVASTATIN 10 MG TAB PO SCH (21:22)
[2022-10-23] MEDS: SENNOSIDES-DOCUSATE SODIUM 1 EACH TAB PO SCH (21:22)
[2022-10-23] MEDS: MONTELUKAST 10 MG TAB PO SCH (21:22)
[2022-10-23] MEDS: TAMSULOSIN 0.4 MG CAP.ER.24H PO SCH (21:22)
[2022-10-24] MEDS: HEPARIN SODIUM,PORCINE/PF 5,000 UNIT/0.5 ML SYRINGE SQ SCH ×3 (00:30→17:28)
[2022-10-24] MEDS: KETOROLAC 15 MG/ML 1 ML VIAL IVP SCH ×3 (00:31→12:09)
[2022-10-24 03:57] LABS: Basophils % (A) 0 %; Eosinophils # (A) 0.2 k/uL (0-0.7); Eosinophils % (A) 4 %; HCT 26.5 % (39.0-53.0); HGB 8.6 gm/dL (13.0-17.5); Lymphocytes # (A) 1.5 k/uL (1.0-4.8); Lymphocytes % (A) 22 %; MCH 28.8 pg (25.0-35.0); MCHC 32.6 g/dL (31.0-37.0); MCV 88.3 fL (80.0-100.0); Mean Platelet Volume 8.4; Monocytes # (A) 0.4 k/uL (0-1.0); Monocytes % (A) 6 %; Neutrophils # (A) 4.4 k/uL (1.3-7.7); Neutrophils % (A) 66 %; Platelet Count 182 k/uL (150-450); RDW 13.8 % (11.5-15.5); WBC 6.6 k/uL (3.8-10.6)
[2022-10-24 04:24] LABS: ALT 14 U/L (4-49); AST 23 U/L (17-59); African American GFR (CKD) >90 (>60 ml/min/1.73 sqM); Albumin 3.3 g/dL (3.5-5.0); Alkaline Phosphatase 52 U/L (38-126); Anion Gap 10 mmol/L; Blood Urea Nitrogen 29 mg/dL (9-20); Calcium 8.1 mg/dL (8.4-10.2); Carbon Dioxide 26 mmol/L (22-30); Chloride 100 mmol/L (98-107); Glucose 140 mg/dL (74-99); Non-African American GFR(CKD) >90 (>60 ml/min/1.73 sqM); Potassium 4.4 mmol/L (3.5-5.1); Sodium 136 mmol/L (137-145); Total Bilirubin 0.4 mg/dL (0.2-1.3); Total Protein 5.8 g/dL (6.3-8.2)
[2022-10-24] MEDS: MIDODRINE 5 MG TAB PO SCH ×3 (06:22→17:28)
[2022-10-24] MEDS: PANTOPRAZOLE 40 MG TABLET PO SCH (06:22)
[2022-10-24 06:58] LABS: Glucose,Whole Blood 165 mg/dL (70-110)
[2022-10-24] MEDS: INSULIN ASPART (NovoLOG) 100 UNIT/ML VIAL SQ SCH ×4 (07:01→21:11)
[2022-10-24] MEDS: INSULIN DETEMIR (LEVEMIR) 100 UNIT/ML SYR SQ SCH ×2 (07:02→21:11)
[2022-10-24] MEDS: IPRATROPIUM-ALBUTEROL 3 ML NEB INHALATION SCH ×4 (07:39→19:42)
[2022-10-24] MEDS: METOPROLOL TARTRATE 50 MG TAB PO SCH ×2 (08:26→21:11)
[2022-10-24] MEDS: CITALOPRAM HYDROBROMIDE 10 MG TAB PO SCH (08:26)
[2022-10-24] MEDS: CLOPIDOGREL 75 MG TAB PO SCH (08:26)
--- NOTE | 2022-10-24 08:33 | XR ---
EXAMINATION TYPE: XR chest 2V DATE OF EXAM: 10/24/2022 COMPARISON: 10/23/2022 TECHNIQUE: PA and lateral views submitted. HISTORY: Postop FINDINGS: The heart is enlarged. Postsurgical changes with no pneumothorax. There is a bilateral infiltrate ple ural effusion. Osseous structures are stable. IMPRESSION: 1. Diffuse pleural parenchymal changes could be on the basis of CHF correlate clinically to exclude u nderlying pneumonia.
[2022-10-24] MEDS ORDERED: FUROSEMIDE 10 MG/ML 2 ML VIAL IV STA (08:43)
--- NOTE | 2022-10-24 09:26 | P.PN ---
Subjective Progress Note Date: 10/24/22 Principal diagnosis: Severe tricuspid calcific aortic valve stenosis. Previous medical history of diastolic dysfunction with left ventricular hypertrophy, previous syncopal episode likely vasovagal, hypertension, hyperlipidemia, diabetes mellitus type 2, obstructive sleep apnea, asthma, testicular cancer in 2006, BPH, previous TIA with no residual deficits, GERD, previous tobacco use, covid in 04/2021, developmental delay. Preoperative nasal swab positive for MSSA, treated. Family history of premature coronary artery disease (mom diagnosed in her early 50s) POD #5 Aortic valve replacement with 27 mm Coker Inspiris bovine pericardial valve, root enlargement with hemashield patch (Bruno Hendrickson), epi-aortic ultrasound, occlusion of left atrial appendage with 35 mm AtriCure clip. Postoperative acute blood loss anemia, expected given hemodilution and cardiopulmonary bypass. Right small apical pneumothorax, inconsequential, not a complication The patient was seen and examined in follow-up today 10/24/2022 at his bedside in the intensive care unit. He is currently sitting up to the bedside chair, is awake, alert, oriented 3 and is in no acute distress. He remains hemodynamically stable and is currently on no inotropic or pressor support. Denies any complaints of pain or shortness of breath. Oxygen saturations are 92% on room air and he is achieving 1500 mL on his incentive spirometry with encouragement. Bedside telemetry showing normal sinus rhythm heart rate 87 BPM. Atrial and ventricular epicardial pacemaker wires remained in place and a grounded. He reports he has been ambulating in his room with standby assistance is from therapy and nursing staff but is unable to go much further due to a chronic hip problem. Laboratory and chest x-ray results reviewed. He was given Lasix 40 mg IV 1 yesterday with good diuresis, although reports once his Esparza catheter was discontinued he is been having some episodes of incontinence. Objective - Vital Signs Vital signs: Vital Signs Temp 98.3 F 10/24/22 04:00 Pulse 86 10/24/22 07:49 Resp 25 H 10/24/22 07:00 BP 104/61 10/24/22 07:00 Pulse Ox 95 10/24/22 07:42 FiO2 50 10/19/22 17:15 Intake & Output 10/23/22 10/24/22 10/24/22 18:59 06:59 18:59 Intake Total 534.125 600 Output Total 1195 340 0 Balance -660.875 260 0 Weight 137.5 kg Intake: IV 140 Lactated Ringers 1,000 ml 140 @ 20 mls/hr IV .Q24H NAYA Rx#:[id number] Intake, IV Titration 44.125 Amount DOPamine DRIP 800 mg In 44.125 Dextrose/Water 1 250ml. bag @ 1 MCG/KG/MIN 2.409 mls/hr IV .Q24H NAYA Rx#: [id number] Oral 350 600 Output: Urine 1195 340 0 Other: Voiding Method Indwelling Catheter Indwelling Catheter # Voids 1 ABP, PAP, CO, CI - Last Documented Arterial Blood Pressure 111/62 Pulmonary Artery Pressure 42/20 Cardiac Output 7.7 Cardiac Index 3.1 - Exam CONSTITUTIONAL: Sitting up to the bedside chair in the intensive care unit, leslie ears comfortable, cooperative, no apparent acute distress. HEENT: Neck is supple, no JVD, no lymphadenopathy. RESPIRATORY: Lungs sounds essentially clear throughout, diminished to his bilateral bases, with few scattered crackles to his bilateral bases. Respirations are symmetrical and nonlabored. Currently on room air with oxygen saturations 92%. Able to achieve 1500 mL on his incentive spirometry. Strong cough. CARDIOVASCULAR: Regular rhythm and rate. S1 and S2 present, negative for S3, gallop or murmur. Sternum is stable. Palpable peripheral pulses bilaterally, +1 edema to his bilateral lower extremities. No calf pain or tenderness noted. Heart hugger in place with patient demonstrating appropriate use. Knee-high SHIRLENE hose and sequential compression devices in place to his bilateral lower extremities. Bedside telemetry showing normal sinus rhythm heart rate 87 BPM. GASTROINTESTINAL: Abdomen soft, nontender, nondistended. Active bowel sounds present 4 quadrants. Tolerating diet. Passing flatus. No guarding or rigidity. GENITOURINARY: Esparza present draining clear, yellow urine. Urine output 200 mL recorded in the last 8 hours, although the patient has been having episodes of incontinence. INTEGUMENTARY: Skin is warm and dry with no evidence of clubbing or cyanosis. Midline sternal incision clean dry and well approximated, covered with dry intact dressing. NEUROLOGIC: Cranial nerves II through XII intact. No focal deficits. MUSKULOSKELETAL: Able to move all extremities, strength equal bilaterally, generalized weakness. PSYCHIATRIC: Alert and oriented to person place and time, appropriate affect, intact judgment and insight. INVASIVE LINES AND TUBES: Atrial and ventricular epicardial pacemaker wires present, and are currently grounded. - Allied health notes Allied health notes reviewed: nursing - Labs CBC & Chem 7: 10/24/22 03:15 10/24/22 03:15 Labs: Abnormal Lab Results - Last 24 Hours (Table) 10/23/22 10/23/22 10/23/22 Range/Units 11:32 16:25 21:16 RBC (4.30-5.90) m/uL Hgb (13.0-17.5) gm/dL Hct (39.0-53.0) % Sodium (137-145) mmol/L BUN (9-20) mg/dL Glucose (74-99) mg/dL POC Glucose (mg/dL) 157 H 140 H 183 H (70-110) mg/dL Calcium (8.4-10.2) mg/dL Total Protein (6.3-8.2) g/dL Albumin (3.5-5.0) g/dL 10/24/22 10/24/22 10/24/22 Range/Units 03:15 03:15 06:57 RBC 3.00 L (4.30-5.90) m/uL Hgb 8.6 L (13.0-17.5) gm/dL Hct 26.5 L (39.0-53.0) % Sodium 136 L (137-145) mmol/L BUN 29 H (9-20) mg/dL Glucose 140 H (74-99) mg/dL POC Glucose (mg/dL) 165 H (70-110) mg/dL Calcium 8.1 L (8.4-10.2) mg/dL Total Protein 5.8 L (6.3-8.2) g/dL Albumin 3.3 L (3.5-5.0) g/dL - Imaging and Cardiology Chest x-ray: report reviewed, image reviewed Assessment and Plan Assessment: Severe tricuspid calcific aortic valve stenosis, status post bioprosthetic aortic valve replacement Diastolic dysfunction with left ventricular hypertrophy Previous syncopal episode likely vasovagal Hypertension, currently hypotensive Hyperlipidemia, treated cholesterol 146, LDL 65, triglycerides 194 Diabetes mellitus type 2, hemoglobin A1c 7.6% Obstructive sleep apnea Asthma, FEV1 70% of predicted Testicular cancer in 2006 BPH Previous TIA with no residual deficits GERD Previous tobacco use Covid in 04/2021 Developmental delay Preoperative nasal swab positive for MSSA, treated Family history of premature coronary artery disease (mom diagnosed in her early 50s) Postoperative acute blood loss anemia and thrombocytopenia, expected Right small apical pneumothorax, inconsequential, resolved Plan: Continue to maximize medical therapy with statin, Plavix, beta shaina. Will i ncrease metoprolol tartrate to 50 mg twice a day. No aspirin due to anaphylactic ALLERGY. Continue Midodrine 10 mg by mouth 3 times a day. Encourage incentive spirometry use 10 times every hour while awake. Bronchodilators per pulmonology. Increase activity, ambulate as tolerated. PT/OT/cardiac rehab following. Will monitor daily labs and chest x-rays. Electrolyte replacement per protocol. GI/DVT prophylaxis. Pain control per current medication regimen. Avoid narcotics. Insulin management per internal medicine, patient is diabetic, needs tight blood sugar control. Continue to record strict and accurate I's and O's. Bladder scan every 6 hours and when necessary postvoid residuals, if greater than 300 mL of urine May straight cath. Daily weights. Lasix 20 mg 1 now. Shower daily. Atrial and ventricular epicardial pacemaker wires will be removed today, bed re st for 1 hour post pacemaker wire removal. More recommendations to follow based on patient's clinical course. Time with Patient: Greater than 30
[2022-10-24 11:41] LABS: Glucose,Whole Blood 138 mg/dL (70-110)
--- NOTE | 2022-10-24 11:42 | P.PN ---
Subjective Progress Note Date: 10/24/22 Principal diagnosis: Severe aortic stenosis, status post aortic valve replacement, postoperative day #5 62-year-old male patient, underwent an aortic valve replacement for severe aortic stenosis. The patient currently is in the intensive care unit intubated on a mechanical ventilator, propofol running at 20 microvascular kilogram. He is intubated on a mechanical ventilator, assist control mode at the rate of 16, tidal volume of 600, FiO2 has been dropped down to 60% and a PEEP is currently at 10. The patient has a mediastinal chest tube and output is in order of 20 mL since his arrival from the operating room. PT is at 7.39 with a pCO2 of 42 and pO2 of 262. Hemodynamically, the patient has a PEA pressures of 39/24. Cardiac output is at 7.6 with an index of 3.0. Adequate urine output. Adequate blood pressure. Cardiac rhythm is sinus. He is on insulin drip at 3 units an hour for blood sugar control. His hemoglobin currently is at 10.1. Platelet count is at 153. No other active issues for now. Chest x-ray shows a limited 5% pneumothorax on the right. ET tube is in a good location. On today's evaluation of 10/20/2022, the patient is extubated and the patient is currently on oxygen at 2 L nasal cannula. His calm and comfortable. Adequate mentation. Moving all 4 extremities without any limitation. Using the incentive spirometer and is falling approximately 1000. He has a mediastinal chest tube. He has a [place] catheter in place. Pulmonary artery pressures of 32/11. CVP is at 7. Cardiac output is at 7.7 and index of 3.1. Chest x-ray shows no acute abnormalities. No evidence of any pneumothorax on today's chest x-ray. His cardiac rhythm is sinus. His WBC was a 10.3 with a hemoglobin of 10 and a platelet count of 162. Sodium is at 136, BUN is a 50 with a creatinine of 0.53. Patient is currently on Plavix 75 mg by mouth daily. He is on metoprolol 12.5 mg by mouth twice a day. He is on insulin drip running at the rate of 5 units an hour. He was extubated yesterday without any major difficulties. He has not ambulated yet. Output from the mediastinal chest tube has been minimal On 10/21/2022, the patient is being seen for a follow-up. Early in the evening yesterday, the patient became acutely hypoxic. His oxygen requirements went up from 2 L up to 15 L. This was done to bring a saturation above 90%. A repeat chest x-ray was done and the patient had a tiny right apical pneumothorax which is essentially unchanged. It has some pulmonary congestion and pleural effusions also more so on the left. He was given a dose of Lasix 20 mg IV push. He was also noted to have a drop in the cardiac output down to an index of 1.7. He was started on dopamine which is running at 3 mcg/kg/m. The morning cardiac index is up to 2.3. Pulmonary artery pressures are 39/19. This morning, his pulse ox is around 96%. He is using the incentive spirometer. He is still on dopamine. Most recent systolic blood pressure is 90/49. Urine output is in order of30-40 mL an hour. The patient's hemoglobin is stable at 9.3 with a white cell count of 10.3. His sodium level is at 136, BUN is 18 with a creatinine of 0.6 and a potassium level of 4.1. LFTs are normal. Blood sugars under adequate control. He has a single mediastinal chest tube. Output from the chest tube is minimal at this point in time. No evidence of any air leak. Cardiac rhythm is sinus. His still on metoprolol 25 mg by mouth twice a day. CT surgery wanted to continue the metoprolol due to concerns of diastolic dysfunction. He is awake and alert. Pain is under good control. Communicating. No focal neurological deficits. 10/22/2022 the patient is on 3 L of oxygen by nasal cannula. Chest x-ray from today shows no evidence of any pneumothorax. There are atelectatic changes and small effusions lung bases bilaterally. The patient is using the incentive spirometer. Breathing effort several other week. Cardiac index is 2.6 with an output of 6.4. PA pressures are 40/18. The patient remains on 2 g of dopamine and he has an adequate urine output. Blood pressure remains off and the patient remains on metoprolol. Chest tubes are removed. The hemoglobin today is at 8.5. WBC count is at 8.8. Electrolytes are stable still he has a sodium of 135, potassium of 4.1, BUN of 26 with a creatinine of 0.7. LFTs are normal. Urine operas adequate for now. Moving all 4 extremities without any limitation. Cardiac rhythm is sinus. Pulse ox is 90-91% on 3 L O2 nasal cannula. 10/23/2022, the patient is being seen for a follow-up. The patient is currently on oxygen at 3 L. He is using the Omniturena spirometer. All of the tubes are out. The chest x-ray showing some cardiomegaly and presence of pleural effusions bilaterally along with some atelectatic change in lung bases. Sternal wound is dry clean and intact. The patient's cardiac rhythm is sinus. Patient is off dopamine for now. Blood work from today is showing WBC count of 8.4 with a hemoglobin of 8.4 and a platelet count of 164. Electrolytes are all within norm al limits. The patient is moving all 4 extremities. Is following simple commands. His tolerating diet. He is passing gas, no bowel movements. Note that after coming off dopamine, the patient had to be started on a low dose of 1 mcg/kg/m for blood pressure. Patient was reevaluated today on 10/24/2022, remains in the ICU, patient is on room air, off dopamine, denies any cough wheezing or shortness of breath, pain seems to be relatively under control. No major issues over the last 24 hours. WBC count 6.6 hemoglobin is 8.6 index was a normal renal profile is normal. Patient is sitting up in the bedside chair, awake, alert oriented, not in any distress. Patient is able to achieve 1500 mL on his incentive spirometry. Chest x-ray showed nonspecific parenchymal changes, mild congestive changes, no clear-cut evidence of pneumonia. Patient is known to have history of diastolic congestive heart failure. His atrial and ventricular epicardial pacemaker wires are supposed to be removed today. Pain seems to be under control. Patient is on GI and DVT prophylaxis Objective - Vital Signs Vital signs: Vital Signs Temp 98.3 F 10/24/22 08:10 Pulse 80 10/24/22 11:28 Resp 10/24/22 10:00 BP 127/86 10/24/22 10:00 Pulse Ox 91 L 10/24/22 10:00 FiO2 50 10/19/22 17:15 Intake & Output 10/23/22 10/24/22 10/24/22 18:59 06:59 18:59 Intake Total 534.125 600 200 Output Total 1195 340 200 Balance -660.875 260 0 Weight 137.5 kg Intake: IV 140 Lactated Ringers 1,000 ml 140 @ 20 mls/hr IV .Q24H NAYA Rx#:[id number] Intake, IV Titration 44.125 Amount DOPamine DRIP 800 mg In 44.125 Dextrose/Water 1 250ml. bag @ 1 MCG/KG/MIN 2.409 mls/hr IV .Q24H NAYA Rx#: [id number] Oral 350 600 200 Output: Urine 1195 340 200 Other: Voiding Method Indwelling Catheter Indwelling Catheter # Voids 1 ABP, PAP, CO, CI - Last Documented Arterial Blood Pressure 111/62 Pulmonary Artery Pressure 42/20 Cardiac Output 7.7 Cardiac Index 3.1 - Exam Physical Exam: Revealed 62-year-old white male in no distress, on room air, Head: Atraumatic, normocephalic. HEENT:[Neck is supple.] [No neck masses.] [No thyromegaly.] [No JVD.] Chest: [Symmetrical chest expansion, minimal crackles at the bases no rhonchi and no wheezes] midline sternal incision is clean and dry. Cardiac Exam: [Normal S1 and S2, no S3 gallop, 2/6 systolic murmur throughout the precordium. Abdomen: [Soft, nontender, no megaly, no rebound, no guarding, normal bowel sounds.] Extremities: [No clubbing, no edema, no cyanosis.] Neurological Exam: [No focal neurologic deficit.] Musculoskeletal: No deformities and no limitation in range motion Psychiatric: Normal mood affect and normal mental status examination. Skin: No rashes. - Labs CBC & Chem 7: 10/24/22 03:15 10/24/22 03:15 Labs: Abnormal Lab Results - Last 24 Hours (Table) 10/23/22 10/23/22 10/23/22 Range/Units 11:32 16:25 21:16 RBC (4.30-5.90) m/uL Hgb (13.0-17.5) gm/dL Hct (39.0-53.0) % Sodium (137-145) mmol/L BUN (9-20) mg/dL Glucose (74-99) mg/dL POC Glucose (mg/dL) 157 H 140 H 183 H (70-110) mg/dL Calcium (8.4-10.2) mg/dL Total Protein (6.3-8.2) g/dL Albumin (3.5-5.0) g/dL 10/24/22 10/24/22 10/24/22 Range/Units 03:15 03:15 06:57 RBC 3.00 L (4.30-5.90) m/uL Hgb 8.6 L (13.0-17.5) gm/dL Hct 26.5 L (39.0-53.0) % Sodium 136 L (137-145) mmol/L BUN 29 H (9-20) mg/dL Glucose 140 H (74-99) mg/dL POC Glucose (mg/dL) 165 H (70-110) mg/dL Calcium 8.1 L (8.4-10.2) mg/dL Total Protein 5.8 L (6.3-8.2) g/dL Albumin 3.3 L (3.5-5.0) g/dL Assessment and Plan Assessment: Impression: Severe aortic valve stenosis, status post bioprosthetic aortic valve replacement Chronic diastolic congestive heart failure Benign essential hypertension Previous vasovagal syncopal episode. Type 2 diabetes with poorly controlled hemoglobin A1c of 7.6% Obstructive sleep apnea syndrome History of asthma with FEV1 of 70% History of testicular cancer Previous TIA History of COVID-19 infection in 2020 Family history of premature coronary artery disease Recommendation: Continue incentive spirometry Continue statin and Plavix as well as beta blockers no aspirins because of his anaphylactic history to aspirin. Continue ambulation. Increase activity as tolerated Continue GI and DVT prophylaxis Continue close monitoring of sugars and treat accordingly with subcu insulin Continue to maximize medical therapy Continue bronchodilators Patient could be transferred to a monitor bed on selective later today if cleared by other consultants on the case. We will continue to follow Time with Patient: Less than 30
[2022-10-24 12:02] LABS: Glucose,Whole Blood 129 mg/dL (70-110)
[2022-10-24 16:44] LABS: Glucose,Whole Blood 171 mg/dL (70-110)
[2022-10-24] MEDS: SENNOSIDES-DOCUSATE SODIUM 1 EACH TAB PO SCH (21:11)
[2022-10-24] MEDS: TAMSULOSIN 0.4 MG CAP.ER.24H PO SCH (21:12)
[2022-10-24] MEDS: ATORVASTATIN 10 MG TAB PO SCH (21:12)
[2022-10-24] MEDS: MONTELUKAST 10 MG TAB PO SCH (21:12)
--- NOTE | 2022-10-24 22:41 | PN ---
PROGRESS NOTE SUBJECTIVE: Rony is a 62-year-old gentleman, who has history of severe aortic stenosis and underwent aortic valve replacement. Today is postop day #5, doing well and is free of symptoms. OBJECTIVE: GENERAL: He is comfortable at rest. VITAL SIGNS: Stable. Remains in normal sinus rhythm. CHEST: Reveals good air entry bilaterally. HEART: Reveals first and second heart sounds. No gallop. No murmur. ABDOMEN: Soft. EXTREMITIES: Did not reveal any edema. LABORATORY DATA: Labs show a hemoglobin of 8.6, platelet count is 180. Potassium is 4.4, creatinine is 0.6. MEDICATIONS: The patient is currently on, 1. Lipitor. 2. Plavix. 3. Insulin. 4. Lopressor 50 b.i.d. 5. Flomax. ASSESSMENT AND PLAN: Severe symptomatic aortic stenosis, status post aortic valve replacement. PLAN: The patient is doing well. He will hopefully home within the next 24 hours. MMODL / IJN: [id number] /
[2022-10-24] MEDS ORDERED: NOREPINEPHRIN 4 MG-0.9% NS PMX 4 MG/250 ML ML IV ONE (23:31)
[2022-10-25] MEDS: HEPARIN SODIUM,PORCINE/PF 5,000 UNIT/0.5 ML SYRINGE SQ SCH ×3 (00:59→15:15)
--- NOTE | 2022-10-25 01:15 | P.PN ---
Subjective 62-year-old male with a known history of hypertension, hyperlipidemia, diabetes type 2 insulin-dependent, osteoarthritis and history of severe aortic stenosis was admitted to the hospital for aortic valve replacement. Patient is status post surgery and postoperative day 1. Patient was on mechanical ventilator perioperatively and was extubated this morning. Currently patient does have soreness at the surgical site. SBP in 90s. Denies any com plaints of dizziness or lightheadedness. No chest pain. No cough or sputum production. Patient has been afebrile overnight. Not on pressor support. Patient is being continued on insulin drip. Laboratory showed WBC 10.3 hemoglobin 10.0 and platelets 162, sodium 136 potassium 4.2 chloride 102 bicarb is 26 BUN 15 and creatinine 0.53 liver enzymes are not elevated. Albumin 3.4. EKG showed normal sinus rhythm. Chest x-ray showed approximately 5 to 10% right apical pneumothorax. Chest x-ray this morning showed cardiomegaly and bilateral basilar reflexes favored over infiltrate and small effusion. No overt heart failure. 10/22/2022 the patient is seen and evaluated in ICU; remains on 3 L of oxygen by nasal cannula with O2 saturation above 90-92%. Chest x-ray from today shows no evidence of any pneumothorax. There are atelectatic changes and small effusions lung bases bilaterally. The patient is using the incentive spirometer. -- The patient remains on 2 g of dopamine and he has an adequate urine output. Blood pressure remains off and the patient remains on metoprolol. Chest tubes are removed. --The hemoglobin today is at 8.5. WBC count is at 8.8. Electrolytes are stable still he has a sodium of 135, potassium of 4.1, BUN of 26 with a creatinine of 0.7. LFTs are normal Continue incentive spirometer Continue dopamine and bonita it off to based on the BP and CI Wean down FiO2 as tolerated, currently on 3 liters Chest x-ray was noted and there is no need for chest tube insertion 10/23/2022 --patient is being seen and evaluated in ICU for follow-up. The patient is currently on oxygen at 3 L. He is using the senna spirometer. - The chest x-ray showing some cardiomegaly and presence of pleural effusions bilaterally along with some atelectatic change in lung bases. -- Blood work from today is showing WBC count of 8.4 with a hemoglobin of 8.4 and a platelet count of 164. Electrolytes are all within normal limits. -- Sternal wound is dry clean and intact. The patient's cardiac rhythm is sinus. Patient is off dopamine for now. The patient is moving all 4 extremities. Is following simple commands. His tolerating diet. He is passing gas, no bowel movements. Note that after coming off dopamine, the patient had to be started on a low dose of 1 mcg/kg/m for blood pressure. Patient is seen by critical care and received Lasix 40 mg IV 1 - Remains on metoprolol as recommended by cardiothoracic surgery; Plavix 75 mg daily - Patient has been placed on Levemir 20 units twice a day and insulin drip was discontinued 10/24/2022 patient is status post aortic valve replacement surgery, this morning still complaining from pain at the surgical site and still some mild exertional dyspnea, he rinses pain at 7/10 in severity. No prostate and aggravating factors He remains on amiodarone, insulin, his home dose of Levemir, ozempic , metformin on hold. He is currently on Plavix Hemoglobin 8.6 chemo hemoglobin A1c 7.6% Chest x-ray: Diffuse pleural parenchymal changes. Objective - Vital Signs Vital signs: Vital Signs Temp 98.3 F 10/24/22 08:10 Pulse 80 10/24/22 11:38 Resp 15 10/24/22 10:00 BP 127/86 10/24/22 10:00 Pulse Ox 91 L 10/24/22 10:00 FiO2 50 10/19/22 17:15 Intake & Output 10/23/22 10/24/22 10/24/22 18:59 06:59 18:59 Intake Total 534.125 600 200 Output Total 1195 340 200 Balance -660.875 260 0 Weight 137.5 kg Intake: IV 140 Lactated Ringers 1,000 ml 140 @ 20 mls/hr IV .Q24H NAYA Rx#:[id number] Intake, IV Titration 44.125 Amount DOPamine DRIP 800 mg In 44.125 Dextrose/Water 1 250ml. bag @ 1 MCG/KG/MIN 2.409 mls/hr IV .Q24H NAYA Rx#: [id number] Oral 350 600 200 Output: Urine 1195 340 200 Other: Voiding Method Indwelling Catheter Indwelling Catheter # Voids 1 ABP, PAP, CO, CI - Last Documented Arterial Blood Pressure 111/62 Pulmonary Artery Pressure 42/20 Cardiac Output 7.7 Cardiac Index 3.1 - Exam GENERAL: The patient is alert and oriented x3, not in any acute distress. Well developed, well nourished. HEENT: Pupils are round and equally reacting to light. EOMI. No scleral icterus. No conjunctival pallor. Normocephalic, atraumatic. No pharyngeal erythema. No thyromegaly. CARDIOVASCULAR: S1 and S2 present. No murmurs, rubs, or gallops. -PULMONARY: Chest is clear to auscultation, no wheezing . no crackles. surgical site closed and healing ABDOMEN: Soft, nontender, nondistended, normoactive bowel sounds. No palpable organomegaly. MUSCULOSKELETAL: No joint swelling or deformity. EXTREMITIES: No cyanosis, clubbing, or pedal edema. NEUROLOGICAL: Gross neurological examination did not reveal any focal deficits. SKIN: No rashes. no petechiae. - Labs CBC & Chem 7: 10/24/22 03:15 10/24/22 03:15 Labs: Abnormal Lab Results - Last 24 Hours (Table) 10/23/22 10/23/22 10/24/22 Range/Units 16:25 21:16 03:15 RBC 3.00 L (4.30-5.90) m/uL Hgb 8.6 L (13.0-17.5) gm/dL Hct 26.5 L (39.0-53.0) % Sodium (137-145) mmol/L BUN (9-20) mg/dL Glucose (74-99) mg/dL POC Glucose (mg/dL) 140 H 183 H (70-110) mg/dL Calcium (8.4-10.2) mg/dL Total Protein (6.3-8.2) g/dL Albumin (3.5-5.0) g/dL 10/24/22 10/24/22 10/24/22 Range/Units 03:15 06:57 11:39 RBC (4.30-5.90) m/uL Hgb (13.0-17.5) gm/dL Hct (39.0-53.0) % Sodium 136 L (137-145) mmol/L BUN 29 H (9-20) mg/dL Glucose 140 H (74-99) mg/dL POC Glucose (mg/dL) 165 H 138 H (70-110) mg/dL Calcium 8.1 L (8.4-10.2) mg/dL Total Protein 5.8 L (6.3-8.2) g/dL Albumin 3.3 L (3.5-5.0) g/dL Assessment and Plan Assessment: Aortic stenosis, Status post aortic valve replacement surgery on 10/19. . was on mechanical ventilator perioperatively. Extubated later on Right apical pneumothorax 5 to 10%. Right upper lobe nodule, 9 mm, need PET scan as an outpatient Diabetes type 2 insulin-dependent. Hypertension Hyperlipidemia History of right testicular cancer s/p surgery History of developmental delay Osteoarthritis GERD History of CVA Obesity with BMI 37.4 Plan: continue with Plavix Continue with amiodarone Continue with insulin, hold Levemir, symmetrical tight and metformin currently cardiothoracic surgery primary tumor on the case. Pulmonary/critical care team on the case Labs and medication were reviewed.. Continue same treatment. Continue with symptomatic treatment. Resume home medication. Monitor labs and vitals. DVT and GI prophylaxis. Further recommendations as per clinical course of the patient DVT prophylaxis: Subcutaneous heparin GI Prophylaxis: Ppi
[2022-10-25 05:50] LABS: HCT 26.7 % (39.0-53.0); HGB 8.7 gm/dL (13.0-17.5); MCH 29.7 pg (25.0-35.0); MCHC 32.7 g/dL (31.0-37.0); Mean Platelet Volume 7.7; Platelet Count 208 k/uL (150-450); RBC 2.93 m/uL (4.30-5.90); RDW 13.4 % (11.5-15.5); WBC 7.5 k/uL (3.8-10.6)
[2022-10-25 06:03] LABS: African American GFR (CKD) >90 (>60 ml/min/1.73 sqM); Anion Gap 8 mmol/L; Blood Urea Nitrogen 24 mg/dL (9-20); Calcium 8.4 mg/dL (8.4-10.2); Carbon Dioxide 27 mmol/L (22-30); Chloride 102 mmol/L (98-107); Glucose 128 mg/dL (74-99); Magnesium 2.1 mg/dL (1.6-2.3); Non-African American GFR(CKD) >90 (>60 ml/min/1.73 sqM); Potassium 4.3 mmol/L (3.5-5.1); Sodium 137 mmol/L (137-145)
[2022-10-25 07:07] LABS: Glucose,Whole Blood 138 mg/dL (70-110)
[2022-10-25] MEDS: INSULIN ASPART (NovoLOG) 100 UNIT/ML VIAL SQ SCH ×4 (07:12→21:20)
[2022-10-25] MEDS: PANTOPRAZOLE 40 MG TABLET PO SCH (07:12)
[2022-10-25] MEDS: MIDODRINE 5 MG TAB PO SCH (07:12)
[2022-10-25] MEDS: INSULIN DETEMIR (LEVEMIR) 100 UNIT/ML SYR SQ SCH ×2 (07:13→21:20)
[2022-10-25] MEDS: IPRATROPIUM-ALBUTEROL 3 ML NEB INHALATION SCH ×4 (08:38→21:08)
--- NOTE | 2022-10-25 08:38 | XR ---
EXAMINATION TYPE: XR chest 2V DATE OF EXAM: 10/25/2022 COMPARISON: 10/24/2022 TECHNIQUE: PA and lateral views submitted. HISTORY: Postop FINDINGS: Bilateral consolidation and small effusion with cardiomegaly and postoperative changes. No pneumothor ax. Hypertrophic and degenerative change of the spine. IMPRESSION: 1. Diffuse pleural-parenchymal changes correlate for CHF otherwise consider pneumonia.
[2022-10-25] MEDS: CITALOPRAM HYDROBROMIDE 10 MG TAB PO SCH (08:44)
[2022-10-25] MEDS: CLOPIDOGREL 75 MG TAB PO SCH (08:44)
[2022-10-25] MEDS: METOPROLOL TARTRATE 25 MG TAB PO SCH ×2 (08:45→21:21)
[2022-10-25] MEDS ORDERED: FUROSEMIDE 10 MG/ML 2 ML VIAL IV STA (08:49)
--- NOTE | 2022-10-25 09:10 | P.PN ---
Subjective Progress Note Date: 10/25/22 Principal diagnosis: Severe tricuspid calcific aortic valve stenosis. Previous medical history of diastolic dysfunction with left ventricular hypertrophy, previous syncopal episode likely vasovagal, hypertension, hyperlipidemia, diabetes mellitus type 2, obstructive sleep apnea, asthma, testicular cancer in 2006, BPH, previous TIA with no residual deficits, GERD, previous tobacco use, covid in 04/2021, developmental delay. Preoperative nasal swab positive for MSSA, treated. Family history of premature coronary artery disease (mom diagnosed in her early 50s) POD #6 Aortic valve replacement with 27 mm Coker Inspiris bovine pericardial valve, root enlargement with hemashield patch (Bruno Hendrickson), epi-aortic ultrasound, occlusion of left atrial appendage with 35 mm AtriCure clip. Postoperative acute blood loss anemia, expected given hemodilution and cardiopulmonary bypass. Right small apical pneumothorax, inconsequential, not a complication The patient was seen and examined in follow-up today 10/25/2022 at his bedside in the intensive care unit. Currently sitting up to the bedside chair, is awake, alert, oriented 3 and is in no acute distress. Denies any complaints of pain or shortness of breath at this time and states that he is happy this morning and feeling good. Oxygen saturations are 93% on room air and he is achieving 1500 mL on his incentive spirometry with encouragement. He was given a dose of Lasix 20 mg IV 1 yesterday with good diuresis, and he has been having some episodes of incontinence. Bedside telemetry showing normal sinus rhythm h eart rate 96 BPM. He has been afebrile the last 24 hours. He remains hemodynamically stable and is currently on no inotropic or pressor support. Chest x-ray and laboratory results reviewed. He has been up ambulating in the intensive care unit hallway with standby assistance with nursing staff and he had his first postoperative shower yesterday. Atrial and ventricular epicardial pacemaker wires removed yesterday without incident. Objective - Vital Signs Vital signs: Vital Signs Temp 97.8 F 10/25/22 08:00 Pulse 92 10/25/22 08:51 Resp 22 10/25/22 08:00 BP 135/77 10/25/22 08:00 Pulse Ox 93 L 10/25/22 08:00 FiO2 50 10/19/22 17:15 Intake & Output 10/24/22 10/25/22 10/25/22 18:59 06:59 18:59 Intake Total 200 490 Output Total 875 2 1 Balance -675 488 -1 Weight 137 kg Intake: Oral 200 490 Output: Urine 875 0 1 Urine/Stool Mix 2 Other: Voiding Method Toilet Urinal # Voids 1 1 # Bowel Movements 1 1 ABP, PAP, CO, CI - Last Documented Arterial Blood Pressure 111/62 Pulmonary Artery Pressure 42/20 Cardiac Output 7.7 Cardiac Index 3.1 - Exam CONSTITUTIONAL: Sitting up to the bedside chair in the intensive care unit, appears comfortable, cooperative, no apparent acute distress. HEENT: Neck is supple, no JVD, no lymphadenopathy. RESPIRATORY: Lungs sounds essentially clear throughout, few scattered crackles to his bilateral bases. Respirations are symmetrical and nonlabored. Currently on room air with oxygen saturations 93%. Able to achieve 1500 mL on his incentive spirometry. Strong cough. CARDIOVASCULAR: Regular rhythm and rate. S1 and S2 present, negative for S3, gallop or murmur. Sternum is stable. Palpable peripheral pulses bilaterally, +1 edema to his bilateral lower extremities. No calf pain or tenderness noted. Heart hugger in place with patient demonstrating appropriate use. Knee-high SHIRLENE hose and sequential compression devices in place to his bilateral lower extremities. Bedside telemetry showing normal sinus rhythm heart rate 96 BPM. GASTROINTESTINAL: Abdomen soft, nontender, nondistended. Active bowel sounds present 4 quadrants. Tolerating diet. Passing flatus. No guarding or rigidity. Bowel movement this morning 10/25/2022. GENITOURINARY: Continues to void. Having episodes of incontinence. INTEGUMENTARY: Skin is warm and dry with no evidence of clubbing or cyanosis. Midline sternal incision clean dry and well approximated, covered with dry intact dressing. NEUROLOGIC: Cranial nerves II through XII intact. No focal deficits. MUSKULOSKELETAL: Able to move all extremities, strength equal bilaterally, generalized weakness. PSYCHIATRIC: Alert and oriented to person place and time, appropriate affect, intact judgment and insight. - Allied health notes Allied health notes reviewed: nursing - Labs CBC & Chem 7: 10/25/22 05:17 10/25/22 05:17 Labs: Abnormal Lab Results - Last 24 Hours (Table) 10/24/22 10/24/22 10/24/22 Range/Units 11:39 12:01 16:42 RBC (4.30-5.90) m/uL Hgb (13.0-17.5) gm/dL Hct (39.0-53.0) % BUN (9-20) mg/dL Creatinine (0.66-1.25) mg/dL Glucose (74-99) mg/dL POC Glucose (mg/dL) 138 H 129 H 171 H (70-110) mg/dL 10/25/22 10/25/22 10/25/22 Range/Units 05:17 05:17 07:05 RBC 2.93 L (4.30-5.90) m/uL Hgb 8.7 L (13.0-17.5) gm/dL Hct 26.7 L (39.0-53.0) % BUN 24 H (9-20) mg/dL Creatinine 0.63 L (0.66-1.25) mg/dL Glucose 128 H (74-99) mg/dL POC Glucose (mg/dL) 138 H (70-110) mg/dL - Imaging and Cardiology Chest x-ray: report reviewed, image reviewed Assessment and Plan Assessment: Severe tricuspid calcific aortic valve stenosis, status post bioprosthetic aortic valve replacement Diastolic dysfunction with left ventricular hypertrophy Previous syncopal episode likely vasovagal Hypertension Hyperlipidemia, treated cholesterol 146, LDL 65, triglycerides 194 Diabetes mellitus type 2, hemoglobin A1c 7.6% Obstructive sleep apnea Asthma, FEV1 70% of predicted Testicular cancer in 2006 BPH Previous TIA with no residual deficits GERD Previous tobacco use Covid in 04/2021 Developmental delay Preoperative nasal swab positive for MSSA, treated Family history of premature coronary artery disease (mom diagnosed in her early 50s) Postoperative acute blood loss anemia and thrombocytopenia, expected Right small apical pneumothorax, inconsequential, resolved Plan: Continue to maximize medical therapy with statin, Plavix, beta shaina. Will increase metoprolol tartrate to 75 mg twice a day. No aspirin due to anaphylactic ALLERGY. Continue Midodrine, decreased to 5 mg by mouth twice a day. Encourage incentive spirometry use 10 times every hour while awake. Bronchodilators per pulmonology. Increase activity, ambulate as tolerated. PT/OT/cardiac rehab following. Will monitor daily labs and chest x-rays. Electrolyte replacement per protocol. GI/DVT prophylaxis. Pain control per current medication regimen. Avoid narcotics. Insulin management per internal medicine, patient is diabetic, needs tight blood sugar control. Anticipate discharge home in the next 24 hours, will need home diabetic medication discharge orders. Continue to record strict and accurate I's and O's. Bladder scan every 6 hours and when necessary postvoid residuals, if greater than 300 mL of urine May straight cath. Daily weights. Lasix 20 mg 1 now. Shower daily. Anticipate discharge home within the next 24 hours with home health care. Transfer third floor cardiac stepdown unit when bed available. More recommendations to follow based on patient's clinical course. Time with Patient: Greater than 30
--- NOTE | 2022-10-25 11:15 | P.PN ---
Subjective Progress Note Date: 10/25/22 Principal diagnosis: Severe aortic stenosis, status post aortic valve replacement, postoperative day #6 62-year-old male patient, underwent an aortic valve replacement for severe aortic stenosis. The patient currently is in the intensive care unit intubated on a mechanical ventilator, propofol running at 20 microvascular kilogram. He is intubated on a mechanical ventilator, assist control mode at the rate of 16, tidal volume of 600, FiO2 has been dropped down to 60% and a PEEP is currently at 10. The patient has a mediastinal chest tube and output is in order of 20 mL since his arrival from the operating room. PT is at 7.39 with a pCO2 of 42 and pO2 of 262. Hemodynamically, the patient has a PEA pressures of 39/24. Cardiac output is at 7.6 with an index of 3.0. Adequate urine output. Adequate blood pressure. Cardiac rhythm is sinus. He is on insulin drip at 3 units an hour for blood sugar control. His hemoglobin currently is at 10.1. Platelet count is at 153. No other active issues for now. Chest x-ray shows a limited 5% pneumothorax on the right. ET tube is in a good location. On today's evaluation of 10/20/2022, the patient is extubated and the patient is currently on oxygen at 2 L nasal cannula. His calm and comfortable. Adequate mentation. Moving all 4 extremities without any limitation. Using the incentive spirometer and is falling approximately 1000. He has a mediastinal chest tube. He has a [place] catheter in place. Pulmonary artery pressures of 32/11. CVP is at 7. Cardiac output is at 7.7 and index of 3.1. Chest x-ray shows no acute abnormalities. No evidence of any pneumothorax on today's chest x-ray. His cardiac rhythm is sinus. His WBC was a 10.3 with a hemoglobin of 10 and a platelet count of 162. Sodium is at 136, BUN is a 50 with a creatinine of 0.53. Patient is currently on Plavix 75 mg by mouth daily. He is on metoprolol 12.5 mg by mouth twice a day. He is on insulin drip running at the rate of 5 units an hour. He was extubated yesterday without any major difficulties. He has not ambulated yet. Output from the mediastinal chest tube has been minimal On 10/21/2022, the patient is being seen for a follow-up. Early in the evening yesterday, the patient became acutely hypoxic. His oxygen requirements went up from 2 L up to 15 L. This was done to bring a saturation above 90%. A repeat chest x-ray was done and the patient had a tiny right apical pneumothorax which is essentially unchanged. It has some pulmonary congestion and pleural effusions also more so on the left. He was given a dose of Lasix 20 mg IV push. He was also noted to have a drop in the cardiac output down to an index of 1.7. He was started on dopamine which is running at 3 mcg/kg/m. The morning cardiac index is up to 2.3. Pulmonary artery pressures are 39/19. This morning, his pulse ox is around 96%. He is using the incentive spirometer. He is still on dopamine. Most recent systolic blood pressure is 90/49. Urine output is in order of30-40 mL an hour. The patient's hemoglobin is stable at 9.3 with a white cell count of 10.3. His sodium level is at 136, BUN is 18 with a creatinine of 0.6 and a potassium level of 4.1. LFTs are normal. Blood sugars under adequate control. He has a single mediastinal chest tube. Output from the chest tube is minimal at this point in time. No evidence of any air leak. Cardiac rhythm is sinus. His still on metoprolol 25 mg by mouth twice a day. CT surgery wanted to continue the metoprolol due to concerns of diastolic dysfunction. He is awake and alert. Pain is under good control. Communicating. No focal neurological deficits. 10/22/2022 the patient is on 3 L of oxygen by nasal cannula. Chest x-ray from today shows no evidence of any pneumothorax. There are atelectatic changes and small effusions lung bases bilaterally. The patient is using the incentive spirometer. Breathing effort several other week. Cardiac index is 2.6 with an output of 6.4. PA pressures are 40/18. The patient remains on 2 g of dopamine and he has an adequate urine output. Blood pressure remains off and the patient remains on metoprolol. Chest tubes are removed. The hemoglobin today is at 8.5. WBC count is at 8.8. Electrolytes are stable still he has a sodium of 135, potassium of 4.1, BUN of 26 with a creatinine of 0.7. LFTs are normal. Urine operas adequate for now. Moving all 4 extremities without any limitation. Cardiac rhythm is sinus. Pulse ox is 90-91% on 3 L O2 nasal cannula. 10/23/2022, the patient is being seen for a follow-up. The patient is currently on oxygen at 3 L. He is using the senna spirometer. All of the tubes are out. The chest x-ray showing some cardiomegaly and presence of pleural effusions bilaterally along with some atelectatic change in lung bases. Sternal wound is dry clean and intact. The patient's cardiac rhythm is sinus. Patient is off dopamine for now. Blood work from today is showing WBC count of 8.4 with a hemoglobin of 8.4 and a platelet count of 164. Electrolytes are all within norm al limits. The patient is moving all 4 extremities. Is following simple commands. His tolerating diet. He is passing gas, no bowel movements. Note that after coming off dopamine, the patient had to be started on a low dose of 1 mcg/kg/m for blood pressure. Patient was reevaluated today on 10/24/2022, remains in the ICU, patient is on room air, off dopamine, denies any cough wheezing or shortness of breath, pain seems to be relatively under control. No major issues over the last 24 hours. WBC count 6.6 hemoglobin is 8.6 index was a normal renal profile is normal. Patient is sitting up in the bedside chair, awake, alert oriented, not in any distress. Patient is able to achieve 1500 mL on his incentive spirometry. Chest x-ray showed nonspecific parenchymal changes, mild congestive changes, no clear-cut evidence of pneumonia. Patient is known to have history of diastolic congestive heart failure. His atrial and ventricular epicardial pacemaker wires are supposed to be removed today. Pain seems to be under control. Patient is on GI and DVT prophylaxis 10/25/2022, patient remains in the ICU, he is on room air, achieving about 1000 mL via incentive spirometer. Chest x-ray showed mild congestive heart failure, patient did receive a dose of Lasix earlier by thoracic surgery received 20 mg IV push. His IV fluids at KVO, patient is not in any distress, continues to have mostly aches and pains. O2 saturation 93% on room air. Chest x-ray again as noted earlier showed mild congestive heart failure changes. Patient is hemodynamically stable, not requiring any inotropes or any pressors. He is already ambulating with assistance in the intensive care unit hallway. His epicardial pacemaker wires have been removed yesterday. CBC is relatively normal hemoglobin is 8.7 and his basic metabolic profile is normal renal profile is normal Objective - Vital Signs Vital signs: Vital Signs Temp 97.8 F 10/25/22 08:00 Pulse 87 10/25/22 09:00 Resp 17 10/25/22 09:00 BP 135/77 10/25/22 08:00 Pulse Ox 91 L 10/25/22 09:00 FiO2 50 10/19/22 17:15 Intake & Output 10/24/22 10/25/22 10/25/22 18:59 06:59 18:59 Intake Total 200 490 Output Total 875 2 1 Balance -675 488 -1 Weight 137 kg Intake: Oral 200 490 Output: Urine 875 0 1 Urine/Stool Mix 2 Other: Voiding Method Toilet Toilet Urinal Urinal # Voids 1 0 # Bowel Movements 1 1 ABP, PAP, CO, CI - Last Documented Arterial Blood Pressure 111/62 Pulmonary Artery Pressure 42/20 Cardiac Output 7.7 Cardiac Index 3.1 - Exam Physical Exam: Revealed 62-year-old white male in no distress, on room air, Head: Atraumatic, normocephalic. HEENT:[Neck is supple.] [No neck masses.] [No thyromegaly.] [No JVD.] Chest: [Symmetrical chest expansion, minimal crackles at the bases no rhonchi and no wheezes] midline sternal incision is clean and dry. Cardiac Exam: [Normal S1 and S2, no S3 gallop, 2/6 systolic murmur throughout the precordium. Abdomen: [Soft, nontender, no megaly, no rebound, no guarding, normal bowel sounds.] Extremities: [No clubbing, no edema, no cyanosis.] Neurological Exam: [No focal neurologic deficit.] Musculoskeletal: No deformities and no limitation in range motion Psychiatric: Normal mood affect and normal mental status examination. Skin: No rashes. - Labs CBC & Chem 7: 10/25/22 05:17 10/25/22 05:17 Labs: Abnormal Lab Results - Last 24 Hours (Table) 10/24/22 10/24/22 10/24/22 Range/Units 11:39 12:01 16:42 RBC (4.30-5.90) m/uL Hgb (13.0-17.5) gm/dL Hct (39.0-53.0) % BUN (9-20) mg/dL Creatinine (0.66-1.25) mg/dL Glucose (74-99) mg/dL POC Glucose (mg/dL) 138 H 129 H 171 H (70-110) mg/dL 10/25/22 10/25/22 10/25/22 Range/Units 05:17 05:17 07:05 RBC 2.93 L (4.30-5.90) m/uL Hgb 8.7 L (13.0-17.5) gm/dL Hct 26.7 L (39.0-53.0) % BUN 24 H (9-20) mg/dL Creatinine 0.63 L (0.66-1.25) mg/dL Glucose 128 H (74-99) mg/dL POC Glucose (mg/dL) 138 H (70-110) mg/dL Assessment and Plan Assessment: Impression: Severe aortic valve stenosis, status post bioprosthetic aortic valve replacement, postoperative day #6 Chronic diastolic congestive heart failure Benign essential hypertension Previous vasovagal syncopal episode. Type 2 diabetes with poorly controlled hemoglobin A1c of 7.6% Obstructive sleep apnea syndrome History of asthma with FEV1 of 70% History of testicular cancer Previous TIA History of COVID-19 infection in 2020 Family history of premature coronary artery disease Recommendation: Agree with gentle diuresis patient received Lasix 20 mg IV push 1 today. Continue incentive spirometry, patient is achieving about 1500 mL. Continue statin and Plavix as well as beta blockers no aspirins because of his anaphylactic history to aspirin. Continue ambulation. Increase activity as tolerated Continue GI and DVT prophylaxis Continue to maximize medical therapy Continue bronchodilators Patient could be transferred to a monitor bed on selective once available. And once cleared by other consultants. We will continue to follow Time with Patient: Less than 30
[2022-10-25 11:28] LABS: Glucose,Whole Blood 146 mg/dL (70-110)
[2022-10-25] MEDS: DEXTROSE 5% IN WATER 100 ML with AMIODARONE 150 MG IV PRN ×2 (11:39→12:56)
[2022-10-25 12:35] LABS: Glucose,Whole Blood 152 mg/dL (70-110)
[2022-10-25] MEDS ORDERED: POTASSIUM CHLORIDE ER 10 MEQ TAB.ER.PRT PO ONE (14:00)
[2022-10-25] MEDS ORDERED: FUROSEMIDE 10 MG/ML 2 ML VIAL IV ONE (14:00)
--- NOTE | 2022-10-25 14:06 | PN ---
PROGRESS NOTE HISTORY OF PRESENT ILLNESS: A 62-year-old gentleman with severe aortic stenosis, who underwent aortic valve replacement, today is postop day #6. He is feeling somewhat poorly, has discomfort at the incision site and went into atrial fibrillation with poorly controlled ventricular rate. The patient is currently on IV amiodarone, Lipitor, Plavix, insulin, Lopressor and midodrine. OBJECTIVE: GENERAL: On exam, comfortable at rest. VITAL SIGNS: Heart rate is 110 beats per minute, irregular. Blood pressure 109/62, respiratory rate is 18. CHEST: Reveals diminished air entry at the bases. HEART: Reveals first and second heart sounds, irregular rhythm. No murmur. ABDOMEN: Soft. EXTREMITIES: Exam of extremities revealed mild edema. Peripheral pulses are palpable. LABORATORY DATA: Labs show a hemoglobin of 8.7, platelet count is 208, potassium is 4.3. Creatinine 0.6. ASSESSMENT AND PLAN: 1. Aortic stenosis, status post aortic valve replacement. 2. Postop atrial fibrillation. PLAN: I will treat the patient with intravenous amiodarone. Continue the Lopressor and use midodrine as needed for hypotension. If necessary, I will add digoxin. MMODL / IJN: [id number] /
[2022-10-25 16:07] LABS: Appearance,Urine Clear (Clear); Bilirubin,Urine Negative (Negative); Blood,Urine Trace (Negative); Color,Urine Light Yellow; Glucose,Urine (UA) Negative (Negative); Ketones,Urine Negative (Negative); Leukocyte Esterase,Urine Negative (Negative); Mucus,Urine Rare /hpf; Nitrite,Urine Negative (Negative); PH, Urine 5.5 (5.0-8.0); Protein,Urine Negative (Negative); RBC,Urine 6 /hpf (0-5); Squamous Epithelial Cell,Urine <1 /hpf (0-4); Urobilinogen,Urine <2.0 mg/dL (<2.0); WBC,Urine 1 /hpf (0-5)
[2022-10-25 16:45] LABS: Glucose,Whole Blood 166 mg/dL (70-110)
[2022-10-25] MEDS: ACETAMINOPHEN TAB 500 MG TAB PO PRN (17:25)
[2022-10-25] MEDS ORDERED: MIDODRINE 5 MG TAB PO SCH (17:30)
--- NOTE | 2022-10-25 19:29 | P.PN ---
Subjective 62-year-old male with a known history of hypertension, hyperlipidemia, diabetes type 2 insulin-dependent, osteoarthritis and history of severe aortic stenosis was admitted to the hospital for aortic valve replacement. Patient is status post surgery and postoperative day 1. Patient was on mechanical ventilator perioperatively and was extubated this morning. Currently patient does have soreness at the surgical site. SBP in 90s. Denies any com plaints of dizziness or lightheadedness. No chest pain. No cough or sputum production. Patient has been afebrile overnight. Not on pressor support. Patient is being continued on insulin drip. Laboratory showed WBC 10.3 hemoglobin 10.0 and platelets 162, sodium 136 potassium 4.2 chloride 102 bicarb is 26 BUN 15 and creatinine 0.53 liver enzymes are not elevated. Albumin 3.4. EKG showed normal sinus rhythm. Chest x-ray showed approximately 5 to 10% right apical pneumothorax. Chest x-ray this morning showed cardiomegaly and bilateral basilar reflexes favored over infiltrate and small effusion. No overt heart failure. 10/22/2022 the patient is seen and evaluated in ICU; remains on 3 L of oxygen by nasal cannula with O2 saturation above 90-92%. Chest x-ray from today shows no evidence of any pneumothorax. There are atelectatic changes and small effusions lung bases bilaterally. The patient is using the incentive spirometer. -- The patient remains on 2 g of dopamine and he has an adequate urine output. Blood pressure remains off and the patient remains on metoprolol. Chest tubes are removed. --The hemoglobin today is at 8.5. WBC count is at 8.8. Electrolytes are stable still he has a sodium of 135, potassium of 4.1, BUN of 26 with a creatinine of 0.7. LFTs are normal Continue incentive spirometer Continue dopamine and bonita it off to based on the BP and CI Wean down FiO2 as tolerated, currently on 3 liters Chest x-ray was noted and there is no need for chest tube insertion 10/23/2022 --patient is being seen and evaluated in ICU for follow-up. The patient is currently on oxygen at 3 L. He is using the senna spirometer. - The chest x-ray showing some cardiomegaly and presence of pleural effusions bilaterally along with some atelectatic change in lung bases. -- Blood work from today is showing WBC count of 8.4 with a hemoglobin of 8.4 and a platelet count of 164. Electrolytes are all within normal limits. -- Sternal wound is dry clean and intact. The patient's cardiac rhythm is sinus. Patient is off dopamine for now. The patient is moving all 4 extremities. Is following simple commands. His tolerating diet. He is passing gas, no bowel movements. Note that after coming off dopamine, the patient had to be started on a low dose of 1 mcg/kg/m for blood pressure. Patient is seen by critical care and received Lasix 40 mg IV 1 - Remains on metoprolol as recommended by cardiothoracic surgery; Plavix 75 mg daily - Patient has been placed on Levemir 20 units twice a day and insulin drip was discontinued 10/24/2022 patient is status post aortic valve replacement surgery, this morning still complaining from pain at the surgical site and still some mild exertional dyspnea, he rinses pain at 7/10 in severity. No prostate and aggravating factors He remains on amiodarone, insulin, his home dose of Levemir, ozempic , metformin on hold. He is currently on Plavix Hemoglobin 8.6 chemo hemoglobin A1c 7.6% Chest x-ray: Diffuse pleural parenchymal changes. 10/25/2022 Patient improving slowly and gradually He denies significant dyspnea with the surgery. No other new complaint. His currently sugar control on Levemir 20 units twice a day. Urine analysis is negative. Check bladder scan, discussed with staff. His metoprolol dose increased from 50 mg up to 75 mg today. Continue with the Plavix Continue to hold metformin and semaglutide Objective - Vital Signs Vital signs: Vital Signs Temp 97.8 F 10/25/22 08:00 Pulse 87 10/25/22 09:00 Resp 17 10/25/22 09:00 BP 135/77 10/25/22 08:00 Pulse Ox 91 L 10/25/22 09:00 FiO2 50 10/19/22 17:15 Intake & Output 10/24/22 10/25/22 10/25/22 18:59 06:59 18:59 Intake Total 200 490 Output Total 875 2 1 Balance -675 488 -1 Weight 137 kg Intake: Oral 200 490 Output: Urine 875 0 1 Urine/Stool Mix 2 Other: Voiding Method Toilet Toilet Urinal Urinal # Voids 1 0 # Bowel Movements 1 1 ABP, PAP, CO, CI - Last Documented Arterial Blood Pressure 111/62 Pulmonary Artery Pressure 42/20 Cardiac Output 7.7 Cardiac Index 3.1 - Exam GENERAL: The patient is alert and oriented x3, not in any acute distress. Well developed, well nourished. HEENT: Pupils are round and equally reacting to light. EOMI. No scleral icterus. No conjunctival pallor. Normocephalic, atraumatic. No pharyngeal erythema. No thyromegaly. CARDIOVASCULAR: S1 and S2 present. No murmurs, rubs, or gallops. -PULMONARY: Chest is clear to auscultation, no wheezing . no crackles. surgical site closed and healing ABDOMEN: Soft, nontender, nondistended, normoactive bowel sounds. No palpable organomegaly. MUSCULOSKELETAL: No joint swelling or deformity. EXTREMITIES: No cyanosis, clubbing, or pedal edema. NEUROLOGICAL: Gross neurological examination did not reveal any focal deficits. SKIN: No rashes. no petechiae. - Labs CBC & Chem 7: 10/25/22 05:17 10/25/22 05:17 Labs: Abnormal Lab Results - Last 24 Hours (Table) 10/24/22 10/24/22 10/24/22 Range/Units 11:39 12:01 16:42 RBC (4.30-5.90) m/uL Hgb (13.0-17.5) gm/dL Hct (39.0-53.0) % BUN (9-20) mg/dL Creatinine (0.66-1.25) mg/dL Glucose (74-99) mg/dL POC Glucose (mg/dL) 138 H 129 H 171 H (70-110) mg/dL 10/25/22 10/25/22 10/25/22 Range/Units 05:17 05:17 07:05 RBC 2.93 L (4.30-5.90) m/uL Hgb 8.7 L (13.0-17.5) gm/dL Hct 26.7 L (39.0-53.0) % BUN 24 H (9-20) mg/dL Creatinine 0.63 L (0.66-1.25) mg/dL Glucose 128 H (74-99) mg/dL POC Glucose (mg/dL) 138 H (70-110) mg/dL Assessment and Plan Assessment: Aortic stenosis, Status post aortic valve replacement surgery on 10/19. . was on mechanical ventilator perioperatively. Extubated later on Right apical pneumothorax 5 to 10%. Right upper lobe nodule, 9 mm, need PET scan as an outpatient Diabetes type 2 insulin-dependent. Hypertension Hyperlipidemia History of right testicular cancer s/p surgery History of developmental delay Osteoarthritis GERD History of CVA Obesity with BMI 37.4 Plan: continue with Plavix Continue with amiodarone Continue with insulin, hold Levemir, symmetrical tight and metformin currently cardiothoracic surgery primary tumor on the case. Pulmonary/critical care team on the case Labs and medication were reviewed.. Continue same treatment. Continue with symptomatic treatment. Resume home medication. Monitor labs and vitals. DVT a nd GI prophylaxis. Further recommendations as per clinical course of the patient DVT prophylaxis: Subcutaneous heparin GI Prophylaxis: Ppi
[2022-10-25 21:17] LABS: Glucose,Whole Blood 167 mg/dL (70-110)
[2022-10-25] MEDS: MONTELUKAST 10 MG TAB PO SCH (21:21)
[2022-10-25] MEDS: SENNOSIDES-DOCUSATE SODIUM 1 EACH TAB PO SCH (21:21)
[2022-10-25] MEDS: ATORVASTATIN 10 MG TAB PO SCH (21:21)
[2022-10-25] MEDS: TAMSULOSIN 0.4 MG CAP.ER.24H PO SCH (21:21)
[2022-10-26] MEDS: HEPARIN SODIUM,PORCINE/PF 5,000 UNIT/0.5 ML SYRINGE SQ SCH ×3 (00:35→16:34)
[2022-10-26 06:06] LABS: HCT 28.2 % (39.0-53.0); HGB 9.3 gm/dL (13.0-17.5); MCH 29.7 pg (25.0-35.0); MCV 89.8 fL (80.0-100.0); Mean Platelet Volume 7.8; Platelet Count 243 k/uL (150-450); RBC 3.14 m/uL (4.30-5.90); RDW 13.5 % (11.5-15.5); WBC 9.8 k/uL (3.8-10.6)
[2022-10-26 06:24] LABS: African American GFR (CKD) >90 (>60 ml/min/1.73 sqM); Anion Gap 9 mmol/L; Blood Urea Nitrogen 17 mg/dL (9-20); Calcium 8.5 mg/dL (8.4-10.2); Carbon Dioxide 28 mmol/L (22-30); Chloride 99 mmol/L (98-107); Glucose 127 mg/dL (74-99); Magnesium 1.9 mg/dL (1.6-2.3); Non-African American GFR(CKD) >90 (>60 ml/min/1.73 sqM); Potassium 4.3 mmol/L (3.5-5.1); Sodium 136 mmol/L (137-145)
[2022-10-26 06:27] LABS: Glucose,Whole Blood 156 mg/dL (70-110)
[2022-10-26] MEDS: INSULIN ASPART (NovoLOG) 100 UNIT/ML VIAL SQ SCH ×4 (06:31→21:09)
[2022-10-26] MEDS: PANTOPRAZOLE 40 MG TABLET PO SCH (06:31)
[2022-10-26] MEDS: INSULIN DETEMIR (LEVEMIR) 100 UNIT/ML SYR SQ SCH ×2 (06:31→21:08)
[2022-10-26] MEDS: IPRATROPIUM-ALBUTEROL 3 ML NEB INHALATION SCH ×4 (07:39→21:16)
--- NOTE | 2022-10-26 07:44 | XR ---
EXAMINATION TYPE: XR chest 2V DATE OF EXAM: 10/26/2022 6:15 AM COMPARISON: Chest radiograph from one day prior. TECHNIQUE: XR chest 2V Frontal and lateral views of the chest. CLINICAL INDICATION:Male, 62 years old with history of Post op AVR; FINDINGS: Lungs/Pleura: No evidence of focal consolidation or pneumothorax. Blunting of the costophrenic angles is present. Pulmonary vascularity: Unremarkable. Heart/mediastinum: Cardiomediastinal silhouette is enlarged and stable. Post valvular repair changes . Left atrial appendage occlusion device. Atherosclerotic calcifications are seen in the aorta. Musculoskeletal: No acute osseous pathology. Midline sternotomy wires are noted. Other findings: None IMPRESSION: Post surgical changes with mild prominence of the heart and mild pulmonary vascular congestion with b lunting of the costophrenic angles compatible with small pleural effusions.
[2022-10-26] MEDS: CITALOPRAM HYDROBROMIDE 10 MG TAB PO SCH (08:34)
[2022-10-26] MEDS: CLOPIDOGREL 75 MG TAB PO SCH (08:35)
[2022-10-26] MEDS: METOPROLOL TARTRATE 25 MG TAB PO SCH (08:35)
[2022-10-26] MEDS: ACETAMINOPHEN TAB 500 MG TAB PO PRN ×2 (08:35→15:56)
[2022-10-26] MEDS: AMIODARONE 200 MG TAB PO SCH ×2 (08:59→21:10)
[2022-10-26] MEDS ORDERED: FUROSEMIDE 10 MG/ML 2 ML VIAL IV STA (09:13)
[2022-10-26] MEDS ORDERED: POTASSIUM CHLORIDE ER 10 MEQ TAB.ER.PRT PO STA (09:15)
--- NOTE | 2022-10-26 10:01 | P.PN ---
Subjective Progress Note Date: 10/26/22 Principal diagnosis: Severe tricuspid calcific aortic valve stenosis. Previous medical history of diastolic dysfunction with left ventricular hypertrophy, previous syncopal episode likely vasovagal, hypertension, hyperlipidemia, diabetes mellitus type 2, obstructive sleep apnea, asthma, testicular cancer in 2006, BPH, previous TIA with no residual deficits, GERD, previous tobacco use, covid in 04/2021, developmental delay. Preoperative nasal swab positive for MSSA, treated. Family history of premature coronary artery disease (mom diagnosed in her early 50s) POD #7 Aortic valve replacement with 27 mm Coker Inspiris bovine pericardial valve, root enlargement with hemashield patch (Bruno Hendrickson), epi-aortic ultrasound, occlusion of left atrial appendage with 35 mm AtriCure clip. Postoperative acute blood loss anemia, expected given hemodilution and cardiopulmonary bypass. Right small apical pneumothorax, inconsequential, not a complication Paroxysmal atrial fibrillation, a known common occurrence after cardiac surgery, not a complication Patient was seen and examined in follow-up today 10/26/2022 at his bedside in the intensive care unit. He is sitting up to the bedside chair, is awake, alert, oriented 3 and is in no acute distress. Currently denies any complaints of pain or shortness of breath. An episode of paroxysmal atrial fibrillation yesterday 10/25/2022 and was started on amiodarone protocol, bedside telemetry is currently showing normal sinus rhythm heart rate 79 BPM. Oxygen saturations are 93% on room air and he is achieving 1250 mL on his incentive spirometry with encouragement. He remains hemodynamically stable and is currently on no inotropic or pressor support. He has been afebrile last 24 hours. Laboratory and chest x-ray results reviewed. Discharge planning is in place. Objective - Vital Signs Vital signs: Vital Signs Temp 98.1 F 10/26/22 04:00 Pulse 82 10/26/22 07:54 Resp 16 10/26/22 06:35 BP 110/65 10/26/22 06:35 Pulse Ox 93 L 10/26/22 07:41 FiO2 50 10/19/22 17:15 Intake & Output 10/25/22 10/26/22 10/26/22 18:59 06:59 18:59 Output Total 301 406 Balance -301 -406 Weight 134.5 kg Output: Urine 301 400 Post Void Residual 6 Other: Voiding Method Toilet Toilet Urinal Urinal # Voids 1 1 # Bowel Movements 1 1 ABP, PAP, CO, CI - Last Documented Arterial Blood Pressure 111/62 Pulmonary Artery Pressure 42/20 Cardiac Output 7.7 Cardiac Index 3.1 - Exam CONSTITUTIONAL: Sitting up to the bedside chair in the intensive care unit, appears comfortable, cooperative, no apparent acute distress. HEENT: Neck is supple, no JVD, no lymphadenopathy. RESPIRATORY: Lungs sounds essentially clear throughout, few scattered faint crackles to his bilateral bases. Respirations are symmetrical and nonlabored. Currently on room air with oxygen saturations 93%. Able to achieve 1250 mL on his incentive spirometry. Strong cough. CARDIOVASCULAR: Regular rhythm and rate. S1 and S2 present, negative for S3, gallop or murmur. Sternum is stable. Palpable peripheral pulses bilaterally, +1 edema to his bilateral lower extremities. No calf pain or tenderness noted. Heart hugger in place with patient demonstrating appropriate use. Knee-high SHIRLENE hose and sequential compression devices in place to his bilateral lower extremities. Bedside telemetry showing normal sinus rhythm heart rate 79 BPM. GASTROINTESTINAL: Abdomen soft, nontender, nondistended. Active bowel sounds present 4 quadrants. Tolerating diet. Passing flatus. No guarding or rigidity. Bowel movement this morning 10/25/2022. GENITOURINARY: Continues to void. Having episodes of incontinence. INTEGUMENTARY: Skin is warm and dry with no evidence of clubbing or cyanosis. Midline sternal incision clean dry and well approximated, covered with dry intact dressing. NEUROLOGIC: Cranial nerves II through XII intact. No focal deficits. MUSKULOSKELETAL: Able to move all extremities, strength equal bilaterally, generalized weakness. PSYCHIATRIC: Alert and oriented to person place and time, appropriate affect, intact judgment and insight. - Allied health notes Allied health notes reviewed: nursing - Labs CBC & Chem 7: 10/26/22 05:45 10/26/22 05:45 Labs: Abnormal Lab Results - Last 24 Hours (Table) 10/24/22 10/25/22 10/25/22 Range/Units 20:37 11:26 15:36 RBC (4.30-5.90) m/uL Hgb (13.0-17.5) gm/dL Hct (39.0-53.0) % Sodium (137-145) mmol/L Creatinine (0.66-1.25) mg/dL Glucose (74-99) mg/dL POC Glucose (mg/dL) 152 H 146 H (70-110) mg/dL Urine Blood Trace H (Negative) Urine RBC 6 H (0-5) /hpf Urine Mucus Rare H (None) /hpf 10/25/22 10/25/22 10/26/22 Range/Units 16:43 21:15 05:45 RBC 3.14 L (4.30-5.90) m/uL Hgb 9.3 L (13.0-17.5) gm/dL Hct 28.2 L (39.0-53.0) % Sodium (137-145) mmol/L Creatinine (0.66-1.25) mg/dL Glucose (74-99) mg/dL POC Glucose (mg/dL) 166 H 167 H (70-110) mg/dL Urine Blood (Negative) Urine RBC (0-5) /hpf Urine Mucus (None) /hpf 10/26/22 10/26/22 Range/Units 05:45 06:25 RBC (4.30-5.90) m/uL Hgb (13.0-17.5) gm/dL Hct (39.0-53.0) % Sodium 136 L (137-145) mmol/L Creatinine 0.62 L (0.66-1.25) mg/dL Glucose 127 H (74-99) mg/dL POC Glucose (mg/dL) 156 H (70-110) mg/dL Urine Blood (Negative) Urine RBC (0-5) /hpf Urine Mucus (None) /hpf - Imaging and Cardiology Chest x-ray: report reviewed, image reviewed Assessment and Plan Assessment: Severe tricuspid calcific aortic valve stenosis, status post bioprosthetic aortic valve replacement Diastolic dysfunction with left ventricular hypertrophy Previous syncopal episode likely vasovagal Hypertension Hyperlipidemia, treated cholesterol 146, LDL 65, triglycerides 194 Diabetes mellitus type 2, hemoglobin A1c 7.6% Obstructive sleep apnea Asthma, FEV1 70% of predicted Testicular cancer in 2006 BPH Previous TIA with no residual deficits GERD Previous tobacco use Covid in 04/2021 Developmental delay Preoperative nasal swab positive for MSSA, treated Family history of premature coronary artery disease (mom diagnosed in her early 50s) Postoperative acute blood loss anemia and thrombocytopenia, expected Right small apical pneumothorax, inconsequential, resolved Paroxysmal atrial fibrillation, a known common occurrence after cardiac surgery, not a complication Plan: Continue to maximize medical therapy with statin, Plavix, beta shaina. Will increase metoprolol tartrate as tolerated. No aspirin due to anaphylactic ALLERGY. Midodrine was discontinued yesterday. Encourage incentive spirometry use 10 times every hour while awake. Bronchodilators per pulmonology. Increase activity, ambulate as tolerated. PT/OT/cardiac rehab following. Will monitor daily labs and chest x-rays. Electrolyte replacement per protocol. GI/DVT prophylaxis. Pain control per current medication regimen. Continue to avoid narcotics. Insulin management per internal medicine, patient is diabetic, needs tight blood sugar control. Anticipate discharge home in the next 24 hours, will need home diabetic medication discharge orders. Continue to record strict and accurate I's and O's. Bladder scan every 6 hours and when necessary postvoid residuals, if greater than 300 mL of urine May straight cath. Daily weights. Lasix 20 mg 1 now, potassium chloride 10 mEq by mouth 1 now. Shower daily. Anticipate discharge home within the next 24 hours with home health care. Consult Dr. Blum for evaluation for inpatient rehab. Transfer third floor cardiac stepdown unit when bed available. Start amiodarone 400 mg by mouth twice a day 3 days, then decrease to amiodaro ne 200 mg by mouth twice a day for atrial fibrillation prophylaxis. More recommendations to follow based on patient's clinical course. Time with Patient: Greater than 30
[2022-10-26 11:08] LABS: Glucose,Whole Blood 142 mg/dL (70-110)
--- NOTE | 2022-10-26 11:55 | P.PN ---
Subjective Progress Note Date: 10/26/22 Principal diagnosis: Severe aortic stenosis, status post aortic valve replacement, postoperative day #7 62-year-old male patient, underwent an aortic valve replacement for severe aortic stenosis. The patient currently is in the intensive care unit intubated on a mechanical ventilator, propofol running at 20 microvascular kilogram. He is intubated on a mechanical ventilator, assist control mode at the rate of 16, tidal volume of 600, FiO2 has been dropped down to 60% and a PEEP is currently at 10. The patient has a mediastinal chest tube and output is in order of 20 mL since his arrival from the operating room. PT is at 7.39 with a pCO2 of 42 and pO2 of 262. Hemodynamically, the patient has a PEA pressures of 39/24. Cardiac output is at 7.6 with an index of 3.0. Adequate urine output. Adequate blood pressure. Cardiac rhythm is sinus. He is on insulin drip at 3 units an hour for blood sugar control. His hemoglobin currently is at 10.1. Platelet count is at 153. No other active issues for now. Chest x-ray shows a limited 5% pneumothorax on the right. ET tube is in a good location. On today's evaluation of 10/20/2022, the patient is extubated and the patient is currently on oxygen at 2 L nasal cannula. His calm and comfortable. Adequate mentation. Moving all 4 extremities without any limitation. Using the incentive spirometer and is falling approximately 1000. He has a mediastinal chest tube. He has a [place] catheter in place. Pulmonary artery pressures of 32/11. CVP is at 7. Cardiac output is at 7.7 and index of 3.1. Chest x-ray shows no acute abnormalities. No evidence of any pneumothorax on today's chest x-ray. His cardiac rhythm is sinus. His WBC was a 10.3 with a hemoglobin of 10 and a platelet count of 162. Sodium is at 136, BUN is a 50 with a creatinine of 0.53. Patient is currently on Plavix 75 mg by mouth daily. He is on metoprolol 12.5 mg by mouth twice a day. He is on insulin drip running at the rate of 5 units an hour. He was extubated yesterday without any major difficulties. He has not ambulated yet. Output from the mediastinal chest tube has been minimal On 10/21/2022, the patient is being seen for a follow-up. Early in the evening yesterday, the patient became acutely hypoxic. His oxygen requirements went up from 2 L up to 15 L. This was done to bring a saturation above 90%. A repeat chest x-ray was done and the patient had a tiny right apical pneumothorax which is essentially unchanged. It has some pulmonary congestion and pleural effusions also more so on the left. He was given a dose of Lasix 20 mg IV push. He was also noted to have a drop in the cardiac output down to an index of 1.7. He was started on dopamine which is running at 3 mcg/kg/m. The morning cardiac index is up to 2.3. Pulmonary artery pressures are 39/19. This morning, his pulse ox is around 96%. He is using the incentive spirometer. He is still on dopamine. Most recent systolic blood pressure is 90/49. Urine output is in order of30-40 mL an hour. The patient's hemoglobin is stable at 9.3 with a white cell count of 10.3. His sodium level is at 136, BUN is 18 with a creatinine of 0.6 and a potassium level of 4.1. LFTs are normal. Blood sugars under adequate control. He has a single mediastinal chest tube. Output from the chest tube is minimal at this point in time. No evidence of any air leak. Cardiac rhythm is sinus. His still on metoprolol 25 mg by mouth twice a day. CT surgery wanted to continue the metoprolol due to concerns of diastolic dysfunction. He is awake and alert. Pain is under good control. Communicating. No focal neurological deficits. 10/22/2022 the patient is on 3 L of oxygen by nasal cannula. Chest x-ray from today shows no evidence of any pneumothorax. There are atelectatic changes and small effusions lung bases bilaterally. The patient is using the incentive spirometer. Breathing effort several other week. Cardiac index is 2.6 with an output of 6.4. PA pressures are 40/18. The patient remains on 2 g of dopamine and he has an adequate urine output. Blood pressure remains off and the patient remains on metoprolol. Chest tubes are removed. The hemoglobin today is at 8.5. WBC count is at 8.8. Electrolytes are stable still he has a sodium of 135, potassium of 4.1, BUN of 26 with a creatinine of 0.7. LFTs are normal. Urine operas adequate for now. Moving all 4 extremities without any limitation. Cardiac rhythm is sinus. Pulse ox is 90-91% on 3 L O2 nasal cannula. 10/23/2022, the patient is being seen for a follow-up. The patient is currently on oxygen at 3 L. He is using the senna spirometer. All of the tubes are out. The chest x-ray showing some cardiomegaly and presence of pleural effusions bilaterally along with some atelectatic change in lung bases. Sternal wound is dry clean and intact. The patient's cardiac rhythm is sinus. Patient is off dopamine for now. Blood work from today is showing WBC count of 8.4 with a hemoglobin of 8.4 and a platelet count of 164. Electrolytes are all within norm al limits. The patient is moving all 4 extremities. Is following simple commands. His tolerating diet. He is passing gas, no bowel movements. Note that after coming off dopamine, the patient had to be started on a low dose of 1 mcg/kg/m for blood pressure. Patient was reevaluated today on 10/24/2022, remains in the ICU, patient is on room air, off dopamine, denies any cough wheezing or shortness of breath, pain seems to be relatively under control. No major issues over the last 24 hours. WBC count 6.6 hemoglobin is 8.6 index was a normal renal profile is normal. Patient is sitting up in the bedside chair, awake, alert oriented, not in any distress. Patient is able to achieve 1500 mL on his incentive spirometry. Chest x-ray showed nonspecific parenchymal changes, mild congestive changes, no clear-cut evidence of pneumonia. Patient is known to have history of diastolic congestive heart failure. His atrial and ventricular epicardial pacemaker wires are supposed to be removed today. Pain seems to be under control. Patient is on GI and DVT prophylaxis 10/25/2022, patient remains in the ICU, he is on room air, achieving about 1000 mL via incentive spirometer. Chest x-ray showed mild congestive heart failure, patient did receive a dose of Lasix earlier by thoracic surgery received 20 mg IV push. His IV fluids at KVO, patient is not in any distress, continues to have mostly aches and pains. O2 saturation 93% on room air. Chest x-ray again as noted earlier showed mild congestive heart failure changes. Patient is hemodynamically stable, not requiring any inotropes or any pressors. He is already ambulating with assistance in the intensive care unit hallway. His epicardial pacemaker wires have been removed yesterday. CBC is relatively normal hemoglobin is 8.7 and his basic metabolic profile is normal renal profile is normal Reevaluated today on 10/26/2022, patient is doing great, patient did have an episode of paroxysmal atrial fibrillation yesterday, treated with amiodarone protocol. Today the patient is doing great, remains on room air, relatively as ymptomatic, and he is postoperative day #7. I believe the patient is ready to be discharged, however he may benefit from rehab placement. And this is pending Objective - Vital Signs Vital signs: Vital Signs Temp 97.8 F 10/26/22 08:00 Pulse 72 10/26/22 11:31 Resp 20 10/26/22 10:00 BP 118/67 10/26/22 10:00 Pulse Ox 90 L 10/26/22 10:00 FiO2 50 10/19/22 17:15 Intake & Output 10/25/22 10/26/22 10/26/22 18:59 06:59 18:59 Output Total 301 406 Balance -301 -406 Weight 134.5 kg Output: Urine 301 400 Post Void Residual 6 Other: Voiding Method Toilet Toilet Toilet Urinal Urinal Urinal # Voids 1 1 # Bowel Movements 1 1 ABP, PAP, CO, CI - Last Documented Arterial Blood Pressure 111/62 Pulmonary Artery Pressure 42/20 Cardiac Output 7.7 Cardiac Index 3.1 - Exam Physical Exam: Revealed 62-year-old white male in no distress, on room air, patient is relatively asymptomatic Head: Atraumatic, normocephalic. HEENT:[Neck is supple.] [No neck masses.] [No thyromegaly.] [No JVD.] Chest: [Symmetrical chest expansion, clear bilaterally no rhonchi and no wheezes Cardiac Exam: [Normal S1 and S2, no S3 gallop, 2/6 systolic murmur throughout the precordium. Abdomen: [Soft, nontender, no megaly, no rebound, no guarding, normal bowel sounds.] Extremities: [No clubbing, no edema, no cyanosis.] Neurological Exam: [No focal neurologic deficit.] Psychiatric: Normal mood affect and normal mental status examination. Skin: No rashes. - Labs CBC & Chem 7: 10/26/22 05:45 10/26/22 05:45 Labs: Abnormal Lab Results - Last 24 Hours (Table) 10/24/22 10/25/22 10/25/22 Range/Units 20:37 15:36 16:43 RBC (4.30-5.90) m/uL Hgb (13.0-17.5) gm/dL Hct (39.0-53.0) % Sodium (137-145) mmol/L Creatinine (0.66-1.25) mg/dL Glucose (74-99) mg/dL POC Glucose (mg/dL) 152 H 166 H (70-110) mg/dL Urine Blood Trace H (Negative) Urine RBC 6 H (0-5) /hpf Urine Mucus Rare H (None) /hpf 10/25/22 10/26/22 10/26/22 Range/Units 21:15 05:45 05:45 RBC 3.14 L (4.30-5.90) m/uL Hgb 9.3 L (13.0-17.5) gm/dL Hct 28.2 L (39.0-53.0) % Sodium 136 L (137-145) mmol/L Creatinine 0.62 L (0.66-1.25) mg/dL Glucose 127 H (74-99) mg/dL POC Glucose (mg/dL) 167 H (70-110) mg/dL Urine Blood (Negative) Urine RBC (0-5) /hpf Urine Mucus (None) /hpf 10/26/22 10/26/22 Range/Units 06:25 11:06 RBC (4.30-5.90) m/uL Hgb (13.0-17.5) gm/dL Hct (39.0-53.0) % Sodium (137-145) mmol/L Creatinine (0.66-1.25) mg/dL Glucose (74-99) mg/dL POC Glucose (mg/dL) 156 H 142 H (70-110) mg/dL Urine Blood (Negative) Urine RBC (0-5) /hpf Urine Mucus (None) /hpf Assessment and Plan Assessment: Impression: Severe aortic valve stenosis, status post bioprosthetic aortic valve replacement, postoperative day #7 Chronic diastolic congestive heart failure Benign essential hypertension Previous vasovagal syncopal episode. Type 2 diabetes with poorly controlled hemoglobin A1c of 7.6% Obstructive sleep apnea syndrome History of asthma with FEV1 of 70% History of testicular cancer Previous TIA History of COVID-19 infection in 2020 Family history of premature coronary artery disease Recommendation: Continue present supportive care measures Cleared from our perspective if cleared by other physicians including cardiac surgery and cardiology for discharge/rehab placement. In the meantime continue incentive spirometry and continue present cardiac meds We will continue to follow Time with Patient: Less than 30
--- NOTE | 2022-10-26 14:49 | PN ---
PROGRESS NOTE SUBJECTIVE: Rony is a 62-year-old gentleman who underwent aortic valve replacement for symptomatic severe aortic stenosis, developed atrial fibrillation, converted back to sinus rhythm on IV amiodarone. I am going to switch him to p.o. amiodarone today. OBJECTIVE: VITAL SIGNS: Heart rate is 80 beats per minute, blood pressure is 110/65, respiratory rate is 16. CHEST: Reveals diminished air entry at the bases. HEART: Reveals first and second heart sounds. No gallop. EXTREMITIES: Reveals mild edema. LABORATORY DATA: Labs show a hemoglobin of 9.3, platelet count of 243, potassium is 4.3. Creatinine is 0.6. ASSESSMENT: 1. Postop atrial fibrillation. 2. Status post aortic valve replacement. PLAN: Increase activity. Incentive spirometry. Continue current medications including aspirin, Lipitor, Plavix, insulin and Lopressor. Hopefully home over the next 48 hours. MMODL / IJN: [id number] /
[2022-10-26 16:19] LABS: Glucose,Whole Blood 161 mg/dL (70-110)
[2022-10-26] MEDS ORDERED: DEXTROSE 5% IN WATER 100 ML with AMIODARONE 150 MG IV ONE (18:20)
[2022-10-26 20:11] LABS: Glucose,Whole Blood 159 mg/dL (70-110)
--- NOTE | 2022-10-26 20:25 | P.PN ---
Subjective Progress Note Date: 10/26/22 10/26/2022 Patient seen and evaluated in follow-up today currently in the ICU with multiple medical consultations including cardiothoracic surgery, pulmonary merchandising intern and cardiology following. Patient is postop day 7 aortic valve replacement and doing relatively well. Patient is currently on room air receiving treatments and denies shortness of breath. Patient did have some vascular congestion noted on chest x-ray this morning and was given a low-dose of IV Lasix. Patient's labs reviewed and within normal limits. Patient is currently maintained on insulin and will continue with long-acting twice daily and recommend monitoring Accu-Cheks and may use sliding scale as needed. Recommend resuming home medications as well as continuing with subcutaneous twice a day long acting insulins and a prescription was provided and sent to the [facility] pharmacy. Patient being possibly evaluated for inpatient rehab versus going home at his shelter where he resides which reports he is able to be managed there status post surgical intervention. Recommend PT/OT therapy evaluation. P atient is afebrile denies chest pain or shortness of breath. Heart hunger is noted in patient verbalized he is using. Patient also with incentive spirometer at the bedside encouraged to use at least 10 times every hour while awake. Per nursing staff patient had a brief period of atrial fibrillation with RVR placed on amiodarone and has been switched over to oral amiodarone currently rate controlled. Recommend continue telemetry monitoring and discussing possible discharge planning in the next 24 hours. Review of systems: Constitutional: No reports of fatigue, fever, or chills Cardiovascular: No reports of chest pain or palpitations Respiratory: No reports of shortness of breath or cough GI: No reports of nausea, vomiting, or diarrhea : No reports of dysuria or retention Neurovascular: reports of generalized weakness All medications have been reviewed Physical exam: GENERAL: The patient is alert and oriented x3, not in any acute distress. Well developed, well nourished. These HEENT: Pupils are round and equally reacting to light. EOMI. No scleral icterus. No conjunctival pallor. Normocephalic, atraumatic. No pharyngeal erythema. No thyromegaly. CARDIOVASCULAR: S1 and S2 present. No murmurs, rubs, or gallops. PULMONARY: Chest is clear to auscultation, no wheezing . no crackles. surgical site closed and healing ABDOMEN: Soft, nontender, nondistended, normoactive bowel sounds. No palpable organomegaly. MUSCULOSKELETAL: No joint swelling or deformity. EXTREMITIES: No cyanosis, clubbing, or pedal edema. NEUROLOGICAL: Gross neurological examination did not reveal any focal deficits. SKIN: No rashes. no petechiae. Assessment: Aortic stenosis, Status post aortic valve replacement surgery on 10/19. . was on mechanical ventilator perioperatively. Extubated successfully and currently on room air Right apical pneumothorax 5 to 10%. Improved Right upper lobe nodule, 9 mm, need PET scan as an outpatient Diabetes type 2 insulin-dependent. Hypertension Hyperlipidemia History of right testicular cancer s/p surgery History of developmental delay Osteoarthritis GERD History of CVA Obesity with BMI 37.4 Plan: Recommend continue current medications and management per cardiothoracic surgery Cardiology following as well as patient had a brief episode of atrial for ablation with RVR maintained on IV amiodarone and has been transitioned to oral amiodarone will continue taper, currently rate controlled and recommend continue telemetry monitoring Recommend continue with insulin regimen and Accu-Cheks before meals and at bedtime and will resume home medications on discharge and recommend long-acting twice daily and tight glycemic control Patient being evaluated by physical therapy for possible inpatient rehab although patient is doing well and may likely return to his shelter and is reported his staff can accommodate him. We will continue to follow along closely with cardiothoracic surgery. Thank you kindly for this consultation. The impression and plan of care has been dictated by Radha Ham, Nurse Practitioner as directed. Dr. Bernadette MD I have performed a history and examination and MDM of this patient, discussed the same with the dictator, and agree with the dictator's assessment and plan as written ,documented as a scribe. Based on total visit time, I have performed more than 50% of the visit. Objective - Vital Signs Vital signs: Vital Signs Temp 97.8 F 10/26/22 08:00 Pulse 72 10/26/22 11:31 Resp 20 10/26/22 10:00 BP 118/67 10/26/22 10:00 Pulse Ox 90 L 10/26/22 10:00 FiO2 50 10/19/22 17:15 Intake & Output 10/25/22 10/26/22 10/26/22 18:59 06:59 18:59 Output Total 301 406 Balance -301 -406 Weight 134.5 kg Output: Urine 301 400 Post Void Residual 6 Other: Voiding Method Toilet Toilet Toilet Urinal Urinal Urinal # Voids 1 1 # Bowel Movements 1 1 ABP, PAP, CO, CI - Last Documented Arterial Blood Pressure 111/62 Pulmonary Artery Pressure 42/20 Cardiac Output 7.7 Cardiac Index 3.1 - Labs CBC & Chem 7: 10/26/22 05:45 10/26/22 05:45 Labs: Abnormal Lab Results - Last 24 Hours (Table) 10/24/22 10/25/22 10/25/22 Range/Units 20:37 15:36 16:43 RBC (4.30-5.90) m/uL Hgb (13.0-17.5) gm/dL Hct (39.0-53.0) % Sodium (137-145) mmol/L Creatinine (0.66-1.25) mg/dL Glucose (74-99) mg/dL POC Glucose (mg/dL) 152 H 166 H (70-110) mg/dL Urine Blood Trace H (Negative) Urine RBC 6 H (0-5) /hpf Urine Mucus Rare H (None) /hpf 10/25/22 10/26/22 10/26/22 Range/Units 21:15 05:45 05:45 RBC 3.14 L (4.30-5.90) m/uL Hgb 9.3 L (13.0-17.5) gm/dL Hct 28.2 L (39.0-53.0) % Sodium 136 L (137-145) mmol/L Creatinine 0.62 L (0.66-1.25) mg/dL Glucose 127 H (74-99) mg/dL POC Glucose (mg/dL) 167 H (70-110) mg/dL Urine Blood (Negative) Urine RBC (0-5) /hpf Urine Mucus (None) /hpf 10/26/22 10/26/22 Range/Units 06:25 11:06 RBC (4.30-5.90) m/uL Hgb (13.0-17.5) gm/dL Hct (39.0-53.0) % Sodium (137-145) mmol/L Creatinine (0.66-1.25) mg/dL Glucose (74-99) mg/dL POC Glucose (mg/dL) 156 H 142 H (70-110) mg/dL Urine Blood (Negative) Urine RBC (0-5) /hpf Urine Mucus (None) /hpf
[2022-10-26] MEDS: TAMSULOSIN 0.4 MG CAP.ER.24H PO SCH (21:09)
[2022-10-26] MEDS: METOPROLOL TARTRATE 50 MG TAB PO SCH (21:09)
[2022-10-26] MEDS: ATORVASTATIN 10 MG TAB PO SCH (21:10)
[2022-10-26] MEDS: SENNOSIDES-DOCUSATE SODIUM 1 EACH TAB PO SCH (21:10)
[2022-10-26] MEDS: MONTELUKAST 10 MG TAB PO SCH (21:10)
--- NOTE | 2022-10-26 22:21 | P.CON ---
Consult Note - . Consult date: 10/26/22 Assessment/Plan:: 62 yo RH LORENE who lives at [place]. 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 They provide advanced ADLs. He amb with walker due to OA of his knees and decrased balance due to his DM and neuropathy. He was admitted to [facility] for an elective valve replacement. He is POD #7. He is done quite well. He ambulated with physical therapy 180' with SBA He is min pa for transfers. PMH/PSH/MEDICATIONS/ALLERGIES/ROS were reviewed in the chart. I am having difficulty with getting used to the EMR and therefore cannot figure out how to put them in the note. PE obese WM in NAD VSS A ox4 speech clear and fluent cn 2-12 intact FROM jts with OA changes Sensation decreased in a stocking distribution DTR 2/4 UE and 0/4 LE mmt 5/5 except SA and HF 4+/5 I did not test transfers or gait. impression: S/P AVR with decline in function PPN d/t DM obesity history of anxiety/depression OA of multple joints ashtma Htn history of suicidal thoughts currently on disabilty REcomendatoin He is too high level for IPR. suggest return to [place] with therapies there Thanks you. hopefully the next note I do I will be more adept with the EMR Alfonzo Blum M.D. PMR cell: [phone]
[2022-10-27] MEDS: HEPARIN SODIUM,PORCINE/PF 5,000 UNIT/0.5 ML SYRINGE SQ SCH ×2 (00:15→08:08)
[2022-10-27 06:29] LABS: HCT 26.9 % (39.0-53.0); MCH 29.4 pg (25.0-35.0); MCHC 33.3 g/dL (31.0-37.0); MCV 88.4 fL (80.0-100.0); Mean Platelet Volume 7.9; Platelet Count 249 k/uL (150-450); RBC 3.05 m/uL (4.30-5.90); RDW 13.5 % (11.5-15.5); WBC 7.6 k/uL (3.8-10.6)
[2022-10-27 06:42] LABS: African American GFR (CKD) >90 (>60 ml/min/1.73 sqM); Anion Gap 9 mmol/L; Blood Urea Nitrogen 13 mg/dL (9-20); Calcium 8.6 mg/dL (8.4-10.2); Carbon Dioxide 28 mmol/L (22-30); Chloride 100 mmol/L (98-107); Glucose 129 mg/dL (74-99); Non-African American GFR(CKD) >90 (>60 ml/min/1.73 sqM); Potassium 4.4 mmol/L (3.5-5.1); Sodium 137 mmol/L (137-145)
[2022-10-27 07:09] LABS: Glucose,Whole Blood 149 mg/dL (70-110)
[2022-10-27] MEDS: INSULIN ASPART (NovoLOG) 100 UNIT/ML VIAL SQ SCH ×2 (07:16→11:57)
[2022-10-27] MEDS ORDERED: FUROSEMIDE 10 MG/ML 2 ML VIAL IV STA (07:57)
--- NOTE | 2022-10-27 08:05 | P.PN ---
Subjective Progress Note Date: 10/27/22 Principal diagnosis: Severe tricuspid calcific aortic valve stenosis. Previous medical history of diastolic dysfunction with left ventricular hypertrophy, previous syncopal episode likely vasovagal, hypertension, hyperlipidemia, diabetes mellitus type 2, obstructive sleep apnea, asthma, testicular cancer in 2006, BPH, previous TIA with no residual deficits, GERD, previous tobacco use, covid in 04/2021, developmental delay. Preoperative nasal swab positive for MSSA, treated. Family history of premature coronary artery disease (mom diagnosed in her early 50s) POD #8 Aortic valve replacement with 27 mm Coker Inspiris bovine pericardial valve, root enlargement with hemashield patch (Bruno Hendrickson), epi-aortic ultrasound, occlusion of left atrial appendage with 35 mm AtriCure clip. Postoperative acute blood loss anemia, expected given hemodilution and cardiopulmonary bypass. Right small apical pneumothorax, inconsequential, not a complication Paroxysmal atrial fibrillation, a known common occurrence after cardiac surgery, not a complication The patient was seen and examined in follow-up today 10/27/2022 at bedside in the intensive care unit. He is currently sitting up to the bedside chair, eating his breakfast, is awake, alert, oriented 3 and is in no acute apparent distress. Denies any complaints of pain or shortness of breath at this time. He reports he has been up ambulating in the intensive care unit hallway with standby assistance with nursing therapy staff. Oxygen saturations are 93% on room air and he is achieving 1500 mL on his incentive spirometry with encouragement. Bedside telemetry showing normal sinus rhythm heart rate 78 BPM. He has been afebrile the last 24 hours. Laboratory and chest x-ray results reviewed. Objective - Vital Signs Vital signs: Vital Signs Temp 97.8 F 10/27/22 02:00 Pulse 74 10/27/22 02:00 Resp 18 10/27/22 02:00 BP 128/75 10/27/22 02:00 Pulse Ox 96 10/27/22 02:00 FiO2 50 10/19/22 17:15 Intake & Output 10/26/22 10/27/22 10/27/22 18:59 06:59 18:59 Intake Total 350 Output Total 725 175 Balance -725 350 -175 Weight 134.3 kg Intake: Oral 350 Output: Urine 725 175 Other: Voiding Method Toilet Toilet Urinal Urinal # Voids 1 2 1 # Bowel Movements 1 ABP, PAP, CO, CI - Last Documented Arterial Blood Pressure 111/62 Pulmonary Artery Pressure 42/20 Cardiac Output 7.7 Cardiac Index 3.1 - Exam CONSTITUTIONAL: Sitting up to the bedside chair in the intensive care unit, appears comfortable, cooperative, no apparent acute distress. HEENT: Neck is supple, no JVD, no lymphadenopathy. RESPIRATORY: Lungs sounds essentially clear throughout, few scattered faint crackles to his bilateral bases, right greater than left. Respirations are symmetrical and nonlabored. Currently on room air with oxygen saturations 93%. Able to achieve 1500 mL on his incentive spirometry. Strong cough. CARDIOVASCULAR: Regular rhythm and rate. S1 and S2 present, negative for S3, gallop or murmur. Sternum is stable. Palpable peripheral pulses bilaterally, +1 edema to his bilateral lower extremities. No calf pain or tenderness noted. Heart hugger in place with patient demonstrating appropriate use. Knee-high SHIRLENE hose and sequential compression devices in place to his bilateral lower e xtremities. Bedside telemetry showing normal sinus rhythm heart rate 78 BPM. GASTROINTESTINAL: Abdomen soft, nontender, nondistended. Active bowel sounds present 4 quadrants. Tolerating diet. Passing flatus. No guarding or rigidity. Bowel movement yesterday 10/26/2022. GENITOURINARY: Continues to void. Having episodes of incontinence. INTEGUMENTARY: Skin is warm and dry with no evidence of clubbing or cyanosis. Midline sternal incision clean dry and well approximated, covered with dry intact dressing. NEUROLOGIC: Cranial nerves II through XII intact. No focal deficits. MUSKULOSKELETAL: Able to move all extremities, strength equal bilaterally, generalized weakness. PSYCHIATRIC: Alert and oriented to person place and time, appropriate affect, intact judgment and insight. - Allied health notes Allied health notes reviewed: nursing - Labs CBC & Chem 7: 10/27/22 05:53 10/27/22 05:53 Labs: Abnormal Lab Results - Last 24 Hours (Table) 10/26/22 10/26/22 10/26/22 Range/Units 11:06 16:17 20:10 RBC (4.30-5.90) m/uL Hgb (13.0-17.5) gm/dL Hct (39.0-53.0) % Creatinine (0.66-1.25) mg/dL Glucose (74-99) mg/dL POC Glucose (mg/dL) 142 H 161 H 159 H (70-110) mg/dL 10/27/22 10/27/22 10/27/22 Range/Units 05:53 05:53 07:07 RBC 3.05 L (4.30-5.90) m/uL Hgb 9.0 L (13.0-17.5) gm/dL Hct 26.9 L (39.0-53.0) % Creatinine 0.60 L (0.66-1.25) mg/dL Glucose 129 H (74-99) mg/dL POC Glucose (mg/dL) 149 H (70-110) mg/dL - Imaging and Cardiology Chest x-ray: report reviewed, image reviewed Assessment and Plan Assessment: Severe tricuspid calcific aortic valve stenosis, status post bioprosthetic aortic valve replacement Diastolic dysfunction with left ventricular hypertrophy Previous syncopal episode likely vasovagal Hypertension Hyperlipidemia, treated cholesterol 146, LDL 65, triglycerides 194 Diabetes mellitus type 2, hemoglobin A1c 7.6% Obstructive sleep apnea Asthma, FEV1 70% of predicted Testicular cancer in 2006 BPH Previous TIA with no residual deficits GERD Previous tobacco use Covid in 04/2021 Developmental delay Obesity with BMI of 39.1 kg/m Preoperative nasal swab positive for MSSA, treated Family history of premature coronary artery disease (mom diagnosed in her early 50s) Postoperative acute blood loss anemia and thrombocytopenia, expected Right small apical pneumothorax, inconsequential, resolved Paroxysmal atrial fibrillation, a known common occurrence after cardiac surgery, not a complication Plan: Continue to maximize medical therapy with statin, Plavix, beta shaina. Metoprolol tartrate was increased 100 mg by mouth twice a day. No aspirin due to anaphylactic ALLERGY. Encourage incentive spirometry use 10 times every hour while awake. Bronchodilators per pulmonology. Increase activity, ambulate as tolerated. PT/OT/cardiac rehab following. Will monitor daily labs and chest x-rays. Electrolyte replacement per protocol. GI/DVT prophylaxis. Pain control per current medication regimen. Continue to avoid narcotics. Insulin management per internal medicine, patient is diabetic, needs tight blood sugar control. Anticipate discharge home in the next 24 hours, will need home diabetic medication discharge orders. Continue to record strict and accurate I's and O's. Bladder scan every 6 hours and when necessary postvoid residuals, if greater than 300 mL of urine May straight cath. Daily weights. Lasix 20 mg 1 now. Shower daily. Anticipate discharge home within the next 24 hours with home health care. Transfer third floor cardiac stepdown unit when bed available. Continue amiodarone 400 mg by mouth twice a day 3 days, then decrease to amiodarone 200 mg by mouth twice a day for atrial fibrillation prophylaxis. More recommendations to follow based on patient's clinical course. Time with Patient: Greater than 30
[2022-10-27] MEDS: PANTOPRAZOLE 40 MG TABLET PO SCH (08:08)
[2022-10-27] MEDS: CLOPIDOGREL 75 MG TAB PO SCH (08:08)
[2022-10-27] MEDS: INSULIN DETEMIR (LEVEMIR) 100 UNIT/ML SYR SQ SCH (08:08)
[2022-10-27] MEDS: METOPROLOL TARTRATE 50 MG TAB PO SCH (08:08)
[2022-10-27] MEDS: CITALOPRAM HYDROBROMIDE 10 MG TAB PO SCH (08:08)
[2022-10-27] MEDS: AMIODARONE 200 MG TAB PO SCH (08:09)
[2022-10-27] MEDS: IPRATROPIUM-ALBUTEROL 3 ML NEB INHALATION SCH ×2 (08:33→11:18)
--- NOTE | 2022-10-27 09:24 | XR ---
EXAMINATION TYPE: XR chest 2V DATE OF EXAM: 10/27/2022 COMPARISON: 10/26/2022 TECHNIQUE: PA and lateral views submitted. HISTORY: Postop FINDINGS: Osseous structures demonstrate hypertrophic and degenerative changes of the spine. Postsurgical valles es are seen with bilateral consolidation and pleural effusion. No pneumothorax arthropathy of the wagner ulders. Interstitial pattern is stable. IMPRESSION: 1. Bilateral infiltrate and pleural effusions stable. Correlate for mild venous congestion..
[2022-10-27 10:33] VITALS: RESP 20
--- NOTE | 2022-10-27 11:20 | P.PN ---
Subjective Progress Note Date: 10/27/22 Principal diagnosis: Severe aortic stenosis, status post aortic valve replacement, postoperative day #8 62-year-old male patient, underwent an aortic valve replacement for severe aortic stenosis. The patient currently is in the intensive care unit intubated on a mechanical ventilator, propofol running at 20 microvascular kilogram. He is intubated on a mechanical ventilator, assist control mode at the rate of 16, tidal volume of 600, FiO2 has been dropped down to 60% and a PEEP is currently at 10. The patient has a mediastinal chest tube and output is in order of 20 mL since his arrival from the operating room. PT is at 7.39 with a pCO2 of 42 and pO2 of 262. Hemodynamically, the patient has a PEA pressures of 39/24. Cardiac output is at 7.6 with an index of 3.0. Adequate urine output. Adequate blood pressure. Cardiac rhythm is sinus. He is on insulin drip at 3 units an hour for blood sugar control. His hemoglobin currently is at 10.1. Platelet count is at 153. No other active issues for now. Chest x-ray shows a limited 5% pneumothorax on the right. ET tube is in a good location. On today's evaluation of 10/20/2022, the patient is extubated and the patient is currently on oxygen at 2 L nasal cannula. His calm and comfortable. Adequate mentation. Moving all 4 extremities without any limitation. Using the incentive spirometer and is falling approximately 1000. He has a mediastinal chest tube. He has a [place] catheter in place. Pulmonary artery pressures of 32/11. CVP is at 7. Cardiac output is at 7.7 and index of 3.1. Chest x-ray shows no acute abnormalities. No evidence of any pneumothorax on today's chest x-ray. His cardiac rhythm is sinus. His WBC was a 10.3 with a hemoglobin of 10 and a platelet count of 162. Sodium is at 136, BUN is a 50 with a creatinine of 0.53. Patient is currently on Plavix 75 mg by mouth daily. He is on metoprolol 12.5 mg by mouth twice a day. He is on insulin drip running at the rate of 5 units an hour. He was extubated yesterday without any major difficulties. He has not ambulated yet. Output from the mediastinal chest tube has been minimal On 10/21/2022, the patient is being seen for a follow-up. Early in the evening yesterday, the patient became acutely hypoxic. His oxygen requirements went up from 2 L up to 15 L. This was done to bring a saturation above 90%. A repeat chest x-ray was done and the patient had a tiny right apical pneumothorax which is essentially unchanged. It has some pulmonary congestion and pleural effusions also more so on the left. He was given a dose of Lasix 20 mg IV push. He was also noted to have a drop in the cardiac output down to an index of 1.7. He was started on dopamine which is running at 3 mcg/kg/m. The morning cardiac index is up to 2.3. Pulmonary artery pressures are 39/19. This morning, his pulse ox is around 96%. He is using the incentive spirometer. He is still on dopamine. Most recent systolic blood pressure is 90/49. Urine output is in order of30-40 mL an hour. The patient's hemoglobin is stable at 9.3 with a white cell count of 10.3. His sodium level is at 136, BUN is 18 with a creatinine of 0.6 and a potassium level of 4.1. LFTs are normal. Blood sugars under adequate control. He has a single mediastinal chest tube. Output from the chest tube is minimal at this point in time. No evidence of any air leak. Cardiac rhythm is sinus. His still on metoprolol 25 mg by mouth twice a day. CT surgery wanted to continue the metoprolol due to concerns of diastolic dysfunction. He is awake and alert. Pain is under good control. Communicating. No focal neurological deficits. 10/22/2022 the patient is on 3 L of oxygen by nasal cannula. Chest x-ray from today shows no evidence of any pneumothorax. There are atelectatic changes and small effusions lung bases bilaterally. The patient is using the incentive spirometer. Breathing effort several other week. Cardiac index is 2.6 with an output of 6.4. PA pressures are 40/18. The patient remains on 2 g of dopamine and he has an adequate urine output. Blood pressure remains off and the patient remains on metoprolol. Chest tubes are removed. The hemoglobin today is at 8.5. WBC count is at 8.8. Electrolytes are stable still he has a sodium of 135, potassium of 4.1, BUN of 26 with a creatinine of 0.7. LFTs are normal. Urine operas adequate for now. Moving all 4 extremities without any limitation. Cardiac rhythm is sinus. Pulse ox is 90-91% on 3 L O2 nasal cannula. 10/23/2022, the patient is being seen for a follow-up. The patient is currently on oxygen at 3 L. He is using the senna spirometer. All of the tubes are out. The chest x-ray showing some cardiomegaly and presence of pleural effusions bilaterally along with some atelectatic change in lung bases. Sternal wound is dry clean and intact. The patient's cardiac rhythm is sinus. Patient is off dopamine for now. Blood work from today is showing WBC count of 8.4 with a hemoglobin of 8.4 and a platelet count of 164. Electrolytes are all within norm al limits. The patient is moving all 4 extremities. Is following simple commands. His tolerating diet. He is passing gas, no bowel movements. Note that after coming off dopamine, the patient had to be started on a low dose of 1 mcg/kg/m for blood pressure. Patient was reevaluated today on 10/24/2022, remains in the ICU, patient is on room air, off dopamine, denies any cough wheezing or shortness of breath, pain seems to be relatively under control. No major issues over the last 24 hours. WBC count 6.6 hemoglobin is 8.6 index was a normal renal profile is normal. Patient is sitting up in the bedside chair, awake, alert oriented, not in any distress. Patient is able to achieve 1500 mL on his incentive spirometry. Chest x-ray showed nonspecific parenchymal changes, mild congestive changes, no clear-cut evidence of pneumonia. Patient is known to have history of diastolic congestive heart failure. His atrial and ventricular epicardial pacemaker wires are supposed to be removed today. Pain seems to be under control. Patient is on GI and DVT prophylaxis 10/25/2022, patient remains in the ICU, he is on room air, achieving about 1000 mL via incentive spirometer. Chest x-ray showed mild congestive heart failure, patient did receive a dose of Lasix earlier by thoracic surgery received 20 mg IV push. His IV fluids at KVO, patient is not in any distress, continues to have mostly aches and pains. O2 saturation 93% on room air. Chest x-ray again as noted earlier showed mild congestive heart failure changes. Patient is hemodynamically stable, not requiring any inotropes or any pressors. He is already ambulating with assistance in the intensive care unit hallway. His epicardial pacemaker wires have been removed yesterday. CBC is relatively normal hemoglobin is 8.7 and his basic metabolic profile is normal renal profile is normal Reevaluated today on 10/26/2022, patient is doing great, patient did have an episode of paroxysmal atrial fibrillation yesterday, treated with amiodarone protocol. Today the patient is doing great, remains on room air, relatively as ymptomatic, and he is postoperative day #7. I believe the patient is ready to be discharged, however he may benefit from rehab placement. And this is pending Reevaluated today on 10/27/2022, patient is doing well today, relatively asymptomatic, patient is being discharged home today. Patient is alert oriented 3, not in any distress, O2 sats is 93% on room air, still achieving 1500 mL on his incentive spirometer. He is in sinus rhythm, chest x-ray showed mostly atelectasis and small pleural effusions. WBC count 7.6 hemoglobin is 9 lites are normal renal profile is normal Objective - Vital Signs Vital signs: Vital Signs Temp 97.6 F 10/27/22 08:00 Pulse 73 10/27/22 10:00 Resp 20 10/27/22 08:00 BP 108/64 10/27/22 08:00 Pulse Ox 96 10/27/22 10:00 FiO2 50 10/19/22 17:15 Intake & Output 10/26/22 10/27/22 10/27/22 18:59 06:59 18:59 Intake Total 350 Output Total 725 525 Balance -725 350 -525 Weight 134.3 kg Intake: Oral 350 Output: Urine 725 525 Other: Voiding Method Toilet Toilet Toilet Urinal Urinal Urinal # Voids 1 2 1 # Bowel Movements 1 2 ABP, PAP, CO, CI - Last Documented Arterial Blood Pressure 111/62 Pulmonary Artery Pressure 42/20 Cardiac Output 7.7 Cardiac Index 3.1 - Exam Physical Exam: Revealed 62-year-old white male in no distress, on room air, pat ient is relatively asymptomatic Head: Atraumatic, normocephalic. HEENT:[Neck is supple.] [No neck masses.] [No thyromegaly.] [No JVD.] Chest: [Symmetrical chest expansion, diminished breath sounds at the bases, no rhonchi and no wheezes Cardiac Exam: [Normal S1 and S2, no S3 gallop, 2/6 systolic murmur throughout the precordium. Abdomen: [Soft, nontender, no megaly, no rebound, no guarding, normal bowel sounds.] Extremities: [No clubbing, no edema, no cyanosis.] Neurological Exam: [No focal neurologic deficit.] Psychiatric: Normal mood affect and normal mental status examination. Skin: No rashes. - Labs CBC & Chem 7: 10/27/22 05:53 10/27/22 05:53 Labs: Abnormal Lab Results - Last 24 Hours (Table) 10/26/22 10/26/22 10/27/22 Range/Units 16:17 20:10 05:53 RBC 3.05 L (4.30-5.90) m/uL Hgb 9.0 L (13.0-17.5) gm/dL Hct 26.9 L (39.0-53.0) % Creatinine (0.66-1.25) mg/dL Glucose (74-99) mg/dL POC Glucose (mg/dL) 161 H 159 H (70-110) mg/dL 10/27/22 10/27/22 Range/Units 05:53 07:07 RBC (4.30-5.90) m/uL Hgb (13.0-17.5) gm/dL Hct (39.0-53.0) % Creatinine 0.60 L (0.66-1.25) mg/dL Glucose 129 H (74-99) mg/dL POC Glucose (mg/dL) 149 H (70-110) mg/dL Assessment and Plan Assessment: Impression: Severe aortic valve stenosis, status post bioprosthetic aortic valve replacement, postoperative day #8 Chronic diastolic congestive heart failure Benign essential hypertension Previous vasovagal syncopal episode. Type 2 diabetes with poorly controlled hemoglobin A1c of 7.6% Obstructive sleep apnea syndrome History of asthma with FEV1 of 70% History of testicular cancer Previous TIA History of COVID-19 infection in 2020 Family history of premature coronary artery disease Postoperative atelectasis, expected Recommendation: 1 clear the patient to be discharged home today if cleared by other consultants Continue present supportive care measures Continue incentive spirometry Will follow as needed Time with Patient: Less than 30
--- NOTE | 2022-10-27 11:26 | P.DS ---
Providers Date of admission: 10/19/22 05:33 Expected date of discharge: 10/27/22 Attending physician: Antonio Bui Consults: 10/19/22 13:08 Consult Physician Routine Consulting Provider: Daily Ruvalcaba Consult Reason/Comments: Semiconductor Processing Technician Consult: post cardiac surgery Do you want consulting provider notified?: Yes Consult Physician Routine Consulting Provider: Duke Parrish Consult Reason/Comments: Marketing Designer Consult: post cardiac surgery Do you want consulting provider notified?: Yes Consult Physician Routine Consulting Provider: Dalia Dupree Consult Reason/Comments: med mgmt; Bazo patient Do you want consulting provider notified?: Yes 10/26/22 08:55 Consult Physician Routine Consulting Provider: Alfonzo Blum Consult Reason/Comments: inpatient rehab eval Do you want consulting provider notified?: Yes Primary care physician: [facility] Course: FINAL DIAGNOSIS: Severe tricuspid calcific aortic valve stenosis, status post bioprosthetic aortic valve replacement Diastolic dysfunction with left ventricular hypertrophy Previous syncopal episode likely vasovagal Hypertension Hyperlipidemia, treated cholesterol 146, LDL 65, triglycerides 194 Diabetes mellitus type 2, hemoglobin A1c 7.6% Obstructive sleep apnea Asthma, FEV1 70% of predicted Testicular cancer in 2006 BPH Previous TIA with no residual deficits GERD Previous tobacco use Covid in 04/2021 Developmental delay Obesity with BMI of 39.1 kg/m Preoperative nasal swab positive for MSSA, treated Family history of premature coronary artery disease (mom diagnosed in her early 50s) Postoperative acute blood loss anemia and thrombocytopenia, expected Right small apical pneumothorax, inconsequential, resolved Paroxysmal atrial fibrillation, a known common occurrence after cardiac surgery, not a complication PRINCIPAL PROCEDURE: Aortic valve replacement with a 27 mm Coker Inspiris bovine pericardial valve, root enlargement with Hemashield patch (Bruno Hendrickson) Epi-aortic ultrasound Exclusion left atrial appendage with a 35 mm Atricure clip HISTORY OF PRESENT ILLNESS: This is a 62-year-old gentleman who follows with Dr. Fry for his primary care and with Dr. Bates for his cardiology care. Briefly, the patient has had symptoms of exertional dyspnea, chest tightness and complaints of fatigue. He was found to have severe aortic valve stenosis by 2-D transthoracic echocardiogram, a peak gradient of 78 mmHg and a mean gradient of 38 mmHg. In February 2022 the patient underwent a transeso phageal echocardiogram which demonstrated a trileaflet aortic valve with severe aortic valve stenosis, an aortic valve area of 0.8 cm, mild mitral valve regurgitation, trace tricuspid valve regurgitation and a left ventricular size and normal left ventricular ejection fraction of 55%. The patient also underwent a cardiac catheterization which demonstrated no significant coronary artery disease. Subsequently, due to the patient's presenting symptoms and findings on the above-mentioned studies a consult was placed to Dr. Antonio Bui from cardiothoracic surgery for further evaluation and treatment recommendations. Treatment options were discussed including aortic valve replacement surgery, risks versus benefits including the STS risk score were discussed with the patient. Knowing and understanding the risks the patient wished to proceed with the surgical option. HOSPITAL COURSE: The patient was brought to the hospital on 10/19/2022, taken to the preoperative area, prepared in the usual fashion and subsequently taken to the operating room where Dr. Antonio Bui performed an aortic valve replacement with a 27 mm Coker Inspiris bovine pericardial valve, and aortic root enlargement with a Hemashield patch (Bruno Hendrickson). Upon completion of the surgery the patient was transferred to the cardiovascular intensive care unit where he was recovered and monitored hemodynamically. He was extubated, all lines, tubes and supportive drips were discontinued when appropriate. Transfer orders were placed to the third floor cardiac stepdown unit, although due to lack of bed availability on the stepdown unit the patient was kept in the intensive care unit for further monitoring and rehabilitation. His oxygen was titrated down, he continued to work with physical, occupational therapy and cardiac rehab, he was tolerating normal diet, his pain was well controlled and he was ready to be discharged home with home health care on postoperative day #8. He has received written and verbal instructions regarding his medications, activity restrictions, signs and symptoms requiring physician notification and his follow-up appointments. The patient will not be discharged home on aspirin as he has an anaphylactic ALLERGY. Plan - Discharge Summary Discharge Rx Participant: No New Discharge Prescriptions: New Ipratropium-Albuterol Nebulize [Duoneb 0.5 mg-3 mg/3 ml Soln] 3 ml INHALATION RT-QID each Acetaminophen Tab [Tylenol] 1,000 mg PO Q6HR PRN tab PRN Reason: Fever And/ Or Mild Pain (1-3) Metoprolol Tartrate [Lopressor] 50 mg PO BID #60 tab Ipratropium-Albuterol Nebulize [Duoneb 0.5 mg-3 mg/3 ml Soln] 3 ml INHALATION RT-Q2H PRN each PRN Reason: Shortness Of Breath Or Wheezing Amiodarone [Cordarone] 400 mg PO BID #66 tab Clopidogrel [Plavix] 75 mg PO DAILY #30 tab Sennosides-Docusate Sodium [Senokot-S] 2 each PO HS #14 tab Insulin Detemir (Levemir) [Levemir] 20 unit SQ BID@0700,2100 30 Days #5 each Continue metFORMIN HCL [Glucophage] 500 mg PO BID #60 tab Tamsulosin [Flomax] 0.4 mg PO HS Montelukast [Singulair] 10 mg PO HS Famotidine [Pepcid] 20 mg PO HS Citalopram Hydrobromide [Citalopram HBr] 30 mg PO QAM Albuterol Inhaler [Ventolin Hfa Inhaler] 1 - 2 puff INHALATION Q4-6H PRN PRN Reason: sob Atorvastatin [Lipitor] 10 mg PO HS Ibuprofen [Motrin Ib] 200 mg PO DAILY PRN PRN Reason: Pain Melatonin 5 mg PO HS PRN PRN Reason: sleep Semaglutide [Rybelsus] 7 mg PO QAM #30 tab Dulaglutide [Trulicity] 0.75 mg SQ QAM 30 Days #30 each Discontinued Chlorhexidine Gluconate [Peridex] 15 ml PO BID Insulin Detemir [Levemir Flexpen] 25 units SQ HS Mupirocin [Bactroban Nasal Ointment 2% (with applicator)] 1 applic NASAL BID #1 tub Metoprolol Tartrate [Lopressor] 50 mg PO BID Discharge Medication List metFORMIN HCL [Glucophage] 500 mg PO BID #60 tab 04/29/20 [Rx] Atorvastatin [Lipitor] 10 mg PO HS 12/24/21 [History] Montelukast [Singulair] 10 mg PO HS 12/24/21 [History] Tamsulosin [Flomax] 0.4 mg PO HS 12/24/21 [History] Citalopram Hydrobromide [Citalopram HBr] 30 mg PO QAM 07/04/22 [History] Famotidine [Pepcid] 20 mg PO HS 07/04/22 [History] Ibuprofen [Motrin Ib] 200 mg PO DAILY PRN 07/04/22 [History] Albuterol Inhaler [Ventolin Hfa Inhaler] 1 - 2 puff INHALATION Q4-6H PRN 10/11/22 [History] Melatonin 5 mg PO HS PRN 10/11/22 [History] Ipratropium-Albuterol Nebulize [Duoneb 0.5 mg-3 mg/3 ml Soln] 3 ml INHALATION RT-Q2H PRN each 10/26/22 [Rx] Ipratropium-Albuterol Nebulize [Duoneb 0.5 mg-3 mg/3 ml Soln] 3 ml INHALATION RT-QID each 10/26/22 [Rx] Acetaminophen Tab [Tylenol] 1,000 mg PO Q6HR PRN tab 10/27/22 [Rx] Amiodarone [Cordarone] 400 mg PO BID #66 tab 10/27/22 [Rx] Clopidogrel [Plavix] 75 mg PO DAILY #30 tab 10/27/22 [Rx] Dulaglutide [Trulicity] 0.75 mg SQ QAM 30 Days #30 each 10/27/22 [Rx] Insulin Detemir (Levemir) [Levemir] 20 unit SQ BID@0700,2100 30 Days #5 each 10/27/22 [Rx] Metoprolol Tartrate [Lopressor] 50 mg PO BID #60 tab 10/27/22 [Rx] Semaglutide [Rybelsus] 7 mg PO QAM #30 tab 10/27/22 [Rx] Sennosides-Docusate Sodium [Senokot-S] 2 each PO HS #14 tab 10/27/22 [Rx] Follow up Appointment(s)/Referral(s): Shruti Villaseñor NPC [Nurse Practitioner] - 11/03/22 1:00 pm [facility] [NON-STAFF] - 4 Weeks (You will receive a phone call in approximately 4-6 weeks for evaluation for cardiac rehab) Morgan Bates DO [STAFF PHYSICIAN] - 11/08/22 9:30 am Antonio Bui MD [STAFF PHYSICIAN] - 11/17/22 1:00 pm Carmelo Gilbert DO [Doctor of Osteopathic Medicine] - 11/10/22 2:[address] [facility], [NON-STAFF] - 1-2 Days Sandy Fry [Primary Care Provider] - 1 Week (Message left with the office) Ambulatory/Diagnostic Orders: Complete Blood Count w/diff [LAB.AMB] Time Frame: 10/30/22, Facility: [facility], Location: Laboratory [facility] Comprehensive Metabolic Panel [LAB.AMB] Time Frame: 10/30/22, Facility: [facility], Location: Laboratory [facility] Activity/Diet/Wound Care/Special Instructions: DISCHARGE INSTRUCTIONS: 1. No driving for 4 weeks, or until physician gives their ok. 2. The patient should sleep in their own bed, no medical bed needed. 3. Stairs are not an issue. If the bedroom is upstairs, it is advised that the patient go up at night and down in the morning for the first week. Go slowly, using handrail and take 1 step at a time. 4. SHIRLENE hose are to be worn for 30 days post surgery or until physician discontinues. 5. Heart hugger is to be worn 100% of the time until physician discontinues.(except when showering) 6. No lifting, pushing, or pulling more than 10 pounds for 12 weeks. The physician will advise of any restriction changes. 7. The patient is expected to continue the prescribed walking program. 8. Continue pain control per as needed orders. 9. Continue with incentive spirometry and splinting/heart hugger until otherwise directed by the physician. 10. Must shower daily using liquid antibacterial soap 11. Routine sternal incision care. No powders, lotions, ointments on incisions. No dressings are necessary on incisions unless they are draining. Dermabond tape is to remain on sternal incision until surgeon follow-up. 12. Please call surgeon/CUT OUT MACHINE OPERATOR for temp greater than 101 F or purulent drainage from incisions. 13. You should weigh yourself daily, record and bring log with you to follow up appointments. 14. All prescriptions given by surgeon for 30 days. Refills need to be filled through order packer/primary care physician. 15. A Red armband has been placed on the patient. It should be worn for 30 days post discharge from surgery and will be removed by the cardiac surgeons. If an ER visit is necessary, please make sure the number on the Red armband is called before going to ER. 16. You have been referred to and are expected to begin Cardiac Rehab in approximately 4-6 weeks. HOME HEALTH SERVICES TO PROVIDE: RN SKILLED HOME CARE SERVICES FOR POST-OP SURGICAL PATIENTS WITH THE FOLLOWING: Coronary Artery Bypass Surgery (CABG), Mitral Valve Replacement/Repair ( MVR), Aortic Valve Replacement/Repair (AVR) RN TO CONTINUE EDUCATION FROM ``ROAD TO A HEALTH HEART PATIENT EDUCATION MANUAL (GIVEN TO PATIENT IN THE HOSPITAL) MEDICATION RECONCILIATION WITH EDUCATION NEEDED ON FIRST HOME VISIT EMPHASIZE IMPORTANCE OF WEARING BREAST SUPPORT/HEART HUGGER ENCOURAGE USE OF INCENTIVE SPIROMETER 10 X EVERY HOUR WHILE AWAKE ENCOURAGE UTILIZATION OF LOWER EXTREMITY COMPRESSION STOCKINGS/SHIRLENE HOSE and ELEVATE LEGS ABOVE LEVEL OF HEART WHILE AT REST. ENCOURAGE AMBULATION 3-5x/day INCREASING TOLERATES, WHILE AVOIDING EXTREMES IN TEMPERATURE FREQUENCY: RN TO OPEN THE PATIENT WITHIN 24 HOURS OF DISCHARGE FROM THE HOSPITAL WITH TELEHEALTH INSTALLED AT [facility], RN TO VISIT 2-3 X A WEEK FOR 4 WEEKS ESTABLISHED BY PATIENT NEEDS. LABORATORY: CBC, CMP TO BE DRAWN ON THE THIRD DAY HOME, (RAN STAT) FAX RESULTS TO [phone]. TELEHEALTH PARAMETERS: WEIGHT: NOTIFY MD OF WEIGHT GAIN OF 2 LBS IN 24 HOURS OR 5 LBS IN ONE WEEK HR: NOTIFY MD OF HR <55 BPM OR HR>100 BPM BP: NOTIFY MD IF BP <90/55 OR BP>140/100 O2 SAT: NOTIFY MD IF PO2<93% ON ROOM AIR SEND TELEHEALTH REPORT TO GEOLOGIST AND CARDIOVASCULAR SURGEON THE FIRST WEEK OF CARE AND THEN BI-WEEKLY. PLEASE ADDITIONALLY COMMUNICATE ANY ABNORMALS AND NEW FINDINGS TO THE SURGEONS OFFICE. Discharge Disposition: HOME WITH HOME HEALTH SERVICES
[2022-10-27 11:40] LABS: Glucose,Whole Blood 140 mg/dL (70-110)
[2022-10-27 12:07] VITALS: BP 98/56; PULSE 75; TEMP 97.8
[2022-10-27] MEDS: ACETAMINOPHEN TAB 500 MG TAB PO PRN (12:31)
--- NOTE | 2022-10-27 13:46 | P.PN ---
Subjective Progress Note Date: 10/27/22 10/26/2022 Patient seen and evaluated in follow-up today currently in the ICU with multiple medical consultations including cardiothoracic surgery, pulmonary technical product manager and cardiology following. Patient is postop day 7 aortic valve replacement and doing relatively well. Patient is currently on room air receiving treatments and denies shortness of breath. Patient did have some vascular congestion noted on chest x-ray this morning and was given a low-dose of IV Lasix. Patient's labs reviewed and within normal limits. Patient is currently maintained on insulin and will continue with long-acting twice daily and recommend monitoring Accu-Cheks and may use sliding scale as needed. Recommend resuming home medications as well as continuing with subcutaneous twice a day long acting insulins and a prescription was provided and sent to the [facility]. Patient being possibly evaluated for inpatient rehab versus going home at his longterm where he resides which reports he is able to be managed there status post surgical intervention. Recommend PT/OT therapy evaluation. P atient is afebrile denies chest pain or shortness of breath. Heart hunger is noted in patient verbalized he is using. Patient also with incentive spirometer at the bedside encouraged to use at least 10 times every hour while awake. Per nursing staff patient had a brief period of atrial fibrillation with RVR placed on amiodarone and has been switched over to oral amiodarone currently rate controlled. Recommend continue telemetry monitoring and discussing possible discharge planning in the next 24 hours. 10/27/2022 Patient is seen and evaluated in follow-up and continues in the ICU and working on being discharged back to [facility] today. Med reconciliation completed with adjustments to medications discussed with pharmacy. Patient will continue on long-acting twice daily and recommend Accu-Cheks before meals and at bedtime and follow-up with primary care provider along with cardiothoracic surgery as scheduled. Patient is currently afebrile denies chest pain or shortness of breath. Plan is for discharge later today. Patient is tolerating diet and would recommend consistent carb heart healthy diet. Review of systems: Constitutional: No reports of fatigue, fever, or chills Cardiovascular: No reports of chest pain or palpitations Respiratory: No reports of shortness of breath or cough GI: No reports of nausea, vomiting, or diarrhea : No reports of dysuria or retention Neurovascular: No reports of generalized weakness All medications have been reviewed Physical exam: GENERAL: The patient is alert and oriented x3, not in any acute distress. Well developed, well nourished. Obese HEENT: Pupils are round and equally reacting to light. EOMI. No scleral icterus. No conjunctival pallor. Normocephalic, atraumatic. No pharyngeal erythema. No thyromegaly. CARDIOVASCULAR: S1 and S2 present. No murmurs, rubs, or gallops. PULMONARY: Chest is clear to auscultation, no wheezing . no crackles. surgical site closed and healing ABDOMEN: Soft, nontender, nondistended, normoactive bowel sounds. No palpable organomegaly. MUSCULOSKELETAL: No joint swelling or deformity. EXTREMITIES: No cyanosis, clubbing, or pedal edema. NEUROLOGICAL: Gross neurological examination did not reveal any focal deficits. SKIN: No rashes. no petechiae. Assessment: Aortic stenosis, Status post aortic valve replacement surgery on 10/19. . was on mechanical ventilator perioperatively. Extubated successfully and currently on room air Right apical pneumothorax 5 to 10%. Improved Right upper lobe nodule, 9 mm, need PET scan as an outpatient Diabetes type 2 insulin-dependent. Hypertension Hyperlipidemia History of right testicular cancer s/p surgery History of developmental delay Osteoarthritis GERD History of CVA Obesity with BMI 37.4 Plan: Recommend continue current medications and management per cardiothoracic surgery Cardiology following along with pulmonary technical product manager and have cleared the patient for discharge today Plan is for return to [facility] and home medications have been reconciled and sent to the pharmacy. There is a discrepancy in the medication reconciliation regarding Restalsus (diabetic medication) from admission stating that patient was taking this in the outpatient setting. This will be discontinued as the longterm reports he was not taking this. Patient also takes trulicity which was documented as daily although this is a once a week subcutaneous injection. This was addressed and changed as appropriate. Recommend to continue with insulin regimen of long-acting insulin twice daily as prescribed and Accu-Cheks before meals and at bedtime. Patient does need tight glycemic control for proper healing and overall health and wellness Plan is for discharge this afternoon. Patient is medically stable for discharge today recommending close outpatient follow-up with primary care provider along with cardiology and cardiothoracic surgery is scheduled We will continue to follow along closely with cardiothoracic surgery. Thank you kindly for this consultation. The impression and plan of care has been dictated by Radha Ham, Nurse Practitioner as directed. Dr. Bernadette MD I have performed a history and examination and MDM of this patient, discussed the same with the dictator, and agree with the dictator's assessment and plan as written ,documented as a scribe. Based on total visit time, I have performed more than 50% of the visit. Objective - Vital Signs Vital signs: Vital Signs Temp 97.8 F 10/27/22 02:00 Pulse 81 10/27/22 08:44 Resp 18 10/27/22 02:00 BP 128/75 10/27/22 02:00 Pulse Ox 96 10/27/22 02:00 FiO2 50 10/19/22 17:15 Intake & Output 10/26/22 10/27/22 10/27/22 18:59 06:59 18:59 Intake Total 350 Output Total 725 175 Balance -725 350 -175 Weight 134.3 kg Intake: Oral 350 Output: Urine 725 175 Other: Voiding Method Toilet Toilet Urinal Urinal # Voids 1 2 1 # Bowel Movements 1 ABP, PAP, CO, CI - Last Documented Arterial Blood Pressure 111/62 Pulmonary Artery Pressure 42/20 Cardiac Output 7.7 Cardiac Index 3.1 - Labs CBC & Chem 7: 10/27/22 05:53 10/27/22 05:53 Labs: Abnormal Lab Results - Last 24 Hours (Table) 10/26/22 10/26/22 10/26/22 Range/Units 11:06 16:17 20:10 RBC (4.30-5.90) m/uL Hgb (13.0-17.5) gm/dL Hct (39.0-53.0) % Creatinine (0.66-1.25) mg/dL Glucose (74-99) mg/dL POC Glucose (mg/dL) 142 H 161 H 159 H (70-110) mg/dL 10/27/22 10/27/22 10/27/22 Range/Units 05:53 05:53 07:07 RBC 3.05 L (4.30-5.90) m/uL Hgb 9.0 L (13.0-17.5) gm/dL Hct 26.9 L (39.0-53.0) % Creatinine 0.60 L (0.66-1.25) mg/dL Glucose 129 H (74-99) mg/dL POC Glucose (mg/dL) 149 H (70-110) mg/dL
[2022-10-27] MEDS ORDERED: METOPROLOL TARTRATE 50 MG TAB PO SCH (21:00)
--- NOTE | 2022-10-27 21:59 | PN ---
PROGRESS NOTE SUBJECTIVE: This is a 62-year-old gentleman with history of aortic stenosis status post aortic valve replacement. The patient developed postop atrial fibrillation, converted back to sinus rhythm on amiodarone and he is doing well and is about to be discharged home. He has had episodes of atrial fibrillation with rapid ventricular rate, is currently on metoprolol 100 b.i.d., somewhat hypotensive at 108/64. I am going to decrease the dose of Lopressor to 50 b.i.d., continue the amiodarone. The patient is otherwise doing well. OBJECTIVE: GENERAL: Comfortable at rest. VITAL SIGNS: Stable. CHEST: Reveals diminished air entry at the bases. HEART: Reveals first and second heart sounds. No gallop, no murmur. ABDOMEN: Soft. EXTREMITIES: Reveal mild edema, peripheral pulses are felt. LABORATORY DATA: Labs show a potassium of 4.4, creatinine is 0.6, hemoglobin is 9, platelet count is 249. ASSESSMENT: 1. Aortic stenosis, status post aortic valve replacement. 2. Postop atrial fibrillation. PLAN: The patient is doing well. He will continue current medications. Followup with Cardiology in a week's time. MMODL / IJN: [id number] /
== END 2022-10-27 13:55 | disposition home health service (06) | DRG 163 ==
LOC: 2ORMAIN 10-19 05:33 → EEVIPCON 10-19 08:00 → 2SICU 10-19 10:58
PROVIDERS: ADMIT Thoracic Surgery (Cardiothoracic Vascular Surgery); ATTEND Thoracic Surgery (Cardiothoracic Vascular Surgery)
PROC: 5A1221Z Performance of Cardiac Output, Continuous (ICD-10-PCS; 2022-10-19)
PROC: 02L70CK Occlusion of Left Atrial Appendage with Extraluminal Device, Open Approach (ICD-10-PCS; principal; 2022-10-19 08:00)
PROC: 02RF08Z Replacement of Aortic Valve with Zooplastic Tissue, Open Approach (ICD-10-PCS; principal; 2022-10-19 08:00)
PROC: 30233J1 Transfusion of Nonautologous Serum Albumin into Peripheral Vein, Percutaneous Approach (ICD-10-PCS; 2022-10-20)
PROC: 3E033XZ Introduction of Vasopressor into Peripheral Vein, Percutaneous Approach (ICD-10-PCS; 2022-10-21)
PROC: 3E0336Z Introduction of Nutritional Substance into Peripheral Vein, Percutaneous Approach (ICD-10-PCS; 2022-10-26)
DX: I35.0 Nonrheumatic aortic (valve) stenosis (principal); Z00.6 Encounter for examination for normal comparison and control in clinical research program; J96.01 Acute respiratory failure with hypoxia; D69.6 Thrombocytopenia, unspecified; J90 Pleural effusion, not elsewhere classified; J93.83 Other pneumothorax; Z68.37 Body mass index [BMI] 37.0-37.9, adult; I11.0 Hypertensive heart disease with heart failure; E11.42 Type 2 diabetes mellitus with diabetic polyneuropathy; I95.9 Hypotension, unspecified; I50.32 Chronic diastolic (congestive) heart failure; A49.01 Methicillin susceptible Staphylococcus aureus infection, unspecified site; D62 Acute posthemorrhagic anemia; E11.65 Type 2 diabetes mellitus with hyperglycemia; J45.909 Unspecified asthma, uncomplicated; E66.9 Obesity, unspecified; F32.A Depression, unspecified; I77.810 Thoracic aortic ectasia; N40.0 Benign prostatic hyperplasia without lower urinary tract symptoms; G47.33 Obstructive sleep apnea (adult) (pediatric); R62.50 Unspecified lack of expected normal physiological development in childhood; I25.10 Atherosclerotic heart disease of native coronary artery without angina pectoris; R32 Unspecified urinary incontinence; I48.0 Paroxysmal atrial fibrillation; Z79.4 Long term (current) use of insulin; E78.5 Hyperlipidemia, unspecified; K21.9 Gastro-esophageal reflux disease without esophagitis; F41.9 Anxiety disorder, unspecified; M19.90 Unspecified osteoarthritis, unspecified site; Z79.02 Long term (current) use of antithrombotics/antiplatelets; Z85.47 Personal history of malignant neoplasm of testis; I25.2 Old myocardial infarction; Z79.899 Other long term (current) drug therapy; Z79.84 Long term (current) use of oral hypoglycemic drugs; Z79.85 Long-term (current) use of injectable non-insulin antidiabetic drugs; Z91.013 Allergy to seafood; Z88.6 Allergy status to analgesic agent; Z28.311 Partially vaccinated for COVID-19; Z86.73 Personal history of transient ischemic attack (TIA), and cerebral infarction without residual deficits; Z88.8 Allergy status to other drugs, medicaments and biological substances; Z91.041 Radiographic dye allergy status; Z91.011 Allergy to milk products; Z91.018 Allergy to other foods; Z87.891 Personal history of nicotine dependence; Z86.16 Personal history of COVID-19; Z82.49 Family history of ischemic heart disease and other diseases of the circulatory system; Z81.2 Family history of tobacco abuse and dependence
CPT/HCPCS: 71045; 71046; 80048; 80053; 80061; 80074; 81001; 82330; 82805; 83036; 83735; 84443; 85025; 85027; 85610; 85730; 86850; 86891; 86900; 86901; 86920; 87070; 88305; 88311; 94002; 94150; 94640

== ENCOUNTER 2022-10-28 09:14 | Emergency (ER) | payer OTHER ==
[2022-10-28 09:27] VITALS: RESP 20
--- NOTE | 2022-10-28 09:37 | ED ---
General Adult HPI - General Chief complaint: Chest Pain Stated complaint: Chest Pain Time Seen by Provider: 10/28/22 09:20 Source: patient, EMS, RN notes reviewed, old records reviewed Mode of arrival: EMS Limitations: no limitations - History of Present Illness Initial comments: This is a 62-year-old male who presents emergency Department complaining of chest pain or shortness of breath. Patient states started last night and continued throughout the night until today. Patient had a valve replaced he believes it was his aortic valve on October 19 and was released from the hospital a couple 1 day ago. Patient denies any fever chills per patient denies any cough per patient denies abdominal pain. Patient states her results pain in the mid back. Patient denies any nausea vomiting diarrhea. She denies any increased swelling to the legs. - Related Data Home Medications Medication Instructions Recorded Confirmed Montelukast [Singulair] 10 mg PO HS 12/24/21 10/11/22 Tamsulosin [Flomax] 0.4 mg PO HS 12/24/21 10/11/22 Citalopram Hydrobromide 30 mg PO QAM 07/04/22 10/11/22 [Citalopram HBr] Famotidine [Pepcid] 20 mg PO HS 07/04/22 10/11/22 Albuterol Inhaler [Ventolin Hfa 1 - 2 puff INHALATION Q4-6H PRN 10/11/22 10/11/22 Inhaler] Previous Rx's Medication Instructions Recorded metFORMIN HCL [Glucophage] 500 mg PO BID #60 tab 04/29/20 Acetaminophen Tab [Tylenol Tab] 500 mg PO Q6H PRN #30 tablet 10/27/22 Amiodarone [Cordarone] 400 mg PO BID #66 tab 10/27/22 Atorvastatin [Lipitor] 10 mg PO HS #30 tab 10/27/22 Clopidogrel [Plavix] 75 mg PO DAILY #30 tab 10/27/22 Dulaglutide [Trulicity] 0.75 mg SQ WEEKLY 30 Days #4 each 10/27/22 Ibuprofen [Motrin Ib] 200 mg PO DAILY PRN #10 tab 10/27/22 Insulin Detemir (Levemir) [Levemir] 20 unit SQ BID@0700,2100 30 Days 10/27/22 #5 each Melatonin 5 mg PO HS PRN #10 tab 10/27/22 Metoprolol Tartrate [Lopressor] 50 mg PO BID #60 tab 10/27/22 Sennosides-Docusate Sodium 2 each PO HS #14 tab 10/27/22 [Senokot-S] Allergies Allergy/AdvReac Type Severity Reaction Status Date / Time shellfish derived [Shellfish] Allergy Severe Anaphylaxis- Verified 10/28/22 11:3 4 tight chest, dyspnea aspirin Allergy Anaphylaxis- Verified 10/28/22 11:34 throat get tight cefaclor [From Ceclor] Allergy Rash/Hives Verified 10/28/22 11:34 Iodine and Iodide Containing Allergy Anaphylaxis Verified 10/28/22 11:34 Produc lactose Allergy Diarrhea Verified 10/28/22 11:34 sumatriptan [From Imitrex] Allergy Dyspnea Verified 10/28/22 11:34 sumatriptan succinate Allergy Dyspnea Verified 10/28/22 11:34 [From Imitrex] chocolate flavor AdvReac headache Verified 10/28/22 11:34 theophylline [From Lang-Dur] AdvReac hand Verified 10/28/22 11:34 tremors gatorade AdvReac Unknown sore throat Uncoded 10/28/22 09:24 Review of Systems ROS Statement: Those systems with pertinent positive or pertinent negative responses have been documented in the HPI. ROS Other: All systems not noted in ROS Statement are negative. Past Medical History Past Medical History: Asthma, Cancer, CVA/TIA, Diabetes Mellitus, GERD/Reflux, Hyperlipidemia, Hypertension, Osteoarthritis (OA) Additional Past Medical History / Comment(s): hx cva (2021)., hx seizure with low blood sugar., testicular cancer right 2006., numbness in left arm at times. tingling in feet., constipation/bloating., environmental allergies. Last Myocardial Infarction Date:: ?states 1985 when working at the [employer] History of Any Multi-Drug Resistant Organisms: None Reported Past Surgical History: Cardiac Valve Replacement, Heart Catheterization Additional Past Surgical History / Comment(s): TESTICULAR SURGERY ., COLONOSCO PY. Past Anesthesia/Blood Transfusion Reactions: No Reported Reaction Additional Past Anesthesia/Blood Transfusion Reaction / Comment(s): DIFFICULTY W AKING UP. MOTHER HAD DIFFICULTY WAKING UP ALSO. Past Psychological History: Anxiety, Bipolar, Depression Smoking Status: Never smoker Past Alcohol Use History: None Reported Past Drug Use History: None Reported - Past Family History Father Family Medical History: Cancer, Renal Disease Additional Family Medical History / Comment(s): mrsa Mother Family Medical History: Coronary Artery Disease (CAD), Hypertension, Myocardial Infarction (MS), Osteoarthritis (OA) Additional Family Medical History / Comment(s): cardiac stents, smoker General Exam - General Exam Comments Initial Comments: GENERAL: Patient is well-developed and well-nourished. Patient is nontoxic and well- hydrated and is in mild distress. ENT: Neck is soft and supple. No significant lymphadenopathy is noted. Oropharynx i s clear. Moist mucous membranes. Neck has full range of motion without eliciting any pain. EYES: The sclera were anicteric and conjunctiva were pink and moist. Extraocular movements were intact and pupils were equal round and reactive to light. Eyelids were unremarkable. PULMONARY: Unlabored respirations. Good breath sounds bilaterally. No audible rales rhonchi or wheezing was noted. CARDIOVASCULAR: There is a regular rate and rhythm without any murmurs gallops or rubs. Chest pain is reproducible ABDOMEN: Soft and nontender with normal bowel sounds. SKIN: Skin is clear with no lesions or rashes and otherwise unremarkable. NEUROLOGIC: Patient is alert and oriented x3. Cranial nerves II through XII are grossly intact. Motor and sensory are also intact. Normal speech, volume and content. Symmetrical smile. MUSCULOSKELETAL: Normal extremities with adequate strength and full range of motion. LYMPHATICS: No significant lymphadenopathy is noted PSYCHIATRIC: Normal psychiatric evaluation. Limitations: no limitations Course Vital Signs 10/28/22 09:19 Temperature 98.0 F Pulse Rate 85 Respiratory 20 Rate Blood Pressure 121/67 O2 Sat by Pulse 94 L Oximetry Medical Decision Making - Medical Decision Making EKG was interpreted by myself shows a sinus rhythm at 85 bpm ID interval 261 QRSs 87 QT interval 34 QTC is 426. Patient's EKG shows no ST segment elevation or depression. Was pt. sent in by a medical professional or institution (, PA, MAGAZINE WORKER, urgent care, hospital, or long term...) When possible be specific @ -No Did you speak to anyone other than the patient for history (EMS, parent, family, police, friend...)? What history was obtained from this source @ -No Did you review nursing and triage notes (agree or disagree)? Why? @ -I reviewed and agree with nursing and triage notes Were old charts reviewed (outside hosp., previous admission, EMS record, old EKG, old radiological studies, urgent care reports/EKG's, long term records)? Report findings @ -I reviewed prior lab work and prior charts from his recent stays in the hospital Differential Diagnosis (chest pain, altered mental status, abdominal pain women, abdominal pain men, vaginal bleeding, weakness, fever, dyspnea, syncope, headache, dizziness, GI bleed, back pain, seizure, CVA, palpatations, mental health, musculoskeletal)? @ -Differential Chest Pain: Stable Angina, Unstable Angina, STEMI, NSTEMI Aortic Dissection, Pneumothorax, Musculoskeletal, Esophageal Spasm GERD, Cholecystitis, Pancreatitis, Zoster, this is not meant to be an all-inclusive list. EKG interpreted by me (3pts min.). @ -As above X-rays interpreted by me (1pt min.). @ -Chest x-ray was interpreted by myself which shows minimal pleural effusions bilaterally CT interpreted by me (1pt min.). @ -None done U/S interpreted by me (1pt. min.). @ -None done What testing was considered but not performed or refused? (CT, X-rays, U/S, labs)? Why? @ -None What meds were considered but not given or refused? Why? @ -None Did you discuss the management of the patient with other professionals (professionals i.e. , PA, MAGAZINE WORKER, lab, RT, psych nurse, social insurance specialist, family assessment worker, teacher, airline pilot/first officer, clinical case manager)? Give summary @ -I spoke with Dr. Pope the cardiothoracic surgeon Was smoking cessation discussed for >3mins.? @ -No Was critical care preformed (if so, how long)? @ -No Were there social determinants of health that impacted care today? How? (Homelessness, low income, unemployed, alcoholism, drug addiction, transportation, low edu. Level, literacy, decrease access to med. care, shelter, rehab)? @ -No Was there de-escalation of care discussed even if they declined (Discuss DNR or withdrawal of care, Hospice)? DNR status @ -No What co-morbidities impacted this encounter? (DM, HTN, Smoking, COPD, CAD, Cance r, CVA, ARF, Chemo, Hep., AIDS, mental health diagnosis, sleep apnea, morbid obesity)? @ -None Was patient admitted / discharged? Hospital course, mention meds given and route, prescriptions, significant lab abnormalities, going to OR and other pertinent info. @ -Patient's lab work came back with an elevated troponin I spoke with Dr. Pope and he indicated to me that he wanted the patient discharged home. Dr. Pope did come down and see the patient in person. I again called him about the elevated troponin he stated that he did not believe the patient needed any further cardiac workup because his coronary arteries were clean when they did the open-heart surgery. Patient was no longer experiencing any chest pain and he was instructed to take Tylenol Motrin at home. Undiagnosed new problem with uncertain prognosis? @ -No Drug Therapy requiring intensive monitoring for toxicity (Heparin, Nitro, Insulin, Cardizem)? @ -No Were any procedures done? @ -No Diagnosis/symptom? @ -Chest pain Acute, or Chronic, or Acute on Chronic? @ -Acute Uncomplicated (without systemic symptoms) or Complicated (systemic symptoms)? @ -Complicated Side effects of treatment? @ -No Exacerbation, Progression, or Severe Exacerbation? @ -No Poses a threat to life or bodily function? How? (Chest pain, USA, MS, pneumonia, PE, COPD, DKA, ARF, appy, cholecystitis, CVA, Diverticulitis, Homicidal, Suicidal, threat to staff... and all critical care pts) @ -No - Lab Data Result diagrams: 10/28/22 10:20 10/28/22 10:20 Lab Results 10/28/22 10/28/22 10/28/22 Range/Units 10:20 10:20 10:20 WBC 9.3 (3.8-10.6) k/uL RBC 3.08 L (4.30-5.90) m/uL Hgb 9.2 L (13.0-17.5) gm/dL Hct 26.8 L (39.0-53.0) % MCV 87.1 (80.0-100.0) fL MCH 30.0 (25.0-35.0) pg MCHC 34.4 (31.0-37.0) g/dL RDW 13.7 (11.5-15.5) % Plt Count 277 (150-450) k/uL MPV 7.6 Neutrophils % 72 % Lymphocytes % 21 % Monocytes % 4 % Eosinophils % 2 % Basophils % 0 % Neutrophils # 6.6 (1.3-7.7) k/uL Lymphocytes # 1.9 (1.0-4.8) k/uL Monocytes # 0.4 (0-1.0) k/uL Eosinophils # 0.2 (0-0.7) k/uL Basophils # 0.0 (0-0.2) k/uL Sodium 136 L (137-145) mmol/L Potassium 4.7 (3.5-5.1) mmol/L Chloride 100 (98-107) mmol/L Carbon Dioxide 26 (22-30) mmol/L Anion Gap 10 mmol/L BUN 14 (9-20) mg/dL Creatinine 0.67 (0.66-1.25) mg/dL Est GFR (CKD-EPI)AfAm >90 (>60 ml/min/1.73 sqM) Est GFR (CKD-EPI)NonAf >90 (>60 ml/min/1.73 sqM) Glucose 112 H (74-99) mg/dL Calcium 8.7 (8.4-10.2) mg/dL Magnesium 1.8 (1.6-2.3) mg/dL Total Bilirubin 0.8 (0.2-1.3) mg/dL AST 33 (17-59) U/L ALT 17 (4-49) U/L Alkaline Phosphatase 51 (38-126) U/L Troponin I 0.258 H* (0.000-0.034) ng/mL Total Protein 7.0 (6.3-8.2) g/dL Albumin 3.8 (3.5-5.0) g/dL Disposition Clinical Impression: Chest pain Disposition: HOME SELF-CARE Instructions (If sedation given, give patient instructions): Chest Pain (ED) Additional Instructions: Patient should take Motrin and Tylenol when necessary for pain Motrin to be taken every 6 ours Tylenol can be taken every 4 hours Is patient prescribed a controlled substance at d/c from ED?: No Referrals: Antonio Bui MD [Primary Care Provider] - 1-2 days Time of Disposition: 11:50
[2022-10-28] MEDS ORDERED: HYDROmorphone 0.5 MG/0.5 ML SYRINGE IVP STA (09:56)
--- NOTE | 2022-10-28 10:07 | XR ---
EXAMINATION TYPE: XR chest 2V DATE OF EXAM: 10/28/2022 COMPARISON: Chest x-ray one day earlier HISTORY: Chest pain. TECHNIQUE: Frontal and lateral views of the chest are obtained. FINDINGS: Overlying sternal wires along with metallic aortic valve and left atrial appendage with ov erall redemonstrated. Cystic cardiomegaly with small bilateral pleural effusions and bibasilar opacit ies favoring compressive atelectasis. Upper lungs remain clear without pneumothorax. Osseous structur es are intact. IMPRESSION: Cardiomegaly with small bilateral pleural effusions and mild vascular congestion redemon strated. No Significant change from one day earlier.
[2022-10-28 10:30] LABS: Basophils % (A) 0 %; Eosinophils # (A) 0.2 k/uL (0-0.7); Eosinophils % (A) 2 %; HCT 26.8 % (39.0-53.0); HGB 9.2 gm/dL (13.0-17.5); Lymphocytes # (A) 1.9 k/uL (1.0-4.8); Lymphocytes % (A) 21 %; MCHC 34.4 g/dL (31.0-37.0); MCV 87.1 fL (80.0-100.0); Mean Platelet Volume 7.6; Monocytes # (A) 0.4 k/uL (0-1.0); Monocytes % (A) 4 %; Neutrophils # (A) 6.6 k/uL (1.3-7.7); Neutrophils % (A) 72 %; Platelet Count 277 k/uL (150-450); RBC 3.08 m/uL (4.30-5.90); RDW 13.7 % (11.5-15.5); WBC 9.3 k/uL (3.8-10.6)
[2022-10-28 10:50] LABS: ALT 17 U/L (4-49); AST 33 U/L (17-59); African American GFR (CKD) >90 (>60 ml/min/1.73 sqM); Albumin 3.8 g/dL (3.5-5.0); Alkaline Phosphatase 51 U/L (38-126); Anion Gap 10 mmol/L; Blood Urea Nitrogen 14 mg/dL (9-20); Calcium 8.7 mg/dL (8.4-10.2); Carbon Dioxide 26 mmol/L (22-30); Chloride 100 mmol/L (98-107); Glucose 112 mg/dL (74-99); Magnesium 1.8 mg/dL (1.6-2.3); Non-African American GFR(CKD) >90 (>60 ml/min/1.73 sqM); Potassium 4.7 mmol/L (3.5-5.1); Sodium 136 mmol/L (137-145); Total Bilirubin 0.8 mg/dL (0.2-1.3)
[2022-10-28 11:36] LABS: INR 1.1 (<1.2)
[2022-10-28 11:37] LABS: Prothrombin Time 11.2 sec (9.0-12.0)
[2022-10-28 11:51] LABS: Partial Thromboplastin Time 21.1 sec (22.0-30.0)
[2022-10-28 12:07] VITALS: BP 110/71; PULSE 78; TEMP 98.2
== END 2022-10-28 12:16 | disposition home or self-care (01) ==
LOC: EC 09:14 → EEVIPCON 09:14 → EC 12:16
DX: R07.9 Chest pain, unspecified (principal); I10 Essential (primary) hypertension; E11.9 Type 2 diabetes mellitus without complications; E78.5 Hyperlipidemia, unspecified; F31.9 Bipolar disorder, unspecified; I25.2 Old myocardial infarction; J45.909 Unspecified asthma, uncomplicated; M19.90 Unspecified osteoarthritis, unspecified site; Z79.02 Long term (current) use of antithrombotics/antiplatelets; Z79.4 Long term (current) use of insulin; Z79.84 Long term (current) use of oral hypoglycemic drugs; Z79.899 Other long term (current) drug therapy; Z88.1 Allergy status to other antibiotic agents; Z88.8 Allergy status to other drugs, medicaments and biological substances; Z91.013 Allergy to seafood; Z88.6 Allergy status to analgesic agent
CPT/HCPCS: 99285; 96374; 36415; 93005; 80053; 83735; 84484; 85025; 85610; 85730; 71046; J1170

== ENCOUNTER 2023-03-23 10:36 | Emergency (ER) | payer OTHER ==
[2023-03-23 11:39] VITALS: RESP 16
--- NOTE | 2023-03-23 14:14 | ED ---
General Adult HPI - General Source: patient, RN notes reviewed, old records reviewed Mode of arrival: wheelchair Limitations: no limitations <Onur Shipman - Last Filed: 03/23/23 14:53> <Chuck Pimentel - Last Filed: 04/11/23 08:44> - General Chief complaint: Psychiatric Symptoms Stated complaint: Mental Health Time Seen by Provider: 03/23/23 13:30 - History of Present Illness Initial comments: This is a 62-year-old male who presents emergency Department in police custody and police did palpitation. Patient told police that he was suicidal and took shaving cream. However when I interviewed the patient patient states he was depressed his morning he was having some suicidal thoughts which she no longer is having. But he states that he took the shaving cream because no one would give him anything to soothe his sore throat because he has COVID. Patient thought maybe taking some shaving cream and swallowing would soothe his throat. Patient denies any suicidal thoughts now. Patient denies any chest pain difficulty breathing shortest breath. Patient states he does feel tired but he thinks is from the code. Patient denies any other complaints. And patient does not feel unsafe at this time (Onur Shipman) - Related Data Home Medications Medication Instructions Recorded Confirmed Montelukast [Singulair] 10 mg PO HS@199912/24/21 10/28/22 Tamsulosin [Flomax] 0.4 mg PO HS@199912/24/21 10/28/22 Famotidine [Pepcid] 20 mg PO HS@199907/04/22 10/28/22 Albuterol Inhaler [Ventolin Hfa 1 - 2 puff INHALATION RT-Q4H PRN 10/11/22 Inhaler] Amiodarone [Cordarone] See Taper PO DIRECTED 10/28/22 10/28/22 Atorvastatin [Lipitor] 10 mg PO HS@199910/28/22 10/28/22 Citalopram Hydrobromide [CeleXA] 30 mg PO DAILY@79910/28/22 10/28/22 Clopidogrel [Plavix] 75 mg PO DAILY@0810/28/22 10/28/22 Dulaglutide [Trulicity] 0.75 mg SQ MO@79910/28/22 10/28/22 Insulin Detemir [Levemir Flexpen] 20 units SQ BID@0800,199910/28/22 10/28/22 Melatonin 5 - 10 mg PO HS PRN 10/28/22 10/28/22 Metoprolol Tartrate [Lopressor] 50 mg PO BID@0800,199910/28/22 10/28/22 Mupirocin 2% Oint [Bactroban 2% 1 applic EA NOSTRIL BID 10/28/22 10/28/22 Oint] Semaglutide [Rybelsus] 7 mg PO AC-BRKFST 10/28/22 10/28/22 Sennosides-Docusate Sodium 2 tab PO HS@199910/28/22 10/28/22 [Senokot-S] metFORMIN HCL [Glucophage] 500 mg PO BID@0800,1700 10/28/22 10/28/22 Previous Rx's Medication Instructions Recorded Acetaminophen Tab [Tylenol Tab] 500 mg PO Q6H PRN #30 tablet 10/27/22 Ibuprofen [Motrin Ib] 200 mg PO DAILY PRN #10 tab 10/27/22 Magnesium Oxide [Mag-Ox] 400 mg PO DAILY #30 tablet 12/29/22 Allergies Allergy/AdvReac Type Severity Reaction Status Date / Time shellfish derived [Shellfish] Allergy Severe Anaphylaxis- Verified 03/23/23 11:30 tight chest, dyspnea aspirin Allergy Anaphylaxis- Verified 03/23/23 11:30 throat get tight cefaclor [From Ceclor] Allergy Rash/Hives Verified 03/23/23 11:30 Iodine and Iodide Containing Allergy Anaphylaxis Verified 03/23/23 11:30 Produc lactose Allergy Diarrhea Verified 03/23/23 11:30 sumatriptan [From Imitrex] Allergy Dyspnea Verified 03/23/23 11:30 sumatriptan succinate Allergy Dyspnea Verified 03/23/23 11:30 [From Imitrex] chocolate flavor AdvReac headache Verified 03/23/23 11:30 theophylline [From Lang-Dur] AdvReac hand Verified 03/23/23 11:30 tremors gatorade AdvReac Unknown sore throat Uncoded 03/23/23 11:30 Review of Systems ROS Other: All systems not noted in ROS Statement are negative. <Onur Shipman - Last Filed: 03/23/23 14:53> ROS Other: All systems not noted in ROS Statement are negative. <JosscheliChuck - Last Filed: 04/11/23 08:44> ROS Statement: Those systems with pertinent positive or pertinent negative responses have been documented in the HPI. Past Medical History Past Medical History: Asthma, Cancer, CVA/TIA, Diabetes Mellitus, GERD/Reflux, Hyperlipidemia, Hypertension, Osteoarthritis (OA) Additional Past Medical History / Comment(s): hx cva (2021)., hx seizure with low blood sugar., testicular cancer right 2006., numbness in left arm at times. tingling in feet., constipation/bloating., environmental allergies. Last Myocardial Infarction Date:: ?1985 when working at the [employer] History of Any Multi-Drug Resistant Organisms: None Reported Past Surgical History: Cardiac Valve Replacement, Heart Catheterization Additional Past Surgical History / Comment(s): TESTICULAR SURGERY ., COLONOSCOPY. Past Anesthesia/Blood Transfusion Reactions: No Reported Reaction Additional Past Anesthesia/Blood Transfusion Reaction / Comment(s): DIFFICULTY WAKING UP. MOTHER HAD DIFFICULTY WAKING UP ALSO. Past Psychological History: Anxiety, Bipolar, Depression Smoking Status: Never smoker Past Alcohol Use History: None Reported Past Drug Use History: None Reported - Past Family History Father Family Medical History: Cancer, Renal Disease Additional Family Medical History / Comment(s): mrsa Mother Family Medical History: Coronary Artery Disease (CAD), Hypertension, Myocardial Infarction (OR), Osteoarthritis (OA) Additional Family Medical History / Comment(s): cardiac stents, smoker <Onur Shipman - Last Filed: 03/23/23 14:53> General Exam Limitations: no limitations <Onur Shipman - Last Filed: 03/23/23 14:53> - General Exam Comments Initial Comments: GENERAL: Patient is well-developed and well-nourished. Patient is nontoxic and well- hydrated and is in no acute distress. ENT: Neck is soft and supple. No significant lymphadenopathy is noted. Oropharynx is clear. Moist mucous membranes. Neck has full range of motion without eliciting any pain. EYES: The sclera were anicteric and conjunctiva were pink and moist. Extraocular movements were intact and pupils were equal round and reactive to light. Eyelids were unremarkable. PULMONARY: Unlabored respirations. Good breath sounds bilaterally. No audible rales rhonchi or wheezing was noted. CARDIOVASCULAR: There is a regular rate and rhythm without any murmurs gallops or rubs. ABDOMEN: Soft and nontender with normal bowel sounds. SKIN: Skin is clear with no lesions or rashes and otherwise unremarkable. NEUROLOGIC: Patient is alert and oriented x3. Cranial nerves II through XII are grossly intact. Motor and sensory are also intact. Normal speech, volume and content. Symmetrical smile. MUSCULOSKELETAL: Normal extremities with adequate strength and full range of motion. LYMPHATICS: No significant lymphadenopathy is noted PSYCHIATRIC: Patient states he had some suicidal thoughts this morning but he no longer has any suicidal thoughts. Patient states she did not take she didn't seem to harm himself only to soothe a sore throat (Onur Shipman) Course Vital Signs 03/23/23 03/23/23 03/23/23 11:30 19:27 21:28 Temperature 98.7 F 98.1 F Pulse Rate 88 100 98 Respiratory 16 16 16 Rate Blood Pressure 125/82 140/93 117/70 O2 Sat by Pulse 98 96 95 Oximetry Medical Decision Making <Onur Shipman - Last Filed: 03/23/23 14:53> - Lab Data Result diagrams: 03/23/23 14:40 03/23/23 14:40 <Chuck Pimentel - Last Filed: 04/11/23 08:44> - Medical Decision Making Was pt. sent in by a medical professional or institution (, [facility], MOISTURE METER READER, urgent care, hospital, or long term...) When possible be specific @ -Police brought the patient in Did you speak to anyone other than the patient for history (EMS, parent, family, police, friend...)? What history was obtained from this source @ -I spoke with the compliance officer and they did fill out a petition Did you review nursing and triage notes (agree or disagree)? Why? @ -[I reviewed and agree with nursing and triage notes] Were old charts reviewed (outside hosp., previous admission, EMS record, old EKG, old radiological studies, urgent care reports/EKG's, long term records)? Report findings @ -[No old charts were reviewed] Differential Diagnosis (chest pain, altered mental status, abdominal pain women, abdominal pain men, vaginal bleeding, weakness, fever, dyspnea, syncope, headache, dizziness, GI bleed, back pain, seizure, CVA, palpatations, mental health, musculoskeletal)? @ -Differential Mental Health Depression, anxiety, bipolar, psychosis, schizophrenia, borderline personality, situational depression, adjustment disorder, behavioral disorder, brain tumor, malingering, substance abuse, encephalopathy, medication reaction, dementia, hypothyroidism, degenerative neurologic disorder, lupus.... This is not meant to be all-inclusive list EKG interpreted by me (3pts min.). @ -[As above] X-rays interpreted by me (1pt min.). @ -[None done] CT interpreted by me (1pt min.). @ -[None done] U/S interpreted by me (1pt. min.). @ -[None done] What testing was considered but not performed or refused? (CT, X-rays, U/S, labs)? Why? @ -[None] What meds were considered but not given or refused? Why? @ -[None] Did you discuss the management of the patient with other professionals (professionals i.e. , PA, MOISTURE METER READER, lab, RT, psych nurse, social science manager, photo lab specialist, teacher, parking control officer, case work aide)? Give summary @ -[No] Was smoking cessation discussed for >3mins.? @ -[No] Was critical care preformed (if so, how long)? @ -[No] Were there social determinants of health that impacted care today? How? (Homelessness, low income, unemployed, alcoholism, drug addiction, transportation, low edu. Level, literacy, decrease access to med. care, halfway, rehab)? @ -[No] Was there de-escalation of care discussed even if they declined (Discuss DNR or withdrawal of care, Hospice)? DNR status @ -[No] What co-morbidities impacted this encounter? (DM, HTN, Smoking, COPD, CAD, Cancer, CVA, ARF, Chemo, Hep., AIDS, mental health diagnosis, sleep apnea, morbid obesity)? @ -[None] Was patient admitted / discharged? Hospital course, mention meds given and route, prescriptions, significant lab abnormalities, going to OR and other pertinent info. @ -Dr. Pimentel be taking over the care of this patient at 3 PM (Onur Shipman) Was patient admitted / discharged? Hospital course, mention meds given and route, prescriptions, significant lab abnormalities, going to OR and other pertinent info. @ -[Patient is seen by EPS and after they had discussed with psychiatry, patient deemed stable for discharge after establishing safety plan. Undiagnosed new problem with uncertain prognosis? @ -[No] Drug Therapy requiring intensive monitoring for toxicity (Heparin, Nitro, Insulin, Cardizem)? @ -[No] Were any procedures done? @ -[No] Diagnosis/symptom? @ -Acute on chronic mood disorder Pica Acute, or Chronic, or Acute on Chronic? @ -[Acute on chronic Uncomplicated (without systemic symptoms) or Complicated (systemic symptoms)? @ -[Uncomplicated Side effects of treatment? @ -[No] Exacerbation, Progression, or Severe Exacerbation? @ -[No] Poses a threat to life or bodily function? How? (Chest pain, USA, OR, pneumonia, PE, COPD, DKA, ARF, appy, cholecystitis, CVA, Diverticulitis, Homicidal, Suicidal, threat to staff... and all critical care pts) @ -[No] (Chuck Pimentel) - Lab Data Lab Results 03/23/23 03/23/23 03/23/23 Range/Units 14:39 14:40 14:40 WBC 5.5 (3.8-10.6) k/uL RBC 4.37 (4.30-5.90) m/uL Hgb 12.3 L (13.0-17.5) gm/dL Hct 36.7 L (39.0-53.0) % MCV 83.9 (80.0-100.0) fL MCH 28.1 (25.0-35.0) pg MCHC 33.5 (31.0-37.0) g/dL RDW 15.7 H (11.5-15.5) % Plt Count 249 (150-450) k/uL MPV 7.9 Neutrophils % 53 % Lymphocytes % 34 % Monocytes % 7 % Eosinophils % 5 % Basophils % 0 % Neutrophils # 2.9 (1.3-7.7) k/uL Lymphocytes # 1.8 (1.0-4.8) k/uL Monocytes # 0.4 (0-1.0) k/uL Eosinophils # 0.3 (0-0.7) k/uL Basophils # 0.0 (0-0.2) k/uL Sodium 140 (137-145) mmol/L Potassium 4.6 (3.5-5.1) mmol/L Chloride 103 (98-107) mmol/L Carbon Dioxide 26 (22-30) mmol/L Anion Gap 11 mmol/L BUN 15 (9-20) mg/dL Creatinine 0.61 L (0.66-1.25) mg/dL Est GFR (CKD-EPI)AfAm >90 (>60 ml/min/1.73 sqM) Est GFR (CKD-EPI)NonAf >90 (>60 ml/min/1.73 sqM) Glucose 136 H (74-99) mg/dL POC Glucose (mg/dL) (70-110) mg/dL POC Glu Bridge Engineer ID Calcium 9.2 (8.4-10.2) mg/dL Magnesium 1.7 (1.6-2.3) mg/dL Total Bilirubin 0.6 (0.2-1.3) mg/dL AST 32 (17-59) U/L ALT 23 (4-49) U/L Alkaline Phosphatase 70 (38-126) U/L Total Protein 7.5 (6.3-8.2) g/dL Albumin 4.1 (3.5-5.0) g/dL Urine Opiates Screen (NotDetected) Ur Oxycodone Screen (NotDetected) Urine Methadone Screen (NotDetected) Ur Propoxyphene Screen (NotDetected) Ur Barbiturates Screen (NotDetected) U Tricyclic Antidepress (NotDetected) Ur Phencyclidine Scrn (NotDetected) Ur Amphetamines Screen (NotDetected) U Methamphetamines Scrn (NotDetected) U Benzodiazepines Scrn (NotDetected) Urine Cocaine Screen (NotDetected) U Marijuana (THC) Screen (NotDetected) Coronavirus (PCR) Detected A (Not Detectd) 03/23/23 03/23/23 Range/Units 17:32 19:02 WBC (3.8-10.6) k/uL RBC (4.30-5.90) m/uL Hgb (13.0-17.5) gm/dL Hct (39.0-53.0) % MCV (80.0-100.0) fL MCH (25.0-35.0) pg MCHC (31.0-37.0) g/dL RDW (11.5-15.5) % Plt Count (150-450) k/uL MPV Neutrophils % % Lymphocytes % % Monocytes % % Eosinophils % % Basophils % % Neutrophils # (1.3-7.7) k/uL Lymphocytes # (1.0-4.8) k/uL Monocytes # (0-1.0) k/uL Eosinophils # (0-0.7) k/uL Basophils # (0-0.2) k/uL Sodium (137-145) mmol/L Potassium (3.5-5.1) mmol/L Chloride (98-107) mmol/L Carbon Dioxide (22-30) mmol/L Anion Gap mmol/L BUN (9-20) mg/dL Creatinine (0.66-1.25) mg/dL Est GFR (CKD-EPI)AfAm (>60 ml/min/1.73 sqM) Est GFR (CKD-EPI)NonAf (>60 ml/min/1.73 sqM) Glucose (74-99) mg/dL POC Glucose (mg/dL) 116 H (70-110) mg/dL POC Glu Bridge Engineer ID Cherry Arguello Calcium (8.4-10.2) mg/dL Magnesium (1.6-2.3) mg/dL Total Bilirubin (0.2-1.3) mg/dL AST (17-59) U/L ALT (4-49) U/L Alkaline Phosphatase (38-126) U/L Total Protein (6.3-8.2) g/dL Albumin (3.5-5.0) g/dL Urine Opiates Screen Not Detected (NotDetected) Ur Oxycodone Screen Not Detected (NotDetected) Urine Methadone Screen Not Detected (NotDetected) Ur Propoxyphene Screen Not Detected (NotDetected) Ur Barbiturates Screen Not Detected (NotDetected) U Tricyclic Antidepress Not Detected (NotDetected) Ur Phencyclidine Scrn Not Detected (NotDetected) Ur Amphetamines Screen Not Detected (NotDetected) U Methamphetamines Scrn Not Detected (NotDetected) U Benzodiazepines Scrn Not Detected (NotDetected) Urine Cocaine Screen Not Detected (NotDetected) U Marijuana (THC) Screen Not Detected (NotDetected) Coronavirus (PCR) (Not Detectd) Disposition <Onur Shipman - Last Filed: 03/23/23 14:53> Is patient prescribed a controlled substance at d/c from ED?: No <Chuck Pimentel - Last Filed: 04/11/23 08:44> Clinical Impression: Mood disorder, Pica Disposition: HOME SELF-CARE Condition: Fair Referrals: Sandy Fry [Primary Care Provider] - 1-2 days
[2023-03-23 14:57] LABS: Basophils % (A) 0 %; Eosinophils # (A) 0.3 k/uL (0-0.7); Eosinophils % (A) 5 %; HCT 36.7 % (39.0-53.0); HGB 12.3 gm/dL (13.0-17.5); Lymphocytes # (A) 1.8 k/uL (1.0-4.8); Lymphocytes % (A) 34 %; MCH 28.1 pg (25.0-35.0); MCHC 33.5 g/dL (31.0-37.0); MCV 83.9 fL (80.0-100.0); Mean Platelet Volume 7.9; Monocytes # (A) 0.4 k/uL (0-1.0); Monocytes % (A) 7 %; Neutrophils # (A) 2.9 k/uL (1.3-7.7); Neutrophils % (A) 53 %; Platelet Count 249 k/uL (150-450); RBC 4.37 m/uL (4.30-5.90); RDW 15.7 % (11.5-15.5); WBC 5.5 k/uL (3.8-10.6)
[2023-03-23 15:20] LABS: ALT 23 U/L (4-49); AST 32 U/L (17-59); African American GFR (CKD) >90 (>60 ml/min/1.73 sqM); Albumin 4.1 g/dL (3.5-5.0); Alkaline Phosphatase 70 U/L (38-126); Anion Gap 11 mmol/L; Blood Urea Nitrogen 15 mg/dL (9-20); Calcium 9.2 mg/dL (8.4-10.2); Carbon Dioxide 26 mmol/L (22-30); Chloride 103 mmol/L (98-107); Glucose 136 mg/dL (74-99); Magnesium 1.7 mg/dL (1.6-2.3); Non-African American GFR(CKD) >90 (>60 ml/min/1.73 sqM); Potassium 4.6 mmol/L (3.5-5.1); Sodium 140 mmol/L (137-145); Total Bilirubin 0.6 mg/dL (0.2-1.3); Total Protein 7.5 g/dL (6.3-8.2)
[2023-03-23 17:52] LABS: Amphetamine Screen,Urine Not Detected (NotDetected); Barbiturate Screen,Urine Not Detected (NotDetected); Benzodiazepines Screen,Urine Not Detected (NotDetected); Cocaine Screen,Urine Not Detected (NotDetected); Methadone Screen, Urine Not Detected (NotDetected); Opiate Screen,Urine Not Detected (NotDetected); Oxycodone Screen, Urine Not Detected (NotDetected); Phencyclidine Screen,Urine Not Detected (NotDetected); Tricyclic Antidepressant,Urine Not Detected (NotDetected); Urn Cannabinoid Scrn Not Detected (NotDetected)
[2023-03-23 19:03] LABS: Glucose,Whole Blood 116 mg/dL (70-110)
[2023-03-23 19:29] VITALS: TEMP 98.1
[2023-03-23 21:46] VITALS: BP 117/70; PULSE 98
== END 2023-03-23 21:34 | disposition home or self-care (01) ==
LOC: EC 10:36
DX: F39 Unspecified mood [affective] disorder (principal); F50.89 Other specified eating disorder; J45.909 Unspecified asthma, uncomplicated; E11.9 Type 2 diabetes mellitus without complications; I10 Essential (primary) hypertension; F41.9 Anxiety disorder, unspecified; F31.9 Bipolar disorder, unspecified; E78.5 Hyperlipidemia, unspecified; Z86.73 Personal history of transient ischemic attack (TIA), and cerebral infarction without residual deficits; Z79.01 Long term (current) use of anticoagulants; Z79.84 Long term (current) use of oral hypoglycemic drugs; Z79.4 Long term (current) use of insulin; Z79.899 Other long term (current) drug therapy; Z88.6 Allergy status to analgesic agent; Z91.013 Allergy to seafood; Z91.041 Radiographic dye allergy status; Z91.018 Allergy to other foods; Z88.8 Allergy status to other drugs, medicaments and biological substances; Z20.822 Contact with and (suspected) exposure to COVID-19
CPT/HCPCS: 36415; 80053; 80306; 82075; 83735; 85025; 87635; 99285

== ENCOUNTER 2023-07-23 19:50 | Emergency (ER) | payer OTHER ==
[2023-07-23 20:23] VITALS: RESP 18
--- NOTE | 2023-07-23 20:28 | ED ---
General Adult HPI - General Chief complaint: Psychiatric Symptoms Stated complaint: Mental Health Time Seen by Provider: 07/23/23 19:53 Source: patient, EMS, RN notes reviewed, old records reviewed Mode of arrival: EMS - History of Present Illness Initial comments: 62-year-old male presenting with suicidal ideation. Patient denies suicide attempt. Denies specific plan. Denies physical complaint. He has been petitioned for psychiatric evaluation. - Related Data Home Medications Medication Instructions Recorded Confirmed Montelukast [Singulair] 10 mg PO HS@199912/24/21 07/23/23 Tamsulosin [Flomax] 0.4 mg PO HS@199912/24/21 07/23/23 Albuterol Inhaler [Ventolin Hfa 1 - 2 puff INHALATION RT-Q4H PRN 10/11/22 07/23/23 Inhaler] Citalopram Hydrobromide [CeleXA] 30 mg PO DAILY@0800 10/28/22 07/23/23 Insulin Detemir [Levemir Flexpen] 20 units SQ BID@799,199910/28/22 07/23/23 Sennosides-Docusate Sodium 2 tab PO DAILY PRN 10/28/22 07/23/23 [Senokot-S] metFORMIN HCL [Glucophage] 500 mg PO BID@799,199910/28/22 07/23/23 Atorvastatin Calcium [Lipitor] 40 mg PO HS 07/23/23 07/23/23 Cholecalciferol (Vitamin D3) 1,250 mcg PO Q7D 07/23/23 07/23/23 [Vitamin D3 (1250 Mcg = 50,000 Iu)] Ibuprofen [Motrin Ib] 600 - 800 mg PO Q8H PRN 07/23/23 07/23/23 Magnesium Oxide [Mag-Ox] 400 mg PO DAILY@79907/23/23 07/23/23 Metoprolol Succinate [Metoprolol 25 mg PO BID@08,209907/23/23 07/23/23 Succinate ER] Prazosin HCl 2 mg PO HS@209907/23/23 07/23/23 traZODone HCL [Desyrel] 50 mg PO HS PRN 07/23/23 07/23/23 Allergies Allergy/AdvReac Type Severity Reaction Status Date / Time shellfish derived [Shellfish] Allergy Severe Anaphylaxis- Verified 07/23/23 20:56 tight chest, dyspnea aspirin Allergy Anaphylaxis- Verified 07/23/23 20:56 throat get tight cefaclor [From Ceclor] Allergy Rash/Hives Verified 07/23/23 20:56 Iodine and Iodide Containing Allergy Anaphylaxis Verified 07/23/23 20:56 Produc lactose Allergy Diarrhea Verified 07/23/23 20:56 sumatriptan [From Imitrex] Allergy Dyspnea Verified 07/23/23 20:56 sumatriptan succinate Allergy Dyspnea Verified 07/23/23 20:56 [From Imitrex] chocolate flavor AdvReac headache Verified 07/23/23 20:56 theophylline [From Lang-Dur] AdvReac hand Verified 07/23/23 20:56 tremors gatorade AdvReac Unknown sore throat Uncoded 07/23/23 19:58 Review of Systems ROS Statement: Those systems with pertinent positive or pertinent negative responses have been documented in the HPI. ROS Other: All systems not noted in ROS Statement are negative. Past Medical History Past Medical History: Asthma, Cancer, CVA/TIA, Diabetes Mellitus, GERD/Reflux, Hyperlipidemia, Hypertension, Osteoarthritis (OA) Additional Past Medical History / Comment(s): hx cva (2021)., hx seizure with low blood sugar., testicular cancer right 2006., numbness in left arm at times. tingling in feet., constipation/bloating., environmental allergies. Last Myocardial Infarction Date:: ?states 1985 when working at the [employer] History of Any Multi-Drug Resistant Organisms: None Reported Past Surgical History: Cardiac Valve Replacement, Heart Catheterization Additional Past Surgical History / Comment(s): TESTICULAR SURGERY ., COLONOSCOPY. Past Anesthesia/Blood Transfusion Reactions: No Reported Reaction Additional Past Anesthesia/Blood Transfusion Reaction / Comment(s): DIFFICULTY WAKING UP. MOTHER HAD DIFFICULTY WAKING UP ALSO. Past Psychological History: Anxiety, Bipolar, Depression Smoking Status: Never smoker Past Alcohol Use History: None Reported Past Drug Use History: None Reported - Past Family History Father Family Medical History: Cancer, Renal Disease Additional Family Medical History / Comment(s): mrsa Mother Family Medical History: Coronary Artery Disease (CAD), Hypertension, Myocardial Infarction (ND), Osteoarthritis (OA) Additional Family Medical History / Comment(s): cardiac stents, smoker General Exam General appearance: alert, in no apparent distress Head exam: Present: atraumatic, normocephalic Eye exam: Present: normal appearance, PERRL ENT exam: Present: normal exam Neck exam: Present: normal inspection. Absent: tenderness, meningismus Respiratory exam: Present: normal lung sounds bilaterally. Absent: respiratory distress, wheezes Cardiovascular Exam: Present: regular rate, normal rhythm GI/Abdominal exam: Present: soft. Absent: distended, tenderness Extremities exam: Present: normal inspection, normal capillary refill. Absent: pedal edema Neurological exam: Present: alert, oriented X3, CN II-XII intact. Absent: motor sensory deficit Psychiatric exam: Present: normal affect, normal mood Skin exam: Present: warm, dry, intact. Absent: cyanosis, diaphoretic Course Vital Signs 07/23/23 19:50 Temperature 98.2 F Pulse Rate 94 Respiratory 18 Rate Blood Pressure 143/84 O2 Sat by Pulse 96 Oximetry Medical Decision Making - Medical Decision Making Was pt. sent in by a medical professional or institution (, PA, BEAM DYER OPERATOR, urgent care, hospital, or fci...) When possible be specific @ -No Did you speak to anyone other than the patient for history (EMS, parent, family, police, friend...)? What history was obtained from this source @ -No Did you review nursing and triage notes (agree or disagree)? Why? @ -I reviewed and agree with nursing and triage notes Were old charts reviewed (outside hosp., previous admission, EMS record, old EKG, old radiological studies, urgent care reports/EKG's, fci records)? Report findings @ -No old charts were reviewed Differential Diagnosis (chest pain, altered mental status, abdominal pain women, abdominal pain men, vaginal bleeding, weakness, fever, dyspnea, syncope, headache, dizziness, GI bleed, back pain, seizure, CVA, palpatations, mental health, musculoskeletal)? @ -[Differential Mental Health Depression, anxiety, bipolar, psychosis, schizophrenia, borderline personality, situational depression, adjustment disorder, behavioral disorder, brain tumor, malingering, substance abuse, encephalopathy, medication reaction, dementia, hypothyroidism, degenerative neurologic disorder, lupus.... This is not meant to be all-inclusive list EKG interpreted by me (3pts min.). @ -As above X-rays interpreted by me (1pt min.). @ -None done CT interpreted by me (1pt min.). @ -None done U/S interpreted by me (1pt. min.). @ -None done What testing was considered but not performed or refused? (CT, X-rays, U/S, labs)? Why? @ -None What meds were considered but not given or refused? Why? @ -None Did you discuss the management of the patient with other professionals (professionals i.e. , PA, BEAM DYER OPERATOR, lab, RT, psych nurse, drug abuse social worker, veterinarian helper, teacher, strategic debriefing officer, shoe caser)? Give summary @EPS, evaluates patient emergency department. Was smoking cessation discussed for >3mins.? @ -No Was critical care preformed (if so, how long)? @ -No Were there social determinants of health that impacted care today? How? (Homelessness, low income, unemployed, alcoholism, drug addiction, transportation, low edu. Level, literacy, decrease access to med. care, [facility], rehab)? @ -No Was there de-escalation of care discussed even if they declined (Discuss DNR or withdrawal of care, Hospice)? DNR status @ -No What co-morbidities impacted this encounter? (DM, HTN, Smoking, COPD, CAD, Cancer, CVA, ARF, Chemo, Hep., AIDS, mental health diagnosis, sleep apnea, morbid obesity)? @ -Depression Was patient admitted / discharged? Hospital course, mention meds given and route, prescriptions, significant lab abnormalities, going to OR and other pertinent info. @ -Stable for discharge with return parameters, safety plan has been sent Undiagnosed new problem with uncertain prognosis? @ -[No] Drug Therapy requiring intensive monitoring for toxicity (Heparin, Nitro, Insulin, Cardizem)? @ -[No] Were any procedures done? @ -[No] Diagnosis/symptom? @ -Depression Acute, or Chronic, or Acute on Chronic? @ -acute Uncomplicated (without systemic symptoms) or Complicated (systemic symptoms)? @ -[default] Side effects of treatment? @ -[No] Exacerbation, Progression, or Severe Exacerbation? @ -[No] Poses a threat to life or bodily function? How? (Chest pain, USA, [place], pneumonia, PE, COPD, DKA, ARF, appy, cholecystitis, CVA, Diverticulitis, Homicidal, Suicidal, threat to staff... and all critical care pts) @ -[Low risk at this time - Lab Data Lab Results 07/23/23 Range/Units 21:02 Urine Opiates Screen Not Detected (NotDetected) Ur Oxycodone Screen Not Detected (NotDetected) Urine Methadone Screen Not Detected (NotDetected) Ur Barbiturates Screen Not Detected (NotDetected) U Tricyclic Antidepress Not Detected (NotDetected) Ur Phencyclidine Scrn Not Detected (NotDetected) Ur Amphetamines Screen Not Detected (NotDetected) U Methamphetamines Scrn Not Detected (NotDetected) U Benzodiazepines Scrn Not Detected (NotDetected) Urine Cocaine Screen Not Detected (NotDetected) U Marijuana (THC) Screen Not Detected (NotDetected) Disposition Clinical Impression: Depression Disposition: HOME SELF-CARE Condition: Good Instructions (If sedation given, give patient instructions): Depression (ED) Is patient prescribed a controlled substance at d/c from ED?: No Referrals: Sandy Fry [Primary Care Provider] - 1-2 days Time of Disposition: 22:33
[2023-07-23 21:34] LABS: Amphetamine Screen,Urine Not Detected (NotDetected); Barbiturate Screen,Urine Not Detected (NotDetected); Benzodiazepines Screen,Urine Not Detected (NotDetected); Cocaine Screen,Urine Not Detected (NotDetected); Methadone Screen, Urine Not Detected (NotDetected); Opiate Screen,Urine Not Detected (NotDetected); Oxycodone Screen, Urine Not Detected (NotDetected); Phencyclidine Screen,Urine Not Detected (NotDetected); Tricyclic Antidepressant,Urine Not Detected (NotDetected); Urn Cannabinoid Scrn Not Detected (NotDetected)
[2023-07-23 23:26] VITALS: BP 135/80; PULSE 77; TEMP 98
== END 2023-07-23 23:12 | disposition home or self-care (01) ==
LOC: EC 19:50
DX: F32.A Depression, unspecified (principal); E11.9 Type 2 diabetes mellitus without complications; E78.5 Hyperlipidemia, unspecified; F41.9 Anxiety disorder, unspecified; I10 Essential (primary) hypertension; I25.2 Old myocardial infarction; J45.909 Unspecified asthma, uncomplicated; K21.9 Gastro-esophageal reflux disease without esophagitis; M19.90 Unspecified osteoarthritis, unspecified site; Z79.4 Long term (current) use of insulin; Z79.84 Long term (current) use of oral hypoglycemic drugs; Z79.899 Other long term (current) drug therapy; Z88.1 Allergy status to other antibiotic agents; Z88.8 Allergy status to other drugs, medicaments and biological substances; Z91.041 Radiographic dye allergy status
CPT/HCPCS: 80306; 82075; 99285

== ENCOUNTER 2023-11-30 22:32 | Observation (INO) | payer OTHER ==
--- NOTE | 2023-11-30 23:11 | ED ---
General Adult HPI - General Chief complaint: Chest Pain Stated complaint: chest pain, shoulder pain Time Seen by Provider: 11/30/23 22:48 Source: family Mode of arrival: EMS Limitations: altered mental status - History of Present Illness Initial comments: Dictation was produced using [employer] dictation software. please excuse any grammatical, word or spelling errors. Chief Complaint: 63-year-old male with history of DE presents to the ER for chest pain History of Present Illness: Patient 63-year-old male who was bowling today. He finished bowling got home started to have some pressure-like pain in his chest that he describes as sharp. States it radiates to his right shoulder. States it reminds him of a previous heart attack he had in the past. Patient is pain- free at the bedside. Denies any shortness of breath. He states that his symptoms were associated diaphoresis. The ROS documented in this emergency department record has been reviewed and confirmed by me. Those systems with pertinent positive or negative responses have been documented in the HPI. All other systems are other negative and/or noncontributory. - Related Data Home Medications Medication Instructions Recorded Confirmed Montelukast [Singulair] 10 mg PO HS@199912/24/21 07/23/23 Tamsulosin [Flomax] 0.4 mg PO HS@199912/24/21 07/23/23 Albuterol Inhaler [Ventolin Hfa 1 - 2 puff INHALATION RT-Q4H PRN 10/11/22 07/23/23 Inhaler] Citalopram Hydrobromide [CeleXA] 30 mg PO DAILY@0800 10/28/22 07/23/23 Insulin Detemir [Levemir Flexpen] 20 units SQ BID@799,199910/28/22 07/23/23 Sennosides-Docusate Sodium 2 tab PO DAILY PRN 10/28/22 07/23/23 [Senokot-S] metFORMIN HCL [Glucophage] 500 mg PO BID@08,199910/28/22 07/23/23 Atorvastatin Calcium [Lipitor] 40 mg PO HS 07/23/23 07/23/23 Cholecalciferol (Vitamin D3) 1,250 mcg PO Q7D 07/23/23 07/23/23 [Vitamin D3 (1250 Mcg = 50,000 Iu)] Ibuprofen [Motrin Ib] 600 - 800 mg PO Q8H PRN 07/23/23 07/23/23 Magnesium Oxide [Mag-Ox] 400 mg PO DAILY@0800 07/23/23 07/23/23 Metoprolol Succinate [Metoprolol 25 mg PO BID@0800,2100 07/23/23 07/23/23 Succinate ER] Prazosin HCl [Minipress] 2 mg PO HS@2100 07/23/23 07/23/23 traZODone HCL [Desyrel] 50 mg PO HS PRN 07/23/23 07/23/23 Allergies Allergy/AdvReac Type Severity Reaction Status Date / Time shellfish derived [Shellfish] Allergy Severe Anaphylaxis- Verified 07/23/23 20:56 tight chest, dyspnea aspirin Allergy Anaphylaxis- Verified 07/23/23 20:56 throat get tight cefaclor [From Ceclor] Allergy Rash/Hives Verified 07/23/23 20:56 Iodine and Iodide Containing Allergy Anaphylaxis Verified 07/23/23 20:56 Produc lactose Allergy Diarrhea Verified 07/23/23 20:56 sumatriptan [From Imitrex] Allergy Dyspnea Verified 07/23/23 20:56 sumatriptan succinate Allergy Dyspnea Verified 07/23/23 20:56 [From Imitrex] chocolate flavor AdvReac headache Verified 07/23/23 20:56 theophylline [From Lang-Dur] AdvReac hand Verified 07/23/23 20:56 tremors gatorade AdvReac Unknown sore throat Uncoded 07/23/23 19:58 Review of Systems ROS Statement: Those systems with pertinent positive or pertinent negative responses have been documented in the HPI. ROS Other: All systems not noted in ROS Statement are negative. Past Medical History Past Medical History: Asthma, Cancer, CVA/TIA, Diabetes Mellitus, GERD/Reflux, Hyperlipidemia, Hypertension, Osteoarthritis (OA) Additional Past Medical History / Comment(s): hx cva (2021)., hx seizure with low blood sugar., testicular cancer right 2006., numbness in left arm at times. tingling in feet., constipation/bloating., environmental allergies. Last Myocardial Infarction Date:: ?states 1985 when working at the [employer] History of Any Multi-Drug Resistant Organisms: None Reported Past Surgical History: Cardiac Valve Replacement, Heart Catheterization Additional Past Surgical History / Comment(s): TESTICULAR SURGERY ., COLONOSCOPY. Past Anesthesia/Blood Transfusion Reactions: No Reported Reaction Additional Past Anesthesia/Blood Transfusion Reaction / Comment(s): DIFFICULTY WAKING UP. MOTHER HAD DIFFICULTY WAKING UP ALSO. Past Psychological History: Anxiety, Bipolar, Depression Smoking Status: Never smoker Past Alcohol Use History: None Reported Past Drug Use History: None Reported - Past Family History Father Family Medical History: Cancer, Renal Disease Additional Family Medical History / Comment(s): mrsa Mother Family Medical History: Coronary Artery Disease (CAD), Hypertension, Myocardial Infarction ([place]), Osteoarthritis (OA) Additional Family Medical History / Comment(s): cardiac stents, smoker General Exam - General Exam Comments Initial Comments: PHYSICAL EXAM: General Impression: Alert and oriented x3, not in acute distress HEENT: Normocephalic atraumatic, extra-ocular movements intact, pupils equal and reactive to light bilaterally, mucous membranes moist. Cardiovascular: Heart regular rate and rhythm Chest: Able to complete full sentences, no retractions, no tachypnea Abdomen: abdomen soft, non-tender, non-distended, no organomegaly Musculoskeletal: Pulses present and equal in all extremities, no peripheral edema Motor: no focal deficits noted Neurological: CN II-XII grossly intact, no focal motor or sensory deficits noted Skin: Intact with no visualized rashes Psych: Normal affect and mood Limitations: altered mental status Course Vital Signs 11/30/23 11/30/23 22:34 23:53 Temperature 98.2 F Pulse Rate 85 80 Respiratory 18 16 Rate Blood Pressure 116/70 121/80 O2 Sat by Pulse 97 99 Oximetry EKG Findings - EKG Comments: EKG Findings:: My EKG interpretation: Ventricular rate 79, sinus rhythm,. 189, cures 85, QTc 409. No CO prolongation, no QTC prolongation, no ST or T-wave changes noted. Overall, this EKG is unremarkable Medical Decision Making - Medical Decision Making Was pt. sent in by a medical professional or institution (, PA, RIB CHOPPER, urgent care, hospital, or fdc...) When possible be specific @ -No Did you speak to anyone other than the patient for history (EMS, parent, family, police, friend...)? What history was obtained from this source @ -No Did you review nursing and triage notes (agree or disagree)? Why? @ -I reviewed and agree with nursing and triage notes Were old charts reviewed (outside hosp., previous admission, EMS record, old EKG, old radiological studies, urgent care reports/EKG's, fdc records)? Report findings @ -No old charts were reviewed Differential Diagnosis (chest pain, altered mental status, abdominal pain women, abdominal pain men, vaginal bleeding, musculoskeletal, weakness, fever, dyspnea, syncope, headache, dizziness, GI bleed, back pain, seizure, CVA, palpatations, mental health)? @ -Differential Chest Pain: Stable Angina, Unstable Angina, STEMI, NSTEMI Aortic Dissection, Pneumothorax, Musculoskeletal, Esophageal Spasm GERD, Cholecystitis, Pancreatitis, Zoster, this is not meant to be an all-inclusive list. EKG interpreted by me (3pts min.). @ -As above X-rays interpreted by me (1pt min.). @ -Pending CT interpreted by me (1pt min.). @ -None done U/S interpreted by me (1pt. min.). @ -None done What testing was considered but not performed or refused? (CT, X-rays, U/S, labs)? Why? @ -None What meds were considered but not given or refused? Why? @ -None Did you discuss the management of the patient with other professionals (professionals i.e. , PA, RIB CHOPPER, lab, RT, psych nurse, community mental health social worker, radiographer cardiac catheterization, teacher, juvenile detention officer, social work case manager)? Give summary @ -Discussed with hospitalist for admission Was smoking cessation discussed for >3mins.? @ -No Was critical care preformed (if so, how long)? @ -No Were there social determinants of health that impacted care today? How? (Homeles sness, low income, unemployed, alcoholism, drug addiction, transportation, low edu. Level, literacy, decrease access to med. care, half-way, rehab)? @ -No Was there de-escalation of care discussed even if they declined (Discuss DNR or withdrawal of care, Hospice)? DNR status @ -No What co-morbidities impacted this encounter? (DM, HTN, Smoking, COPD, CAD, Cancer, CVA, ARF, Chemo, Hep., AIDS, mental health diagnosis, sleep apnea, morbid obesity)? @ -None Was patient admitted / discharged? Hospital course, mention meds given and route, prescriptions, significant lab abnormalities, going to OR and other pertinent info. @ -63-year-old male with history of reported acute coronary syndrome presents to the ER for chest pain. Vital signs upon arrival are within acceptable limits. EKG shows no signs of ischemia or infarction. Patient well-appearing reports no symptoms currently at the bedside. Laboratory evaluation unremarkable. It is negative. Patient will be admitted to observation for c ardiac monitoring and cardiology consultation. Undiagnosed new problem with uncertain prognosis? @ -No Drug Therapy requiring intensive monitoring for toxicity (Heparin, Nitro, Insulin, Cardizem)? @ -No Were any procedures done? @ -No Diagnosis/symptom? Acute, or Chronic, or Acute on Chronic? Uncomplicated (without systemic symptoms) or Complicated (systemic symptoms)? @ -Chest pain Side effects of treatment? @ -No Exacerbation, Progression, or Severe Exacerbation? @ -No Poses a threat to life or bodily function? How? (Chest pain, USA, DE, pneumonia, PE, COPD, DKA, ARF, appy, cholecystitis, CVA, Diverticulitis, Homicidal, Suicidal, threat to staff... and all critical care pts) @ -yes - Lab Data Result diagrams: 11/30/23 23:12 11/30/23 23:12 Lab Results 11/30/23 11/30/23 11/30/23 Range/Units 23:12 23:12 23:12 WBC 8.2 (3.8-10.6) k/uL RBC 4.11 L (4.30-5.90) m/uL Hgb 11.4 L (13.0-17.5) gm/dL Hct 36.1 L (39.0-53.0) % MCV 87.8 (80.0-100.0) fL MCH 27.8 (25.0-35.0) pg MCHC 31.7 (31.0-37.0) g/dL RDW 13.6 (11.5-15.5) % Plt Count 212 (150-450) k/uL MPV 7.4 Neutrophils % 62 % Lymphocytes % 29 % Monocytes % 5 % Eosinophils % 2 % Basophils % 0 % Neutrophils # 5.1 (1.3-7.7) k/uL Lymphocytes # 2.4 (1.0-4.8) k/uL Monocytes # 0.4 (0-1.0) k/uL Eosinophils # 0.2 (0-0.7) k/uL Basophils # 0.0 (0-0.2) k/uL PT 11.4 (10.0-12.5) sec INR 1.1 (<1.2) APTT 23.5 (22.0-30.0) sec Sodium 137 (137-145) mmol/L Potassium 3.9 (3.5-5.1) mmol/L Chloride 104 (98-107) mmol/L Carbon Dioxide 24 (22-30) mmol/L Anion Gap 9 mmol/L BUN 20 (9-20) mg/dL Creatinine 0.78 (0.66-1.25) mg/dL Est GFR (CKD-EPI)AfAm >90 (>60 ml/min/1.73 sqM) Est GFR (CKD-EPI)NonAf >90 (>60 ml/min/1.73 sqM) Glucose 173 H (74-99) mg/dL Calcium 8.8 (8.4-10.2) mg/dL Magnesium 1.5 L (1.6-2.3) mg/dL Total Bilirubin 0.5 (0.2-1.3) mg/dL AST 21 (17-59) U/L ALT 19 (4-49) U/L Alkaline Phosphatase 79 (38-126) U/L Troponin I (0.000-0.034) ng/mL Total Protein 6.7 (6.3-8.2) g/dL Albumin 3.9 (3.5-5.0) g/dL 11/30/23 Range/Units 23:12 WBC (3.8-10.6) k/uL RBC (4.30-5.90) m/uL Hgb (13.0-17.5) gm/dL Hct (39.0-53.0) % MCV (80.0-100.0) fL MCH (25.0-35.0) pg MCHC (31.0-37.0) g/dL RDW (11.5-15.5) % Plt Count (150-450) k/uL MPV Neutrophils % % Lymphocytes % % Monocytes % % Eosinophils % % Basophils % % Neutrophils # (1.3-7.7) k/uL Lymphocytes # (1.0-4.8) k/uL Monocytes # (0-1.0) k/uL Eosinophils # (0-0.7) k/uL Basophils # (0-0.2) k/uL PT (10.0-12.5) sec INR (<1.2) APTT (22.0-30.0) sec Sodium (137-145) mmol/L Potassium (3.5-5.1) mmol/L Chloride (98-107) mmol/L Carbon Dioxide (22-30) mmol/L Anion Gap mmol/L BUN (9-20) mg/dL Creatinine (0.66-1.25) mg/dL Est GFR (CKD-EPI)AfAm (>60 ml/min/1.73 sqM) Est GFR (CKD-EPI)NonAf (>60 ml/min/1.73 sqM) Glucose (74-99) mg/dL Calcium (8.4-10.2) mg/dL Magnesium (1.6-2.3) mg/dL Total Bilirubin (0.2-1.3) mg/dL AST (17-59) U/L ALT (4-49) U/L Alkaline Phosphatase (38-126) U/L Troponin I <0.012 (0.000-0.034) ng/mL Total Protein (6.3-8.2) g/dL Albumin (3.5-5.0) g/dL Disposition Clinical Impression: Chest pain Disposition: ADMITTED IP TO THIS [facility] Condition: Fair Referrals: Sandy Fry [Primary Care Provider] - 1-2 days Decision Time: 00:43
[2023-11-30 23:25] LABS: Basophils % (A) 0 %; Eosinophils # (A) 0.2 k/uL (0-0.7); Eosinophils % (A) 2 %; HCT 36.1 % (39.0-53.0); HGB 11.4 gm/dL (13.0-17.5); Lymphocytes # (A) 2.4 k/uL (1.0-4.8); Lymphocytes % (A) 29 %; MCH 27.8 pg (25.0-35.0); MCHC 31.7 g/dL (31.0-37.0); MCV 87.8 fL (80.0-100.0); Mean Platelet Volume 7.4; Monocytes # (A) 0.4 k/uL (0-1.0); Monocytes % (A) 5 %; Neutrophils # (A) 5.1 k/uL (1.3-7.7); Neutrophils % (A) 62 %; Platelet Count 212 k/uL (150-450); RBC 4.11 m/uL (4.30-5.90); RDW 13.6 % (11.5-15.5); WBC 8.2 k/uL (3.8-10.6)
[2023-11-30 23:32] LABS: INR 1.1 (<1.2); Partial Thromboplastin Time 23.5 sec (22.0-30.0); Prothrombin Time 11.4 sec (10.0-12.5)
[2023-11-30 23:35] LABS: ALT 19 U/L (4-49); AST 21 U/L (17-59); African American GFR (CKD) >90 (>60 ml/min/1.73 sqM); Albumin 3.9 g/dL (3.5-5.0); Alkaline Phosphatase 79 U/L (38-126); Anion Gap 9 mmol/L; Blood Urea Nitrogen 20 mg/dL (9-20); Calcium 8.8 mg/dL (8.4-10.2); Carbon Dioxide 24 mmol/L (22-30); Chloride 104 mmol/L (98-107); Glucose 173 mg/dL (74-99); Magnesium 1.5 mg/dL (1.6-2.3); Non-African American GFR(CKD) >90 (>60 ml/min/1.73 sqM); Potassium 3.9 mmol/L (3.5-5.1); Sodium 137 mmol/L (137-145); Total Bilirubin 0.5 mg/dL (0.2-1.3); Total Protein 6.7 g/dL (6.3-8.2)
[2023-12-01] MEDS ORDERED: NITROGLYCERIN SL TABS 0.4 MG TAB SUBLINGUAL PRN (01:12)
[2023-12-01] MEDS: MAGNESIUM OXIDE 400 MG TAB PO STA (01:24)
[2023-12-01] MEDS: CLOPIDOGREL 75 MG TAB PO STA (01:24)
--- NOTE | 2023-12-01 03:10 | XR ---
EXAM: XR Chest, 2 Views CLINICAL HISTORY: ITS.REASON XR Reason: Chest Pain TECHNIQUE: Frontal and lateral views of the chest. COMPARISON: No relevant prior studies available. FINDINGS: Lungs: Unremarkable. No consolidation. Pleural space: Unremarkable. No pneumothorax. Heart: Prosthetic aortic valve. No cardiomegaly. Mediastinum: Unremarkable. Normal mediastinal contour. Bones/joints: Sternotomy wires. No acute fracture. Soft tissues: Appendage clip. IMPRESSION: No acute findings in the chest.
[2023-12-01] MEDS ORDERED: DOBUTamine DRIP for NUC MED 500 MG/250 ML BAG IV ONE (08:00)
[2023-12-01] MEDS: CLOPIDOGREL 75 MG TAB PO SCH (08:28)
[2023-12-01] MEDS ORDERED: ALBUTEROL NEBULIZED 2.5 MG/3 ML INHALATION PRN (09:41)
[2023-12-01] MEDS ORDERED: traZODone HCL 100 MG TAB PO PRN (09:41)
[2023-12-01] MEDS ORDERED: SENNOSIDES-DOCUSATE SODIUM 1 EACH TAB PO PRN (09:41)
[2023-12-01] MEDS ORDERED: DEXTROSE 50% SYRINGE 50 ML IVP PRN ×2 (09:43)
[2023-12-01] MEDS ORDERED: ACETAMINOPHEN TAB 325 MG TAB PO PRN (10:35)
[2023-12-01] MEDS ORDERED: DOBUTamine DRIP for NUC MED 500 MG in DEXTROSE/WATER 1 250ML.BAG IV PRN (10:58)
[2023-12-01 11:12] VITALS: RESP 16
--- NOTE | 2023-12-01 11:48 | P.CRDCN ---
History of Present Illness History of present illness: HISTORY OF PRESENT ILLNESS: This is a 63-year-old male with a past medical history significant for severe aortic stenosis status post aortic valve replacement, hypertension, hyperlipidemia, diabetes, and obesity. Patient follows in the office with Dr. Bates. We have been asked to see the patient in consultation for chest pain. Patient examined at the bedside in the emergency room. Patient states that he was bowling yesterday and felt in his normal state of health. He states in the afternoon once he got home he began to have chest pain. He states the pain is in the middle of his chest and felt like a tightness. He states the pain radiated into his arm and into his back as well. He states the pain lasted for approximately 15 minutes and then subsided. He reported feeling lightheaded as well during this time. He denied any diaphoresis. He is a non-smoker. DIAGNOSTICS: - EKG reveals sinus mechanism with no signs of acute ischemia. - Chest xray negative for acute findings. - Laboratory data: WBC 8.2. Hemoglobin 11.4. Platelet count 212. Sodium 137. Potassium 3.9. BUN 20. Creatinine 0.78. Magnesium 1.5. Troponin negative x 3 - Current home cardiac medication list is not updated at the time of examination - Most recent echocardiogram obtained in October 2023 revealing ejection fraction 55%, mild LVH, aortic valve prosthesis with normal function. - Cardiac catheterization history: December 2021 revealing minimal luminal irregularities with 10% proximal circumflex stenosis and otherwise normal coronary arteries. Normal left-sided filling pressures. REVIEW OF SYSTEMS: At the time of my exam: CONSTITUTIONAL: Denies fever or chills. HEENT: Denies blurred vision, vision changes, or eye pain. Denies hemoptysis CARDIOVASCULAR: Denies chest pain. Denies orthopnea. Denies PND. Denies palpitations RESPIRATORY: Denies shortness of breath. GASTROINTESTINAL: Denies abdominal pain. Denies nausea or vomiting. HEMATOLOGIC: Denies bleeding disorders. GENITOURINARY: Denies any blood in urine. SKIN: Denies pruitis. Denies rash. PHYSICAL EXAM: VITAL SIGNS: Reviewed. GENERAL: Well-developed in no acute distress. HEENT: Head is normocephalic. Pupils are equal, round. Sclerae anicteric. Mucous membranes of the mouth are moist. Neck supple. No JVD or thyromegaly LUNGS: Respirations even and unlabored. Lungs essentially clear to auscultation bilaterally. HEART: Regular rate and rhythm. S1 and S2 heard. ABDOMEN: Soft. Nondistended. Nontender. EXTREMITIES: Normal range of motion. No clubbing or cyanosis. Peripheral pulses intact. No lower extremity edema NEUROLOGIC: Awake and alert. Oriented x 3. ASSESSMENT: Chest pain Severe aortic stenosis, status post aortic valve replacement, October 2022 History of left atrial appendage clip, October 2022 History of paroxysmal atrial fibrillation after valve replacement Hypertension Hyperlipidemia Diabetes Morbid obesity: BMI 42.1. PLAN: An acute coronary event has been ruled out Resume home cardiac medications No need to repeat echocardiogram as this was performed in October 2023 Patient to undergo dobutamine stress test today If negative, he may be discharged home from a cardiac standpoint Further recommendations pending patient course Nurse practitioner note has been reviewed by physician. Signing provider agrees with the documented findings, assessment, and plan of care documented by [employer] as a scribe. Past Medical History Past Medical History: Asthma, Cancer, CVA/TIA, Diabetes Mellitus, GERD/Reflux, Hyperlipidemia, Hypertension, Osteoarthritis (OA) Additional Past Medical History / Comment(s): hx cva (2021)., hx seizure with low blood sugar., testicular cancer right 2006., numbness in left arm at times. tingling in feet., constipation/bloating., environmental allergies. Last Myocardial Infarction Date:: ?1985 when working at the [employer] History of Any Multi-Drug Resistant Organisms: None Reported Past Surgical History: Cardiac Valve Replacement, Heart Catheterization Additional Past Surgical History / Comment(s): TESTICULAR SURGERY ., COLONOSCOPY. Past Anesthesia/Blood Transfusion Reactions: No Reported Reaction Additional Past Anesthesia/Blood Transfusion Reaction / Comment(s): DIFFICULTY WAKING UP. MOTHER HAD DIFFICULTY WAKING UP ALSO. Past Psychological History: Anxiety, Bipolar, Depression Smoking Status: Never smoker Past Alcohol Use History: None Reported Past Drug Use History: None Reported - Past Family History Father Family Medical History: Cancer, Renal Disease Additional Family Medical History / Comment(s): mrsa Mother Family Medical History: Coronary Artery Disease (CAD), Hypertension, Myocardial Infarction ([place]), Osteoarthritis (OA) Additional Family Medical History / Comment(s): cardiac stents, smoker Medications and Allergies Home Medications Medication Instructions Recorded Confirmed Type Montelukast [Singulair] 10 mg PO HS@2100 07/15/22 06/21/24 History Tamsulosin [Flomax] 0.4 mg PO HS@209912/24/21 12/01/23 History Albuterol Inhaler [Ventolin Hfa 2 puff INHALATION RT-Q4H PRN 10/11/22 12/01/23 History Inhaler] Citalopram Hydrobromide [CeleXA] 30 mg PO DAILY@79910/28/22 12/01/23 History Insulin Detemir [Levemir Flexpen] 20 units SQ BID@799,199910/28/22 12/01/23 History Sennosides-Docusate Sodium 2 tab PO DAILY PRN 10/28/22 12/01/23 History [Senokot-S] metFORMIN HCL [Glucophage] 500 mg PO BID@799,199910/28/22 12/01/23 History Atorvastatin Calcium [Lipitor] 40 mg PO HS@209907/23/23 12/01/23 History Cholecalciferol (Vitamin D3) 1,250 mcg PO FR@79907/23/23 12/01/23 History [Vitamin D3 (1250 Mcg = 50,000 Iu)] Ibuprofen [Motrin Ib] 600 - 800 mg PO Q8H PRN 07/23/23 12/01/23 History Magnesium Oxide [Mag-Ox] 400 mg PO DAILY@79907/23/23 12/01/23 History Metoprolol Succinate [Metoprolol 25 mg PO BID@799,209907/23/23 12/01/23 History Succinate ER] Prazosin HCl [Minipress] 2 mg PO HS@209907/23/23 12/01/23 History Clopidogrel [Plavix] 75 mg PO DAILY@79912/01/23 12/01/23 History traZODone HCL [Desyrel] 100 mg PO HS PRN 12/01/23 12/01/23 History Allergies Allergy/AdvReac Type Severity Reaction Status Date / Time shellfish derived [Shellfish] Allergy Severe Anaphylaxis- Verified 12/01/23 08:24 tight chest, dyspnea aspirin Allergy Anaphylaxis- Verified 12/01/23 08:24 throat get tight cefaclor [From Ceclor] Allergy Rash/Hives Verified 12/01/23 08:24 Iodine and Iodide Containing Allergy Anaphylaxis Verified 12/01/23 08:24 Produc lactose Allergy Diarrhea Verified 12/01/23 08:24 sumatriptan [From Imitrex] Allergy Dyspnea Verified 12/01/23 08:24 sumatriptan succinate Allergy Dyspnea Verified 12/01/23 08:24 [From Imitrex] chocolate flavor AdvReac headache Verified 12/01/23 08:24 theophylline [From Lang-Dur] AdvReac hand Verified 12/01/23 08:24 tremors gatorade AdvReac Unknown sore throat Uncoded 12/01/23 08:24 Physical Exam Vitals: Vital Signs Temp Pulse Pulse Resp BP Pulse Ox 12/01/23 06:40 20 12/01/23 06:31 71 12/01/23 06:00 71 20 131/78 96 12/01/23 05:00 70 16 138/75 96 12/01/23 03:00 72 16 107/72 97 12/01/23 02:46 77 18 107/72 96 11/30/23 23:53 80 16 121/80 99 11/30/23 22:34 98.2 F 85 18 116/70 97 Intake and Output 11/30/23 12/01/23 12/01/23 22:59 06:59 14:59 Other: Weight 129.274 kg Results 11/30/23 23:12 11/30/23 23:12 Cardiac Enzymes 11/30/23 11/30/23 12/01/23 Range/Units 23:12 23:12 02:11 AST 21 (17-59) U/L Troponin I <0.012 <0.012 (0.000-0.034) ng/mL 12/01/23 Range/Units 05:10 AST (17-59) U/L Troponin I <0.012 (0.000-0.034) ng/mL Coagulation 11/30/23 Range/Units 23:12 PT 11.4 (10.0-12.5) sec APTT 23.5 (22.0-30.0) sec CBC 11/30/23 Range/Units 23:12 WBC 8.2 (3.8-10.6) k/uL RBC 4.11 L (4.30-5.90) m/uL Hgb 11.4 L (13.0-17.5) gm/dL Hct 36.1 L (39.0-53.0) % Plt Count 212 (150-450) k/uL Comprehensive Metabolic Panel 11/30/23 Range/Units 23:12 Sodium 137 (137-145) mmol/L Potassium 3.9 (3.5-5.1) mmol/L Chloride 104 (98-107) mmol/L Carbon Dioxide 24 (22-30) mmol/L BUN 20 (9-20) mg/dL Creatinine 0.78 (0.66-1.25) mg/dL Glucose 173 H (74-99) mg/dL Calcium 8.8 (8.4-10.2) mg/dL AST 21 (17-59) U/L ALT 19 (4-49) U/L Alkaline Phosphatase 79 (38-126) U/L Total Protein 6.7 (6.3-8.2) g/dL Albumin 3.9 (3.5-5.0) g/dL Current Medications Generic Name Dose Route Start Last Admin Trade Name Freq PRN Reason Stop Dose Admin Clopidogrel Bisulfate 75 mg 12/01/23 09:00 Clopidogrel 75 Mg Tab PO DAILY NAYA Nitroglycerin 0.4 mg 12/01/23 01:12 Nitroglycerin Sl Tabs 0.4 Mg Tab SUBLINGUAL Q5M PRN Chest Pain Intake and Output 11/30/23 12/01/23 12/01/23 22:59 06:59 14:59 Other: Weight 129.274 kg 11/30/23 23:12 11/30/23 23:12
--- NOTE | 2023-12-01 12:30 | P.HPIM ---
History of Present Illness H&P Date: 12/01/23 History of present illness; patient is a 63-year-old gentleman past medical history significant for insulin-dependent diabetes mellitus, hypertension, coronary artery disease who presented to ER because of chest pain. Patient stated he was all right last night when while bowling he started experiencing chest pain. Chest pain was pressure-like, central location, radiating to right shoulder. There was no aggravating or relieving factor associated with this chest pain. There was no complaint of shortness of breath at the time. Denied any nausea or vomiting. This chest pain was similar to his previous episodes of heart attack. Because of this patient became concerned decided to come to the ER. There is no complaint of orthopnea or PND. Denies any palpitations. Initial lab work done in the ER showed WBC 8.2, hemoglobin 11.4, platelet count 212, sodium 137, potassium 3.9, BUN 20, creatinine 0.78, glucose 173, magnesium 1.5 EKG done in the ER showed heart rate of 79 , no ST segment elevation or depression seen, no T-wave inversions seen. Chest x-ray done in the ER no acute cardiopulmonary process Patient admitted to internal medicine service REVIEW OF SYSTEMS: CONSTITUTIONAL: No fever, no malaise, no fatigue. HEENT: No recent visual problems or hearing problems. Denied any sore throat. CARDIOVASCULAR: As mentioned HPI PULMONARY: No shortness of breath, no cough, no hemoptysis. GASTROINTESTINAL: No diarrhea, no nausea, no vomiting, no abdominal pain. NEUROLOGICAL: No headaches, no weakness, no numbness. HEMATOLOGICAL: Denies any bleeding or petechiae. GENITOURINARY: Denies any burning micturition, frequency, or urgency. MUSCULOSKELETAL/RHEUMATOLOGICAL: Denies any joint pain, swelling, or any muscle pain. ENDOCRINE: Denies any polyuria or polydipsia. The rest of the 14-point review of systems is negative. PHYSICAL EXAMINATION: GENERAL: The patient is alert and oriented x3, not in any acute distress. Well developed, well nourished. HEENT: Pupils are round and equally reacting to light. EOMI. No scleral icterus. No conjunctival pallor. Normocephalic, atraumatic. No pharyngeal erythema. No thyromegaly. CARDIOVASCULAR: S1 and S2 present. No murmurs, rubs, or gallops. PULMONARY: Chest is clear to auscultation, no wheezing or crackles. ABDOMEN: Soft, nontender, nondistended, normoactive bowel sounds. No palpable organomegaly. MUSCULOSKELETAL: No joint swelling or deformity. EXTREMITIES: No cyanosis, clubbing, or pedal edema. NEUROLOGICAL: Gross neurological examination did not reveal any focal deficits. SKIN: No rashes. Assessment and plan Chest pain, rule out acute coronary syndrome Hypomagnesemia Monitor vital signs Monitor CBC Monitor CMP Continue telemetry monitoring Trend troponins. Monitor blood sugar levels, continue sliding scale insulin Resume home regimen of Levemir Continue Plavix Resume Toprol and Lipitor Cardiology consulted Labs and medication were reviewed.. Continue same treatment. Continue with symptomatic treatment. Resume home medication. Monitor labs and vitals. DVT and GI prophylaxis. Further recommendations as per clinical course of the patient Dictation was produced using [employer] dictation software. please excuse any grammatical, word or spelling errors. Past Medical History Past Medical History: Asthma, Cancer, CVA/TIA, Diabetes Mellitus, GERD/Reflux, Hyperlipidemia, Hypertension, Osteoarthritis (OA) Additional Past Medical History / Comment(s): hx cva (2021)., hx seizure with low blood sugar., testicular cancer right 2006., numbness in left arm at times. tingling in feet., constipation/bloating., environmental allergies. Last Myocardial Infarction Date:: ?1985 when working at the [employer] History of Any Multi-Drug Resistant Organisms: None Reported Past Surgical History: Cardiac Valve Replacement, Heart Catheterization Additional Past Surgical History / Comment(s): TESTICULAR SURGERY ., COLONOSCOPY. Past Anesthesia/Blood Transfusion Reactions: No Reported Reaction Additional Past Anesthesia/Blood Transfusion Reaction / Comment(s): DIFFICULTY WAKING UP. MOTHER HAD DIFFICULTY WAKING UP ALSO. Past Psychological History: Anxiety, Bipolar, Depression Smoking Status: Never smoker Past Alcohol Use History: None Reported Past Drug Use History: None Reported - Past Family History Father Family Medical History: Cancer, Renal Disease Additional Family Medical History / Comment(s): mrsa Mother Family Medical History: Coronary Artery Disease (CAD), Hypertension, Myocardial Infarction ([place]), Osteoarthritis (OA) Additional Family Medical History / Comment(s): cardiac stents, smoker Medications and Allergies Home Medications Medication Instructions Recorded Confirmed Type Montelukast [Singulair] 10 mg PO HS@2100 12/24/2111/30/24 History Tamsulosin [Flomax] 0.4 mg PO HS@209912/24/21 12/01/23 History Albuterol Inhaler [Ventolin Hfa 2 puff INHALATION RT-Q4H PRN 10/11/22 12/01/23 History Inhaler] Citalopram Hydrobromide [CeleXA] 30 mg PO DAILY@79910/28/22 12/01/23 History Insulin Detemir [Levemir Flexpen] 20 units SQ BID@799,199910/28/22 12/01/23 History Sennosides-Docusate Sodium 2 tab PO DAILY PRN 10/28/22 12/01/23 History [Senokot-S] metFORMIN HCL [Glucophage] 500 mg PO BID@799,199910/28/22 12/01/23 History Atorvastatin Calcium [Lipitor] 40 mg PO HS@209907/23/23 12/01/23 History Cholecalciferol (Vitamin D3) 1,250 mcg PO FR@79907/23/23 12/01/23 History [Vitamin D3 (1250 Mcg = 50,000 Iu)] Ibuprofen [Motrin Ib] 600 - 800 mg PO Q8H PRN 07/23/23 12/01/23 History Magnesium Oxide [Mag-Ox] 400 mg PO DAILY@79907/23/23 12/01/23 History Metoprolol Succinate [Metoprolol 25 mg PO BID@799,209907/23/23 12/01/23 History Succinate ER] Prazosin HCl [Minipress] 2 mg PO HS@209907/23/23 12/01/23 History Clopidogrel [Plavix] 75 mg PO DAILY@79912/01/23 12/01/23 History traZODone HCL [Desyrel] 100 mg PO HS PRN 12/01/23 12/01/23 History Allergies Allergy/AdvReac Type Severity Reaction Status Date / Time shellfish derived [Shellfish] Allergy Severe Anaphylaxis- Verified 12/01/23 08:24 tight chest, dyspnea aspirin Allergy Anaphylaxis- Verified 12/01/23 08:24 throat get tight cefaclor [From [facility]] Allergy Rash/Hives Verified 12/01/23 08:24 Iodine and Iodide Containing Allergy Anaphylaxis Verified 12/01/23 08:24 Produc lactose Allergy Diarrhea Verified 12/01/23 08:24 sumatriptan [From Imitrex] Allergy Dyspnea Verified 12/01/23 08:24 sumatriptan succinate Allergy Dyspnea Verified 12/01/23 08:24 [From Imitrex] chocolate flavor AdvReac headache Verified 12/01/23 08:24 theophylline [From [facility]] AdvReac hand Verified 12/01/23 08:24 tremors gatorade AdvReac Unknown sore throat Uncoded 12/01/23 08:24 Physical Exam Vitals: Vital Signs Temp Pulse Pulse Resp BP Pulse Ox 12/01/23 06:40 20 12/01/23 06:31 71 12/01/23 06:00 71 20 131/78 96 12/01/23 05:00 70 16 138/75 96 12/01/23 03:00 72 16 107/72 97 12/01/23 02:46 77 18 107/72 96 11/30/23 23:53 80 16 121/80 99 11/30/23 22:34 98.2 F 85 18 116/70 97 Intake and Output 11/30/23 12/01/23 12/01/23 22:59 06:59 14:59 Other: Weight 129.274 kg Results CBC & Chem 7: 11/30/23 23:12 11/30/23 23:12 Labs: Abnormal Lab Results - Last 24 Hours (Table) 11/30/23 11/30/23 Range/Units 23:12 23:12 RBC 4.11 L (4.30-5.90) m/uL Hgb 11.4 L (13.0-17.5) gm/dL Hct 36.1 L (39.0-53.0) % Glucose 173 H (74-99) mg/dL Magnesium 1.5 L (1.6-2.3) mg/dL
[2023-12-01 12:50] LABS: Glucose,Whole Blood 120 mg/dL (70-110)
[2023-12-01] MEDS: INSULIN ASPART (NovoLOG) 100 UNIT/ML VIAL SQ SCH (12:50)
--- NOTE | 2023-12-01 13:12 | CA ---
Dobutamine Stress Echocardiogram Report Rony Carr Age: 63 Gender: M : 1960 Exam Date: 12/01/2023 11:44 Exam Location: [facility] Ordering Physician: Kaylene Bianchi Referring Physician: [id number] Professor: Rosario Cifuentes RDCS Technologist: Ht (in): 69 Wt (lb): 285 Procedure CPT: Indication: CP ICD-9 Codes: Rhythm: Patient History: CHEST PAIN, GIANLUCA, PALPITATIONS, NUMBNESS IN FACE/NECK, HTN, DIABETIC, PRIOR CVA, HYPERCHOLESTEROLEMIA, FAMILY HX OF HEART DISEASE, PRIOR IA, ASTHMA, RHEUMATIC FEVER Cardiac Medications: Medications in past 24 hours: Contrast: Definity Total Dose (mL): Stress Results Protocol: Dobutamine Peak Dose (???g/kg/min): 40 Duration (min:sec): Atropine:(mg) None Target HR: 135 Double Product: 64445 Resting HR: 88 Resting BP: 115 / 79 Peak HR: 139 Peak BP: 149 / 79 Max Predicted HR: 159 87 % Max Predicted HR Stress Summary: BP Response: Reason for Termination: Target HR Cardiac Symptoms: CHEST PRESSURE ECG Analysis Resting EKG: Stress EKG: Arrhythmia: Echo Analysis Base Echo Analysis: Low Echo Anaylsis: Peak Echo Analysis: Recovery Echo: MEASUREMENTS (Male/Female) Normal Values CONCLUSIONS Normal electrocardiogram and echocardiogram in response to dobutamine Dr. Robert Multani MD (Electronically Signed) Final Date: 01 December 2023 13:11
[2023-12-01 15:53] VITALS: BP 122/77; PULSE 83; TEMP 98.6
[2023-12-01] MEDS ORDERED: INSULIN DETEMIR (LEVEMIR) 100 UNIT/ML SYR SQ SCH (20:00)
[2023-12-01] MEDS ORDERED: TAMSULOSIN 0.4 MG CAP.ER.24H PO SCH (21:00)
[2023-12-01] MEDS ORDERED: ATORVASTATIN 40 MG TAB PO SCH (21:00)
[2023-12-01] MEDS ORDERED: METOPROLOL SUCCINATE (ER) 25 MG TAB.ER.24H PO SCH (21:00)
[2023-12-01] MEDS ORDERED: MONTELUKAST 10 MG TAB PO SCH (21:00)
[2023-12-01] MEDS ORDERED: PRAZOSIN 1 MG CAP PO SCH (21:00)
[2023-12-02] MEDS ORDERED: CITALOPRAM HYDROBROMIDE 10 MG TAB PO SCH (08:00)
[2023-12-02] MEDS ORDERED: MAGNESIUM OXIDE 400 MG TAB PO SCH (08:00)
--- NOTE | 2023-12-02 10:38 | P.DS ---
Providers Date of admission: 12/01/23 01:12 Expected date of discharge: 12/01/23 Attending physician: Abiodun Baum Consults: 12/01/23 01:12 Consult Physician Urgent Consulting Provider: Morgan Bates Consult Reason/Comments: chest pain Do you want consulting provider notified?: Yes Primary care physician: [facility] Course: Discharge diagnoses; Chest pain Hypomagnesemia Severe aortic stenosis, status post aortic valve replacement, October 2022 History of left atrial appendage clip, October 2022 History of paroxysmal atrial fibrillation after valve replacement Hypertension Hyperlipidemia Diabetes Morbid obesity: BMI 42.1. Hospital course; patient is a 63-year-old gentleman past medical history significant for insulin-dependent diabetes mellitus, hypertension, coronary artery disease who presented to ER because of chest pain. Patient stated he was all right last night when while bowling he started experiencing chest pain. Chest pain was pressure-like, central location, radiating to right shoulder. There was no aggravating or relieving factor associated with this chest pain. There was no complaint of shortness of breath at the time. Denied any nausea or vomiting. This chest pain was similar to his previous episodes of heart attack. Because of this patient became concerned decided to come to the ER. There is no complaint of orthopnea or PND. Denies any palpitations. Initial lab work done in the ER showed WBC 8.2, hemoglobin 11.4, platelet count 212, sodium 137, potassium 3.9, BUN 20, creatinine 0.78, glucose 173, magnesium 1.5 EKG done in the ER showed heart rate of 79 , no ST segment elevation or depression seen, no T-wave inversions seen. Chest x-ray done in the ER no acute cardiopulmonary process Patient admitted to internal medicine service Patient was evaluated by cardiology, they ordered stress test. Stress test was negative for any ischemia. Cardiology cleared the patient for discharge PHYSICAL EXAMINATION: GENERAL: The patient is alert and oriented x3, not in any acute distress. Well developed, well nourished. HEENT: Pupils are round and equally reacting to light. EOMI. No scleral icterus. No conjunctival pallor. Normocephalic, atraumatic. No pharyngeal erythema. No thyromegaly. CARDIOVASCULAR: S1 and S2 present. No murmurs, rubs, or gallops. PULMONARY: Chest is clear to auscultation, no wheezing or crackles. ABDOMEN: Soft, nontender, nondistended, normoactive bowel sounds. No palpable organomegaly. MUSCULOSKELETAL: No joint swelling or deformity. EXTREMITIES: No cyanosis, clubbing, or pedal edema. NEUROLOGICAL: Gross neurological examination did not reveal any focal deficits. SKIN: No rashes. Dictation was produced using [employer] dictation software. please excuse any grammatical, word or spelling errors. Patient Condition at Discharge: Fair Plan - Discharge Summary New Discharge Prescriptions: Continue Tamsulosin [Flomax] 0.4 mg PO HS@2100 Montelukast [Singulair] 10 mg PO HS@2100 Albuterol Inhaler [Ventolin Hfa Inhaler] 2 puff INHALATION RT-Q4H PRN PRN Reason: Shortness Of Breath Citalopram Hydrobromide [CeleXA] 30 mg PO DAILY@0800 metFORMIN HCL [Glucophage] 500 mg PO BID@0800,1999 Atorvastatin Calcium [Lipitor] 40 mg PO HS@2100 Ibuprofen [Motrin Ib] 600 - 800 mg PO Q8H PRN PRN Reason: Pain Magnesium Oxide [Mag-Ox] 400 mg PO DAILY@0800 Prazosin HCl [Minipress] 2 mg PO HS@2100 Cholecalciferol (Vitamin D3) [Vitamin D3 (1250 Mcg = 50,000 Iu)] 1,250 mcg PO FR@0800 Clopidogrel [Plavix] 75 mg PO DAILY@0800 traZODone HCL [Desyrel] 100 mg PO HS PRN PRN Reason: Insomnia Insulin Detemir [Levemir Flexpen] 20 units SQ BID@0800,1999 Sennosides-Docusate Sodium [Senokot-S] 2 tab PO DAILY PRN PRN Reason: Constipation Metoprolol Succinate [Metoprolol Succinate ER] 25 mg PO BID@0800,2100 Discharge Medication List Montelukast [Singulair] 10 mg PO HS@209912/24/21 [History] Tamsulosin [Flomax] 0.4 mg PO HS@209912/24/21 [History] Albuterol Inhaler [Ventolin Hfa Inhaler] 2 puff INHALATION RT-Q4H PRN 10/11/22 [History] Citalopram Hydrobromide [CeleXA] 30 mg PO DAILY@0800 10/28/22 [History] Insulin Detemir [Levemir Flexpen] 20 units SQ BID@799,199910/28/22 [History] Sennosides-Docusate Sodium [Senokot-S] 2 tab PO DAILY PRN 10/28/22 [History] metFORMIN HCL [Glucophage] 500 mg PO BID@08,199910/28/22 [History] Atorvastatin Calcium [Lipitor] 40 mg PO HS@209907/23/23 [History] Cholecalciferol (Vitamin D3) [Vitamin D3 (1250 Mcg = 50,000 Iu)] 1,250 mcg PO FR@79907/23/23 [History] Ibuprofen [Motrin Ib] 600 - 800 mg PO Q8H PRN 07/23/23 [History] Magnesium Oxide [Mag-Ox] 400 mg PO DAILY@79907/23/23 [History] Metoprolol Succinate [Metoprolol Succinate ER] 25 mg PO BID@799,209907/23/23 [History] Prazosin HCl [Minipress] 2 mg PO HS@209907/23/23 [History] Clopidogrel [Plavix] 75 mg PO DAILY@0812/01/23 [History] traZODone HCL [Desyrel] 100 mg PO HS PRN 12/01/23 [History] Follow up Appointment(s)/Referral(s): Sandy Fry [Primary Care Provider] - 1-2 days Patient Instructions/Handouts: Chest Pain (DC) Discharge Disposition: HOME SELF-CARE
[2023-12-08] MEDS ORDERED: CHOLECALCIFEROL 125 MCG (5000 IU) TABLET PO SCH (08:00)
== END 2023-12-01 16:02 | disposition home or self-care (01) ==
LOC: EC 22:32 → 6NMEDSUR 12-01 01:12
PROVIDERS: ADMIT Hospitalist; ATTEND Hospitalist
DX: R07.89 Other chest pain (principal); E83.42 Hypomagnesemia; I25.10 Atherosclerotic heart disease of native coronary artery without angina pectoris; E11.9 Type 2 diabetes mellitus without complications; I10 Essential (primary) hypertension; E78.5 Hyperlipidemia, unspecified; I48.0 Paroxysmal atrial fibrillation; E66.01 Morbid (severe) obesity due to excess calories; Z68.41 Body mass index [BMI] 40.0-44.9, adult; I25.2 Old myocardial infarction; Z79.02 Long term (current) use of antithrombotics/antiplatelets; Z79.4 Long term (current) use of insulin; Z79.84 Long term (current) use of oral hypoglycemic drugs; Z79.899 Other long term (current) drug therapy; Z88.6 Allergy status to analgesic agent; Z88.1 Allergy status to other antibiotic agents; Z91.041 Radiographic dye allergy status; Z91.011 Allergy to milk products; Z91.013 Allergy to seafood; Z88.8 Allergy status to other drugs, medicaments and biological substances; Z91.018 Allergy to other foods; Y93.54 Activity, bowling; Z95.2 Presence of prosthetic heart valve
CPT/HCPCS: 99285; 36415; 93005 ×2; 80053; 83735; 84484 ×2; 85025; 85610; 85730; 71046; G0378; C8930; J1250; Q9957; 93351